=== PATIENT | male | born 1975 | race Caucasian/White ===

== ENCOUNTER 2020-06-22 19:14 | Inpatient (IN) | payer MEDICAID, SELFPAY ==
[2020-06-22] VITALS (12 sets, daily range): BP systolic 126–177; BP diastolic 84–122; PULSE 88–108; RESP 14–26; TEMP 35.9; O2SAT 92–98; BMI 34.0; BMI 31.4; BMI 31.5
--- NOTE | 2020-06-22 19:20 | RAD_ITS ---
STUDY: X-RAY CHEST REASON FOR EXAM: Male, 45 years old. stemi. hx of 5 CO and 22 stents TECHNIQUE: AP portable COMPARISON: None. FINDINGS: The lungs are clear and expanded. There is no demonstrated pleural abnormality. Normal size heart. Normal mediastinum and sarah. Normal visualized pulmonary arteries. Normal visualized aortic arch and descending thoracic aorta. Normal visualized thoracic spine. Normal visualized ribs, clavicles, and shoulders. There is no demonstrated abnormality of the visualized soft tissue structures of the upper abdomen. RAD/Chest 1 View (Portable) IMPRESSION: Normal x-ray examination of the chest. Electronically Signed: Gamal Cao MD at 19:46 EDT , Service support ,
[2020-06-22] MEDS: morphine 8 MG/ML Syringe IV (19:23)
[2020-06-22] MEDS: Ondansetron 4 MG/2 ML Vial IV (19:23)
--- NOTE | 2020-06-22 19:24 | EKG12_ITS ---
Test Reason : STEMI Blood Pressure : / mmHG Vent. Rate : 099 BPM Atrial Rate : 099 BPM P-R Int : 130 ms QRS Dur : 114 ms QT Int : 358 ms P-R-T Axes : 000 250 117 degrees QTc Int : 459 ms Sinus rhythm with occasional Premature ventricular complexes Right superior axis deviation Anteroseptal infarct , possibly acute Lateral injury pattern ACUTE PA / STEMI Abnormal ECG Confirmed by ANAY BOWLES, ROXANA ([id number]), acquisition editor DERREK OWEN ([id number]) on 06/28/2020 9:19:00 AM Referred By: Erlinda Pack Confirmed By:ROXANA CUEVA MD
--- NOTE | 2020-06-22 19:26 | ED.DCSUM_ITS ---
- ER Visit Summary Date of Service: 06/22/20 Chief Complaint: Midsternal chest pain History of Present Illness: The patient is a 45 M stents of past medical history of CAD, MIs x5, cardiac stents x22, hypertension high cholesterol. Patient's last heart cath was September 2019. Most of his cardiac care is been given at [facility] in [facility]. Patient states he had some chest pain last 3 days with more of a dull ache progressively worsening pain in the last 1 to 3 hours. Associated nausea and diaphoresis. Similar to his prior MIs. 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 Physical Examination: Middle-aged male screaming in pain initial blood pressure 177/122. Pulse ox 90% on 2 L. Patient is diaphoretic. H EENT exam unremarkable and dentition. Neck nontender no lymphadenopathy. Lungs clear to auscultation bilaterally. Heart regular rhythm rate of 90 no murmur appreciated. Chest wall nontender. Abdomen soft nontender normal bowel sounds no peritoneal signs. Extremities moves all 4. Equal symmetrical radial pulses. Palpable DP pulses. Calves are nontender without edema or cords. No mottling. Neurologically is awake alert with no focal motor deficits. Test Results: Prehospital EKG shows ST elevation in the anterior lateral leads consistent with anterior lateral MD. ER initial EKG shows sinus rhythm with ST elevation and QRS widening in V1, 2, 3, V4, V5. Artifact in V6. Also ST elevation in aVR and aVL. This is consistent with anterior lateral MD. Portable chest x-ray 1 view read by myself shows no acute process. Chronic changes. Normal aortic knob and mediastinum. Emergency Department Course and Treatment: STEMI protocol initiated prior to the patient even coming the emergency department off of the prehospital history and prehospital EKG. Patient be given baby aspirin here if not already done by squad. Discussed with nurse staff industrial will be given a 5000 bolus of IV heparin. Morphine for pain and Zofran for nausea. After being given morphine. He was also given a half a milligram of Dilaudid his pain is better controlled at this time. They have called the Business Planning Analyst is ready and he is being taken down to the cardiac catheterization lab. Patient was in the emergency department approximately 22 minutes and was taken to the Business Planning Analyst as soon as available. I also spoke with patient's daughter who is in the emergency department and states that she thinks he has been having pain longer than just today. She states is been holding his chest the last several days. But often he does not like to complain or tell her when he is having chest discomfort. Treatment Plan: STEMI has been called. Awaiting Business Planning Analyst to be assembled and patient be sent there. Disposition: Admission to the ICU. Hospitalist is in the emergency department also evaluating the patient. Impression: Acute anterolateral MD History of CAD, 5 MIs, 22 cardiac stents This note was generated with [employer] dictation software. It may contain incorrect words, spelling, and punctuation that were not noted in review of the chart prior to signing ED Disposition - Plan for ED Patient: Referrals: [facility] Doctor,Out of [Primary Care Provider] -
--- NOTE | 2020-06-22 19:26 | ED.RN ---
ASA 324MG PO GIVEN BY EMS. NO BRILLINTA PER DR. MARTINEZ. HEPARIN 5000, PAIN MEDS AND NAUSEA MEDS GIVEN BY ED.
[2020-06-22] MEDS: Heparin 10,000 UNITS/10 ML Vial 5000 UNITS IV (19:30)
[2020-06-22] MEDS: HYDROmorphone 0.5 MG/0.5 ML SYRINGE IV (19:33)
--- NOTE | 2020-06-22 19:40 | CM.ED ---
Social Work Responding to Stemi Alert. Patient daughter, Sofía present. Support provided. Assisted with escorting Sofía to [facility] waiting room. Sofía reports he is not going to make it. Sofía states that this would be patient's 5th heart attach and the doctor said he won't make the next one. Sofía calling patient mother, Shama Smalls and patient brother, Emanuel Mustafa. This socially responsible investment adviser inquiring about patient end of life wishes, Sofía states not sure, he doesn't tell me those things. Emotional support and active listening provided. Will continue to follow as needed. Jaycee MURRY, GILBERT
[2020-06-22 19:50] LABS: Absolute Lymphocyte Count 7.71 X10^3/uL (0.83-4.51); Absolute Neutrophil Count 9.9 X10^3/uL (2.0-7.7); Basophil# 0.12 X10^3/uL; Basophil% 0.6 % (0-1); Eosinophil# 0.35 X10^3/uL; Eosinophils% 1.7 % (0-5); Hematocrit 47.8 % (40-54); Hemoglobin 17.1 g/dL (13.0-16.5); Lymphocyte # 7.71 X10^3/ul (4.0); Lymphocyte % 38.4 % (19-41); Mean Corp Hgb Conc 35.8 g/dL (32-36); Mean Corpuscular Hgb 33.3 pg (27.0-32.0); Mean Platelet Vol. 11.5 fl (6.2-12.0); Monocyte# 1.95 X10^3/uL; Monocyte% 9.7 % (0-10); NRBC Flagged by Analyzer 0 % (0-5); Neutrophil # 9.86 X10^3/uL (2.7-7.7); Neutrophil % 49.1 % (47-70); POSITIVE DIFFERENTIAL YES; POSITIVE MORPHOLOGY YES; Platelet Count 240 K/mm3 (150-450); RBC Distribution Width CV 12.7 % (11.6-14.6); RBC Distribution Width SD 42.6 fl (35.1-43.9); Red Blood Count 5.14 M/mm3 (4.6-6.2); White Blood Count 20.1 K/mm3 (4.4-11.0)
[2020-06-22 19:57] LABS: Differential Indicated SCAN CRITERIA MET
[2020-06-22 20:10] LABS: Anion Gap 12 (5-15); BUN 15 mg/dL (7-18); BUN/Creat Ratio 8.4 RATIO (10-20); Calcium,Total 9.9 mg/dL (8.5-10.1); Chloride 109 mmol/L (98-107); Creatinine, Serum 1.78 mg/dL (0.70-1.30); EST Glomerular Filtration Rate 44 mL/min (>60); Est Glom Filt Rate - Afr Amer 53 mL/min (>60); Estimated Creatinine Clearance 57.52 ml/min; Glucose 153 mg/dL (74-106); Potassium 3.5 mmol/L (3.5-5.1); Sodium Level 142 mmol/L (136-145)
[2020-06-22 20:12] LABS: International Normalized Ratio 0.9; Prothrombin Time (Protime)PT. 12.1 SECONDS (11.7-14.9)
[2020-06-22 20:31] LABS: Partial Thromboplast Time 23.2 Seconds (24.1-36.2)
[2020-06-22 20:40] LABS: Atypical Lymphocyte 1+ %; Platelet Estimate ADEQUATE (ADEQ); Red Cell Morphology NORM C+C NORMAL (NORM C&C)
--- NOTE | 2020-06-22 21:39 | HP.PCM_ITS ---
Problem List (1) STEMI (ST elevation myocardial infarction) Status: Acute (2) Systolic heart failure Status: Acute History of Present Illness Date of Admission: 06/22/20 Chief Complaint: chest pain The patient is a 45 year old M with a significant history of MT x3 status post 21 stents who presents to the emergency department with excruciating left-sided and substernal chest pain that started few hours before presentation. His symptoms started after mowing. His chest pain radiated to his entire body. He denies any aggravating or ameliorating factors. He took 2 tablets of sublingual nitroglycerin that did not help him. He describes his chest pain as someone standing on his chest. Also on the day before presentation he had excruciating chest pain that radiated to his bilateral arms and his bilateral legs. He described numbness of all his extremities. At the emergency department STEMI alert was called. Past Medical History Allergies adhesive tape Adverse Reaction (Verified 06/22/20 19:18) Rash Home Medications: Ambulatory Orders Medication Instructions Recorded Aspirin [Aspirin, Baby] 81 mg PO DAILY@0800 06/22/20 Atorvastatin Calcium [Lipitor] 40 mg PO QHS 06/22/20 Cholecalciferol (Vitamin D3) 2,000 unit PO DAILY 06/22/20 [Vitamin D3] Clopidogrel Bisulfate [Plavix] 75 mg PO DAILY 06/22/20 Metoprolol Tartrate [Lopressor 25 mg PO DAILY 06/22/20 (Beta Nancy)] Surgical History: - - Multiple teeth pulled out. Tubes in his ears. Smoking Status: Current every day smoker Tobacco Use: Cigarettes - *Family History Maternal History Items: Diabetes, Hypertension Paternal History Items: Heart Disease, Pulmonary Disease Review of Systems Constitutional: Denies: Chills, Fever, Weight Change HEENT: Denies: Head Aches, Sinus Congestion, Sinus Drainage Cardiovascular: Reports: Chest Pain. Denies: Palpitations Respiratory: Reports: Shortness of Breath. Denies: Cough, Sputum production Gastrointestinal: Reports: Nausea, Vomiting. Denies: Abdominal Pain Genitourinary: Denies: Dysuria Musculoskeletal: Denies: Joint Pain, Joint Tenderness Skin: Denies: Rash, Wounds Neurological: Reports: Numbness. Denies: Focal weakness, Tingling Psychiatric: Denies: Anxiety, Depression, Homicidal Ideations, Suicidal Ideations Hematologic/ Lymphatic: Denies: Easy Bruising, Easy Bleeding VTE Information - Inpt Only VTE Present on Admission: No VTE Mechan Device Prophylaxis: None VTE Pharm Prophylaxis ordered?: Yes Patient Problems: Active and Suspected Problems STEMI (ST elevation myocardial infarction) (Acute) Systolic heart failure (Acute) - Physical Exam Vitals/I&O's: Vital Signs Temp Pulse Resp BP Pulse Ox 96.7 F L 103 H 24 H 128/84 H 97 06/22/20 19:34 06/22/20 19:34 06/22/20 19:34 06/22/20 19:34 06/22/20 19:34 Oxygen Flow Rate (L/min) 2 Oxygen Delivery Method Nasal Cannula Weight: 113.9 kg Body Mass Index (BMI) 34.0 General: Alert, Oriented x3, Cooperative, - - History was taken after [facility] [employer] [facility]. After [employer] [facility] patient only complains of soreness to his chest. At the initial presentation at the emergency department patient was noted to be screaming secondary to chest pain. HEENT: Atraumatic, PERRLA, EOMI, Normocephalic Neck: Supple, No JVD, Negative Carotid Bruits Lungs: Clear to auscultation, Normal air movement Cardiovascular: Regular rate, Regular Rhythm, Normal S1, Normal S2, No murmurs Abdomen: Bowel Sounds Present, Soft, Non Tender Extremities: No edema, Capillary Refill Less than 3 Seconds Skin: No rashes, No breakdown Musculoskeletal: No Tenderness to Palpation of Joints or Extremities Neurological: Cranial nerves II-XII grossly intact Psych/Mental Status: Normal Affect, Appropriate Laboratory Results 06/22/20 19:28: WBC 20.1 H, RBC 5.14, Hgb 17.1 H, Hct 47.8, MCV 93.0, MCH 33.3 H , MCHC 35.8, RDW Std Deviation 42.6, RDW Coeff of Jenna 12.7, Plt Count 240, MPV 11.5, Immature Gran % (Auto) 0.500, Neut % (Auto) 49.1, Lymph % (Auto) 38.4, Crosby % (Auto) 9.7, Eos % (Auto) 1.7, Baso % (Auto) 0.6, Absolute Neuts (auto) 9.9 H, Absolute Lymphs (auto) 7.71 H, Nucleated RBC % 0, Differential Comment , Diff Path Review May foll, Atypical Lymphocytes 1+, Platelet Estimate ADEQUATE, RBC Morphology NORM C+C 06/22/20 19:28: PT 12.1, INR 0.9, APTT 23.2 L 06/22/20 19:28: Sodium 142, Potassium 3.5, Chloride 109 H, Carbon Dioxide 21.0, Anion Gap 12, BUN 15, Creatinine 1.78 H, Estim Creat Clear Calc 57.52, Est GFR (MDRD) Af Amer 53 L, Est GFR (MDRD) Non-Af 44 L, BUN/Creatinine Ratio 8.4 L, Glucose 153 H, Calcium 9.9, Troponin I < 0.015 Current Medications Aspirin (Aspirin, Baby) 81 mg PO DAILY@0800 EMILY Atorvastatin Calcium (Lipitor) 40 mg PO QHS [facility] Heparin Sodium (Porcine) (Heparin Na) 0 unit IV UD PRN; Protocol PRN Reason: DOSAGE ADJUSTMENT NOMOGRAM Heparin Sodium/Dextrose () 25,000 units in 250 mls @ 16 mls/hr IV .[id number] EMILY; Protocol Last Admin: 06/22/20 19:37 Dose: Not Given Documented by: Non-Formulary Medication (Cholecalciferol (Vitamin D3) [Vitamin D3]) 2,000 unit PO DAILY [facility] Assessment/Plan All Active Problems STEMI (ST elevation myocardial infarction) (Acute) Systolic heart failure (Acute) The patient is a 45 year old M with a significant history of MT x3 status post 21 stents who presents emergency department with excruciating left-sided and substernal chest pain and found to have ST elevation MT. STEMI EKG was independently reviewed: Interpretation is ST elevation from V1 to V5. Status post cardiac catheterization with stents placement and thrombectomy Discussed the case with cardiology who stated that 2 stents was placed in patient's LAD and patient had a thrombectomy. His EF was about 20 to 25%. Cardiology will switch patient from Plavix to Effient. Continue aspirin daily. On Lipitor 40 mg daily. Discussion was made on escalating Lipitor 40 mg daily to 80 mg daily. However patient reports intolerance with 80 mg daily of statin. Reportedly Repatha was considered outpatient but his insurance did not allow. Check fasting lipids in a.m. Cardiology to switch Plavix to Effient. Aspirin daily Systolic heart failure Per conversation with melter helper, left ventriculogram EF was between 20 to 25%. Reportedly patient received about 300MLS of dye at the [facility] [employer] [facility]. Cardiology recommended Lasix 40 mg as needed can be ordered if patient is short of breath. Cardiology to start patient on lisinopril 2.5 mg p.o. daily. Metoprolol tartrate to be changed to metoprolol succinate. ROZ Creatinine was 1.7. Baseline creatinine not on file.. Likely secondary to systolic heart failure. We will hold off IV fluids and Lasix at this time especially as patient received dye at the [employer] [facility] [employer] [facility]. We will trend BMP. DVT prophylaxis Lovenox. Inpatient E&M: 97145 Init Hosp L3
--- NOTE | 2020-06-22 21:44 | CON.PCM_ITS ---
Problem List (1) STEMI (ST elevation myocardial infarction) Status: Acute Reason for Consult Date of Consultation: 06/22/20 Reason for Consultation: STEMI History of Present Illness: The patient is a 45 year old M [with past medical history of coronary artery disease status post UT and multiple stents in the past coming to [facility] because of chest pain. Patient had been having chest pain on and off for 3 days. This evening it became particularly intense and he called the ambulance. Patient was found to have ST elevation UT on the EKG done outside the hospital and it was transmitted to the emergency room. STEMI alert was called and patient was brought emergently to the cardiac Store Administrator. He was having 10 x 10 chest pain upon arrival to the cardiac Store Administrator. He was evaluated prior to coronary angiography. He then underwent coronary angiography which revealed 100% occlusion of the LAD due to in-stent thrombosis. This was treated with thrombectomy and drug-eluting stent placement. Patient is chest pain-free at the end of the procedure. He is being admitted to the ICU for further management of his ST elevation UT. Review of systems: All systems reviewed. All else is negative except that in HPI] Past Medical History Allergies/Adverse Reactions: Allergies adhesive tape Adverse Reaction (Verified 06/22/20 19:18) Rash Home Medications: Ambulatory Orders Medication Instructions Recorded Aspirin [Aspirin, Baby] 81 mg PO DAILY@0800 06/22/20 Atorvastatin Calcium [Lipitor] 40 mg PO QHS 06/22/20 Cholecalciferol (Vitamin D3) 2,000 unit PO DAILY 06/22/20 [Vitamin D3] Clopidogrel Bisulfate [Plavix] 75 mg PO DAILY 06/22/20 Metoprolol Tartrate [Lopressor 25 mg PO DAILY 06/22/20 (Beta Nancy)] Smoking Status: Current every day smoker Objective: Vital Signs Temp Pulse Resp BP Pulse Ox 96.7 F L 103 H 24 H 128/84 H 97 06/22/20 19:34 06/22/20 19:34 06/22/20 19:34 06/22/20 19:34 06/22/20 19:34 Oxygen Flow Rate (L/min) 2 Oxygen Delivery Method Nasal Cannula Weight: 251 lb 1.704 oz Body Mass Index (BMI) 34.0 General: Awake, Alert HEENT: Atraumatic Oral: Moist Mucosa Neck: Supple Cardiovascular: Normal S1, Normal S2 Abdomen: Soft Skin: No Rashes Psych/Mental Status: Appropriate 06/22/20 19:28: WBC 20.1 H, RBC 5.14, Hgb 17.1 H, Hct 47.8, MCV 93.0, MCH 33.3 H , MCHC 35.8, Plt Count 240, MPV 11.5, Immature Gran % (Auto) 0.500, Neut % (A uto) 49.1, Lymph % (Auto) 38.4, [place] % (Auto) 9.7, Eos % (Auto) 1.7, Baso % (Auto) 0.6, Absolute Neuts (auto) 9.9 H, Nucleated RBC % 0 06/22/20 19:28: PT 12.1, INR 0.9, APTT 23.2 L 06/22/20 19:28: Sodium 142, Potassium 3.5, Chloride 109 H, Carbon Dioxide 21.0, Anion Gap 12, BUN 15, Creatinine 1.78 H, Est GFR (MDRD) Af Amer 53 L, Est GFR (MDRD) Non-Af 44 L, BUN/Creatinine Ratio 8.4 L, Glucose 153 H, Calcium 9.9, Troponin I < 0.015 Rhythm: EKG: ECHO: Stress Test: Cardiac Cath: PCI: CT Surgery: Holter monitor: EPS: PPM: CXR: Chest CT Scan: Assessment/Plan 1. ST elevation UT: Patient was treated with thrombectomy and drug-eluting stent placement to the LAD. We will keep the patient on aspirin and statin. We will change his beta-nancy to Toprol-XL and add lisinopril. We will also switch from Plavix to Effient. Patient says he was on Brilinta in the past and had some kind of side effect. He is not sure what he had but thinks it could be fatigue. 2. LV dysfunction: Patient has severe LV dysfunction. We will keep him on Toprol-XL and lisinopril. He may need Lasix if he develops shortness of breath. 3. Tobacco abuse: Smoking cessation strongly emphasized. Patient states that he was on Chantix in the past and it worked as far as smoking cessation was concerned but he started having homicidal ideation and it had to be stopped. He tried Wellbutrin but it was not effective.
--- NOTE | 2020-06-22 21:45 | EKG12_ITS ---
Test Reason : AM EKG Blood Pressure : / mmHG Vent. Rate : 092 BPM Atrial Rate : 092 BPM P-R Int : 140 ms QRS Dur : 114 ms QT Int : 438 ms P-R-T Axes : 059 205 095 degrees QTc Int : 541 ms Sinus rhythm Anteroseptal infarct T wave abnormality, consider lateral ischemia Prolonged QT Confirmed by NEETU BOWLES, THOMAS ([id number]), associate entertainment editor DERREK OWEN ([id number]) on 06/29/2020 10:53:18 AM Referred By: Erlinda Pack Confirmed By:THOMAS DE ANDA MD
[2020-06-22 22:47] LABS: Hematocrit 49.6 % (40-54); Hemoglobin 16.9 g/dL (13.0-16.5); Mean Corp Hgb Conc 34.1 g/dL (32-36); Mean Corpuscular Hgb 32.3 pg (27.0-32.0); Mean Corpuscular Volume 94.7 fL (80-94); Mean Platelet Vol. 11.1 fl (6.2-12.0); Platelet Count 209 K/mm3 (150-450); RBC Distribution Width CV 12.6 % (11.6-14.6); RBC Distribution Width SD 43.6 fl (35.1-43.9); Red Blood Count 5.24 M/mm3 (4.6-6.2); White Blood Count 24.5 K/mm3 (4.4-11.0)
[2020-06-22] MEDS: Atorvastatin Calcium 40 MG Tablet PO (23:04)
[2020-06-23] VITALS (35 sets, daily range): BP systolic 97–145; BP diastolic 63–105; PULSE 80–110; RESP 10–29; TEMP 36.7–37.2; O2SAT 90–97
[2020-06-23] MEDS: Acetaminophen 500 MG Tablet 1000 MG PO (00:37)
[2020-06-23 04:33] LABS: Hemoglobin 15.6 g/dL (13.0-16.5); Mean Corp Hgb Conc 34.7 g/dL (32-36); Mean Corpuscular Hgb 32.4 pg (27.0-32.0); Mean Corpuscular Volume 93.4 fL (80-94); Mean Platelet Vol. 11.1 fl (6.2-12.0); Platelet Count 204 K/mm3 (150-450); RBC Distribution Width CV 12.8 % (11.6-14.6); RBC Distribution Width SD 43.5 fl (35.1-43.9); Red Blood Count 4.82 M/mm3 (4.6-6.2); White Blood Count 22.1 K/mm3 (4.4-11.0)
[2020-06-23] MEDS: Enoxaparin 40 MG/0.4 ML Syringe SC (04:49)
[2020-06-23 04:56] LABS: AST(SGOT) 332 U/L (15-37); Alanine Aminotransfer ALT/SGPT 69 U/L (16-61); Albumin, Serum 3.4 g/dL (3.2-5.0); Alkaline Phosphatase 90 U/L (45-117); Anion Gap 7 (5-15); BUN 12 mg/dL (7-18); BUN/Creat Ratio 9.2 RATIO (10-20); Calcium,Total 8.3 mg/dL (8.5-10.1); Chloride 105 mmol/L (98-107); Cholesterol 234 mg/dL (200); Creatinine, Serum 1.31 mg/dL (0.70-1.30); EST Glomerular Filtration Rate 63 mL/min (>60); Est Glom Filt Rate - Afr Amer 76 mL/min (>60); Estimated Creatinine Clearance 78.16 ml/min; Globulin 3.5 g/dL (2.2-4.2); Glucose 129 mg/dL (74-106); High Density Lipoprotein 27 mg/dL; Potassium 3.9 mmol/L (3.5-5.1); Protein, Total 6.9 g/dL (6.4-8.2); Sodium Level 137 mmol/L (136-145); Triglycerides 252 mg/dL; Very Low Density Lipoprotein 50 mg/dL (5-40)
[2020-06-23] MEDS: oxyCODONE 5 MG Tablet PO ×2 (07:03→15:41)
--- NOTE | 2020-06-23 08:41 | PCM.PROGNOTE ---
Patient Problems: Active and Suspected Problems STEMI (ST elevation myocardial infarction) (Acute) Systolic heart failure (Acute) Subjective: Chief complaint: Follow-up after admission for acute ST elevation MS and mild acute systolic CHF. Patient seen and examined. No acute events overnight. He is still complaining of chest pain, retrosternal chest pain, localized. He denies significant shortness of breath. EKG was done this morning and ST elevation on V2, V3, V4, V5 and V6 resolved, no other acute ischemic changes. He is afebrile, heart rate has been in the 80s, blood pressure stable, pulse ox is 91% on room air, he was on 4 L of oxygen. - Physical Exam Vitals/I&O's: Vital Signs Temp Pulse Resp BP Pulse Ox 98.6 F 96 22 H 126/91 H 91 06/23/20 04:00 06/23/20 06:00 06/23/20 06:00 06/23/20 06:00 06/23/20 07:30 Oxygen Flow Rate (L/min) 4 Oxygen Delivery Method Nasal Cannula Weight: 231 lb 14.821 oz Body Mass Index (BMI) 31.4 Intake and Output for Last 24 Hours 06/21/20 06/22/20 06/23/20 23:59 23:59 23:59 Intake Total 240 / 360 1090.7 / 1090.7 Output Total 925 / 925 Balance 240 / 360 165.7 / 165.7 General: Alert, Oriented x3, Cooperative, - - He is in moderate pain. HEENT: Atraumatic, PERRLA, EOMI, Normocephalic Oral: Moist Mucosa, No Gingival or Mucosal Lesions/ Ulcerations Neck: Supple, No JVD, Negative Carotid Bruits, Trachea Midline, Thyroid Normal Size and Texture Lungs: Clear to auscultation, No rhonchi, No wheeze, No rales, Diminished Cardiovascular: Regular rate, Regular Rhythm, Normal S1, Normal S2, PMI Normal Abdomen: Bowel Sounds Present, Soft, Non Tender, Non-Distended, No Hepato-splenomegaly Extremities: No clubbing, No cyanosis, No edema Skin: No rashes, No breakdown Lymphatic: No Cervical, Supraclavicular, or Inguinal Adenopathy Neurological: Cranial nerves II-XII grossly intact, Neuro grossly intact Psych/Mental Status: Normal Affect, Appropriate, Alert and oriented to time, place, person, mood and affect Laboratory Results 06/22/20 19:28: WBC 20.1 H, RBC 5.14, Hgb 17.1 H, Hct 47.8, MCV 93.0, MCH 33.3 H, MCHC 35.8, RDW Std Deviation 42.6, RDW Coeff of Jenna 12.7, Plt Count 240, MPV 11.5, Immature Gran % (Auto) 0.500, Neut % (Auto) 49.1, Lymph % (Auto) 38.4, [place] % (Auto) 9.7, Eos % (Auto) 1.7, Baso % (Auto) 0.6, Absolute Neuts (auto) 9.9 H, Absolute Lymphs (auto) 7.71 H, Nucleated RBC % 0, Differential Comment , Diff Path Review May foll, Atypical Lymphocytes 1+, Platelet Estimate ADEQUATE, RBC Morphology NORM C+C 06/22/20 19:28: PT 12.1, INR 0.9, APTT 23.2 L 06/22/20 19:28: Sodium 142, Potassium 3.5, Chloride 109 H, Carbon Dioxide 21.0, Anion Gap 12, BUN 15, Creatinine 1.78 H, Estim Creat Clear Calc 57.52, Est GFR (MDRD) Af Amer 53 L, Est GFR (MDRD) Non-Af 44 L, BUN/Creatinine Ratio 8.4 L, Glucose 153 H, Calcium 9.9, Troponin I < 0.015 06/22/20 22:40: WBC 24.5 H, RBC 5.24, Hgb 16.9 H, Hct 49.6, MCV 94.7 H, MCH 32.3 H, MCHC 34.1, RDW Std Deviation 43.6, RDW Coeff of Jenna 12.6, Plt Count 209, MPV 11.1 06/23/20 04:20: WBC 22.1 H, RBC 4.82, Hgb 15.6, Hct 45.0, MCV 93.4, MCH 32.4 H, MCHC 34.7, RDW Std Deviation 43.5, RDW Coeff of Jenna 12.8, Plt Count 204, MPV 11.1 06/23/20 04:20: Sodium 137, Potassium 3.9, Chloride 105, Carbon Dioxide 25.0, Anion Gap 7, BUN 12, Creatinine 1.31 H, Estim Creat Clear Calc 78.16, Est GFR (MDRD) Af Amer 76, Est GFR (MDRD) Non-Af 63, BUN/Creatinine Ratio 9.2 L, Glucose 129 H, Calcium 8.3 L, Total Bilirubin 0.70, AST 332 H, ALT 69 H, Alkaline Phosphatase 90, Total Protein 6.9, Albumin 3.4, Globulin 3.5, Albumin/Globulin Ratio 1.0, Triglycerides 252 H, Cholesterol 234 H, LDL Cholesterol 157 H, VLDL Cholesterol 50 H, HDL Cholesterol 27 L Current Medications Acetaminophen (Tylenol) 1,000 mg PO Q8H PRN PRN PRN Reason: pain 1-10 Last Admin: 06/23/20 00:37 Dose: 1,000 mg Documented by: Aspirin (Aspirin, Baby) 81 mg PO DAILY@0800 [facility] Atorvastatin Calcium (Lipitor) 40 mg PO QHS [facility] Last Admin: 06/22/20 23:04 Dose: 40 mg Documented by: Atropine Sulfate () 0.5 mg IV UD PRN PRN Reason: HR <50 bpm Cholecalciferol (Vitamin D (25mcg)) 2,000 unit PO DAILY [facility] Enoxaparin Sodium (Lovenox) 40 mg SC DAILY@0600 [facility] Last Admin: 06/23/20 04:49 Dose: 40 mg Documented by: Furosemide (Lasix) 40 mg IV X1 ONE Stop: 06/23/20 08:41 Eptifibatide (Integrilin) 75 mg in 100 mls @ 18.224 mls/hr CONT INF .Q5H30M [facility] Stop: 06/23/20 16:00 Last Admin: 06/23/20 05:40 Dose: 2 mcg/kg/min, 18.2 mls/hr Documented by: Labetalol HCl (Trandate) 5 mg IV X1 PRN PRN Reason: SBP > 160 when pulling sheath Stop: 06/24/20 21:36 Lisinopril (Zestril) 2.5 mg PO DAILY [facility] Metoprolol Succinate (Toprol Xl (Beta Nancy)) 25 mg PO DAILY [facility] Morphine Sulfate () 2 mg IV X1 ONE Stop: 06/23/20 08:41 Oxycodone HCl (Oxyir) 5 mg PO Q6H PRN PRN PRN Reason: Pain Score 4-10/10 Last Admin: 06/23/20 07:03 Dose: 5 mg Documented by: Prasugrel (Effient) 10 mg PO DAILY EMILY Sodium Chloride () 500 ml IV BOLUS PRN PRN Reason: VASO-VAGAL PROTOCOL Sodium Chloride () 10 - 40 ml IV UD PRN PRN Reason: SALINE FLUSH Medical Necessity - Tobacco Use Smoking Status: Current every day smoker Tobacco Use: Cigarettes Assessment/Plan All Active Problems STEMI (ST elevation myocardial infarction) (Acute) Systolic heart failure (Acute) This is a 45 years old male patient presented to the emergency room because of chest pain, found to have acute ST elevation MS, underwent emergent cardiac catheterization status post stents to LAD and thrombectomy and he also found to have mild acute systolic CHF. #[address] elevation MS: Status post cardiac catheterization, status post stents x2 to LAD, thrombectomy. He is on aspirin, statins, Effient, lisinopril, metoprolol IV Integrilin drip. He is still symptomatic having chest pain which seemed to be musculoskeletal. Repeat EKG this morning revealed resolution of the ST elevation on leads V2 to V6, no new acute ischemic changes. Vital signs are stable. He does have leukocytosis which is likely reactive. He has been afebrile. Chest x-ray showed no acute infiltrate. Cardiology on the case. Plan: We will give 1 dose of IV morphine x1, continue other treatments. #2 acute mild systolic CHF: Reportedly, ejection fraction was around 20 to 25%. Patient required oxygen of up to 4 L but at this time, is off oxygen and pulse ox is 91%. Chest x-ray reviewed. He is already on aspirin, statins, lisinopril and metoprolol. Plan: We will give 1 dose of IV Lasix. #3 CAD status post stents: Plan as above, continue treatment as above. #4 renal insufficiency: Unknown baseline creatinine. Admission creatinine is 1.78, improved down to 1.31 today. Plan to monitor. #5 hyperlipidemia: Continue statins. #6 DVT prophylaxis: Subcu Lovenox. This note was generated with [employer] software. It may contain incorrect words, spelling, and punctuation that were not noted in checking the note before signing. Inpatient E&M: 76646 Subs Hosp L2
--- NOTE | 2020-06-23 10:00 | EKG12_ITS ---
Test Reason : POST CATH Blood Pressure : / mmHG Vent. Rate : 095 BPM Atrial Rate : 095 BPM P-R Int : 152 ms QRS Dur : 146 ms QT Int : 384 ms P-R-T Axes : 063 263 047 degrees QTc Int : 482 ms Normal sinus rhythm with sinus arrhythmia Right bundle branch block Anteroseptal infarct , age undetermined Abnormal ECG When compared with ECG of 22-JUN-2020 19:28, MANUAL COMPARISON REQUIRED, DATA IS UNCONFIRMED Confirmed by NEETU BOWLES, THOMAS ([id number]), film or videotape editor DERREK OWEN ([id number]) on 06/29/2020 10:54:15 AM Referred By: Erlinda Pack Confirmed By:THOMAS DE ANDA MD
--- NOTE | 2020-06-23 10:23 | CRPHASE1_ITS ---
Patient Communication Former Patient:: Phase I PHII Cardiac Rehab Discussed with Patient:: Yes Guide to Cardiac Rehab Given to Patient:: Yes Cardiac Rehab Facility Choice List Given to Patient:: Yes Choice Program [facility] PHII:: Communication Given to CR Investment Counselor:: Erlinda Pack Phase II Cardiac Rehab:: Yes Sessions:: 36 sessions - 3 days/wk, 12 weeks Risk Factors/Lifestyle Smoking Status: Current every day smoker Second-Hand Smoke:: Yes Hx Hypertension: Yes Hx Diabetes Mellitus Type 1: No Hx Diabetes Mellitus Type 2: No Hx Metabolic Disorders: No Hx Dyslipidemia: Yes Hx Obesity: Yes Post-Menopausal: No Stress: Long-standing Risk Factor for Sedentary Lifestyle: Highest Risk Laboratory Values: Cardiac Rehab Phase I Labs Triglycerides 252 mg/dL (-199) H 06/23/20 04:20 Cholesterol 234 mg/dL (200) H 06/23/20 04:20 LDL Cholesterol 157 mg/dL (0-130) H 06/23/20 04:20 HDL Cholesterol 27 mg/dL (40-) L 06/23/20 04:20 Cardiac Rehabilitation Info Cardiac Rehabilitation Program Information: Cardiac Rehabilitation is important for patients like you who are recovering from a heart problem. Cardiac rehabilitation programs are recognized as integral to the continued care of the patient with coronary heart disease. The cardiac rehabilitation program is designed to optimize a patient's physical, psychological, and social functioning. Health personal care attendant work in cardiac rehabilitation programs and assist you with getting the treatments you need to get stronger and healthier - like exercise, healthy eating habits, and medications. Cardiac rehabilitation has been show to help people with heart problems live longer and have better life enjoyment than people who do not go to cardiac rehabilitation. Please contact the Cardiac Rehabilitation Program at [facility] at in two weeks if you have not heard from them.
[2020-06-23] MEDS: 0.9% Saline Lock 10 ML Syringe IV ×2 (10:24→21:52)
[2020-06-23] MEDS: Morphine 2 MG/ML Syringe IV (10:25)
[2020-06-23] MEDS: Furosemide 40 MG/4 ML Vial IV (10:25)
--- NOTE | 2020-06-23 10:25 | CRPH1.INST_ITS ---
General Education CAD and cardiac anatomy and function:: Patient communicates acknowledgment Explanation of diagnoses and procedures:: Patient communicates acknowledgment Sign/Symptoms of TN:: Patient communicates acknowledgment Antiplatelet therapy: Patient communicates acknowledgment Proper use of NTG-SL: Patient communicates acknowledgment Emergency procedures and activation of EMS: Patient communicates acknowledgment Compliance of all prescribed medications: Patient communicates acknowledgment Smoking Patient Nicotine/Smoking Risk Factors Are:: Cigarettes Recommendations Include:: Smoking cessation strategies/Smoking packet, Second- hand smoke recommendation, Participation in a smoking cessation program, Previous smoker; encourage continued cessation Nicotine/Smoking Response Code:: Patient communicates acknowledgment Dyslipidemia Patient Dyslipidemia Risk Factors Are:: Total Cholesterol, Triglycerides, HDL, LDL Recommendations Include:: Lipid profile provided, Reviewed NCEP/ATP guidelines, Therapeutic Lifestyle Change dietary guidelines Dyslipidemia Response Code:: Patient communicates acknowledgment Overweight/Obesity Patient Overweight/Obesity Risk Factors Are:: BMI Normal [18-25 & < 65 years old] Recommendations Include:: Weight loss of 5-10%, Reduced calorie diet, Exercise 5-7 times/week Overweight/Obesity:: Patient communicates acknowledgment Hypertension Recommendations Include:: BP <130/80 if diabetic, DASH dietary guidelines, Decrease/maintain normal body weight, Moderation of ETOH Hypertension:: Patient communicates acknowledgment Heart Disease Patient Heart Disease Risk Factors Are:: Previous cardiac event Recommendations Include:: Educated family members of their risk, Educated family members of importance of prevention of heart disease Heart Disease Response Code:: Patient communicates acknowledgment Sedentary Patient Sedentary Risk Factors Are:: Lack of regular exercise Recommendations Include:: Aerobic exercise 5-7 times/week for 20-30 minutes continuously, Benefits of regular exercise, Discussed home walking program, Monitored Outpatient Cardiac Rehab Stress Patient Stress Risk Factors Are:: Patient denies stress as a risk factor Recommendations Include:: Identification of stressors, and assessment of coping skills, Stress management techniques Stress Response Code:: Patient communicates acknowledgment
[2020-06-23] MEDS: Aspirin 81 MG TAB.CHEW PO (10:33)
[2020-06-23] MEDS: Lisinopril 2.5 MG Tablet PO (10:34)
[2020-06-23] MEDS: Metoprolol(XL)Succ 25 MG Tablet PO (10:34)
--- NOTE | 2020-06-23 10:55 | CASEMGMT ---
RN CM Face to Face with patient for initial transition planning/care coordination assessment. RN CM introduced self and role at [facility]. Patient lying in bed, alert and oriented. Patient willing to participate in assessment and is able to answer all questions appropriately. Care providers, pharmacy, and demographics verified. Patient wishes to discharge home, denies need for home health at this time. Patient states he has no further needs or concerns at this time. CM to follow for discharge planning needs that may arise. PCP: none, PCP list provided, SW consulted for information regarding [facility] Specialists: Juan Carlos freelance interpreter/translator [facility] [phone] Preferred Pharmacy: [facility] Insurance: self pay, SW to see regarding medicaid katja Prescription Benefit: none Living Will/HPOA: yes, daughter Sofía Mustafa LNOK: daughter Living Arrangements: Patient lives with daughter in single story home with no steps to enter. Patient states he is independent. Patient states he smoke 1 PPD. Transportation: self, daughter DME/HHC: Patient denies previous HHC or DME Disposition Plan: Patient to discharge home with family support and follow-up plans in place. Adriana COWANN, RN, CM
--- NOTE | 2020-06-23 11:27 | CASEMGMT ---
SW attempted to meet with patient regarding his self pay status. However, he was resting and about to fall asleep. SW offered to come back another time and he said that would be great. STEPH let RN know SW will talk with patient another time regarding self pay status. Adenike UHNT GLASSWARE MAKER
--- NOTE | 2020-06-23 17:09 | ECHOD_ITS ---
Version 2 Reason For Study: S/P OR Procedure This was a 2D Doppler, Color Flow transthoracic echocardiogram. Exam performed portable in ICU/CCU. Left Ventricle Mildly dilated left ventricle. The estimated ejection fraction is 30 %. Stage 1 diastolic dysfunction. Hypokinesis of the anterior wall, apex and lateral wall. Right Ventricle Normal RV size. Normal systolic function. Atria Normal left atrium. Normal right atrium. No doppler evidence for ASD. Mitral Valve There is no mitral valve stenosis. Trivial mitral valve insufficiency. Tricuspid Valve There is no tricuspid stenosis. No tricuspid valve insufficiency. Unable to estimate RV systolic pressure due to inadequate jet, pulmonary artery pressure probably normal. Aortic Valve Trisinus/trileaflet aortic valve. Aortic sclerosis, no stenosis. There is no aortic stenosis. No aortic valve insufficiency. Pulmonic Valve There is no pulmonic valvular stenosis. No pulmonic valve insufficiency. Great Vessels Normal aortic root. Pericardium/Pleural No pericardial effusion. MMode/2D Measurements & Calculations LVIDd: 5.7 cm IVSd: 1.4 cm Ao root diam: 2.9 cm LVIDs: 4.7 cm LVPWd: 1.3 cm RVDd: 3.4 cm FS: 18.6 % LAV(MOD-bp): 45.4 ml LA A4 area: 16.0 cm2 LA dimension(2D): 4.7 cm LAV(MOD-bp) Indexed: 20.2 ml/m2 LAV(MOD-sp2): 46.5 ml LAV(MOD-sp4): 43.0 ml RA A4 area: 14.1 cm2 Time Measurements MV dec time: 0.16 sec Doppler Measurements & Calculations MV E max donn: 58.4 cm/sec Lat Peak E' Donn: 5.7 cm/sec Med Peak E' Donn: 4.8 cm/sec MV A max donn: 62.9 cm/sec E/E' lat: 10.3 E/E' med: 12.1 MV E/A: 0.93 Ao V2 max: 113.9 cm/sec LV V1 max: 95.2 cm/sec PA V2 max: 90.7 cm/sec Ao max P.2 mmHg LV V1 max P.6 mmHg Ao V2 mean: 84.8 cm/sec LV V1 mean P.0 mmHg Ao mean P.1 mmHg LV V1 mean: 68.1 cm/sec Ao V2 VTI: 18.7 cm LV V1 VTI: 14.4 cm Interpretation Summary The estimated ejection fraction is 30 %. Stage 1 diastolic dysfunction. Hypokinesis of the anterior wall, apex and lateral wall Trivial mitral valve insufficiency. Aortic sclerosis, no stenosis. Ordering Physician: Erlinda Pack Referring Physician: TRISH PCP Performed By: Yolie Larry, SUNSHINE, RVT
[2020-06-23] MEDS: Atorvastatin Calcium 40 MG Tablet PO (21:51)
[2020-06-24] VITALS (25 sets, daily range): BP systolic 101–136; BP diastolic 47–91; PULSE 81–123; RESP 12–29; TEMP 37–38.3; O2SAT 90–96
[2020-06-24] MEDS: 0.9% Saline Lock 10 ML Syringe IV ×3 (00:28→20:02)
[2020-06-24 04:24] LABS: Hematocrit 47.2 % (40-54); Hemoglobin 16.8 g/dL (13.0-16.5); Mean Corp Hgb Conc 35.6 g/dL (32-36); Mean Corpuscular Volume 92.7 fL (80-94); Mean Platelet Vol. 11.3 fl (6.2-12.0); Platelet Count 191 K/mm3 (150-450); RBC Distribution Width CV 12.6 % (11.6-14.6); RBC Distribution Width SD 42.8 fl (35.1-43.9); Red Blood Count 5.09 M/mm3 (4.6-6.2); White Blood Count 17.5 K/mm3 (4.4-11.0)
[2020-06-24 04:34] LABS: Anion Gap 8 (5-15); BUN 12 mg/dL (7-18); BUN/Creat Ratio 9.6 RATIO (10-20); Calcium,Total 8.6 mg/dL (8.5-10.1); Chloride 101 mmol/L (98-107); Creatinine, Serum 1.25 mg/dL (0.70-1.30); EST Glomerular Filtration Rate 66 mL/min (>60); Est Glom Filt Rate - Afr Amer 80 mL/min (>60); Estimated Creatinine Clearance 81.91 ml/min; Glucose 106 mg/dL (74-106); Potassium 3.6 mmol/L (3.5-5.1); Sodium Level 135 mmol/L (136-145)
[2020-06-24] MEDS: Enoxaparin 40 MG/0.4 ML Syringe SC (05:52)
--- NOTE | 2020-06-24 09:38 | PN_ITS ---
Patient Problems: Active and Suspected Problems STEMI (ST elevation myocardial infarction) (Acute) Systolic heart failure (Acute) Subjective: Chief complaint: Follow-up after admission for acute ST elevation OH and mild acute systolic CHF. Patient seen and examined. No acute events overnight. Chest pain significantly improved, still having mild pain intermittently. No significant shortness of breath. Denied fever or chills. His vital signs are stable. - Physical Exam Vitals/I&O's: Vital Signs Temp Pulse Resp BP Pulse Ox 99.2 F H 111 H 21 H 114/84 H 93 06/24/20 00:00 06/24/20 09:00 06/24/20 09:00 06/24/20 09:00 06/24/20 09:00 Oxygen Flow Rate (L/min) 4 Oxygen Delivery Method Room Air Weight: 227 lb 11.8 oz Body Mass Index (BMI) 31.4 Intake and Output for Last 24 Hours 06/22/20 06/23/20 06/24/20 23:59 23:59 23:59 Intake Total 240 / 360 2438.06 / 2438.06 600 / 600 Output Total 3750 / 3750 1500 / 1500 Balance 240 / 360 -1311.94 / -1311.94 -900 / -900 General: Alert, Oriented x3, Cooperative, No apparent distress HEENT: Atraumatic, PERRLA, EOMI, Normocephalic Oral: Moist Mucosa, No Gingival or Mucosal Lesions/ Ulcerations Neck: Supple, No JVD, Negative Carotid Bruits, Trachea Midline, Thyroid Normal Size and Texture Lungs: Clear to auscultation, Normal air movement, No rhonchi, No wheeze, No rales, Diminished Cardiovascular: Regular rate, Regular Rhythm, Normal S1, Normal S2, PMI Normal Abdomen: Bowel Sounds Present, Soft, Non Tender, Non-Distended, No Hepato- splenomegaly Extremities: No clubbing, No cyanosis, No edema Skin: No rashes, No breakdown Lymphatic: No Cervical, Supraclavicular, or Inguinal Adenopathy Neurological: Cranial nerves II-XII grossly intact, Neuro grossly intact Psych/Mental Status: Normal Affect, Appropriate Laboratory Results 06/24/20 04:15: WBC 17.5 H, RBC 5.09, Hgb 16.8 H, Hct 47.2, MCV 92.7, MCH 33.0 H , MCHC 35.6, RDW Std Deviation 42.8, RDW Coeff of Jenna 12.6, Plt Count 191, MPV 11.3 06/24/20 04:15: Sodium 135 L, Potassium 3.6, Chloride 101, Carbon Dioxide 26.0, Anion Gap 8, BUN 12, Creatinine 1.25, Estim Creat Clear Calc 81.91, Est GFR (MDRD) Af Amer 80, Est GFR (MDRD) Non-Af 66, BUN/Creatinine Ratio 9.6 L, Glucose 106, Calcium 8.6 Current Medications Acetaminophen (Tylenol) 1,000 mg PO Q8H PRN PRN PRN Reason: pain 1-10 Last Admin: 06/23/20 00:37 Dose: 1,000 mg Documented by: Aspirin (Aspirin, Baby) 81 mg PO DAILY@0800 [facility] Last Admin: 06/23/20 10:33 Dose: 81 mg Documented by: Atorvastatin Calcium (Lipitor) 40 mg PO QHS [facility] Last Admin: 06/23/20 21:51 Dose: 40 mg Documented by: Atropine Sulfate () 0.5 mg IV UD PRN PRN Reason: HR <50 bpm Cholecalciferol (Vitamin D (25mcg)) 2,000 unit PO DAILY [facility] Last Admin: 06/23/20 10:34 Dose: 2,000 unit Documented by: Enoxaparin Sodium (Lovenox) 40 mg SC DAILY@0600 [facility] Last Admin: 06/24/20 05:52 Dose: 40 mg Documented by: Labetalol HCl (Trandate) 5 mg IV X1 PRN PRN Reason: SBP > 160 when pulling sheath Stop: 06/24/20 21:36 Lisinopril (Zestril) 2.5 mg PO DAILY [facility] Last Admin: 06/23/20 10:34 Dose: 2.5 mg Documented by: Metoprolol Succinate (Toprol Xl (Beta Nancy)) 25 mg PO DAILY [facility] Last Admin: 06/23/20 10:34 Dose: 25 mg Documented by: Oxycodone HCl (Oxyir) 5 mg PO Q6H PRN PRN PRN Reason: Pain Score 4-10/10 Last Admin: 06/23/20 15:41 Dose: 5 mg Documented by: Prasugrel (Effient) 10 mg PO DAILY [facility] Last Admin: 06/23/20 10:34 Dose: 10 mg Documented by: Sodium Chloride () 500 ml IV BOLUS PRN PRN Reason: VASO-VAGAL PROTOCOL Sodium Chloride () 10 - 40 ml IV UD PRN PRN Reason: SALINE FLUSH Last Admin: 06/24/20 00:28 Dose: 10 ml Documented by: Medical Necessity - Tobacco Use Smoking Status: Current every day smoker Tobacco Use: Cigarettes Assessment/Plan All Active Problems STEMI (ST elevation myocardial infarction) (Acute) Systolic heart failure (Acute) This is a 45 years old male patient presented to the emergency room because of chest pain, found to have acute ST elevation OH, underwent emergent cardiac catheterization status post stents to LAD and thrombectomy and he also found to have mild acute systolic CHF. #[address] elevation [place]: Status post cardiac catheterization, status post stents x2 to LAD, thrombectomy. Remained on aspirin, statins, Effient, lisinopril, metoprolol IV Integrilin drip. Chest pain has been improving. Vital signs are stable, afebrile, on room air. Chest x-ray showed no acute infiltrate. Cardiology on the case. Plan: Transfer to PCU. #2 acute mild systolic CHF: Reportedly, ejection fraction was around 20 to 25%. He received IV Lasix intermittently. He has been on room air. He is on aspirin, statins, lisinopril and metoprolol. Plan for 2D echocardiogram today. #3 CAD status post stents: Plan as above, continue treatment as above. #4 renal insufficiency: Unknown baseline creatinine. Admission creatinine is 1.78, improved down to 1.25 today. Plan to monitor. #5 hyperlipidemia: Continue statins. #6 DVT prophylaxis: Subcu Lovenox. This note was generated with vzaar dictation software. It may contain incorrect words, spelling, and punctuation that were not noted in checking the note before signing. Inpatient E&M: 19383 Subs Hosp L2
--- NOTE | 2020-06-24 10:00 | EKG12_ITS ---
Test Reason : CHEST PAIN Blood Pressure : / mmHG Vent. Rate : 094 BPM Atrial Rate : 094 BPM P-R Int : 144 ms QRS Dur : 110 ms QT Int : 340 ms P-R-T Axes : 074 252 084 degrees QTc Int : 425 ms Normal sinus rhythm Septal infarct , age undetermined Abnormal ECG When compared with ECG of 22-JUN-2020 23:16, MANUAL COMPARISON REQUIRED, DATA IS UNCONFIRMED Confirmed by MAY DUNN ([id number]), slot editor KATHY ANDINO ([id number]) on 07/05/2020 2:30:04 PM Referred By: Erlinda Pack Confirmed By:MAY DUNN
[2020-06-24] MEDS: Aspirin 81 MG TAB.CHEW PO (10:22)
[2020-06-24] MEDS: Lisinopril 2.5 MG Tablet PO (10:22)
[2020-06-24] MEDS: Metoprolol(XL)Succ 25 MG Tablet PO ×2 (10:22→15:39)
--- NOTE | 2020-06-24 11:55 | CL.D_ITS ---
Patient Name: SALENA MONTALVO Study Date: 06/22/2020 Performing: Rossy Pack MD Ht: 72 inches 183 cm : 1975 Wt: 251.7 lbs 114 kg Age: 45 Gender: male BSA: 2.35 PROCEDURE(S) PERFORMED HL25-UAH/COR/LV LO84-GEO, BEN AND/OR PTCA, ARTERY OR GRAFT, SINGLE VESSEL [id number], EACH ADD'L CORONARY ART, SAME MAJOR CLINICAL PROFILE AND INDICATIONS Indications: ACS <= 24 hrs Heart Failure: None Stress/Imaging Stress/Image Study Performed: No CAD Presentations: STEMI. Symptom onset Date/Time: 06/22/20 Time Not Available CONCLUSIONS RECOMMENDATIONS DESCRIPTION OF PROCEDURE The patient arrived to the procedure lab. The risks and benefits of the procedure as well as a full d escription of our services here and current unavailability of surgical backup were fully explained to the patient and/or their significant other prior to the catheterization. The Timeout was completed, verifying the correct patient and procedure. The patient's procedural site was prepped and draped in the usual fashion. Local anesthetic was given subcutaneously to right radial region with Lidocaine 2% . Using a modified Seldinger technique, arterial access was obtained via the right radial artery, a 6 Fr sheath was inserted. Left Coronary Artery selective angiography was performed in multiple views u sing a 6 Fr. XB 3.0 guide catheter. Left Ventriculography was performed in SANTOS projection using a 5 F r. JR4. LV to AO pullback pressures were then recorded. Right Coronary Artery selective angiography w as then performed in multiple views using a 5 Fr. JR 4 catheter.The arterial sheath was pulled and a TR Band was applied for hemostasis CORONARY ANGIOGRAPHY DOMINANCE: Right Dominant LEFT HEART ASSESSMENT Left Ventricular Ejection Fraction: by LV Gram 20-25%. Base of the LV is lukasz well. Rest of th e LV is severely hypokinetic. LEFT ANTERIOR DESCENDING ARTERY: PROX LAD: is occluded. Instent thrombosis. 95% stenosis in the D1 which has a proximal stent. The marlene gin of this vessel was distal to the occlusion in the LAD. After thrombectomy to the LAD there was TI IA 3 flow in the D1 and the stent was patent. CIRCUMFLEX ARTERY: PROX CIRC: 30 % Stenosis. Patent OM1 stent RIGHT CORONARY ARTERY: MID RCA: 40 % Stenosis, Previously placed stent is patent VALVE FINDINGS: No Aortic Valve Stenosis No Mitral Insufficency COMPLICATIONS No Complications PROCEDURE MEDICATIONS Fentanyl 50 mcg IV Versed 1 mg IV Oxygen: 2 L/min via nasal cannula Heparin given IA 06/22/2020 19:59:08 Verapamil 2.5mg, Ntg 100mcgs, 3000 units of Heparin given IA 06/22/2020 19:59:08 IV Bolus: .9 NaCl 700 ml total 06/22/2020 21:44:38 SUMMARY OF HEMODYNAMIC DATA Time AIR REST ECG 19:42:38 AO 148/115 (131) SA 19:59:32 LV 138/8, 30 21:15:09 LV 139/8, 33 21:15:15 LV 140/11, 31 21:16:07 LV 134/9, 28 21:16:13 LVp 133/4, 30 21:16:21 AOp 128/87 (105) 21:16:26 Signed By Rossy Pack MD On 06/24/2020 11:54:21 AM Rossy Pack MD
[2020-06-24 12:08] LABS: Pathologist Review Reviewed
[2020-06-24] MEDS: Furosemide 40 MG Tablet PO (13:12)
--- NOTE | 2020-06-24 13:45 | CASEMGMT ---
Addendum entered by Adenike Mercer 06/24/20 15:31: SW was able to give patient the packet on applying for disability and what he will need. Adenike MURRY Original Note: SW met with patient, introduced self and role at [facility]. SW went over resources with patient. He wanted to complete a Medicaid application. SW told him if he completes the application SW can fax it to [employer]. SW told him if he has questions he can ask for SW. SW also asked him about his medications if he is able to afford any amount. He said right now he is not since he is not going to be able to work. SW explained [facility] has a program where we can assist with medications once a year. He was appreciative of this. He also asked about applying for disability. SW told him it would be worth a try. SW will give him a packet to help with how to apply for disability. Patient was going to sleep when SW left the room so SW will give him the packet in a little bit. Adenike MURRY
--- NOTE | 2020-06-24 14:37 | PN.CARD_ITS ---
Subjectve: Patient is doing well today. Objective: Vital Signs Temp Pulse Resp BP Pulse Ox 98.6 F 100 20 H 107/59 L 96 06/24/20 12:45 06/24/20 13:06 06/24/20 12:45 06/24/20 12:45 06/24/20 12:45 Oxygen Flow Rate (L/min) 4 Oxygen Delivery Method Room Air Weight: 227 lb 11.8 oz Body Mass Index (BMI) 31.4 Intake and Output for Last 24 Hours 06/22/20 06/23/20 06/24/20 23:59 23:59 23:59 Intake Total 240 / 360 2438.06 / 2438.06 1200 / 1200 Output Total 3750 / 3750 1500 / 1500 Balance 240 / 360 -1311.94 / -1311.94 -300 / -300 General: Awake, Alert, Oriented x 3 HEENT: Atraumatic Oral: Moist Mucosa Neck: Supple Lungs: Clear to auscultation Cardiovascular: Normal S1, Normal S2 Abdomen: Soft Extremities: No edema Skin: No Rashes Psych/Mental Status: Appropriate 06/24/20 04:15: WBC 17.5 H, RBC 5.09, Hgb 16.8 H, Hct 47.2, MCV 92.7, MCH 33.0 H , MCHC 35.6, Plt Count 191, MPV 11.3 06/24/20 04:15: Sodium 135 L, Potassium 3.6, Chloride 101, Carbon Dioxide 26.0, Anion Gap 8, BUN 12, Creatinine 1.25, Est GFR (MDRD) Af Amer 80, Est GFR (MDRD) Non-Af 66, BUN/Creatinine Ratio 9.6 L, Glucose 106, Calcium 8.6 Rhythm: EKG: ECHO: Stress Test: Cardiac Cath: PCI: CT Surgery: Holter monitor: EPS: PPM: CXR: Chest CT Scan: Medical Necessity - Tobacco Use Smoking Status: Current every day smoker Tobacco Use: Cigarettes Assessment/Plan 1. ST elevation [place]: Patient was treated with thrombectomy and drug-eluting stent placement to the LAD. We will keep the patient on aspirin and statin. We will change his beta-alex to Toprol-XL and add lisinopril. We will also switch from Plavix to Effient. Patient says he was on Brilinta in the past and had some kind of side effect. He is not sure what he had but thinks it could be fatigue. We will increase the Toprol-XL and change the Lasix to as needed. 2. LV dysfunction: Patient has severe LV dysfunction. We will keep him on Toprol-XL and lisinopril. Patient required Lasix. He is now euvolemic. We can switch the Lasix to as needed and increase the Toprol-XL. 3. Tobacco abuse: Smoking cessation strongly emphasized. Patient states that he was on Chantix in the past and it worked as far as smoking cessation was concerned but he started having homicidal ideation and it had to be stopped. He tried Wellbutrin but it was not effective.
--- NOTE | 2020-06-24 17:04 | NURSING ---
This RN taking over care of pt at this time. Report received from DAWN Velásquez.
--- NOTE | 2020-06-24 20:13 | RAD_ITS ---
STUDY: X-RAY CHEST REASON FOR EXAM: Male, 45 years old. Recent fever and shortness of breath. TECHNIQUE: 1 view COMPARISON: Prior chest exam of 06/22/2020 FINDINGS: The lungs are clear and expanded. There is no demonstrated pleural abnormality. Normal size heart. Normal mediastinum and sarah. Normal visualized pulmonary arteries. Normal visualized aortic arch and descending thoracic aorta. Normal visualized thoracic spine. Normal visualized ribs, clavicles, and shoulders. There is no demonstrated abnormality of the visualized soft tissue structures of the upper abdomen. RAD/Chest 1 View (Portable) IMPRESSION: Normal x-ray examination of the chest. Electronically Signed: Laura Montgomery MD at 20:48 EDT , Service support ,
[2020-06-24] MEDS: Acetaminophen 500 MG Tablet 1000 MG PO (20:27)
[2020-06-24] MEDS: Atorvastatin Calcium 40 MG Tablet PO (20:30)
[2020-06-24 21:40] LABS: Absolute Lymphocyte Count 3.17 X10^3/uL (0.83-4.51); Absolute Neutrophil Count 15.4 X10^3/uL (2.0-7.7); Basophil# 0.07 X10^3/uL; Basophil% 0.3 % (0-1); Eosinophil# 0.04 X10^3/uL; Eosinophils% 0.2 % (0-5); Hemoglobin 17.4 g/dL (13.0-16.5); Lymphocyte # 3.17 X10^3/ul (4.0); Lymphocyte % 14.6 % (19-41); Mean Corp Hgb Conc 35.5 g/dL (32-36); Mean Corpuscular Hgb 32.7 pg (27.0-32.0); Mean Corpuscular Volume 92.1 fL (80-94); Monocyte# 2.87 X10^3/uL; Monocyte% 13.2 % (0-10); NRBC Flagged by Analyzer 0 % (0-5); Neutrophil # 15.43 X10^3/uL (2.7-7.7); Neutrophil % 71.1 % (47-70); POSITIVE DIFFERENTIAL YES; Platelet Count 218 K/mm3 (150-450); RBC Distribution Width CV 12.4 % (11.6-14.6); RBC Distribution Width SD 41.3 fl (35.1-43.9); Red Blood Count 5.32 M/mm3 (4.6-6.2); White Blood Count 21.7 K/mm3 (4.4-11.0)
--- NOTE | 2020-06-24 21:48 | PCM.PN.BLA ---
Progress Note Notified of temperature of 100.9. Also heart rate of more than 90. Chest x-ray ordered. Urinalysis and urine culture ordered. Get lactic acid Get CBC Get a COVID TEST put on enhanced droplet precautions Patient was examined at the bedside. Patient reports chills. He denies any other symptoms. Alert and Oriented x3 Chest was clear to auscultate Lungs clear. Extremities without edema; clubbing or cyanosis. SIRS Chest x-ray was unremarkable. No clear source of infection at this time. STROKE Vital Signs/Narrative: Vital Signs Temp Pulse Resp BP Pulse Ox 06/24/20 19:53 100.9 F H 97 16 117/47 L 93 06/24/20 19:04 99
[2020-06-24 22:06] LABS: Mucous, Urine 0 SEEN /hpf (<or=2+); Red Blood Cells-Urine 0 SEEN /hpf (0-5); Squamous Epithelial Cells - UA 0 SEEN /hpf (0-5); White Blood Cells 0 SEEN /hpf (0-5)
[2020-06-24 22:07] LABS: Lactic Acid 0.8 mmol/L (0.4-1.9)
[2020-06-24 22:13] LABS: Color, Urine Yellow (Yellow); Glucose, Dipstick Normal (Normal); Ketone-Dipstick Negative (Negative); Leukocyte Esterase-Dipstick Negative /ul (Negative); Nitrite-Dipstick Negative (Negative); Occult Blood-Urine 10 /ul (Negative); Protein-Dipstick Negative (Negative); Specific Gravity, Urine 1.005 (1.002-1.030); Urine Bilirubin Dipstick Negative (Negative); Urine Clarity Clear (Clear); Urine Urobilinogen Normal (Normal)
[2020-06-24 22:14] LABS: Probe Check PASS; Specimen Processing Control PASS
[2020-06-24 22:37] LABS: Bacteria RARE /hpf (None Seen)
[2020-06-24 22:44] LABS: Differential Indicated SCAN CRITERIA MET
[2020-06-24 22:45] LABS: Anisocytosis RARE; Macrocytosis RARE; Platelet Estimate ADEQUATE (ADEQ); Red Cell Morphology N CHROM NORMAL (NORM C&C)
[2020-06-25] VITALS (13 sets, daily range): BP systolic 104–128; BP diastolic 59–74; PULSE 75–89; RESP 16–18; TEMP 36.9–37.7; O2SAT 92–96
[2020-06-25] MEDS: Enoxaparin 40 MG/0.4 ML Syringe SC (05:41)
[2020-06-25] MEDS: Aspirin 81 MG TAB.CHEW PO (08:03)
[2020-06-25] MEDS: Lisinopril 2.5 MG Tablet PO (08:04)
[2020-06-25] MEDS: Metoprolol(XL)Succ 50 MG Tablet PO (08:05)
[2020-06-25] MEDS: 0.9% Saline Lock 10 ML Syringe IV (08:06)
--- NOTE | 2020-06-25 09:25 | PCM.PROGNOTE ---
Patient Problems: Active and Suspected Problems STEMI (ST elevation myocardial infarction) (Acute) Systolic heart failure (Acute) Subjective: Chief complaint: Follow-up after admission for acute ST elevation [place] and mild acute systolic CHF. Patient seen and examined. No acute events overnight. Last night, the fever of up to 100.9 Fahrenheit and he reports some chills with it. This morning, he mentioned that chest pain is getting better but still there, dull aching pain, mild. Denied shortness of breath, palpitation, dizziness or lightheadedness. He denied cough or sputum production. He denied sore throat, nasal congestion. He denied urinary symptoms. He denied abdominal pain, nausea, vomiting, diarrhea. He denied skin rash, open wounds or drainage. This morning, his temperature was 99.4 Fahrenheit, other vital signs were stable. - Physical Exam Vitals/I&O's: Vital Signs Temp Pulse Resp BP Pulse Ox 99.4 F H 84 18 104/69 92 06/25/20 05:39 06/25/20 08:05 06/25/20 05:39 06/25/20 08:05 06/25/20 07:53 Oxygen Flow Rate (L/min) 4 Oxygen Delivery Method Room Air Weight: 225 lb 2 oz Body Mass Index (BMI) 31.4 Intake and Output for Last 24 Hours 06/23/20 06/24/20 06/25/20 23:59 23:59 23:59 Intake Total 2438.06 / 2438.06 2520 / 2520 640 / 640 Output Total 3750 / 3750 1500 / 1500 600 / 600 Balance -1311.94 / -1311.94 1020 / 1020 40 / 40 General: Alert, Oriented x3, Cooperative, No apparent distress HEENT: Atraumatic, PERRLA, EOMI, Normocephalic Oral: Moist Mucosa, No Gingival or Mucosal Lesions/ Ulcerations Neck: Supple, No JVD, Negative Carotid Bruits, Trachea Midline, Thyroid Normal Size and Texture Lungs: Clear to auscultation, Normal air movement, No rhonchi, No wheeze, No rales, Diminished Cardiovascular: Regular rate, Regular Rhythm, Normal S1, Normal S2, PMI Normal Abdomen: Bowel Sounds Present, Soft, Non Tender, Non-Distended, No Hepato-splenomegaly Extremities: No clubbing, No cyanosis, No edema Skin: No rashes, No breakdown Lymphatic: No Cervical, Supraclavicular, or Inguinal Adenopathy Neurological: Cranial nerves II-XII grossly intact, Neuro grossly intact Psych/Mental Status: Normal Affect, Appropriate, Alert and oriented to time, place, person, mood and affect Laboratory Results 06/22/20 19:28: Diff Path Review Reviewed 06/24/20 20:30: COVID-19 ([facility]) Negative 06/24/20 21:15: WBC 21.7 H, RBC 5.32, Hgb 17.4 H, Hct 49.0, MCV 92.1, MCH 32.7 H, MCHC 35.5, RDW Std Deviation 41.3, RDW Coeff of Jenna 12.4, Plt Count 218, MPV 11.0, Immature Gran % (Auto) 0.600, Neut % (Auto) 71.1 H, Lymph % (Auto) 14.6 L, [place] % (Auto) 13.2 H, Eos % (Auto) 0.2, Baso % (Auto) 0.3, Absolute Neuts (auto) 15.4 H, Absolute Lymphs (auto) 3.17, Nucleated RBC % 0, Differential Comment SEE COMMENT, Diff Path Review May foll, Platelet Estimate ADEQUATE, RBC Morphology N CHROM, Anisocytosis RARE, Macrocytosis RARE 06/24/20 21:20: Lactic Acid 0.8 06/24/20 21:50: Urine Color Yellow, Urine Clarity Clear, Urine pH 7.0, Ur Specific [place] 1.005, Urine Protein Negative, Urine Glucose (UA) Normal, Urine Ketones Negative, Urine Occult Blood 10 H, Urine Nitrite Negative, Urine Bilirubin Negative, Urine Urobilinogen Normal, Ur Leukocyte Esterase Negative, Urine RBC 0 SEEN, Urine WBC 0 SEEN, Ur Squamous Epith Cells 0 SEEN, Urine Bacteria RARE, Urine Mucus 0 SEEN Current Medications Acetaminophen (Tylenol) 1,000 mg PO Q8H PRN PRN PRN Reason: Fever > 100.4F; pain 1-10 Last Admin: 06/24/20 20:27 Dose: 1,000 mg Documented by: Aspirin (Ecotrin) 325 mg PO Q6H EMILY Atorvastatin Calcium (Lipitor) 40 mg PO QHS EMILY Last Admin: 06/24/20 20:30 Dose: 40 mg Documented by: Atropine Sulfate () 0.5 mg IV UD PRN PRN Reason: HR <50 bpm Cholecalciferol (Vitamin D (25mcg)) 2,000 unit PO DAILY [facility] Last Admin: 06/25/20 08:04 Dose: 2,000 unit Documented by: Enoxaparin Sodium (Lovenox) 40 mg SC DAILY@0600 [facility] Last Admin: 06/25/20 05:41 Dose: 40 mg Documented by: Furosemide (Lasix) 40 mg PO DAILY PRN PRN Reason: edema Lisinopril (Zestril) 2.5 mg PO DAILY [facility] Last Admin: 06/25/20 08:04 Dose: 2.5 mg Documented by: Metoprolol Succinate (Toprol Xl (Beta Nancy)) 50 mg PO DAILY [facility] Last Admin: 06/25/20 08:05 Dose: 50 mg Documented by: Oxycodone HCl (Oxyir) 5 mg PO Q6H PRN PRN PRN Reason: Pain Score 4-10/10 Last Admin: 06/23/20 15:41 Dose: 5 mg Documented by: Pantoprazole Sodium (Protonix) 40 mg PO DAILY [facility] Prasugrel (Effient) 10 mg PO DAILY [facility] Last Admin: 06/25/20 08:04 Dose: 10 mg Documented by: Sodium Chloride () 500 ml IV BOLUS PRN PRN Reason: VASO-VAGAL PROTOCOL Sodium Chloride () 10 - 40 ml IV UD PRN PRN Reason: SALINE FLUSH Last Admin: 06/25/20 08:06 Dose: 10 ml Documented by: Medical Necessity - Tobacco Use Smoking Status: Current every day smoker Tobacco Use: Cigarettes Assessment/Plan All Active Problems STEMI (ST elevation myocardial infarction) (Acute) Systolic heart failure (Acute) This is a 45 years old male patient presented to the emergency room because of chest pain, found to have acute ST elevation [place], underwent emergent cardiac catheterization status post stents to LAD and thrombectomy and he also found to have mild acute systolic CHF. #[address] elevation [place]: Status post cardiac catheterization, status post stents x2 to LAD, thrombectomy. Remained on aspirin, statins, Effient, lisinopril, metoprolol IV Integrilin drip. He is still having mild chest pain but it is improving. He had a spike of low-grade fever last night of 100.9 Fahrenheit, WBC is trending up. Repeat chest x-ray showed no acute findings. Pericarditis is a possibility but there is no typical EKG changes for pericarditis and there is no rub on auscultation. Case discussed with cardiology. Plan: Continue same treatment, start high-dose aspirin 325 mg p.o. every 6 hours for 2 days, start Protonix daily, repeat CBC and BMP tomorrow morning.. #2 leukocytosis/low-grade fever: Unclear etiology, no source of infection. Repeat chest x-ray done last night and showed no acute infiltrate or consolidation. Urinalysis showed no evidence of acute cystitis. WBC was elevated upon admission, started to trend down and then again went up this morning. Patient denies any symptoms suggestive of infection. Lactic acid was normal. Blood and urine culture sent. As mentioned above, pericarditis could be the reason for this. Plan to start high-dose aspirin as above, follow blood and urine cultures, repeat CBC and BMP tomorrow morning. At this time, no indication to start IV antibiotics. #3 acute mild systolic CHF: Patient is on p.o. Lasix, aspirin, lisinopril and metoprolol. He has been on room air, symptoms improved. He is on aspirin, statins, lisinopril and metoprolol. 2D echocardiogram revealed ejection fraction of 30%, stage I diastolic dysfunction, hypokinesis of the anterior wall, apex and lateral wall, aortic sclerosis. Plan to continue same treatment. #4 CAD status post stents: Plan as above, continue treatment as above. #5 renal insufficiency: Unknown baseline creatinine. Admission creatinine is 1.78, improved down to 1.25 yesterday. Plan to monitor. #6 hyperlipidemia: Continue statins. #7 DVT prophylaxis: Subcu Lovenox. This note was generated with [employer] software. It may contain incorrect words, spelling, and punctuation that were not noted in checking the note before signing. Inpatient E&M: 08714 Subs Hosp L2
--- NOTE | 2020-06-25 10:00 | EKG12_ITS ---
Test Reason : AM EKG Blood Pressure : / mmHG Vent. Rate : 085 BPM Atrial Rate : 085 BPM P-R Int : 140 ms QRS Dur : 110 ms QT Int : 420 ms P-R-T Axes : 067 -84 110 degrees QTc Int : 499 ms Normal sinus rhythm Left anterior fascicular block Anteroseptal infarct , age undetermined T wave abnormality, consider lateral ischemia Abnormal ECG Confirmed by NEETU BOWLES, THOMAS ([id number]), greeting card editor DERREK OWEN ([id number]) on 06/29/2020 10:50:27 AM Referred By: Erlinda Pack Confirmed By:THOMAS DE ANDA MD
--- NOTE | 2020-06-25 11:06 | PCM.PN.CARD ---
Subjectve: Patient had a fever overnight. COVID test was negative. He was ambulating in the hallways without problems. He does have some dull chest discomfort. White count is also elevated. No other signs of infection noted. Objective: Vital Signs Temp Pulse Resp BP Pulse Ox 99.4 F H 84 18 104/69 92 06/25/20 05:39 06/25/20 08:05 06/25/20 05:39 06/25/20 08:05 06/25/20 07:53 Oxygen Flow Rate (L/min) 4 Oxygen Delivery Method Room Air Weight: 225 lb 2 oz Body Mass Index (BMI) 31.4 Intake and Output for Last 24 Hours 06/23/20 06/24/20 06/25/20 23:59 23:59 23:59 Intake Total 2438.06 / 2438.06 2520 / 2520 640 / 640 Output Total 3750 / 3750 1500 / 1500 600 / 600 Balance -1311.94 / -1311.94 1020 / 1020 40 / 40 General: Awake, Alert, Oriented x 3 HEENT: Atraumatic Oral: Moist Mucosa Neck: Supple Lungs: Clear to auscultation Cardiovascular: Regular Rhythm Abdomen: Soft Extremities: No edema Skin: No Rashes Psych/Mental Status: Appropriate 06/24/20 21:15: WBC 21.7 H, RBC 5.32, Hgb 17.4 H, Hct 49.0, MCV 92.1, MCH 32.7 H, MCHC 35.5, Plt Count 218, MPV 11.0, Immature Gran % (Auto) 0.600, Neut % (Auto) 71.1 H, Lymph % (Auto) 14.6 L, [place] % (Auto) 13.2 H, Eos % (Auto) 0.2, Baso % (Auto) 0.3, Absolute Neuts (auto) 15.4 H, Nucleated RBC % 0 06/24/20 21:20: Lactic Acid 0.8 06/24/20 21:50: Urine Color Yellow, Urine Clarity Clear, Urine pH 7.0, Ur Specific [place] 1.005, Urine Protein Negative, Urine Glucose (UA) Normal, Urine Ketones Negative, Urine Occult Blood 10 H, Urine Nitrite Negative, Urine Bilirubin Negative, Urine Urobilinogen Normal, Ur Leukocyte Esterase Negative, Urine RBC 0 SEEN, Urine WBC 0 SEEN Rhythm: EKG: ECHO: Stress Test: Cardiac Cath: PCI: CT Surgery: Holter monitor: EPS: PPM: CXR: Chest CT Scan: Medical Necessity - Tobacco Use Smoking Status: Current every day smoker Tobacco Use: Cigarettes Assessment/Plan 1. ST elevation DC: Patient was treated with thrombectomy and drug-eluting stent placement to the LAD. We will keep the patient on aspirin and statin. We will change his beta-alex to Toprol-XL and add lisinopril. We will also switch from Plavix to Effient. Patient says he was on Brilinta in the past and had some kind of side effect. He is not sure what he had but thinks it could be fatigue. Continue current medications 2. LV dysfunction: Patient has severe LV dysfunction. We will keep him on Toprol-XL and lisinopril. Patient required Lasix. He is now euvolemic. Continue present management 3. Tobacco abuse: Smoking cessation strongly emphasized. Patient states that he was on Chantix in the past and it worked as far as smoking cessation was concerned but he started having homicidal ideation and it had to be stopped. He tried Wellbutrin but it was not effective. 4. Fever: No clear source of infection identified at this time. There is a question whether he could have post DC pericarditis. Patient does have some chest discomfort that does not appear to be anginal. It would be reasonable to increase the aspirin to 325 mg every 6 hours x2 days and see if this helps.
[2020-06-25] MEDS: Pantoprazole Sodium 40 MG Tablet PO (11:12)
[2020-06-25] MEDS: Aspirin E.C. 325 MG Tablet PO ×3 (11:49→21:38)
--- NOTE | 2020-06-25 12:07 | CASEMGMT ---
Social Work Pt will be using the prescription assistance program. D/C will not be today. If pt discharges over the weekend, discharge med list will need to be to the retail pharmacy on Sunday in time for pharmacy to fill prescriptions before they close and they will bring d/c meds to pt room. Retail pharmacy is open 07-20 and closed on Sunday. DAWN Gannon notified. Prescription Assistance Paperwork sent to retail pharmacy. PADDY Pace
[2020-06-25 12:15] LABS: Pathologist Review Reviewed
[2020-06-25] MEDS: Atorvastatin Calcium 40 MG Tablet PO (21:39)
[2020-06-26 03:03] VITALS: PULSE 67
[2020-06-26 03:27] VITALS: BP 115/71; PULSE 76; RESP 18; TEMP 36.8; O2SAT 93
[2020-06-26] MEDS: Enoxaparin 40 MG/0.4 ML Syringe SC (05:46)
[2020-06-26 07:05] VITALS: PULSE 81
[2020-06-26 07:33] LABS: Absolute Lymphocyte Count 3.28 X10^3/uL (0.83-4.51); Absolute Neutrophil Count 10.6 X10^3/uL (2.0-7.7); Basophil# 0.08 X10^3/uL; Basophil% 0.5 % (0-1); Eosinophils% 1.3 % (0-5); Hematocrit 46.1 % (40-54); Hemoglobin 16.4 g/dL (13.0-16.5); Lymphocyte # 3.28 X10^3/ul (4.0); Lymphocyte % 20.9 % (19-41); Mean Corp Hgb Conc 35.6 g/dL (32-36); Mean Corpuscular Hgb 32.9 pg (27.0-32.0); Mean Corpuscular Volume 92.4 fL (80-94); Mean Platelet Vol. 11.4 fl (6.2-12.0); Monocyte# 1.53 X10^3/uL; Monocyte% 9.7 % (0-10); NRBC Flagged by Analyzer 0 % (0-5); Neutrophil # 10.55 X10^3/uL (2.7-7.7); Neutrophil % 67.2 % (47-70); POSITIVE DIFFERENTIAL YES; Platelet Count 203 K/mm3 (150-450); RBC Distribution Width CV 12.4 % (11.6-14.6); RBC Distribution Width SD 41.5 fl (35.1-43.9); Red Blood Count 4.99 M/mm3 (4.6-6.2); White Blood Count 15.7 K/mm3 (4.4-11.0)
[2020-06-26] MEDS: 0.9% Saline Lock 10 ML Syringe IV (07:34)
[2020-06-26 07:51] LABS: Anion Gap 7 (5-15); BUN 18 mg/dL (7-18); Calcium,Total 8.6 mg/dL (8.5-10.1); Chloride 100 mmol/L (98-107); Creatinine, Serum 1.38 mg/dL (0.70-1.30); EST Glomerular Filtration Rate 59 mL/min (>60); Est Glom Filt Rate - Afr Amer 72 mL/min (>60); Estimated Creatinine Clearance 74.19 ml/min; Glucose 125 mg/dL (74-106); Potassium 3.6 mmol/L (3.5-5.1); Sodium Level 134 mmol/L (136-145)
[2020-06-26 07:56] LABS: Differential Indicated SCAN CRITERIA MET
[2020-06-26 08:09] VITALS: BP 114/76; PULSE 66; RESP 17; TEMP 37; O2SAT 96
[2020-06-26 08:19] VITALS: PULSE 66
[2020-06-26] MEDS: Metoprolol(XL)Succ 50 MG Tablet PO (08:19)
[2020-06-26] MEDS: Aspirin E.C. 325 MG Tablet PO (08:19)
[2020-06-26] MEDS: Pantoprazole Sodium 40 MG Tablet PO (08:19)
[2020-06-26] MEDS: Lisinopril 2.5 MG Tablet PO (08:20)
[2020-06-26 08:40] LABS: Differential Comment SCANNED
--- NOTE | 2020-06-26 08:56 | PCM.DC ---
- Discharge Diagnoses Current Active Problems: Current Active and Chronic Problems STEMI (ST elevation myocardial infarction) (Acute) Systolic heart failure (Acute) You will use the following diet at home:: Cardiac Your food should be the consistency of: Regular Discharge Activity: Return to Normal Activity Weight Bearing Status: Weight bearing as tolerated Call your doctor if you observe: Fever of 101 or Higher, Shortness of breath, Dizziness, Fainting spells, Chest pain, Increased palpitations (irregular heartbeat), Uncontrolled pain Additional Instructions: Take aspirin 325 mg every 6 hours until you finish the 6 tablets and then start taking aspirin 81 mg daily. Allergies/Adverse Reactions: Allergies adhesive tape Adverse Reaction (Verified 06/22/20 19:18) Rash Medications to take at Discharge Aspirin [Aspirin, Baby] 81 mg PO DAILY@0800 06/22/20 Atorvastatin Calcium [Lipitor] 40 mg PO QHS 06/22/20 Cholecalciferol (Vitamin D3) [Vitamin D3] 2,000 unit PO DAILY 06/22/20 Aspirin E.C. [Ecotrin] 325 mg PO 4X/DAYCM #6 tab 06/26/20 Furosemide [Lasix] 40 mg PO DAILY PRN #30 tab 06/26/20 Lisinopril [Zestril] 2.5 mg PO DAILY #30 tab 06/26/20 Metoprolol(XL)Succ [Toprol Xl (Beta Nancy)] 50 mg PO DAILY #30 tab 06/26/20 Prasugrel Hydrochloride [Effient] 10 mg PO DAILY #90 tab 06/26/20 The following prescriptions were given: Aspirin E.C. [Ecotrin] 325 mg PO 4X/DAYCM #6 tab Transmission Status: Pending to [facility] Prasugrel Hydrochloride [Effient] 10 mg PO DAILY #90 tab Transmission Status: Pending to [facility] Furosemide [Lasix] 40 mg PO DAILY PRN #30 tab PRN Reason: edema Transmission Status: Pending to [facility] Metoprolol(XL)Succ [Toprol Xl (Beta Nancy)] 50 mg PO DAILY #30 tab Transmission Status: Pending to [facility] Lisinopril [Zestril] 2.5 mg PO DAILY #30 tab Transmission Status: Pending to [facility] Primary Care Physician: [facility] Doctor,Out of [NON-STAFF] - Please follow up with your Primary Care Physician in: 1 week. Test Results: Test results from this visit will be discussed in further detail at your follow-up appointment, if applicable. Please Follow Up With: Erlinda Pack MD When: 2 weeks.
--- NOTE | 2020-06-26 10:30 | DS.PCM_ITS ---
Discharge Date and Diagnosis - Problem List Patient Problems: Active and Suspected Problems STEMI (ST elevation myocardial infarction) (Acute) Systolic heart failure (Acute) Date of Admission: 06/22/20 Date of Discharge: 06/26/20 - Primary Discharge Diagnosis Acute Problems: Active Problems #[address] elevation [place] status post thrombectomy and stent placement of proximal LAD. #2 mild acute systolic CHF. #3 suspected pericarditis. Hospital Course and Treatment Imaging Results: Clinical Impression(s) from Imaging Studies Chest X-Ray 06/22/20 19:20 IMPRESSION: Normal x-ray examination of the chest. Electronically Signed: Gamal Cao MD at 19:46 EDT , Service support , Chest X-Ray 06/24/20 20:13 IMPRESSION: Normal x-ray examination of the chest. Electronically Signed: Laura Montgomery MD at 20:48 EDT , Service support , Dr. Pack, cardiology. Procedures: 2-D Echocardiogram, Cardiac catheterization, EKG Summary of Care Provided: Patient seen and examined on the day of discharge and appeared to be stable to be discharged home. Chest pain significant improved, has been minimal. Denied fever or chills. Denied shortness of breath, cough or sputum production. He has been afebrile, other vital signs are stable. The patient is a 45 year old M presented to the emergency room because of chest pain and he was found to have acute ST elevation [place] as well as mild acute systolic CHF. Patient underwent emergent cardiac catheterization, found to have occluded proximal LAD with in-stent thrombosis, status post thrombectomy and st ent placement. Patient was treated with aspirin, statins, Effient, lisinopril, metoprolol and IV Integrilin drip. He was found to have mild acute systolic CHF for which he received intermittent IV Lasix and remained on beta-blockers and STAN inhibitor's. 2D echocardiogram revealed ejection fraction of 30%, stage I diastolic dysfunction, hypokinesis of the anterior wall, apex and lateral wall, aortic sclerosis, no stenosis. On admission, patient did have significant leukocytosis which was initially attributed to stress and acute illness. There was no evidence of infection and WBC started to trend down. 1 day before discharge, patient developed low-grade fever and WBC was trending up again. Chest x-ray done and showed no acute infiltrate. Urinalysis showed no evidence of infection. Given the patient persistent chest pain although it is improved after the cardiac catheterization, pericarditis was suspected. After discussion with cardiology, patient was given high-dose aspirin and chest pain improved. But there was no classical EKG findings of pericarditis and there was no rub on physical examination. His WBC started to drop down and patient had no more spikes of fever. Blood and urine cultures done and showed no growth up to the time of his discharge. Patient discharged home in a stable medical condition, discharged on aspirin 325 mg every 6 hours for 2 days and then instructed to take aspirin 81 mg p.o. daily, discharged on Effient, statins, metoprolol and lisinopril, plan to follow-up with cardiology in 2 weeks, recommended follow-up with PCP in 1 week. Patient Problems: Active and Suspected Problems STEMI (ST elevation myocardial infarction) (Acute) Systolic heart failure (Acute) - Physical Exam Vitals/I&O's: Vital Signs Temp Pulse Resp BP Pulse Ox 98.6 F 66 17 114/76 96 06/26/20 08:09 06/26/20 08:19 06/26/20 08:09 06/26/20 08:09 06/26/20 08:09 Oxygen Flow Rate (L/min) 4 Oxygen Delivery Method Room Air Weight: 227 lb 15.327 oz Body Mass Index (BMI) 31.4 Intake and Output for Last 24 Hours 06/24/20 06/25/20 06/26/20 23:59 23:59 23:59 Intake Total 2520 / 2520 1300 / 1300 420 / 420 Output Total 1500 / 1500 600 / 600 475 / 475 Balance 1020 / 1020 700 / 700 -55 / -55 General: Alert, Oriented x3, Cooperative, No apparent distress HEENT: Atraumatic, PERRLA, EOMI, Normocephalic Oral: Moist Mucosa, No Gingival or Mucosal Lesions/ Ulcerations Neck: Supple, No JVD, Negative Carotid Bruits, Trachea Midline, Thyroid Normal Size and Texture Lungs: Clear to auscultation, Normal air movement, No rhonchi, No wheeze, No rales Cardiovascular: Regular rate, Regular Rhythm, Normal S1, Normal S2, PMI Normal Abdomen: Bowel Sounds Present, Soft, Non Tender, Non-Distended, No Hepato- splenomegaly Extremities: No clubbing, No cyanosis, No edema Skin: No rashes, No breakdown Lymphatic: No Cervical, Supraclavicular, or Inguinal Adenopathy Neurological: Cranial nerves II-XII grossly intact, Neuro grossly intact Psych/Mental Status: Normal Affect, Appropriate Laboratory Results 06/24/20 21:15: Diff Path Review Reviewed 06/26/20 07:01: WBC 15.7 H, RBC 4.99, Hgb 16.4, Hct 46.1, MCV 92.4, MCH 32.9 H, MCHC 35.6, RDW Std Deviation 41.5, RDW Coeff of Jenna 12.4, Plt Count 203, MPV 11.4, Immature Gran % (Auto) 0.400, Neut % (Auto) 67.2, Lymph % (Auto) 20.9, [place] o % (Auto) 9.7, Eos % (Auto) 1.3, Baso % (Auto) 0.5, Absolute Neuts (auto) 10.6 H, Absolute Lymphs (auto) 3.28, Nucleated RBC % 0, Differential Comment SCANNED, Diff Path Review March06/26/20 07:01: Sodium 134 L, Potassium 3.6, Chloride 100, Carbon Dioxide 27.0, Anion Gap 7, BUN 18, Creatinine 1.38 H, Estim Creat Clear Calc 74.19, Est GFR (MDRD) Af Amer 72, Est GFR (MDRD) Non-Af 59 L, BUN/Creatinine Ratio 13.0, Glucose 125 H, Calcium 8.6 Current Medications Acetaminophen (Tylenol) 1,000 mg PO Q8H PRN PRN PRN Reason: Fever > 100.4F; pain 1-10 Last Admin: 06/24/20 20:27 Dose: 1,000 mg Documented by: [facility] ([facility]) [facility] Admin: 06/26/20 08:19 Dose: 325 mg Documented by: Atorvastatin Calcium (Lipitor) 40 mg PO QHS [facility] Last Admin: 06/25/20 21:39 Dose: 40 mg Documented by: Atropine Sulfate () 0.5 mg IV UD PRN PRN Reason: HR <50 bpm Cholecalciferol (Vitamin D (25mcg)) 2,000 unit PO DAILY [facility] Last Admin: 06/26/20 08:20 Dose: 2,000 unit Documented by: Enoxaparin Sodium (Lovenox) 40 mg SC DAILY@0600 [facility] Last Admin: 06/26/20 05:46 Dose: 40 mg Documented by: Furosemide (Lasix) 40 mg PO DAILY PRN PRN Reason: edema Lisinopril (Zestril) 2.5 mg PO DAILY [facility] Last Admin: 06/26/20 08:20 Dose: 2.5 mg Documented by: Metoprolol Succinate (Toprol Xl (Beta Nancy)) 50 mg PO DAILY [facility] Last Admin: 06/26/20 08:19 Dose: 50 mg Documented by: Oxycodone HCl (Oxyir) 5 mg PO Q6H PRN PRN PRN Reason: Pain Score 4-10/10 Last Admin: 06/23/20 15:41 Dose: 5 mg Documented by: Pantoprazole Sodium (Protonix) 40 mg PO DAILY [facility] Last Admin: 06/26/20 08:19 Dose: 40 mg Documented by: Prasugrel (Effient) 10 mg PO DAILY [facility] Last Admin: 06/26/20 08:19 Dose: 10 mg Documented by: Sodium Chloride () 500 ml IV BOLUS PRN PRN Reason: VASO-VAGAL PROTOCOL Sodium Chloride () 10 - 40 ml IV UD PRN PRN Reason: SALINE FLUSH Last Admin: 06/26/20 07:34 Dose: 10 ml Documented by: Discharge Activity: Return to Normal Activity Weight Bearing Status: Weight bearing as tolerated Call your doctor if you observe: Fever of 101 or Higher, Shortness of breath, Dizziness, Fainting spells, Chest pain, Increased palpitations (irregular heartbeat), Uncontrolled pain Home Medications: Medications to take at Discharge Aspirin [Aspirin, Baby] 81 mg PO DAILY@0800 06/22/20 Atorvastatin Calcium [Lipitor] 40 mg PO QHS 06/22/20 Cholecalciferol (Vitamin D3) [Vitamin D3] 2,000 unit PO DAILY 06/22/20 Aspirin E.C. [Ecotrin] 325 mg PO 4X/DAYCM #6 tab 06/26/20 Furosemide [Lasix] 40 mg PO DAILY PRN #30 tab 06/26/20 Lisinopril [Zestril] 2.5 mg PO DAILY #30 tab 06/26/20 Metoprolol(XL)Succ [Toprol Xl (Beta Nancy)] 50 mg PO DAILY #30 tab 06/26/20 Prasugrel Hydrochloride [Effient] 10 mg PO DAILY #90 tab 06/26/20 Following Prescriptions Were Given to Patient: Aspirin E.C. [Ecotrin] 325 mg PO 4X/DAYCM #6 tab Transmission Status: Received by [facility] Prasugrel Hydrochloride [Effient] 10 mg PO DAILY #90 tab Transmission Status: Received by [facility] Furosemide [Lasix] 40 mg PO DAILY PRN #30 tab PRN Reason: edema Transmission Status: Received by [facility] Metoprolol(XL)Succ [Toprol Xl (Beta Nancy)] 50 mg PO DAILY #30 tab Transmission Status: Received by [facility] Lisinopril [Zestril] 2.5 mg PO DAILY #30 tab Transmission Status: Received by [facility] Primary Care Physician: [facility] Doctor,Out of [NON-STAFF] - Please follow up with your Primary Care Physician in: 1 week. Please Follow Up With: Erlinda Pack MD When: 2 weeks. Disposition: Home Minutes spent on discharge:: 33 Patient Condition:: Stable Medical Necessity - Tobacco Use Smoking Status: Current every day smoker Tobacco Use: Cigarettes Meaningful Use Info Meaningful Use Diagnoses (Choose all that apply): AMI - AMI/Post PCI/Angioplasty Aspirin given w/in 24hrs of arrival?: Yes ASA at discharge?: Yes Antiplatelet Therapy at Discharge:: Yes Statins at discharge?: Yes Stan/ARB at discharge?: Yes Beta Nancy at discharge?: Yes Done w/ Acute CO measure.: Yes Documented LVEF (%): 30 Inpatient E&M: 38023 Disch Hosp
[2020-06-26 11:26] VITALS: BP 102/73; PULSE 77; RESP 17; TEMP 36.6; O2SAT 97
[2020-06-28 13:10] LABS: Pathologist Review Reviewed
--- NOTE | 2020-06-29 11:23 | CL.I_ITS ---
Patient Name: SALENA MONTALVO Study Date: 06/22/2020 Performing: Rossy Pack MD Ht: 72 inches 183 cm : 1975 Wt: 251.7 lbs 114 kg Age: 45 Gender: male BSA: 2.35 PROCEDURE(S) PERFORMED [id number]/COR/LV [id number], BEN AND/OR PTCA, ARTERY OR GRAFT, SINGLE VESSEL [id number], EACH ADD'L CORONARY ART, SAME MAJOR CLINICAL PROFILE AND CO-MORBIDITIES Indications: ACS <= 24 hrs Heart Failure: None Stress/Imaging Stress/Image Study Performed: No CAD Presentations: STEMI. Symptom onset Date/Time: 06/22/20 Time Not Available CONCLUSIONS CAD as described. Severe LV dysfunction. No significant or MR. Successful thrombectomy and BEN to LAD, PTCA of ostial D1 and BEN to mLAD RECOMMENDATIONS ASA Indefinitely, Effient for atleast 1 yr DESCRIPTION OF PROCEDURE The patient arrived to the procedure lab. The risks and benefits of the procedure as well as a full d escription of our services here and lack of surgical backup were fully explained to the patient and/o r their significant other prior to the catheterization. The Timeout was completed, verifying the sandi ect patient and procedure. The patient's procedural site was prepped and draped in the usual fashion. Local anesthetic was given subcutaneously to right radial region with Lidocaine 2%. Using a modified Seldinger technique, arterial access was obtained via the right radial artery, a 6Fr sheath was inse rted.. Left Coronary Artery selective angiography was performed in multiple views using a 6 Fr. XB 3 .0 guide catheter. Left Ventriculography was performed in SANTOS projection using a 5 Fr. JR4. LV to AO pullback pressures were then recorded. Right Coronary Artery selective angiography was then performed in multiple views using a 5 Fr. JR 4 catheter XB 3.0 Guide catheter was inserted and engaged into the LCA. BMW Bolivar Guide wire was advance d to the LAD. [place] AP inserted Pass # 1 [place] AP Removed Emerge 3.5 x 12 Balloon catheter was inse rted. Balloon catheter was advanced across lesion in the LAD, proximal. PTCA balloon inflated at 12 a tms for 22 secs. PTCA balloon inflated at 14 atms for 12 secs. PTCA balloon inflated at 12 atms for 1 2 secs. Emerge 4.0 x 15 Balloon catheter was inserted. Balloon catheter was advanced across lesion in the LAD, proximal. PTCA balloon inflated at 14 atms for 22 secs. PTCA balloon inflated at 12 atms fo r 14 secs. PTCA balloon inflated at 14 atms for 41 secs. [place] AP inserted Pass # 2 [place] AP Remove d BMW Bolivar (2) Guide wire was inserted as a debby wire NC 4.0 x 15 Balloon catheter was inserted . Balloon catheter was advanced across lesion in the LAD, proximal. Emerge 2.25 x 12 Balloon catheter was inserted. Balloon catheter was advanced across lesion in the first diagonal, ostial. NC Emerge 4.0 x 15 PTCA balloon inflated at 16 atms for 12 secs. NC Emerge 4.0 x 15 PTCA balloon infl ated at 16 atms for 12 secs. Emerge 2.25 x 12 PTCA balloon inflated at 8 atms for 12 secs. NC Emerge 4.0 x 15 PTCA balloon inflated at 8 atms for 10 secs. Emerge 2.25 x12 PTCA balloon inflated at 6 atms for 10 secs. NC Emerge 4.0 x 15 PTCA balloon inflated at 6 atms for 21 secs. Emerge 2.25 x 12 PTCA b alloon inflated at 6 atms for 21 secs. NC Emerge 4.0 x 15 PTCA balloon inflated at 6 atms for 19 secs . Emerge 2.25 x 12 PTCA balloon inflated at 6 atms for 19 secs. Nc Emerge 4.0 x 15 Balloon catheter w as reinserted Balloon catheter was advanced across lesion in the LAD, proximal. PTCA balloon inflated at 6 atms for 13 secs. PTCA balloon inflated at 12 atms for 26 secs. PTCA balloon inflated at 18 pricila s for 28 secs. PTCA balloon inflated at 16 atms for 12 secs. Emerge 2.5 x 12 Balloon catheter was ins erted. Balloon catheter was advanced across lesion in the first diagonal, ostial. Emerge 2.5 x 12 PTCA balloon inflated at 10 atms for 27 secs. Emerge 2.5 x 12 PTCA balloon inflated at 6 pricila s for 21 secs. NC Emerge 4.0 x 15 PTCA balloon inflated at 12 atms for 23 secs. Emerge 2.5 x 12 PTCA balloon inflated at 6 atms for 10 secs. Nc Emerge 4.0 x 15 PTCA balloon inflated at 6 atms for 10 sec s. [place] AP inserted Pass # 3 [place] AP Removed Synergy 3.0 x 8 Drug Eluting stent was inserted. Jesus g Eluting stent was advanced across the lesion in the LAD, mid. NC Emerge 4.0 x 15 Balloon catheter w as inserted. Balloon catheter was advanced across lesion in the LAD, proximal. PTCA balloon inflated at 5 atms for 6 secs. PTCA balloon inflated at 4 atms for 11 secs. PTCA balloon inflated at 6 atms fo r 16 secs. PTCA balloon inflated at 12 atms for 21 secs. Ulysses 3.5 x 10 Cutting balloon catheter was inserted Ulysses 3.5 x 10 Cutting balloon catheter was inserted Synergy 4.0 x [address] was inserted. Drug Eluting stent was advanced across the lesion in the LAD, proximal. The arterial sheath was pulled and a TR Band was applied for hemostasis CORONARY ANGIOGRAPHY DOMINANCE: Right Dominant LEFT HEART ASSESSMENT Left Ventricular Ejection Fraction: by LV Gram 20-25%. Base of the LV is lukasz well. Rest of th e LV is severely hypokinetic. LEFT ANTERIOR DESCENDING ARTERY: PROX LAD: is occluded. Instent thrombosis. 95% stenosis in the D1 which has a proximal stent. The marlene gin of this vessel was distal to the occlusion in the LAD. After thrombectomy to the LAD there was TI RI 3 flow in the D1 and the stent was patent. CIRCUMFLEX ARTERY: PROX CIRC: 30 % Stenosis. Patent OM1 stent RIGHT CORONARY ARTERY: MID RCA: 40 % Stenosis, Previously placed stent is patent VALVE FINDINGS: No Aortic Valve Stenosis No Mitral Insufficency INTERVENTION INFORMATION LESION SITE: LAD (Proximal) Lesion Complexity: High/C, chronic total occlusion: No, lesion at bifurcation: Yes, thrombus present: Yes, lesion length: 20 mm, culprit lesion: Yes, Previously treated lesion: Yes, Timeframe of previou s treatment: Time unknown. Pt. doesn't know if it was a BEN or BMS, In-stent Thrombosis: Yes Pre Stenosis: 100 % Pre intervention ALEXX flow: 0 PROCEDURE: Thrombectomy, Drug Eluting Stent with pre and post dilatation Post Stenosis: 0 % Post intervention ALEXX flow: 3 Lesion Devices: Cardinal 6 Fr XB3.0 100cm Guide Catheter Yeager .014 BMW Bolivar Straight 190cm Farhat Sci EMERGE MR 3.50x12 BALLOON Farhat Sci EMERGE MR 4.00x15 BALLOON Medtronic 6 Fr. [place] AP Aspiration Catheter Farhat Sci NC EMERGE MR 4.00x15 BALLOON Yeager .014 BMW Bolivar Straight 190cm Farhat Sci Ulysses cutting balloon 3.5x10 Farhat Sci Synergy MR BEN 4.00x08 LESION SITE: 1st Diagonal (Ostial) Lesion Complexity: High/C, chronic total occlusion: No, lesion at bifurcation: Yes, thrombus present: No, lesion length: 6 mm, culprit lesion: Yes, Previously treated lesion: Yes Pre Stenosis: 95 % Pre intervention ALEXX flow: 3 PROCEDURE: Balloon Angioplasty PTCA of the ostium of the D1 was done as part of hte LAD/D1 bifurcation lesion that was the culprit f or his RI. Post Stenosis: 80 % Post intervention ALEXX flow: 3 Lesion Devices: Cardinal 6 Fr XB3.0 100cm Guide Catheter Yeager .014 BMW Bolivar Straight 190cm Farhat Sci EMERGE MR 2.25x12 BALLOON Farhat Sci EMERGE MR 2.50x12 BALLOON Yeager .014 BMW Bolivar Straight 190cm LESION SITE: LAD (Mid) Lesion Complexity: High/C, chronic total occlusion: No, lesion at bifurcation: Yes, thrombus present: No, lesion length: 5 mm, culprit lesion: Yes, Previously treated lesion: No, In-stent restenosis: No Pre Stenosis: 80 % Pre intervention ALEXX flow: 3 PROCEDURE: Drug Eluting Stent 0 % Post intervention ALEXX flow: 3 Lesion Devices: Cardinal 6 Fr XB3.0 100cm Guide Catheter Yeager .014 BMW Bolivar Straight 190cm Farhat Sci Synergy MR BEN 3.00x08 COMPLICATIONS No Complications PROCEDURE MEDICATIONS Fentanyl 50 mcg IV Versed 1 mg IV Oxygen: 2 L/min via nasal cannula Heparin given IA 06/22/2020 19:59:08 Verapamil 2.5mg, Ntg 100mcgs, 3000 units of Heparin given IA 06/22/2020 19:59:08 IV Bolus: .9 NaCl 700 ml total 06/22/2020 21:44:38 SUMMARY OF HEMODYNAMIC DATA Time AIR REST ECG 19:42:38 AO 148/115 (131) SA 19:59:32 LV 138/8, 30 21:15:09 LV 139/8, 33 21:15:15 LV 140/11, 31 21:16:07 LV 134/9, 28 21:16:13 LVp 133/4, 30 21:16:21 AOp 128/87 (105) 21:16:26 Signed By Rossy Pack MD On 08/02/2020 17:45:14 Rossy Pack MD
--- NOTE | 2020-06-30 09:31 | CASEMGMT ---
Social Work Discharge follow up Phone call: Discharge Date: 06/26/20 Call Date: 06/30/20 Callt Time: 929 Reason for Follow up: followup regarding self pay, financial resources given Summary of Call: SW spoke with pt on the phone regarding self pay information provided to pt by inpatient SW during hospitalization. Pt states he has spoke with a local staff attorney about disability and also that he has already completed, submitted and spoke with [facility] about medicaid. Per pt, Medicaid has been approved with start date of June 19 and pt states when he receives documents in the mail he will notify [facility]. Interventions: SW instructed pt to call [facility] patient financial services when he receives written information from S confirming Medicaid eligibility. No further needs requested or indicated. PADDY Pace
== END 2020-06-26 11:26 | disposition home or self-care (01) | DRG 174 ==
LOC: ED 19:34 → ICU 21:43 → PCU 06-24 12:38
PROVIDERS: Admitting Provider Hospitalist; Emergency Provider Emergency Medicine; Referring Provider Specialist; Visit Provider Hospitalist
DX: I21.09 ST elevation (STEMI) myocardial infarction involving other coronary artery of anterior wall (principal); N17.9 Acute kidney failure, unspecified; T82.855A Stenosis of coronary artery stent, initial encounter; I31.9 Disease of pericardium, unspecified; I11.0 Hypertensive heart disease with heart failure; I25.10 Atherosclerotic heart disease of native coronary artery without angina pectoris; E78.5 Hyperlipidemia, unspecified; F17.210 Nicotine dependence, cigarettes, uncomplicated; Z79.82 Long term (current) use of aspirin; Z79.899 Other long term (current) drug therapy; Z79.02 Long term (current) use of antithrombotics/antiplatelets; I25.2 Old myocardial infarction; Z95.5 Presence of coronary angioplasty implant and graft
CPT/HCPCS: 36415; 71045; 80048; 80053; 80061; 81001; 83605; 84484; 85025; 85027; 85610; 85730; 87040; 87086; 87635; 92921; 92941; 93005; 93306; 93458; 99152; 99153; 99285; 99406; C1725; J7030; Q9957; Q9967; A4216; C1757; C1769; C1874; C1887; C1894; C9606; J1327; J1940; J2405; U0003

== ENCOUNTER → 2020-08-18 13:00 | Outpatient (CLI) | payer MEDICAID, SELFPAY ==
[2020-08-02 13:24] VITALS: BMI 31.7
--- NOTE | 2020-08-18 13:07 | CR.HP_ITS ---
CR - History & Physical - General Arrival date:: 08/18/20 Arrival time:: 13:08 Date of Referral:: 07/05/20 Date of CR Evaluation:: 08/18/20 Referring Physician: Dr. Erlinda Pack Primary Diagnosis: Z95.5 PCI with stent - History of Present Cardiac Event Onset Date: Enter Onset Date of cardiac illnesses in Comment field below PTCA or coronary stenting:: Yes - 06/22/2020 - Medications Home Medications: Ambulatory Orders Medication Instructions Recorded Aspirin [Aspirin, Baby] 81 mg PO DAILY@0800 06/22/20 Cholecalciferol (Vitamin D3) 2,000 unit PO DAILY 06/22/20 [Vitamin D3] atorvastatin 40 mg tablet 40 mg PO QHS #90 tab 08/02/20 evolocumab 140 mg/mL subcutaneous 140 mg SC Q2W #1 ml 08/02/20 syringe furosemide 40 mg tablet 40 mg PO DAILY PRN #90 tab 08/02/20 lisinopril 5 mg tablet 5 mg PO DAILY #30 tab 08/02/20 metoprolol succinate 50 mg 50 mg PO DAILY #90 tab 08/02/20 tablet,extended release 24 hr prasugrel 10 mg tablet 10 mg PO DAILY #90 tab 08/02/20 - Allergies Allergies/Adverse Reactions: Allergies Jzbklft-Ogn-Snh Reductase Inhibitor Adverse Reaction (Intermediate, Verified 08/03/20 11:16) myalgias adhesive tape Adverse Reaction (Verified 08/02/20 13:28) Rash - Sleep Disorder Evaluation Hx of Sleep Apnea: No Do you snore loudly (louder than talking or can be heard through closed doors)?: No Do you often feel tired/ fatigued/ sleepy during daytime?: No Has anyone observed you stop breathing during sleep?: No History of Hypertension (for STOP score): No STOP Results: Negative Advanced Directives - Advanced Directives 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 Living Will: Yes Advance Directives Information Provided: Yes Advance Directives on File: No DNR Order?:: No Past Medical History - Covid-19 Screening Fever: No Unexplained muscle aches: No Current respiratory symptoms: No Upper respiratory infections symptoms: No Gastro-intestinal symptoms: No Nnn-Oojb-Rmajui symptoms: No Has tested positive for COVID-19 in last 30 days: No Had contact w/person w/symptoms or Covid-19 (+) last 14 days: No Has High Risk Exposures ID'd by Health dept/Inf Control team: No 65 years or older:: No Lives in Assisted Living facility:: No Has a chronic lung disease or moderate to severe asthma:: No Has a serious heart condition:: Yes Immunocompromised:: No Severely obese (Body Mass Index of 40 or higher):: No Diabetic:: No Has chronic kidney disease undergoing dialysis:: No Has liver disease:: No - Past Medical Illness Medical History: Past Medical History (Last Updated 08/11/20 @ 10:13 by Tamie Boyd) Hyperlipidemia (Acute) E78.5 Atherosclerosis of coronary artery of [place] heart without angina pectoris (Chronic) I25.10 STEMI (ST elevation myocardial infarction) (Resolved) I21.3 Systolic heart failure (Chronic) I50.20 - Past Surgical History Surgical History: Past Surgical History (Last Updated 08/04/20 @ 10:09 by Tamie Boyd) History of coronary artery stent placement (Chronic) Onset Date: 06/22/20 Z95.5 Successful thrombectomy and 4.00 x 08 Synergy MR BEN to pLAD, PTCA of ostial D1 and 3.00 x 08 Synergy MR BEN to mLAD 06/22/20; 4 x 12 Resolute Maben BEN to m RCA, 3 x 12 Resolute Maben BEN to mCx, 2.5 x 12 Resolute Maben BEN to mOM1 09/22/19; 3 x 12 Resolute Pankaj BEN and 2.25 x 15 Xience Alpine BEN to Ramus Cx, PTCA to OM1 Cx 12/11/18; 3.0 x 20 Synergy(MR) Everolimus-eluting stent to Ostial 1st Diagonal 12/03/18; 4 x 15 Resolute Maben BEN to pLAD 10/03/17; 2.5 x 22 Resolute Integrity BEN to OM1 Cx 12/27/15; Xience Xpedition BEN to OM1 Cx, Xience Xpedition BEN to pRCA 06/07/14 History of myringotomy Z98.890 Surgical History: - - Multiple teeth pulled out. Tubes in his ears. - Family History Summary Family History: Family History (Last Reviewed 08/02/20 @ 17:[address] Erlinda Pack MD) Father Myocardial infarction, Onset Age: 39 Mother Myocardial infarction, Onset Age: 40 Brother Myocardial infarction, Onset Age: 39 Brother Myocardial infarction, Onset Age: 36 Social History - Smoking History Smoking Status: Light Smoker (<10/day) Years Smokin Packs Smoked per Day: 0.5 Hx Tobacco Use: Yes Hx Smoking Exposure: Yes - Alcohol Use Alcohol Usage: No - Occupation Occupation (List type of work in comments):: Unemployed - Hobbies, Recreation, Social Activities Hobbies: None Social Environment - Status Marital Status: Single - Current Living Arrangements Living Environment:: Family - Children How many children do you have?: 3 Do any of your children live nearby?: Yes - Safety Do you feel safe in your surroundings?: Yes - Assistance Do you need any assistance at home?: no Review of Systems - Review of Systems Hints: Right click = Denies (Slash). Left click = Reports ([place]) Review of Present Symptoms: Reports: Shortness of Breath with Exertion, Angina, Dizziness/Lightheadedness, Fatigue, Appetite - Normal, Appetite - Special Diet, Sleep - Normal. Denies: Shortness of Breath at Rest, PVD, Operative Discomfort, Wound Healing, Heart Arrhythmia/Irregularities, Sexual Changes - Pain Is Patient Pain Free?: No Pain Location: chest Pain Level: 12/29 Risk Factor Assessment - Vital Signs Pulse Ox: 97 Blood Pressure: 120/80 - Pulse Pulse Rate: 76 Pulse Rhythm: Regular - Stress Stress: Long-standing - health and financial - Diabetes Nutrition Referral for Diabetes: No - Obesity Height: 6 ft Weight:: 106.141 kg Weight in Pounds: 234.0 lbs Body Mass Index (BMI): 31.7 Nutritional Referral for Obesity: No - Physical Inactivity Physical Inactivity: None - Risk Stratification Risk Guidelines: Moderate Risk: Risk Factor for Diabetes, Risk Factor for Obesity, Risk Factor for Hypertension, Risk Factor for Sedentary Lifestyle, Risk Factor for Depression, Highest Risk: Risk Factor for Smoking, Risk Factor for Dyslipidemia - For Smoking Smoking Risk Guidelines: Smoking Low Risk: None or quit greater than 6 months ago. Smoking Moderate Risk: Smoker or quit 6 months or less ago. Smoking High Risk: Smoker - For Dyslipidemia Dyslipidemia Risk Guidelines: Low Risk: Moderate Risk: High Risk: 15-25% fat 25.1-29% fat >/= 30% fat. <7% sat fat 7-9% sat fat >9% sat fat. <150 mg chol 150-299 mg chol >/= 300 mg chol. LDL <100 LDL 100-129 LDL >/= 130. Chol/HDL ratio <5.0 Chol/HDL ratio 5.0-6.0 Chol/HDL ratio >6.0. Triglycerides <100 Triglycerides 100-149 Triglycerides >/= 150 - For Diabetes Mellitus Diabetes Risk Guidelines: Diabetes Low Risk: HgA1c <6.5% and/or FBG <120. Diabetes Moderate Risk: HgA1c 6.6-7.9% and/or FBG 120-180. Diabetes High Risk: HgA1c >/= 8% and/or FBG >180 - For Obesity/Overweight Obesity/Overweight Risk Guidelines: Obesity Low Risk: BMI <25.0. Obesity Moderate Risk: BMI 25-29.9. Obesity High Risk: BMI >/= 30.0 - For Hypertension Hypertension Risk Guidelines: Hypertension Low Risk: Systolic <120 and Diastolic <80. Hypertension Moderate Risk: Systolic 120-139 and Diastolic 80-89. Hypertension High Risk: Systolic >/= 140 and Diastolic >/= 90 - For Sedentary Lifestyle Sedentary Lifestyle Risk Guidelines: Sedentary Lifestyle Low Risk: >/= 1,500 kcal/week. Sedentary Lifestyle Moderate Risk: 700-1,499 kcal/week. Sedentary Lifestyle High Risk: < 700 kcal/week - For Depression Depression Risk Guidelines: Depression Low Risk: Not clinically depressed. Depression Moderate Risk: Mildly depressed. Depression High Risk: Clinically depressed - Family History Family History: Family History (Last Reviewed 08/02/20 @ 17:[address] Erlinda Pack MD) Father Myocardial infarction, Onset Age: 39 Mother Myocardial infarction, Onset Age: 40 Brother Myocardial infarction, Onset Age: 39 Brother Myocardial infarction, Onset Age: 36 Motivation - Motivation to Participate On a scale of 1 to 10, how prepared are you to commit to attending program?: 10 What do you see as barriers to successfully being able to complete the program?: physical issues What do you see as the benefits of succesfully completing the program? In other words, what do you hope to get out of participating in the program?: improved health Are there issues you are dealing with that will interfere with completing the program?: no Do you have a spouse or signficant other, family or friends who will help support you to complete the program?: family
--- NOTE | 2020-08-18 13:08 | PCM.CR.ITP ---
Diagnosis - General Information Admitting Diagnosis: Z95.5 PCI with stent Personal Learning Style:: Audio/Visual Barriers to Learning: No Barriers Stage of change r/t lifestyle modifications:: Contemplation Gave educational material for:: Treating Heart Disease, Emotions & Heart Disease, Stress Management & Relaxation, Sleep Disorders & Heart Disease, How The Heart Works, What it means to have Heart Disease, How Coronary Artery Disease is Diagnosed, Heart Procedures, What Heart Medications Do, Risk Factors & Modifications, Living an Active Life, Nutrition - Education/Goals Cardiac Rehabilitation Goals: 1. Maintain the individual as the primary focus of care. 2. To improve the patient's quality of life. 3. Identification of cardiac risk factors and provide cardiac risk factor management. 4. Enhance the psychosocial status of the patient. 5. Reconditioning enough to allow the patient to resume customary activities. 6. Control symptoms of cardiac disease Personal Goals: Initial Assessment: Quit smoking (participate in smoking cessation, Improve management of stress and emotions, Improve energy level, Participate in home exercise program, Improve diet and eating habits (eat healthier), Control risk factors (learn risk factor modification) Scale for measuring improvement of personal goals: Enter appropriate number in Comments. 2 = Unchanged. 3 = Slightly Better. 4 = Moderate Improvement. 5 = Met my Goal - Diagnosis & Disease Process Outcomes/Goals: Pt IDs own risk factors & lifestyle modifications by Session 10, Verbalizes symptoms of angina & response by session 3., Pt independently manages, Other Additional Outcomes/Goals: Plan/Interventions: Assist Pt to ID & engage in lifestyle modification to reduce CVD risk, Instruct on individual risk factors, Review symptoms of angina & emergency actions, Review secondary diagnosis & identify educational needs., Other see comment 30 day Reassessments:: Not Met 30 day Reassessments:: Not Met 30 day Reassessments:: Not Met 30 day Reassessments:: Not Met Final Reassessments:: Not Met - Safety Referral to Physical Therapy: No Referral to [facility] Case Management: No Fall Risk Assessed:: Yes Assistive Devices:: None Exercise - Initial Assessment - Visit Date of Eval: 08/18/20 - initial eval Mets: Pre-: >7 METS for 30 minutes by discharge - Physician Prescribed Exercise Modalities: Treadmill, Biodyne, Rower, Airdyne, NuStep, SciFit Frequency: 3x/week for 12 weeks [36 sessions] Intensity: 60-80% of age predicted maximum heart rate reserve Current METSs:: 3.0 Target Heart Rate:: 113-148 - Outcomes & Goals Goals:: Verbalizes understanding of THR, RPE & goal METS by session 6, Documents in home exercise log/reports 30 min aerobic 5 day/wk by DC, Demonstrates accurate pulse taking by DC, Other additional outcome/goals: see below - Intervention & Plan Exercise Program Goals: Instruct on personal THR & RPE, Instruct on MET level & personal MET goal, Show patient to take own pulse /validate performance until accurate, Instruct on home exercise, Other additional plan/int - Physical Activity Home Exercise Physical Activity - Home Exercise: Safe Exercise, Warm-up, Self-monitoring, Cool-Down, Home Exercise > 30 min Daily, Sitting Time <3 hours/daily - Outcomes & Goals Outcomes/Goals: Demonstrates correct Warm-up/exercise Cool-Down (S3) if = 2.5 METs, Verbalizes symptoms of exercise intolerance by Session 3 (S3), Demonstrate safe equipment use (S3) & follows exercise prescrition (6), Other: See below - Intervention & Plan Plan/Intervention: Instruct warm-up & cool-down if exercising at > 2 METs, Instruct on symptoms of exercise intolerance & actions to take, Instruct & monitor on saf, Assess intial functional capacity & safety risk, Other See below Nutrition - Initial Assessment - Program Goals Nutrition Program Goals: LDL <100 optimal. 100 - 129 Near optimal. 130 - 159 Borderline High. 160 - 189 High. Total Cholesterol <200 desirable. 200 - 239 Borderline High. >/= 240 High. HDL < 40 Low >/=60 High. Triglycerides <150 desirable. <199 optimal. VlDL 5 - 40. HgbA1C <7%. BMI <25 Patient has diagnosis of Hyperlipidemia (ICD E78)?: Yes - Visit Date of Assessment:: 08/18/20 - initial eval - Cholesterol/Lipids Determine presence & major risk factors that modify LDL goal: Cigarette smoking, Low HDL cholesterol <40 mg/dL*, Family history of premature CHD in Male < 55 years: female <65 yearsFa, Age men > 45 years; women >/= 55 years Outcomes/Goals: Pt IDs own risk factors & lifestyle modifications by Session 10, Verbalizes symptoms of angina & response by session 3., Pt independently manages, Other Additional Outcomes/Goals: Intervention/Plan: Advocate for lipid panel cholesterol medication if applicable, Instruct on personal lipid levels & lipid goals/NCEP guidelines, Instruct on cholesterol, Other additional plan/int Referral to dietitian:: No - Diabetes (Other Core Measures) Diabetes Type: Not Applicable - Weight Mgt (Other Care) Height: 6 ft Weight:: 106.141 kg BMI: 31.7 Outcomes/Goals: Pt sets, maintains & shows weight loss goal & trend during rehab, Other additional outcomes/goals Intervention/Plan: Instruct on ideal BMI & set weight loss goal w/patient, Assist pt to ID & incorporate diet changes for weight loss by S9, Refer to Structured Weight Loss program as appropriate, Encourage goal of using 250-300dcal per session for weight loss, Other additional plan/interventions - Healthy Eating Habits Will attend diet classes:: Yes Outcomes/Goals:: Consume diet rich in vegs,fruits,whole grain/high fiber,fish,lean meat, Limit sat/trans fats,cholesterol & added salts & sugars, Other additional outcome/goals: Intervention/Plan:: Assess current eating habits, Other Additional plan/interventions - Education Gave educational materials for:: Signs & symptoms of hypoglycemia, Signs & symptoms of hyperglycemia, Relate diabetes to coronary artery disease, Healthy eating Medical - Initial Assessment - Visit Date of Eval: 08/18/20 - initial eval - Medication Compliance Preventative Medication(s):: Aspirin, Statin/lipid, Beta alex H/O mental health issues: depression, anxiety, or addiction?: Yes Doesn?t believe in the benefits of treatment?: No Believes medications are unnecessary or harmful?: No Has a concern about medication side effects?: No Expresses concern over the cost of medications?: No Outcomes/Goals: Verbalizes medications,desired effect & common side effects @ DC, Pt self-reports following medication regimen, Keeps card in wallet w/medications listed by DC, Other additional outcome/goals: Interventions/plans: Instruct on medication effects & side effects, Review medication list w/patient every two weeks, Instruct importance of taking meds as ordered & assist problem solving, Other additional - Tobacco Use Tobacco Use: Cigarettes How many cigarettes do you smoke per day?: 10 Years Smokin Do you use smokeless tobacco?: No Outcomes/Goals: Smoking cessation achieved or maintained by discharge, Identify aids/strategies for achieving smoking cessation by session 6, Other additional outcome/goals Interventions/plan: Instruct on effects of smoking & provide smoking cessation resource, Assist pt to set quit date & provide encouragement, Assist pt to develop strategies to achieve/maintain quit date, Assist pt w/nicotine replacement & medication for cessation success, Other additional plan/interventions - Hypertension Hypertension Diagnosis:: Not Applicable Resting Blood Pressure:: 120/80 [place] [employer] Hypertension Guidelines: [place] [employer] Hypertension Guidelines. Normal BP Less than 120/80. Elevated BP 120/80. Hypertension Stage 1: BP 130-139/80-89. Hypertesnion Stage 2: BP 140 or higher/90 or higher. Hypertension Crisis: BP higher than 180/120 Outcomes/Goals: Able to verbalize/achieve optimal blood pressure <130/80, Incorporates diet changes & exercise for blood pressure control by DC, Other additional outcomes/goals Interventions/plan: Instruct on optimal blood pressure, hypertension & medications, Instruct on effects of sodium, alcohol, stress, exercise &hypertension, Other additional plan/interventions - Tobacco Cessation Referral Smoking Cessation Referral:: No Individual Education/Counseling:: No Education Schedule Given:: Yes Psychosocial - Initial Assess - VIsit Date of Eval: 08/18/20 History of previous Mental disease:: No - pt does admit to some anxiety/depression due to health and bills Self-reported stressors: Financial, Medical/Health - Target Goals Target Goals: Assess presence or absence of depression. Using a valid screening tool, maximizes coping skills. Positive support system - Psychosocial Test Tool Used:: Abdi Sanchez QOL Cardiac, PHQ-9 Questionnaire phq-9 Severity: Severity. 1-4 Minimal Depression. 5-9 Mild Depression. 10-14 Moderate Depression. 15-19 Moderately Sever Depression. 20-27 Severe Depression. Rule: - Referral to Behavioral Health PS - Interventions: Yes Attend Stress Management Classes, No Referral to Behavioral Health if PHQ-9 score >9:, No Referral to [facility], No Referral to Physician if PHQ-9 if score is 5-9: - pt is considering counseling at this point. offered help if he desires - Outcomes/Goals: See list Psychosocial Outcomes/Goals:: ID's personal stressors & 2 strategies to manage stress by discharge, Other Additional outcome/goals: - Intervention/Plan: See List Interventions/Plan:: Assess stressors,coping strategies & signs of derpression on admission, Instruct/assist pt to develop coping & personal stress Mgt strategies, Refer to Behavioral Health if appropriate, Refer to Physician if appropriate, Instruct patient to recognize signs & symptoms of depression, Instruct patient to recog, Other additional plan/intervention Patient Health Questionnaire Initial Assessment 1. Little interest or pleasure in doing things: Nearly every day 2. Feeling down, depressed, or hopeless: Nearly every day 3. Trouble falling or staying asleep, or sleeping too much: More than half the days 4. Feeling tired or having little energy: Nearly every day 5. Poor appetite or overeating: Not at all 6. Feeling bad about yourself -- or that you are a failure or have let yourself or your family down: Not at all 7. Trouble concentrating on things, such as reading the newspaper or watching television: Not at all 8. Moving or speaking so slowly that other people could have noticed. Or the opposite - being so fidgety or restless that you have been moving around a lot more than usual: Not at all 9. Thoughts that you would be better off , or of hurting yourself in some way: Not at all How difficult have these problems made it for you to do your work, take care of things at home, or get along with other people?: Somewhat difficult Total Score: 11 DREA-Q SV Test - Statements CAD is a disease of the arteries in the heart: False Examples of risk factors for heart disease: True Angina is chest pain or discomfort: True The benefits of resistance training include: True Eating more meat and dairy products: False Anti-platelet medications such as aspirin are important: True The only effective way to manage stress: False An exercise warm-up slowly increases heart rate: I Don't Know Prepared, processed foods usually have high sodium: True Depression is common after a heart attack: True The statin medications lower cholesterol: True To control blood pressure, lower the amount of sodium: True If someone gets chest discomfort during walking: False Transfats are partially hydrogenated vegetable oils: I Don't Know Sleep apnea that is not treated increases the risk: I Don't Know To control cholesterol, one should become a vegetarian: I Don't Know Someone knows if he/she is exercising at the right level: I Don't Know Diabetes cannot be prevented with exercise & health eating: False Stress is a large risk for heart attack: True A diet that can help lower blood pressure is rich in: True - Total Score Total Correct Responses: 15 Self-Efficacy Initial Assessment We would like to know how confident you are in doing certain activities. Please select your confidence level for:: Select your confidence level for the following using the scale 1-10 where 1 is not at all confident and 10 is totally confident. Your score is the average of all 6 responses. Fatigue: How confident are you that you can keep the fatigue caused by your disease from interfering with the things you want to do? Select Number: 3 Physical Discomfort or Pain: How confident are you that you can keep the physical discomfort or pain of your disease from interfering with the things you want to do? Select Number: 1 Emotional Distress: How confident are you that you can keep the emotional distress caused by your disease from interfering with the things you want to do? Select Number: 8 Other Symptoms or Health Problems: How confident are you that you can keep other symptoms or health problems from interfering with the things you want to do? Select Number: 8 Different Tasks and Activities: How confident are you that you can do the different tasks and activities needed to manage your health condition so as to reduce your need to see a doctor? Select Number: 8 Medication: How confident are you that you can do things other than just taking medication to reduce how much your illness affects your everyday life? Select Number: 10 Total Score:: 6 Nutrition Survey - Nutrition Survey Instructions Scoring Instructions: Scoring is as follows: Yes = 1 points. No = 0 point. Patient score that is >/=12 is considered to be at potential nutritional risk and could benefit from a referral to a registered dietitian. - Nutrition Survey Initial Have you lost >10 lbs over the past 2 months without trying?: No Are you following a special diet at home for diabetes, low fat, or low salt?: Yes Are you interested in meeting with a dietitian for help understanding your diet?: Yes Do you eat less than 3 meals a day?: Yes Do you eat fatty meats (rodas, sausage, ribs, etc), fried foods, desserts, large amounts of salad dressings, margarine, butter, or cheese most days?: No Do you have food allergies? [Enter types in comment field]: No Do you eat in restaurants more than 3 times a week?: No Do you season food with salt, seasoning salt, or garlic salt?: Yes Do you used canned, boxed, frozen meals, or soups, seasoning packets?: No Total Score:: 4
[2020-08-18 14:11] VITALS: BP 120/80; PULSE 76; O2SAT 97; BMI 31.7
== END ==
PROVIDERS: Referring Provider Specialist; Visit Provider Specialist
DX: Z95.5 Presence of coronary angioplasty implant and graft (principal)

== ENCOUNTER 2020-09-15 08:00 | Outpatient (RCR) | payer MEDICAID, SELFPAY ==
[2020-08-18 13:54] VITALS: BMI 31.7
--- NOTE | 2020-09-15 10:18 | PCM.CR.ITP ---
Exercise - 30-day Assessment - Visit Date of Eval: 09/15/20 Session #:: 11 - Physician Prescribed Exercise Modalities: Treadmill, Rower, Airdyne Frequency: 3x/week for 12 weeks [36 sessions] Intensity: 60-80% of age predicted maximum heart rate reserve Current METSs:: 5.0 increase from 3.0 Target Heart Rate:: 113-148 Current RPE:: 11-13 Maximum Excercise HR:: 131 Resting Blood Pressure: 132/68 Maximum Exercise Blood Pressure: 144/82 EKG Type: sinus rhythm to sinus tachycardia with isolated PVCs - Outcomes & Goals Goals:: Verbalizes understanding of THR, RPE & goal METS by session 6, Documents in home exercise log/reports 30 min aerobic 5 day/wk by DC, Demonstrates accurate pulse taking by DC - Intervention & Plan Exercise Program Goals: Instruct on personal THR & RPE, Instruct on MET level & personal MET goal, Show patient to take own pulse /validate performance until accurate, Instruct on home exercise - 30-day Reassessments 30 day Reassessments:: Progressing - Physical Activity Home Exercise Physical Activity - Home Exercise: Safe Exercise, Warm-up, Self-monitoring, Cool-Down, Home Exercise > 30 min Daily, Sitting Time <3 hours/daily - Outcomes & Goals Outcomes/Goals: Demonstrates correct Warm-up/exercise Cool-Down (S3) if = 2.5 METs, Verbalizes symptoms of exercise intolerance by Session 3 (S3), Demonstrate safe equipment use (S3) & follows exercise prescrition (6) - Intervention & Plan Plan/Intervention: Instruct warm-up & cool-down if exercising at > 2 METs, Instruct on symptoms of exercise intolerance & actions to take, Instruct & monitor on saf, Assess intial functional capacity & safety risk - 30-day Reassessments 30 day Reassessments:: Progressing Nutrition - 30-Day Assessment - Program Goals Nutrition Program Goals: LDL <100 optimal. 100 - 129 Near optimal. 130 - 159 Borderline High. 160 - 189 High. Total Cholesterol <200 desirable. 200 - 239 Borderline High. >/= 240 High. HDL < 40 Low >/=60 High. Triglycerides <150 desirable. <199 optimal. VlDL 5 - 40. HgbA1C <7%. BMI <25 Patient has diagnosis of Hyperlipidemia (ICD E78)?: Yes - Visit Date of Assessment:: 09/15/20 Session #:: 11 - no recent updated labs - Cholesterol/Lipids Determine presence & major risk factors that modify LDL goal: Hypertension or hypertensive medication, Family history of premature CHD in Male < 55 years: female <65 yearsFa, Age men > 45 years; women >/= 55 years Outcomes/Goals: Pt IDs own risk factors & lifestyle modifications by Session 10, Verbalizes symptoms of angina & response by session 3., Pt independently manages Intervention/Plan: Instruct on personal lipid levels & lipid goals/NCEP guidelines, Instruct on cholesterol Referral to dietitian:: Yes 30-day Reassessments:: Progressing - Diabetes (Other Core Measures) Diabetes Type: Not Applicable - Weight Mgt (Other Care) Not Applicable: No Height: 6 ft Weight:: 237 lb 8 oz BMI: 32.2 Diagnosis Overweight/Obesity BMI> 30% ICD-10 E66: Yes Diagnosis High BMI/Morbid Obesity BMI> 35% ICD-10 Z68: No Outcomes/Goals: Pt sets, maintains & shows weight loss goal & trend during rehab Intervention/Plan: Instruct on ideal BMI & set weight loss goal w/patient, Assist pt to ID & incorporate diet changes for weight loss by S9, Refer to Structured Weight Loss program as appropriate, Encourage goal of using 250-300dcal per session for weight loss 30 day Reassessments:: Progressing - Healthy Eating Habits Will attend diet classes:: Yes Outcomes/Goals:: Consume diet rich in vegs,fruits,whole grain/high fiber,fish,lean meat, Limit sat/trans fats,cholesterol & added salts & sugars Intervention/Plan:: Assess current eating habits 30-day Reassessments:: Progressing - Education Gave educational materials for:: Healthy eating Medical- 30-Day Assessment - Visit Date of Eval: 09/15/20 Session #:: 11 - Medication Compliance Preventative Medication(s):: Aspirin - Patient not on Brilinta or Plavix per discharge summary, ROBERT inhibitor, Statin/lipid, Beta alex, ARB (Angiotensi Rcap) H/O mental health issues: depression, anxiety, or addiction?: No Doesn?t believe in the benefits of treatment?: No Believes medications are unnecessary or harmful?: No Has a concern about medication side effects?: No Expresses concern over the cost of medications?: No Outcomes/Goals: Verbalizes medications,desired effect & common side effects @ DC, Pt self-reports following medication regimen, Keeps card in wallet w/medications listed by DC Interventions/plans: Instruct on medication effects & side effects, Review medication list w/patient every two weeks, Instruct importance of taking meds as ordered & assist problem solving 30-day Reassessments:: Progressing - Tobacco Use Tobacco Use: Cigarettes How many cigarettes do you smoke per day?: 10 Years Smokin Do you use smokeless tobacco?: No Outcomes/Goals: Smoking cessation achieved or maintained by discharge, Identify aids/strategies for achieving smoking cessation by session 6 Interventions/plan: Instruct on effects of smoking & provide smoking cessation resource, Assist pt to set quit date & provide encouragement, Assist pt to develop strategies to achieve/maintain quit date, Assist pt w/nicotine replacement & medication for cessation success 30-day Reassessments:: Progressing - Hypertension Hypertension Diagnosis:: Hypertension ICD-10 I10 Resting Blood Pressure:: 132/68 [place] [employer] Hypertension Guidelines: [place] [employer] Hypertension Guidelines. Normal BP Less than 120/80. Elevated BP 120/80. Hypertension Stage 1: BP 130-139/80-89. Hypertesnion Stage 2: BP 140 or higher/90 or higher. Hypertension Crisis: BP higher than 180/120 Peak Exercise Blood Pressure:: 132/68 Outcomes/Goals: Able to verbalize/achieve optimal blood pressure <130/80, Incorporates diet changes & exercise for blood pressure control by DC Interventions/plan: Instruct on optimal blood pressure, hypertension & medications, Instruct on effects of sodium, alcohol, stress, exercise &hypertension 30 day Reassessments:: Progressing - Tobacco Cessation Referral Smoking Cessation Referral:: Yes Individual Education/Counseling:: No Education Schedule Given:: Yes Psychosocial - 30-Day Assess - VIsit Date of Eval: 09/15/20 Session #:: 11 Not Applicable: Yes History of previous Mental disease:: No - Target Goals Target Goals: Assess presence or absence of depression. Using a valid screening tool, maximizes coping skills. Positive support system - Psychosocial Test Tool Used:: Abdi Sanchez QOL Cardiac, PHQ-9 Questionnaire phq-9 Severity: Severity. 1-4 Minimal Depression. 5-9 Mild Depression. 10-14 Moderate Depression. 15-19 Moderately Sever Depression. 20-27 Severe Depression. Rule: - Referral to Behavioral Health PS - Interventions: Yes Attend Stress Management Classes, No Referral to Behavioral Health if PHQ-9 score >9:, No Referral to [facility], No Referral to Physician if PHQ-9 if score is 5-9: - Outcomes/Goals: See list Psychosocial Outcomes/Goals:: ID's personal stressors & 2 strategies to manage stress by discharge - Intervention/Plan: See List Interventions/Plan:: Assess stressors,coping strategies & signs of derpression on admission, Instruct/assist pt to develop coping & personal stress Mgt strategies, Instruct patient to recognize signs & symptoms of depression, Instruct patient to recog - 30-day Reassessments: 30 day Reassessments:: Progressing Patient Health Questionnaire 30-Day Re-eval Assessment 1. Little interest or pleasure in doing things: Nearly every day 2. Feeling down, depressed, or hopeless: Nearly every day 3. Trouble falling or staying asleep, or sleeping too much: More than half the days 4. Feeling tired or having little energy: Nearly every day 5. Poor appetite or overeating: Not at all 6. Feeling bad about yourself -- or that you are a failure or have let yourself or your family down: Not at all 7. Trouble concentrating on things, such as reading the newspaper or watching television: Not at all 8. Moving or speaking so slowly that other people could have noticed. Or the opposite - being so fidgety or restless that you have been moving around a lot more than usual: Not at all 9. Thoughts that you would be better off , or of hurting yourself in some way: Not at all Total Score: 11 Self-Efficacy 30-Day Re-eval Assessment We would like to know how confident you are in doing certain activities. Please select your confidence level for:: Select your confidence level for the following using the scale 1-10 where 1 is not at all confident and 10 is totally confident. Your score is the average of all 6 responses. Fatigue: How confident are you that you can keep the fatigue caused by your disease from interfering with the things you want to do? Select Number: 3 Physical Discomfort or Pain: How confident are you that you can keep the physical discomfort or pain of your disease from interfering with the things you want to do? Select Number: 1 Emotional Distress: How confident are you that you can keep the emotional distress caused by your disease from interfering with the things you want to do? Select Number: 8 Other Symptoms or Health Problems: How confident are you that you can keep other symptoms or health problems from interfering with the things you want to do? Select Number: 8 Different Tasks and Activities: How confident are you that you can do the different tasks and activities needed to manage your health condition so as to reduce your need to see a doctor? Select Number: 8 Medication: How confident are you that you can do things other than just taking medication to reduce how much your illness affects your everyday life? Select Number: 10 Total Score:: 6
[2020-09-15 10:38] VITALS: BP 132/68; BMI 32.2
== END 2020-09-18 23:59 ==
LOC: CR 08:00
PROVIDERS: Referring Provider Specialist; Visit Provider Specialist
DX: I25.2 Old myocardial infarction (principal); I25.10 Atherosclerotic heart disease of native coronary artery without angina pectoris; Z95.5 Presence of coronary angioplasty implant and graft
CPT/HCPCS: 93798

== ENCOUNTER 2020-10-06 08:37 | Outpatient (RCR) | payer MEDICAID, SELFPAY ==
[2020-08-18 14:11] VITALS: BMI 31.7
== END 2020-10-18 23:59 ==
LOC: NS 08:37
PROVIDERS: Visit Provider Specialist
DX: Z71.3 Dietary counseling and surveillance (principal); E66.9 Obesity, unspecified; Z68.31 Body mass index [BMI] 31.0-31.9, adult; I25.10 Atherosclerotic heart disease of native coronary artery without angina pectoris; E78.5 Hyperlipidemia, unspecified
CPT/HCPCS: 97802

== ENCOUNTER → 2020-10-08 07:41 | Outpatient (CLI) | payer MEDICAID, SELFPAY ==
[2020-08-18 14:11] VITALS: BMI 31.7
[2020-09-15 10:38] VITALS: BMI 32.2
--- NOTE | 2020-10-08 08:35 | ECHOL_ITS ---
Reason For Study: CHF Procedure This was a limited 2D transthoracic echocardiogram. Exam performed in department. Left Ventricle Normal LV size. The estimated ejection fraction is 45 %. Anterior hypokinesis. Right Ventricle Normal RV size. Normal systolic function. Aortic Valve Aortic sclerosis, no stenosis. MMode/2D Measurements & Calculations LVIDd: 5.5 cm IVSd: 0.88 cm LAV(MOD-bp): 31.1 ml LVIDs: 4.3 cm LVPWd: 0.77 cm LAV(MOD-bp) Indexed: 13.7 ml/m2 FS: 21.3 % LAV(MOD-sp2): 42.9 ml LAV(MOD-sp4): 20.7 ml LA A4 area: 11.0 cm2 RA A4 area: 9.3 cm2 Interpretation Summary The estimated ejection fraction is 45 %. Anterior hypokinesis Limited echo done to evaluate LVEF Ordering Physician: Erlinda Pack Referring Physician: Erlinda Pack Performed By: Nisha Black, RDCS, RVT
== END ==
PROVIDERS: Referring Provider Specialist; Visit Provider Specialist
DX: I21.3 ST elevation (STEMI) myocardial infarction of unspecified site (principal); I25.10 Atherosclerotic heart disease of native coronary artery without angina pectoris; I50.20 Unspecified systolic (congestive) heart failure; Z95.5 Presence of coronary angioplasty implant and graft
CPT/HCPCS: 93308

== ENCOUNTER 2020-10-18 08:00 | Outpatient (RCR) | payer MEDICAID, SELFPAY ==
[2020-08-18 14:11] VITALS: BMI 31.7
[2020-09-19 00:08] VITALS: BP 132/68
== END 2020-10-18 23:59 ==
LOC: CR 08:00
PROVIDERS: Referring Provider Specialist; Visit Provider Specialist
DX: I25.2 Old myocardial infarction (principal); I25.10 Atherosclerotic heart disease of native coronary artery without angina pectoris; Z95.5 Presence of coronary angioplasty implant and graft
CPT/HCPCS: 93798

== ENCOUNTER 2020-10-20 06:01 | Outpatient (RCR) | payer MEDICAID, SELFPAY ==
[2020-08-18 14:11] VITALS: BMI 31.7
[2020-10-19 00:12] VITALS: BP 132/68
--- NOTE | 2020-10-20 09:36 | PCM.CR.ITP ---
Diagnosis - General Information Admitting Diagnosis: PCI with coronary stenting Personal Learning Style:: Audio/Visual - Education/Goals Cardiac Rehabilitation Goals: 1. Maintain the individual as the primary focus of care. 2. To improve the patient's quality of life. 3. Identification of cardiac risk factors and provide cardiac risk factor management. 4. Enhance the psychosocial status of the patient. 5. Reconditioning enough to allow the patient to resume customary activities. 6. Control symptoms of cardiac disease Scale for measuring improvement of personal goals: Enter appropriate number in Comments. 2 = Unchanged. 3 = Slightly Better. 4 = Moderate Improvement. 5 = Met my Goal Exercise - 60-day Assessment - Visit Date of Eval: 10/20/20 Session #:: 19 - Physician Prescribed Exercise Modalities: Treadmill, Rower, Airdyne Frequency: 3x/week for 12 weeks [36 sessions] Intensity: 60-80% of age predicted maximum heart rate reserve Current METSs:: 6 Target Heart Rate:: 113-148 Current RPE:: 12 Maximum Excercise HR:: 134 Resting Blood Pressure: 112/62 Maximum Exercise Blood Pressure: 120/68 EKG Type: NSR - Outcomes & Goals Goals:: Verbalizes understanding of THR, RPE & goal METS by session 6, Documents in home exercise log/reports 30 min aerobic 5 day/wk by DC, Demonstrates accurate pulse taking by DC, Other additional outcome/goals: see below - Intervention & Plan Exercise Program Goals: Instruct on personal THR & RPE, Instruct on MET level & personal MET goal, Show patient to take own pulse /validate performance until accurate, Instruct on home exercise, Other additional plan/int - 30-day Reassessments 30 day Reassessments:: Progressing - Physical Activity Home Exercise Physical Activity - Home Exercise: Safe Exercise, Warm-up, Self-monitoring, Cool-Down, Home Exercise > 30 min Daily, Sitting Time <3 hours/daily - Outcomes & Goals Outcomes/Goals: Demonstrates correct Warm-up/exercise Cool-Down (S3) if = 2.5 METs, Verbalizes symptoms of exercise intolerance by Session 3 (S3), Demonstrate safe equipment use (S3) & follows exercise prescrition (6), Other: See below - Intervention & Plan Plan/Intervention: Instruct warm-up & cool-down if exercising at > 2 METs, Instruct on symptoms of exercise intolerance & actions to take, Instruct & monitor on saf, Assess intial functional capacity & safety risk, Other See below - 30-day Reassessments 30 day Reassessments:: Progressing Nutrition - 60-Day Assessment - Program Goals Nutrition Program Goals: LDL <100 optimal. 100 - 129 Near optimal. 130 - 159 Borderline High. 160 - 189 High. Total Cholesterol <200 desirable. 200 - 239 Borderline High. >/= 240 High. HDL < 40 Low >/=60 High. Triglycerides <150 desirable. <199 optimal. VlDL 5 - 40. HgbA1C <7%. BMI <25 Patient has diagnosis of Hyperlipidemia (ICD E78)?: Yes - Visit Date of Assessment:: 10/20/20 Session #:: 19 - Cholesterol/Lipids Determine presence & major risk factors that modify LDL goal: Hypertension or hypertensive medication, Low HDL cholesterol <40 mg/dL*, Family history of premature CHD in Male < 55 years: female <65 yearsFa, Age men > 45 years; women >/= 55 years Outcomes/Goals: Pt IDs own risk factors & lifestyle modifications by Session 10, Verbalizes symptoms of angina & response by session 3., Pt independently manages, Other Additional Outcomes/Goals: Intervention/Plan: Advocate for lipid panel cholesterol medication if applicable, Instruct on personal lipid levels & lipid goals/NCEP guidelines, Instruct on cholesterol, Other additional plan/int Referral to dietitian:: Yes 30-day Reassessments:: Progressing - Diabetes (Other Core Measures) Diabetes Type: Not Applicable - Weight Mgt (Other Care) Height: 6 ft Weight:: 106.821 kg BMI: 31.9 Diagnosis Overweight/Obesity BMI> 30% ICD-10 E66: Yes Outcomes/Goals: Pt sets, maintains & shows weight loss goal & trend during rehab, Other additional outcomes/goals Intervention/Plan: Instruct on ideal BMI & set weight loss goal w/patient, Assist pt to ID & incorporate diet changes for weight loss by S9, Refer to Structured Weight Loss program as appropriate, Encourage goal of using 250-300dcal per session for weight loss, Other additional plan/interventions 30 day Reassessments:: Progressing - Healthy Eating Habits Will attend diet classes:: Yes Outcomes/Goals:: Consume diet rich in vegs,fruits,whole grain/high fiber,fish,lean meat, Limit sat/trans fats,cholesterol & added salts & sugars, Other additional outcome/goals: Intervention/Plan:: Assess current eating habits, Other Additional plan/interventions 30-day Reassessments:: Progressing - Education Gave educational materials for:: Signs & symptoms of hypoglycemia, Signs & symptoms of hyperglycemia, Relate diabetes to coronary artery disease Medical- 60-Day Assessment - Visit Date of Eval: 10/20/20 Session #:: 19 - Medication Compliance Preventative Medication(s):: Aspirin, ROBERT inhibitor, Statin/lipid, Beta alex, ARB (Angiotensi Rcap) H/O mental health issues: depression, anxiety, or addiction?: No Doesn?t believe in the benefits of treatment?: No Believes medications are unnecessary or harmful?: No Has a concern about medication side effects?: No Expresses concern over the cost of medications?: No Outcomes/Goals: Verbalizes medications,desired effect & common side effects @ DC, Pt self-reports following medication regimen, Keeps card in wallet w/medications listed by DC, Other additional outcome/goals: Interventions/plans: Instruct on medication effects & side effects, Review medication list w/patient every two weeks, Instruct importance of taking meds as ordered & assist problem solving, Other additional 30-day Reassessments:: Progressing - Tobacco Use Tobacco Use: Cigarettes - 10 per day Do you use smokeless tobacco?: No Outcomes/Goals: Smoking cessation achieved or maintained by discharge, Identify aids/strategies for achieving smoking cessation by session 6, Other additional outcome/goals Interventions/plan: Instruct on effects of smoking & provide smoking cessation resource, Assist pt to set quit date & provide encouragement, Assist pt to develop strategies to achieve/maintain quit date, Assist pt w/nicotine replacement & medication for cessation success, Other additional plan/interventions 30-day Reassessments:: Progressing - Hypertension Hypertension Diagnosis:: Hypertension ICD-10 I10 Resting Blood Pressure:: 112/62 [place] [employer] Hypertension Guidelines: [place] [employer] Hypertension Guidelines. Normal BP Less than 120/80. Elevated BP 120/80. Hypertension Stage 1: BP 130-139/80-89. Hypertesnion Stage 2: BP 140 or higher/90 or higher. Hypertension Crisis: BP higher than 180/120 Peak Exercise Blood Pressure:: 120/68 Outcomes/Goals: Able to verbalize/achieve optimal blood pressure <130/80, Incorporates diet changes & exercise for blood pressure control by DC, Other additional outcomes/goals Interventions/plan: Instruct on optimal blood pressure, hypertension & medications, Instruct on effects of sodium, alcohol, stress, exercise &hypertension, Other additional plan/interventions 30 day Reassessments:: Progressing - Tobacco Cessation Referral Smoking Cessation Referral:: Yes Individual Education/Counseling:: No Education Schedule Given:: Yes Psychosocial - 60-Day Assess - VIsit Date of Eval: 10/20/20 Session #:: 19 Not Applicable: Yes History of previous Mental disease:: No - Target Goals Target Goals: Assess presence or absence of depression. Using a valid screening tool, maximizes coping skills. Positive support system - Psychosocial Test Tool Used:: Abdi Sanchez QOL Cardiac, PHQ-9 Questionnaire phq-9 Severity: Severity. 1-4 Minimal Depression. 5-9 Mild Depression. 10-14 Moderate Depression. 15-19 Moderately Sever Depression. 20-27 Severe Depression. Rule: - Outcomes/Goals: See list Psychosocial Outcomes/Goals:: ID's personal stressors & 2 strategies to manage stress by discharge, Other Additional outcome/goals: - Intervention/Plan: See List Interventions/Plan:: Assess stressors,coping strategies & signs of derpression on admission, Instruct/assist pt to develop coping & personal stress Mgt strategies, Refer to Behavioral Health if appropriate, Refer to Physician if appropriate, Instruct patient to recognize signs & symptoms of depression, Instruct patient to recog, Other additional plan/intervention - 30-day Reassessments: 30 day Reassessments:: Progressing Patient Health Questionnaire 60-Day Re-eval Assessment 1. Little interest or pleasure in doing things: Nearly every day 2. Feeling down, depressed, or hopeless: Nearly every day 3. Trouble falling or staying asleep, or sleeping too much: More than half the days 4. Feeling tired or having little energy: Nearly every day 5. Poor appetite or overeating: Not at all 6. Feeling bad about yourself -- or that you are a failure or have let yourself or your family down: Not at all 7. Trouble concentrating on things, such as reading the newspaper or watching television: Not at all 8. Moving or speaking so slowly that other people could have noticed. Or the opposite - being so fidgety or restless that you have been moving around a lot more than usual: Not at all 9. Thoughts that you would be better off , or of hurting yourself in some way: Not at all How difficult have these problems made it for you to do your work, take care of things at home, or get along with other people?: Not difficult at all Total Score: 11 Self-Efficacy 60-Day Re-eval Assessment We would like to know how confident you are in doing certain activities. Please select your confidence level for:: Select your confidence level for the following using the scale 1-10 where 1 is not at all confident and 10 is totally confident. Your score is the average of all 6 responses. Fatigue: How confident are you that you can keep the fatigue caused by your disease from interfering with the things you want to do? Select Number: 3 Physical Discomfort or Pain: How confident are you that you can keep the physical discomfort or pain of your disease from interfering with the things you want to do? Select Number: 1 Emotional Distress: How confident are you that you can keep the emotional distress caused by your disease from interfering with the things you want to do? Select Number: 8 Other Symptoms or Health Problems: How confident are you that you can keep other symptoms or health problems from interfering with the things you want to do? Select Number: 8 Different Tasks and Activities: How confident are you that you can do the different tasks and activities needed to manage your health condition so as to reduce your need to see a doctor? Select Number: 8 Medication: How confident are you that you can do things other than just taking medication to reduce how much your illness affects your everyday life? Select Number: 10 Total Score:: 6
[2020-10-20 09:47] VITALS: BP 112/62; BP 120/68; BMI 31.9
== END 2020-11-18 23:59 ==
LOC: CR 06:01
PROVIDERS: Referring Provider Specialist; Visit Provider Specialist
DX: I25.2 Old myocardial infarction (principal); I25.10 Atherosclerotic heart disease of native coronary artery without angina pectoris; Z95.5 Presence of coronary angioplasty implant and graft
CPT/HCPCS: 93798

== ENCOUNTER 2020-11-03 08:57 | Outpatient (RCR) | payer MEDICAID, SELFPAY ==
[2020-08-18 14:11] VITALS: BMI 31.7
[2020-10-25 11:32] VITALS: BMI 31.6
== END 2020-11-03 23:59 | disposition home or self-care (01) ==
LOC: NS 08:57
PROVIDERS: Visit Provider Specialist
DX: Z71.3 Dietary counseling and surveillance (principal); E66.9 Obesity, unspecified; Z68.31 Body mass index [BMI] 31.0-31.9, adult; I25.10 Atherosclerotic heart disease of native coronary artery without angina pectoris; E78.5 Hyperlipidemia, unspecified
CPT/HCPCS: 97803

== ENCOUNTER 2020-12-02 19:35 | Emergency (ER) | payer MEDICAID, SELFPAY ==
[2020-10-25 11:32] VITALS: BMI 31.6
[2020-12-02 19:36] VITALS: BP 131/95; PULSE 89; RESP 18; TEMP 35.8; O2SAT 96; BMI 32.3
--- NOTE | 2020-12-02 20:14 | RAD_ITS ---
STUDY: X-RAY CHEST REASON FOR EXAM: Male, 45 years old. last 5 days have been having sob,fatigue,chills,been around covid positive family members TECHNIQUE: 1 view COMPARISON: Prior chest exam of 06/24/2020 FINDINGS: The lungs are clear and expanded. There is no demonstrated pleural abnormality. Normal size heart. Normal mediastinum and sarah. Normal visualized pulmonary arteries. Normal visualized aortic arch and descending thoracic aorta. Normal visualized thoracic spine. Normal visualized ribs, clavicles, and shoulders. There is no demonstrated abnormality of the visualized soft tissue structures of the upper abdomen. RAD/Chest 1 View (Portable) IMPRESSION: Normal x-ray examination of the chest. Electronically Signed: Laura Montgomery MD at 20:23 EST , Service support ,
--- NOTE | 2020-12-02 20:15 | EKG12_ITS ---
Test Reason : SOB Blood Pressure : / mmHG Vent. Rate : 075 BPM Atrial Rate : 075 BPM P-R Int : 154 ms QRS Dur : 108 ms QT Int : 370 ms P-R-T Axes : 050 -44 063 degrees QTc Int : 413 ms Normal sinus rhythm Left axis deviation Cannot rule out Anteroseptal infarct , age undetermined Abnormal ECG Confirmed by NEETU BOWLES, THOMAS ([id number]), map editor RONALD SILVERIO ([id number]) on 12/08/2020 6:21:31 AM Referred By: BB Confirmed By:THOMAS DE ANDA MD
--- NOTE | 2020-12-02 20:16 | ED.VIS.GEN ---
History of Present Illness Chief Complaint: Shortness of Breath Informant: Patient Onset: 05-28 Context: Gradual Onset Timing: Continuous Quality: fatigue Location: generalized Current Severity: Severe Maximum Severity: Severe Worsened by: nothing Relieved by: nothing Associated Symptoms: ARIAS, chills without fever, mild [employer] cough Narrative: Patient has a significant history of coronary artery disease and congestive heart failure, she states she has felt very fatigued for the last week or week and a half, he has started feeling a little short of breath for the last few days. No orthopnea or PND. No edema in his legs. He is on a diuretic, and always urinates a lot, but he has been a lot more thirsty than usual lately. Not a known diabetic. Having cold chills but then he takes his temperature and he is afebrile, this is happened several times. His main complaint is that he is extremely fatigued and that it does not seem to be getting better. He has not had COVID-19, but he had coffee with someone 2 days before they tested positive for COVID-19 and that was before he started feeling poorly. Patient states he has chest pain, however he has constant chest pain 11/06 all the time that occasionally gets worse, states that when he gets angina it feels a lot worse and different and he is not having angina anytime recently. His last stent was placed last summer and he states he just finished cardiac rehab from that. His stents number in the double digits. - Past Medical History (1) Atherosclerosis of coronary artery of [place] heart without angina pectoris Status: Chronic (2) History of coronary artery stent placement Status: Chronic Comment: Successful thrombectomy and 4.00 x 08 Synergy MR BEN to pLAD, PTCA of ostial D1 and 3.00 x 08 Synergy MR BEN to mLAD 06/22/20; 4 x 12 Resolute [place] BEN to mRCA, 3 x 12 Resolute [place] BEN to mCx, 2.5 x 12 Resolute [place] BEN to mOM1 09/22/19; 3 x 12 Resolute Pankaj BEN and 2.25 x 15 Xience Alpine BEN to Ramus Cx, PTCA to OM1 Cx 12/11/18; 3.0 x 20 Synergy(MR) Everolimus-eluting stent to Ostial 1st Diagonal 12/03/18; 4 x 15 Resolute [place] BEN to pLAD 10/03/17; 2.5 x 22 Resolute Integrity BEN to OM1 Cx 12/27/15; Xience Xpedition BEN to OM1 Cx, Xience Xpedition BEN to pRCA 06/07/14 (3) Hyperlipidemia Status: Chronic (4) Systolic heart failure Status: Chronic Past Medical History - Allergies and Home Meds Allergies/Adverse Reactions: Allergies varenicline [From Chantix] Allergy (Intermediate, Verified 12/02/20 19:39) change in mental status Yqaezig-Dqf-Ghs Reductase Inhibitor Adverse Reaction (Intermediate, Verified 12/02/20 19:39) myalgias adhesive tape Adverse Reaction (Verified 12/02/20 19:39) Rash Primary Care Physician: Care Physician,No Primary [Primary Care Provider] - Surgical History: - - Multiple teeth pulled out. Tubes in his ears. Lives: With Family Smoking Status: Current every day smoker Drugs: None - Family History Maternal Family History: Family History (Last Reviewed 10/25/20 @ 16:[address] Erlinda Pack MD) Father Myocardial infarction, Onset Age: 39 Mother Myocardial infarction, Onset Age: 40 Brother Myocardial infarction, Onset Age: 39 Brother Myocardial infarction, Onset Age: 36 Family History: Reports: Diabetes, Hypertension Paternal Family History: Family History (Last Reviewed 10/25/20 @ 16:[address] Erlinda Pack MD) Father Myocardial infarction, Onset Age: 39 Mother Myocardial infarction, Onset Age: 40 Brother Myocardial infarction, Onset Age: 39 Brother Myocardial infarction, Onset Age: 36 Family History: Reports: Heart Disease, Pulmonary Disease Review of Systems General: Reports: Chills, Malaise. Denies: Fever, Sweats Eyes: Denies: Visual changes - bilaterally, Diplopia ENT: Denies: Bilateral ear pain, Rhinorrhea, Sore throat Cardiovascular: Reports: Chest pain. Denies: Palpitations Respiratory: Reports: Dyspnea, Cough, Dyspnea on exertion. Denies: Sputum, Orthopnea Gastrointestinal: Denies: Abdominal pain, Nausea, Vomiting, Diarrhea, Melena, Hematochezia Genitourinary: Reports: Frequency. Denies: Dysuria, Hematuria Musculoskeletal: Denies: Myalgias, Neck pain, Back pain, Swelling, Extremity Pain Skin: Denies: Rash, Wounds Neurological: Denies: Headache, Weakness, Numbness Endocrine: Reports: Polyuria, Polydipsia. Denies: Heat intolerance, Cold intolerance Physical Exam Vital Signs/Narrative: Vital Signs Temp Pulse Resp BP Pulse Ox 12/02/20 19:36 96.5 F L 89 18 131/95 H 96 Inital Vital Signs reviewed: Yes General: Well nourished, Well developed, No Acute Distress Head: Normocephalic, Atraumatic Eyes: Perrl, EOMI ENT: Moist mucous membranes, No rhinorrhea Neck: Supple, Nontender, No lymphadenopathy, No JVD Cardiovascular: Regular rate, Regular rhythm, No murmurs Respiratory: No distress, CTA bilaterally, Chest nontender Abdomen: Soft, Nontender, Nondistended, Normal bowel sounds Back: Nontender, Normal Inspection. Negative for: CVA tenderness Extremities: Nontender, No edema. Negative for: Calf Tenderness Skin: Normal color, No rash, No Trauma Neurological: Alert, Oriented x3, Cranial nerves II-XII grossly intact, Normal Strength, Normal Sensation, Normal Gait Psychological: Normal affect, Normal Mood Diagnostic/Tx/Re-eval Impressions Chest X-Ray 12/02/20 20:14 IMPRESSION: Normal x-ray examination of the chest. Electronically Signed: Laura Montgomery MD at 20:23 EST , Service support , 12/02/20 20:14 Chest 1 View (Portable) [RAD] Stat 12/02/20 20:25 Mucosa - Nasopharyngeal SARS-CoV-2 Antigen (Rapid) - Final 12/02/20 20:00 Mucosa - Nasopharyngeal Influenza Types A,B Direct FA (ALEJANDRO) - Final Laboratory Results 12/02/20 12/02/20 12/02/20 20:23 20:23 20:23 WBC 14.3 H RBC 5.50 Hgb 18.1 H* Hct 51.2 MCV 93.1 MCH 32.9 H MCHC 35.4 RDW Std Deviation 41.7 RDW Coeff of Jenna 12.0 Plt Count 248 MPV 11.0 Immature Gran % (Auto) 0.300 Neut % (Auto) 56.9 Lymph % (Auto) 28.5 [place] % (Auto) 10.6 H Eos % (Auto) 2.9 Baso % (Auto) 0.8 Absolute Neuts (auto) 8.1 H Absolute Lymphs (auto) 4.08 Nucleated RBC % 0 Differential Comment SCANNED Diff Path Review May foll Sodium 139 Potassium 4.0 Chloride 109 H Carbon Dioxide 29.0 Anion Gap 1 L BUN 9 Creatinine 1.25 Estim Creat Clear Calc 81.91 Est GFR (MDRD) Af Amer 80 Est GFR (MDRD) Non-Af 66 BUN/Creatinine Ratio 7.2 L Glucose 104 Calcium 8.8 Troponin I < 0.015 B-Natriuretic Peptide 19.3 Urine Color Urine Clarity Urine pH Ur Specific [place] Urine Protein Urine Glucose (UA) Urine Ketones Urine Occult Blood Urine Nitrite Urine Bilirubin Urine Urobilinogen Ur Leukocyte Esterase Urine RBC Urine WBC Ur Squamous Epith Cells Urine Bacteria Urine Mucus 12/02/20 20:23 WBC RBC Hgb Hct MCV MCH MCHC RDW Std Deviation RDW Coeff of Jenna Plt Count MPV Immature Gran % (Auto) Neut % (Auto) Lymph % (Auto) [place] % (Auto) Eos % (Auto) Baso % (Auto) Absolute Neuts (auto) Absolute Lymphs (auto) Nucleated RBC % Differential Comment Diff Path Review Sodium Potassium Chloride Carbon Dioxide Anion Gap BUN Creatinine Estim Creat Clear Calc Est GFR (MDRD) Af Amer Est GFR (MDRD) Non-Af BUN/Creatinine Ratio Glucose Calcium Troponin I B-Natriuretic Peptide Urine Color Yellow Urine Clarity Sl. Cloudy Urine pH 6.5 Ur Specific [place] 1.015 Urine Protein Negative Urine Glucose (UA) Normal Urine Ketones Negative Urine Occult Blood Negative Urine Nitrite Negative Urine Bilirubin Negative Urine Urobilinogen Normal Ur Leukocyte Esterase 25 H Urine RBC 0 SEEN Urine WBC 0-5 SEEN Ur Squamous Epith Cells 0-5 SEEN Urine Bacteria 0 SEEN Urine Mucus 0 SEEN - Rhythm Strip Rhythm Strip: Sinus Rhythm Rate: 75 Ectopy: None - EKG Initial EKG Interpretation: Sinus Rhythm, No Acute Injury Pattern, - - Anteroseptal Q waves without acute ST segment deviation Prior: Unchanged - Medical Decision Making Although the patient's vital signs are stable and unremarkable and he is well-appearing, he does not feel well. Certainly understand that, he understands that I am not able to provide him with answers definitively tonight in the emergency department. Being that he is 7-10 days out from symptoms, he does not know exactly how many and he may be 10 today, and his rapid Covid is negative, I did send an outpatient PCR since he will not be able to undergo monoclonal antibody infusion because of the timing that is unknown. He would otherwise be a candidate however due to his severe coronary artery disease. Regardless, he does have a leukocytosis which argues against Covid. I still recommend that he take precautions for now, assuming that he could have it. His urine shows no infection, he does not have hyperglycemia, and his cardiac testing is all unremarkable for anything acute. His x-ray shows no pneumonia or CHF and his BNP is low ruling out acute decompensated heart failure issues. He is stable for discharge home and I advised outpatient follow-up, return to the hospital if he has worsening life-threatening symptoms. ED Disposition - Plan for ED Patient: Disposition: Home or Assisted Living Diagnosis: Viral URI with cough Instructions: Preventing the Spread of Infection Understanding Isolation Procedures, ED URI, Viral, No Abx (Adult) Referrals: Doctor,Your [STAFF PHYSICIAN] - 1 Week if not improving
[2020-12-02 20:41] LABS: Bacteria 0 SEEN /hpf (None Seen); Mucous, Urine 0 SEEN /hpf (<or=2+); Red Blood Cells-Urine 0 SEEN /hpf (0-5)
[2020-12-02 20:44] LABS: Color, Urine Yellow (Yellow); Glucose, Dipstick Normal (Normal); Ketone-Dipstick Negative (Negative); Leukocyte Esterase-Dipstick 25 /ul (Negative); Nitrite-Dipstick Negative (Negative); Occult Blood-Urine Negative /ul (Negative); Protein-Dipstick Negative (Negative); Specific Gravity, Urine 1.015 (1.002-1.030); Urine Bilirubin Dipstick Negative (Negative); Urine Clarity Sl. Cloudy (Clear); Urine Urobilinogen Normal (Normal); Urine pH 6.5 (5.0 - 8.0)
[2020-12-02 20:50] LABS: Squamous Epithelial Cells - UA 0-5 SEEN /hpf (0-5); White Blood Cells 0-5 SEEN /hpf (0-5)
[2020-12-02 20:56] LABS: Absolute Lymphocyte Count 4.08 X10^3/uL (0.83-4.51); Absolute Neutrophil Count 8.1 X10^3/uL (2.0-7.7); Basophil# 0.11 X10^3/uL; Basophil% 0.8 % (0-1); Eosinophil# 0.42 X10^3/uL; Eosinophils% 2.9 % (0-5); Hematocrit 51.2 % (40-54); Hemoglobin 18.1 g/dL (13.0-16.5); Lymphocyte # 4.08 X10^3/ul (4.0); Lymphocyte % 28.5 % (19-41); Mean Corp Hgb Conc 35.4 g/dL (32-36); Mean Corpuscular Hgb 32.9 pg (27.0-32.0); Mean Corpuscular Volume 93.1 fL (80-94); Monocyte# 1.51 X10^3/uL; Monocyte% 10.6 % (0-10); NRBC Flagged by Analyzer 0 % (0-5); Neutrophil # 8.13 X10^3/uL (2.7-7.7); Neutrophil % 56.9 % (47-70); POSITIVE DIFFERENTIAL YES; Platelet Count 248 K/mm3 (150-450); RBC Distribution Width SD 41.7 fl (35.1-43.9); White Blood Count 14.3 K/mm3 (4.4-11.0)
[2020-12-02 21:00] LABS: Differential Indicated SCAN CRITERIA MET
[2020-12-02 21:02] LABS: Anion Gap 1 (5-15); BUN 9 mg/dL (7-18); BUN/Creat Ratio 7.2 RATIO (10-20); Calcium,Total 8.8 mg/dL (8.5-10.1); Chloride 109 mmol/L (98-107); Creatinine, Serum 1.25 mg/dL (0.70-1.30); EST Glomerular Filtration Rate 66 mL/min (>60); Est Glom Filt Rate - Afr Amer 80 mL/min (>60); Estimated Creatinine Clearance 81.91 ml/min; Glucose 104 mg/dL (74-106); Sodium Level 139 mmol/L (136-145)
[2020-12-02 21:24] LABS: Differential Comment SCANNED
[2020-12-02 21:36] LABS: BNP,B-Type NATRIURETIC PEPTIDE 19.3 pg/mL (0-100)
[2020-12-02 22:11] VITALS: PULSE 80; RESP 16; O2SAT 96
[2020-12-03 12:45] LABS: Pathologist Review Reviewed
== END 2020-12-02 22:14 | disposition home or self-care (01) ==
PROVIDERS: Emergency Provider Emergency Medicine
DX: J06.9 Acute upper respiratory infection, unspecified (principal); R05 Cough; I25.110 Atherosclerotic heart disease of native coronary artery with unstable angina pectoris; F17.200 Nicotine dependence, unspecified, uncomplicated; Z95.5 Presence of coronary angioplasty implant and graft
CPT/HCPCS: 71045; 80048; 81001; 83880; 84484; 85025; 87426; 87635; 87804; 93005; 99284; A4216; U0003

== ENCOUNTER 2021-01-14 18:22 | Observation (INO) | payer MEDICAID, SELFPAY ==
[2021-01-14] VITALS (13 sets, daily range): BP systolic 100–140; BP diastolic 60–96; PULSE 56–80; RESP 11–18; TEMP 35.6–36.6; O2SAT 93–99; BMI 31.7; BMI 30.9; BMI 31.0
--- NOTE | 2021-01-14 18:31 | ED.RN ---
RN CALLED FOR EKG, PULLED OLD EKGS FOR
--- NOTE | 2021-01-14 18:46 | EKG12_ITS ---
Test Reason : CP Blood Pressure : / mmHG Vent. Rate : 061 BPM Atrial Rate : 061 BPM P-R Int : 128 ms QRS Dur : 106 ms QT Int : 408 ms P-R-T Axes : 042 -34 055 degrees QTc Int : 410 ms Normal sinus rhythm with sinus arrhythmia Left axis deviation Anterior VT, age undetermined, cannot be excluded Abnormal ECG Confirmed by ANAY BOWLES, ROXANA ([id number]), society editor DERREK OWEN ([id number]) on 01/17/2021 12:15:14 PM Referred By: BRADLEY BURNETT Confirmed By:ROXANA CUEVA MD
--- NOTE | 2021-01-14 18:46 | RAD_ITS ---
STUDY: X-RAY CHEST REASON FOR EXAM: Male, 46 years old. chest pain TECHNIQUE: AP portable COMPARISON: 12/02/2020 FINDINGS: Less than optimal inspiratory effort is seen however the lungs are clear. There is no demonstrated pleural abnormality. Normal size heart. Normal mediastinum and sarah. Normal visualized pulmonary arteries. Normal visualized aortic arch and descending thoracic aorta. Normal visualized thoracic spine. Normal visualized ribs, clavicles, and shoulders. There is no demonstrated abnormality of the visualized soft tissue structures of the upper abdomen. No significant change since prior study RAD/Chest 1 View (Portable) IMPRESSION: No acute cardiopulmonary pathology. Electronically Signed: Gamal Cao MD at 19:27 EST , Service support ,
[2021-01-14 19:02] LABS: Absolute Lymphocyte Count 3.39 X10^3/uL (0.83-4.51); Absolute Neutrophil Count 4.8 X10^3/uL (2.0-7.7); Basophil# 0.09 X10^3/uL; Eosinophil# 0.23 X10^3/uL; Eosinophils% 2.4 % (0-5); Hematocrit 49.9 % (40-54); Hemoglobin 17.2 g/dL (13.0-16.5); Lymphocyte # 3.39 X10^3/ul (4.0); Mean Corp Hgb Conc 34.5 g/dL (32-36); Mean Corpuscular Hgb 32.3 pg (27.0-32.0); Mean Corpuscular Volume 93.6 fL (80-94); Mean Platelet Vol. 11.4 fl (6.2-12.0); Monocyte# 0.92 X10^3/uL; Monocyte% 9.8 % (0-10); NRBC Flagged by Analyzer 0 % (0-5); Neutrophil # 4.76 X10^3/uL (2.7-7.7); Neutrophil % 50.6 % (47-70); Platelet Count 224 K/mm3 (150-450); RBC Distribution Width CV 12.3 % (11.6-14.6); RBC Distribution Width SD 42.4 fl (35.1-43.9); Red Blood Count 5.33 M/mm3 (4.6-6.2); White Blood Count 9.4 K/mm3 (4.4-11.0)
[2021-01-14] MEDS: Aspirin 81 MG TAB.CHEW 324 MG PO (19:06)
[2021-01-14 19:11] LABS: Anion Gap 6 (5-15); BUN 11 mg/dL (7-18); BUN/Creat Ratio 7.7 RATIO (10-20); Calcium,Total 9.3 mg/dL (8.5-10.1); Chloride 104 mmol/L (98-107); Creatinine, Serum 1.42 mg/dL (0.70-1.30); EST Glomerular Filtration Rate 57 mL/min (>60); Est Glom Filt Rate - Afr Amer 69 mL/min (>60); Estimated Creatinine Clearance 71.35 ml/min; Glucose 132 mg/dL (74-106); Potassium 3.8 mmol/L (3.5-5.1); Sodium Level 139 mmol/L (136-145)
[2021-01-14] MEDS: Nitroglycerin SL (ED/IMG/CATH) 0.4 MG TABLET SUBLINGUAL ×2 (19:17→19:25)
--- NOTE | 2021-01-14 19:39 | ED.RN ---
PT REFUSING 3RD NITRO S/L
--- NOTE | 2021-01-14 20:01 | ED.DCSUM_ITS ---
- ER Visit Summary Date of Service: 01/14/21 Chief Complaint: Chest pain History of Present Illness: The patient is a 46 M who presents with chest pain that began today. Patient states it is gradually gotten worse. Patient states the pain is over the left side of his chest. Patient states he always has some pain in the left side of his chest near his sternum that feels like someone has 2 fingers pushing on his chest. Patient states that today he had sharp pain on the lateral aspect of his chest that radiated towards his sternum. Patient states this is new. Patient states the last time he had this pain he had an LA and had stents placed at that time. Patient admits to some lightheadedness and dizziness. Patient admits to some shortness of breath and cough. Patient denies any fevers. Patient denies any nausea or vomiting. Patient denies any diaphoresis. Cardiac risk factors include hypertension, hypercholesterolemia, family history of coronary artery disease at a young age and smoking. Patient denies any PE risk factors. Physical Examination: Vital signs are stable. Patient is afebrile. Patient is in no acute distress. Oral mucosa is pink and moist. Neck is supple. Trachea is midline. There is no JVD noted. Heart was regular rate and rhythm. Lungs are clear and equal bilaterally. Abdomen is soft. Bowel sounds are normal. There is no tenderness. There is no rebound or guarding noted. Skin is warm dry. Cranial nerves II through XII are intact. There are no focal motor or sensory deficits noted. Extremities are intact. There is no calf tenderness or edema. Test Results: EKG was obtained. On my interpretation, there is normal sinus rhythm with a rate of 61. There are no acute ST or T wave changes. This was unchanged compared to previous EKG dated 12/02/2020. Portable 1 view chest x-ray was obtained. On my interpretation, lung lopez are clear. There is normal cardiac silhouette. Bony thorax is normal. There is no acute process noted. Radiologist also interpreted the x-ray and agrees. CBC was within normal limits. Creatinine was slightly elevated at 1.42. This is consistent with prior results. Troponin was normal. Emergency Department Course and Treatment: Patient was given aspirin and sublingual nitroglycerin here. Patient states that he had no relief with the sublingual nitroglycerin. Patient was advised of his findings. I recommended admission to the hospital for further evaluation of his chest pain. Case was discussed with the hospitalist. She will admit the patient to her service. Patient understood and was agreeable with the plan. All questions were answered. Disposition: Admit to hospital Impression: 1. Chest pain This note was generated with [employer] dictation software. It may contain incorrect words, spelling, and punctuation that were not noted in review of the chart prior to signing ED Disposition - Plan for ED Patient: Disposition: Acute Care Hospital [facility] Diagnosis: Chest pain
--- NOTE | 2021-01-14 20:50 | HP.PCM_ITS ---
Problem List (1) Chest pain Status: Acute Qualifiers: Chest pain type: unspecified Qualified Code(s): R07.9 - Chest pain, unspecified (2) Tobacco use Status: Chronic (3) Hypertension Status: Chronic Qualifiers: Hypertension type: essential hypertension Qualified Code(s): I10 - Essential (primary) hypertension (4) Hyperlipidemia Status: Chronic Qualifiers: Hyperlipidemia type: unspecified Qualified Code(s): E78.5 - Hyperlipidemia, unspecified (5) Atherosclerosis of coronary artery of [place] heart without angina pectoris Status: Chronic Qualifiers: Coronary Disease-Associated Artery/Lesion type: [place] artery Qualified Code(s): I25.10 - Atherosclerotic heart disease of [place] coronary artery without angina pectoris (6) History of coronary artery stent placement Status: Chronic Comment: Successful thrombectomy and 4.00 x 08 Synergy MR BEN to pLAD, PTCA of ostial D1 and 3.00 x 08 Synergy MR BEN to mLAD 06/22/20; 4 x 12 Resolute [place] BEN to mRCA, 3 x 12 Resolute [place] BEN to mCx, 2.5 x 12 Resolute [place] BEN to mOM1 09/22/19; 3 x 12 Resolute [place] BEN and 2.25 x 15 Xience [place] BEN to Ramus Cx, PTCA to OM1 Cx 12/11/18; 3.0 x 20 Synergy(MR) Everolimus-eluting stent to Ostial 1st Diagonal 12/03/18; 4 x 15 Resolute [place] BEN to pLAD 10/03/17; 2.5 x 22 Resolute [place] BEN to OM1 Cx 12/27/15; Xience Xpedition BEN to OM1 Cx, Xience Xpedition BEN to pRCA 06/07/14 (7) STEMI (ST elevation myocardial infarction) Status: Resolved Qualifiers: Involved coronary artery: LAD coronary artery Qualified Code(s): I21.02 - ST elevation (STEMI) myocardial infarction involving left anterior descending coronary artery (8) Systolic heart failure Status: Chronic Qualifiers: Heart failure chronicity: unspecified Qualified Code(s): I50.20 - Unspecified systolic (congestive) heart failure History of Present Illness Date of Admission: 01/14/21 Chief Complaint: Chest pain The patient is a 46 y/o M w/ PMHx: Obesity, HTN, HLD, Obesity, CAD s/p thrombectomy and multiple PCI since 2013, most recent 06/2020, Chronic Systolic CHF, Tobacco use, Chronic Left of Midsternal Dull Aching chest pain who presents to the [facility] ED on 01/14/21 with history of worsening of his dull chronic chest discomfort ache left of the midsternal region over the last 2 weeks which has been constant rating his discomfort at its worse at 6 out of 10 in severity, currently 4 out of 10 noting its worse with activity and in the emergency room upon evaluation it is specifically reproducible however he also notes onset starting this morning left lower lateral lower rib shooting pain which shoots across to his midsternal/substernal region noted to be intermittent, more severe with activity rated 8 out of 10 in pain at its worse currently 0 with associated lightheadedness, dizziness and shortness of breath but no nausea or diaphoresis prompting initial ED presentation. Work-up in the ED included T 96.1, heart rate 56, BP 130/83, respiratory rate 16, 90% room air, CBC unremarkable, BMP with BUN/creatinine 11/1.42, glucose 132, troponin less than 0.015, EKG w/ SR without acute evidence of ischemia, chest x-ray with no acute cardiopulmonary findings. The ED patient ministered aspirin 324 mg p.o. x1 as well as nitroglycerin. Past Medical History Past Medical History (Chronic Problems): Chronic Problems (Last Reviewed 10/25/20 @ 16:[address] Erlinda Pack MD) Tobacco use (Chronic) Hypertension (Chronic) Hyperlipidemia (Chronic) Atherosclerosis of coronary artery of [place] heart without angina pectoris (Chronic) History of coronary artery stent placement (Chronic 06/22/20) Successful thrombectomy and 4.00 x 08 Synergy MR BEN to pLAD, PTCA of ostial D1 and 3.00 x 08 Synergy MR BEN to mLAD 06/22/20; 4 x 12 Resolute [place] BEN to mRCA, 3 x 12 Resolute [place] BEN to mCx, 2.5 x 12 Resolute [place] BEN to mOM1 09/22/19; 3 x 12 Resolute Pankaj BEN and 2.25 x 15 Xience [place] BEN to Ramus Cx, PTCA to OM1 Cx 12/11/18; 3.0 x 20 Synergy(MR) Everolimus-eluting stent to Ostial 1st Diagonal 12/03/18; 4 x 15 Resolute [place] BEN to pLAD 10/03/17; 2.5 x 22 Resolute Integrity BEN to OM1 Cx 12/27/15; Xience Xpedition BEN to OM1 Cx, Xience Xpedition BEN to pRCA 06/07/14 Systolic heart failure (Chronic) Medical History: Medical History (Last Reviewed 10/25/20 @ 16:[address] Erlinda Pack MD) Hyperlipidemia (Chronic) E78.5 Atherosclerosis of coronary artery of [place] heart without angina pectoris (Chronic) I25.10 STEMI (ST elevation myocardial infarction) (Resolved) I21.3 Systolic heart failure (Chronic) I50.20 Allergies varenicline [From Chantix] Allergy (Intermediate, Verified 12/02/20 19:39) change in mental status Ezzojon-Bzj-Vxb Reductase Inhibitor Adverse Reaction (Intermediate, Verified 12/02/20 19:39) myalgias adhesive tape Adverse Reaction (Verified 12/02/20 19:39) Rash Home Medications: Ambulatory Orders Medication Instructions Recorded Aspirin [Aspirin, Baby] 81 mg PO DAILY@0800 06/22/20 Cholecalciferol (Vitamin D3) 2,000 unit PO DAILY 06/22/20 [Vitamin D3] atorvastatin 40 mg tablet 40 mg PO QHS #90 tab 08/02/20 lisinopril 5 mg tablet 5 mg PO DAILY #30 tab 08/02/20 metoprolol succinate 50 mg 50 mg PO DAILY #90 tab 08/02/20 tablet,extended release 24 hr prasugrel 10 mg tablet 10 mg PO DAILY #90 tab 08/02/20 evolocumab 140 mg/mL subcutaneous 140 mg SC Q2W #2 ml 08/31/20 pen injector furosemide 40 mg tablet 40 mg PO DAILY tab 10/25/20 Surgical History: Surgical History (Last Reviewed 10/25/20 @ 16:[address] Erlinda Pack MD) History of coronary artery stent placement (Chronic) Onset Date: 06/22/20 Z95.5 Successful thrombectomy and 4.00 x 08 Synergy MR BEN to pLAD, PTCA of ostial D1 and 3.00 x 08 Synergy MR BEN to mLAD 06/22/20; 4 x 12 Resolute [place] BEN to mRCA, 3 x 12 Resolute [place] BEN to mCx, 2.5 x 12 Resolute Pankaj BEN to mOM1 09/22/19; 3 x 12 Resolute Pankaj BEN and 2.25 x 15 Xience [place] BEN to Ramus Cx, PTCA to OM1 Cx 12/11/18; 3.0 x 20 Synergy(MR) Everolimus-eluting stent to Ostial 1st Diagonal 12/03/18; 4 x 15 Resolute [place] BEN to pLAD 10/03/17; 2.5 x 22 Resolute Integrity BEN to OM1 Cx 12/27/15; Xience Xpedition BEN to OM1 Cx, Xience Xpedition BEN to pRCA 06/07/14 History of myringotomy Z98.890 Surgical History: - - Several teeth resected, bilateral ear tube and scar tissue surgeries, significant PCI history. Psychiatric History: No pertinent psych hx Lives: Alone Smoking Status: Current every day smoker - Patient with ongoing cigarette tobacco usage since he was 13 to 14 years old, currently 10 to 12 cigarettes daily and was very specifically strong refusing any information on cessation. Tobacco Use: Cigarettes Alcohol: None Drugs: None - *Family History Maternal Family History: Family History (Last Reviewed 10/25/20 @ 16:[address] Erlinda Pack MD) Father Myocardial infarction, Onset Age: 39 Mother Myocardial infarction, Onset Age: 40 Brother Myocardial infarction, Onset Age: 39 Brother Myocardial infarction, Onset Age: 36 History Items: Diabetes, High Cholesterol, Heart Disease, Hypertension, - - Mother specifically with her first heart attack at age 40. Paternal Family History: Family History (Last Reviewed 10/25/20 @ 16:[address] Erlinda Pack MD) Father Myocardial infarction, Onset Age: 39 Mother Myocardial infarction, Onset Age: 40 Brother Myocardial infarction, Onset Age: 39 Brother Myocardial infarction, Onset Age: 36 History Items: Cancer - Father with history of prostate cancer., Heart Disease, Pulmonary Disease, - - Father specifically with his first heart attack in his 40s. Review of Systems Constitutional: Reports: Weakness, Fatigue. Denies: Anorexia, Chills, Fever, Malaise, Weight Change HEENT: Denies: Head Aches, Sinus Congestion, Sinus Drainage Cardiovascular: Reports: Chest Pain, Light Headedness. Denies: Chest Pressure, Chest Tightness, Orthopnea, Palpitations, Syncope Respiratory: Reports: Shortness of Breath, Shortness of breath upon exertion. Denies: Cough, Shortness of breath at rest, Sputum production Gastrointestinal: Denies: Abdominal Pain, Nausea, Vomiting Genitourinary: Denies: Dysuria Musculoskeletal: Denies: Joint Pain, Joint Tenderness Skin: Denies: Rash, Wounds Neurological: Denies: Numbness, Tingling, Focal weakness Psychiatric: Denies: Anxiety, Depression, Homicidal Ideations, Suicidal Ideations Hematologic/ Lymphatic: Reports: Easy Bruising, Easy Bleeding VTE Information - Inpt Only VTE Present on Admission: No VTE Mechan Device Prophylaxis: SCD's VTE Pharm Prophylaxis ordered?: Yes Subjective: Patient seated upright in the ED bed, no acute distress, denies any current sharp shooting chest pain, dull aching chest pain reproduced on physical exam, notes he is hungry. Objective: Physical Examination: General: awake, alert, oriented x 3 and cooperative, seated upright in the ED bed, no acute distress, denies any current chest discomfort. Skin: normal color, turgor, no icterus, cyanosis. HEENT: AT/NC, EOMI, PERRLA, MMM, no carotid bruits or JVD noted. Lungs: CTA bilaterally, moderate effort, mild decrease BL bases, no rales, ronchi or wheezing. Heart: Currently regular rate and rhythm; no gallop, rub audible, notable reproducible chest pain at his dull chronic spot left of the upper midsternal region with grimacing upon palpation. Abdomen: soft, obese, NTTP, ND, normal BS, no HSM. Extremities: no cyanosis, clubbing, or edema. Neurological: patient awake, alert, oriented as noted; cognitive function intact; pupils equally reactive to light and accomodation; cranial nerves II-XII grossly normal, moving all 4 extremities, no focal deficits, strength mildly global decrease secondary to acute presentation and complaints. Psychiatric: affect appears normal, no acute evidence of depressive or anxiety feelings. - Physical Exam Vitals/I&O's: Vital Signs Temp Pulse Resp BP Pulse Ox 96.1 F L 63 11 L 105/76 94 01/14/21 18:24 01/14/21 20:00 01/14/21 20:00 01/14/21 20:00 01/14/21 20:00 Oxygen Delivery Method Room Air Weight: 233 lb 14.567 oz Body Mass Index (BMI) 31.7 Laboratory Results 01/14/21 18:39: WBC 9.4, RBC 5.33, Hgb 17.2 H, Hct 49.9, MCV 93.6, MCH 32.3 H, MCHC 34.5, RDW Std Deviation 42.4, RDW Coeff of Jenna 12.3, Plt Count 224, MPV 11.4, Immature Gran % (Auto) 0.200, Neut % (Auto) 50.6, Lymph % (Auto) 36.0, Coffee % (Auto) 9.8, Eos % (Auto) 2.4, Baso % (Auto) 1.0, Absolute Neuts (auto) 4.8, Absolute Lymphs (auto) 3.39, Nucleated RBC % 0 01/14/21 18:39: Sodium 139, Potassium 3.8, Chloride 104, Carbon Dioxide 29.0, Anion Gap 6, BUN 11, Creatinine 1.42 H, Estim Creat Clear Calc 71.35, Est GFR (MDRD) Af Amer 69, Est GFR (MDRD) Non-Af 57 L, BUN/Creatinine Ratio 7.7 L, Glucose 132 H, Calcium 9.3, Troponin I < 0.015 Current Medications Nitroglycerin (Nitroglycerin Sl (Ed/Img/Cath) 0.4 Mg Tablet) 0.4 mg SUBLINGUAL Q5M PRN PRN Reason: Chest pain Last Admin: 01/14/21 19:25 Dose: 0.4 mg Documented by: Assessment/Plan All Active Problems (Last Reviewed 10/25/20 @ 16:[address] Erlinda Pack MD) Chest pain (Acute) STEMI (ST elevation myocardial infarction) (Resolved) The patient is a 46 y/o M w/ PMHx: Obesity, HTN, HLD, Obesity, CAD s/p thrombectomy and multiple PCI since 2013, most recent 06/2020, Chronic Systolic CHF, Tobacco use, Chronic Left of Midsternal Dull Aching chest pain who presents to the [facility] ED on 01/14/21 with history of worsening of his dull chronic chest discomfort ache left of the midsternal region for the last 2 weeks and sudden onset left-sided sharp severe chest pain rating toward his mid and lower sternal region starting a.m. of day of ED presentation. 1. Chest Pain: EKG in ED sinus rhythm with no acute evidence of ischemia, CXR w/ no acute cardiopulmonary findings, initial trop normal x1. Will admit to PCU, place on a monitored bed to assure no acute myocardial infarction with serial cardiac enzymes and EKGs. Repeat cardiac enzymes and EKGs remain unremarkable will pursue a.m. cardiac stress testing however if any EKG changes or elevation of enzymes especially given history will pursue cardiac consultation. FLP in AM. Mag pending. ASA, NG, morphine. 2. Hyperglycemia: Admission glucose 132, given history comorbidities will obtain hemoglobin A1c to be cautious. 3. CAD: Patient status post thrombectomy, BEN P LAD, PTCA ostial D1, BEN mid LAD, BEN to mid RCA, BEN to mid CX, BEN to M OM1, BEN to ramus CX, PTCA to OM1 CX, everolimus eluding stent to ostial first diagonal, BEN to P LAD, BEN OM1 CX, BEN OM1 CX, BEN to proximal RCA. We will continue patient aspirin, prasugrel, metoprolol, lisinopril, statin therapy. 4. Chronic systolic CHF: Appears compensated, chest x-ray with no overt failure, will continue patient aspirin, prasugrel, metoprolol, lisinopril, lasix, statin therapy. 06/07/2020 echo with EF 45%, anterior hypokinesis over this was a limited echo primarily to evaluate LVEF. 5. Hypertension: Continue home regimen including Lasix, lisinopril, metoprolol with hold parameters, PRN hydralazine. 6. Hyperlipidemia: We will continue patient statin therapy and also note that he is on evolocumab q2week regimen. 7. Chronic Kidney Disease Stage III: Admission BUN/Cr 11/1.42, baseline renal function 1.2-1.3 primarily, repeat BMP in AM. 8. Obesity: Weight loss and lifestyle changes encouraged. 9. DVT prophylaxis: SCDs, Lovenox. OBSV E&M: 76118 Initial observation care L3
--- NOTE | 2021-01-14 21:42 | EKG12_ITS ---
Test Reason : CP ADMIN Blood Pressure : / mmHG Vent. Rate : 056 BPM Atrial Rate : 056 BPM P-R Int : 162 ms QRS Dur : 114 ms QT Int : 432 ms P-R-T Axes : 046 -32 057 degrees QTc Int : 416 ms Sinus bradycardia Left axis deviation Abnormal ECG When compared with ECG of 14-JAN-2021 18:36, MANUAL COMPARISON REQUIRED, DATA IS UNCONFIRMED Confirmed by NEETU BOWLES, THOMAS ([id number]), department editor DERREK OWEN ([id number]) on 01/18/2021 1:10:43 PM Referred By: BENY Confirmed By:THOMAS DE ANDA MD
[2021-01-14 21:55] LABS: Magnesium 2.3 mg/dL (1.6-2.6)
[2021-01-14] MEDS: Atorvastatin Calcium 40 MG Tablet PO (22:36)
[2021-01-15] VITALS (11 sets, daily range): BP systolic 102–133; BP diastolic 62–79; PULSE 56–68; RESP 16–18; TEMP 36.4–36.6; O2SAT 94–95
[2021-01-15] MEDS: Aspirin 81 MG TAB.CHEW PO (06:31)
[2021-01-15 06:58] LABS: Absolute Lymphocyte Count 3.46 X10^3/uL (0.83-4.51); Absolute Neutrophil Count 6.4 X10^3/uL (2.0-7.7); Basophil# 0.08 X10^3/uL; Basophil% 0.7 % (0-1); Eosinophil# 0.29 X10^3/uL; Eosinophils% 2.5 % (0-5); Hematocrit 47.6 % (40-54); Hemoglobin 16.3 g/dL (13.0-16.5); Lymphocyte # 3.46 X10^3/ul (4.0); Lymphocyte % 30.4 % (19-41); Mean Corp Hgb Conc 34.2 g/dL (32-36); Mean Corpuscular Volume 93.5 fL (80-94); Mean Platelet Vol. 11.5 fl (6.2-12.0); Monocyte# 1.12 X10^3/uL; Monocyte% 9.8 % (0-10); NRBC Flagged by Analyzer 0 % (0-5); Neutrophil # 6.41 X10^3/uL (2.7-7.7); Neutrophil % 56.4 % (47-70); Platelet Count 206 K/mm3 (150-450); RBC Distribution Width CV 12.1 % (11.6-14.6); Red Blood Count 5.09 M/mm3 (4.6-6.2); White Blood Count 11.4 K/mm3 (4.4-11.0)
[2021-01-15 07:52] LABS: ALB/GLOB Ratio 1.1 RATIO (0.9-2.4); AST(SGOT) 25 U/L (15-37); Alanine Aminotransfer ALT/SGPT 43 U/L (16-61); Albumin, Serum 3.4 g/dL (3.2-5.0); Alkaline Phosphatase 99 U/L (45-117); Anion Gap 6 (5-15); BUN 11 mg/dL (7-18); BUN/Creat Ratio 8.7 RATIO (10-20); Calcium,Total 8.8 mg/dL (8.5-10.1); Chloride 106 mmol/L (98-107); Cholesterol 71 mg/dL (200); Creatinine, Serum 1.26 mg/dL (0.70-1.30); EST Glomerular Filtration Rate 66 mL/min (>60); Est Glom Filt Rate - Afr Amer 79 mL/min (>60); Estimated Creatinine Clearance 80.41 ml/min; Globulin 3.2 g/dL (2.2-4.2); Glucose 94 mg/dL (74-106); High Density Lipoprotein 33 mg/dL; Potassium 3.7 mmol/L (3.5-5.1); Protein, Total 6.6 g/dL (6.4-8.2); Sodium Level 139 mmol/L (136-145); Triglycerides 148 mg/dL; Very Low Density Lipoprotein 30 mg/dL (5-40)
[2021-01-15] MEDS: 0.9% Saline Lock 10 ML Syringe IV (08:28)
--- NOTE | 2021-01-15 08:34 | NURSING ---
Patient transported off unit by DETASSELING CREW SUPERVISOR to Stress Test. Alert and oriented x3. Good spirits. Vital signs stable.
[2021-01-15 09:12] LABS: Hemoglobin A1c 5.6 % (3.8-5.6)
--- NOTE | 2021-01-15 10:23 | STRESSREP_ITS ---
Stress Test Report Date: 01-15-2021 Procedure: Pharmacologic stress nuclear imaging study Indications: Chest pain; CAD; multivessel PCI; ischemic mediated cardiomyopathy Consent: Per the patient Procedure: The patient underwent pharmacologic (Regadenoson 0.4mg ) evaluation with a peak heart rate of 99 beats per minute (56%predicted maximal heart rate) and a peak blood pressure of 110/60 mmHg. The baseline ECG demonstrated sinus bradycardia; incomplete left bundle branch block pattern. The peak pharmacologic ECG demonstrated no obvious ECG changes. There were no cardiac dysrhythmias pretest, during pharmacologic infusion, or recovery. Patient was noted to have chest discomfort preevaluation, during evaluation, and post evaluation. The examination was discontinued secondary to completion of protocol. Impression: 1. Pharmacologic (Regadenoson) evaluation 2. Peak pharmacologic ECG with no obvious ECG changes. 3. There were no cardiac dysrhythmias pretest, during pharmacologic infusion, or recovery. 4. Nuclear images pending Myocardial perfusion imaging study: Technique: The patient was injected with 15.0 millicuries of technetium 99m Cardiolite and subsequently rest SPECT Cardiolite nuclear imaging was obtained in the horizontal long, vertical long, and short axis views. The patient underwent pharmacologic (Regadenoson) evaluation with a peak heart rate of 99 beats per minute (56% percent predicted maximal heart rate) and a peak blood pressure of 110/60 mmHg. The patient was injected with 44.1 millicuries of technetium 99m Cardiolite and subsequently stress SPECT Cardiolite nuclear imaging was obtained in the horizontal long, vertical long, and short axis views. A gated Cardiolite study at peak stress was obtained. Interpretation: Rest and stress SPECT Cardiolite nuclear imaging status post realignment, normalization, and attenuation correction demonstrate areas of diminished absence of myocardial perfusion/tracer uptake in portions of the basal to mid lateral segments as well as the inferoapical and lateral apical segments without significant change between rest and stress. There is end systolic thickening and brightening. The gated Cardiolite study demonstrates myocardial thickening and inward wall motion. The reported LVEF is 34%. Impression: 1. Rest and stress SPECT current nuclear imaging status post realignment, normalization, and attenuation correction, demonstrate myocardial perfusion changes appearing compatible with areas of previous myocardial injury/infarction with no myocardial perfusion is considered diagnostic for associated stress- induced myocardial ischemia. 2. The gated Cardiolite study reports an LVEF of 34%. This note was generated with [employer] software. It may contain incorrect words, spelling, and punctuation that were not noted in checking the note before signing.
[2021-01-15] MEDS: Lisinopril 5 MG Tablet PO (10:50)
[2021-01-15] MEDS: Metoprolol(XL)Succ 50 MG Tablet PO (10:50)
[2021-01-15] MEDS: Furosemide 40 MG Tablet PO (10:50)
--- NOTE | 2021-01-15 11:40 | PCM.DC ---
- Discharge Diagnoses Current Active Problems: Current Active and Chronic Problems (Last Reviewed 10/25/20 @ 16:[address] Erlinda Pack MD) Chest pain (Acute) Tobacco use (Chronic) Hypertension (Chronic) Chest pain (Acute) Hyperlipidemia (Chronic) Atherosclerosis of coronary artery of [place] heart without angina pectoris (Chronic) History of coronary artery stent placement (Chronic 06/22/20) Successful thrombectomy and 4.00 x 08 Synergy MR BEN to pLAD, PTCA of ostial D1 and 3.00 x 08 Synergy MR BEN to mLAD 06/22/20; 4 x 12 Resolute [place] BEN to mRCA, 3 x 12 Resolute Pankaj BEN to mCx, 2.5 x 12 Resolute [place] BEN to mOM1 09/22/19; 3 x 12 Resolute Pankaj BEN and 2.25 x 15 Xience [place] BEN to Ramus Cx, PTCA to OM1 Cx 12/11/18; 3.0 x 20 Synergy(MR) Everolimus-eluting stent to Ostial 1st Diagonal 12/03/18; 4 x 15 Resolute [place] BEN to pLAD 10/03/17; 2.5 x 22 Resolute Integrity BEN to OM1 Cx 12/27/15; Xience Xpedition BEN to OM1 Cx, Xience Xpedition BEN to pRCA 06/07/14 Systolic heart failure (Chronic) You will use the following diet at home:: Cardiac Discharge Activity: Return to Normal Activity Call your doctor if you observe: Shortness of breath, Dizziness, Fainting spells, Chest pain Allergies/Adverse Reactions: Allergies varenicline [From Chantix] Allergy (Intermediate, Verified 12/02/20 19:39) change in mental status adhesive tape Adverse Reaction (Verified 12/02/20 19:39) Rash Medications to take at Discharge Aspirin [Aspirin, Baby] 81 mg PO DAILY@0800 06/22/20 Cholecalciferol (Vitamin D3) [Vitamin D3] 2,000 unit PO DAILY 06/22/20 atorvastatin 40 mg tablet 40 mg PO QHS #90 tab 08/02/20 lisinopril 5 mg tablet 5 mg PO DAILY #30 tab 08/02/20 metoprolol succinate 50 mg tablet,extended release 24 hr 50 mg PO DAILY #90 tab 08/02/20 prasugrel 10 mg tablet 10 mg PO DAILY #90 tab 08/02/20 evolocumab 140 mg/mL subcutaneous pen injector 140 mg SC Q2W #2 ml 08/31/20 furosemide 40 mg tablet 40 mg PO DAILY tab 10/25/20 Nitroglycerin (INPATIENT USE) [Nitrostat] 0.4 mg SUBLINGUAL Q5M PRN #10 tab.subl 01/15/21 The following prescriptions were given: Nitroglycerin (INPATIENT USE) [Nitrostat] 0.4 mg SUBLINGUAL Q5M PRN #10 tab.subl PRN Reason: Cardiac/Chest Pain Transmission Status: Pending to [id number] Primary Care Physician: Care Physician,No Primary [Primary Care Provider] - Please follow up with your Primary Care Physician in: 1 Week Test Results: Test results from this visit will be discussed in further detail at your follow-up appointment, if applicable. Please Follow Up With: Erlinda Pack MD When: 1 Week, may see CLINICAL APPLICATIONS SPECIALIST/PA. Call sunday for appointment Proposed Discharge Date: 01/15/21
--- NOTE | 2021-01-15 11:42 | PCM.DC.SUM ---
<Caitlin Galeas PHOTOGRAPHIC ARTIST - Last Filed: 01/15/21 11:55> Discharge Date and Diagnosis - Problem List Patient Problems: Active and Suspected Problems (Last Reviewed 10/25/20 @ 16:[address] Erlinda Pack MD) Chest pain (Acute) Chest pain (Acute) Date of Admission: 01/14/21 Date of Discharge: 01/15/21 - Primary Discharge Diagnosis Acute Problems: Active Problems (Last Reviewed 10/25/20 @ 16:[address] Erlinda Pack MD) 1. Chest pain-ACS ruled out 2. CAD with history of stents 3. Chronic systolic CHF 4. Hypertension 5. Hyperlipidemia 6. Chronic kidney disease stage III 7. Obesity - Secondary Discharge Diagnosis Chronic Problems: Chronic Problems (Last Reviewed 10/25/20 @ 16:[address] Erlinda Pack MD) Tobacco use (Chronic) Hypertension (Chronic) Hyperlipidemia (Chronic) Atherosclerosis of coronary artery of [place] heart without angina pectoris (Chronic) History of coronary artery stent placement (Chronic 06/22/20) Successful thrombectomy and 4.00 x 08 Synergy MR BEN to pLAD, PTCA of ostial D1 and 3.00 x 08 Synergy MR BEN to mLAD 06/22/20; 4 x 12 Resolute Pankaj BEN to mRCA, 3 x 12 Resolute [place] BEN to mCx, 2.5 x 12 Resolute Pankaj BEN to mOM1 09/22/19; 3 x 12 Resolute Fargo BEN and 2.25 x 15 Xience Alpine BEN to Ramus Cx, PTCA to OM1 Cx 12/11/18; 3.0 x 20 Synergy(MR) Everolimus-eluting stent to Ostial 1st Diagonal 12/03/18; 4 x 15 Resolute [place] BEN to pLAD 10/03/17; 2.5 x 22 Resolute Integrity BEN to OM1 Cx 12/27/15; Xience Xpedition BEN to OM1 Cx, Xience Xpedition BEN to pRCA 06/07/14 Systolic heart failure (Chronic) Hospital Course and Treatment Imaging Results: Diagnostic Data Chest X-Ray 01/14/21 18:46 IMPRESSION: No acute cardiopulmonary pathology. Electronically Signed: Gamal Cao MD at 19:27 EST , Service support , Operations: None Procedures: Stress test Summary of Care Provided: The patient is a 46 year old M admitted 01/14/2021 due to chest pain. 1. Chest pain-ACS ruled out. EKG without ST-T changes. Troponin negative. Patient underwent nuclear stress test which demonstrated areas of previous myocardial injury, no evidence for stress-induced ischemia. Follow-up with cardiology in 1 week. As needed nitro Rx given. 2. CAD with history of stents-continue aspirin, prasugrel, metoprolol, lisinopril, statin, Lasix. Follow-up with cardiology in 1 week. 3. Chronic systolic CHF-echocardiogram September 2020 demonstrated an EF of 45%. 4. Hypertension-stable, continue current medication regimen. 5. Hyperlipidemia-continue statin. 6. Chronic kidney disease stage III-at baseline. 7. Obesity-encouraged diet and lifestyle modifications. Patient seen and examined prior to discharge. Physical assessment as noted below. Patient is stable for discharge with follow up recommendations as noted above. This patient was seen by MIGEL Bangura under the supervision of Dr. Carmona. Patient Problems: Active and Suspected Problems (Last Reviewed 10/25/20 @ 16:[address] Erlinda Pack MD) Chest pain (Acute) Chest pain (Acute) - Physical Exam Vitals/I&O's: Vital Signs Temp Pulse Resp BP Pulse Ox 97.6 F L 56 L 16 133/79 H 95 01/15/21 10:42 01/15/21 10:50 01/15/21 10:42 01/15/21 10:50 01/15/21 10:42 Oxygen Delivery Method Room Air Weight: 227 lb 15.327 oz Body Mass Index (BMI) 30.9 Intake and Output for Last 24 Hours 01/13/21 01/14/21 01/15/21 23:59 23:59 23:59 Intake Total 250 / 250 0 / 0 Balance 250 / 250 0 / 0 General: Alert, Oriented x3, Cooperative HEENT: Atraumatic, PERRLA, EOMI, Normocephalic Neck: Supple, No JVD, Negative Carotid Bruits Lungs: Clear to auscultation, Normal air movement Cardiovascular: Regular rate, No murmurs Abdomen: Bowel Sounds Present, Soft, Non Tender, Non-Distended Extremities: No clubbing, No cyanosis, No edema, Capillary Refill Less than 3 Seconds Skin: No rashes, No breakdown Musculoskeletal: No Tenderness to Palpation of Joints or Extremities Neurological: Cranial nerves II-XII grossly intact, Neuro grossly intact Psych/Mental Status: Normal Affect, Appropriate Laboratory Results 01/14/21 18:39: WBC 9.4, RBC 5.33, Hgb 17.2 H, Hct 49.9, MCV 93.6, MCH 32.3 H, MCHC 34.5, RDW Std Deviation 42.4, RDW Coeff of Jenna 12.3, Plt Count 224, MPV 11.4, Immature Gran % (Auto) 0.200, Neut % (Auto) 50.6, Lymph % (Auto) 36.0, Bay % (Auto) 9.8, Eos % (Auto) 2.4, Baso % (Auto) 1.0, Absolute Neuts (auto) 4.8, Absolute Lymphs (auto) 3.39, Nucleated RBC % 0 01/14/21 18:39: Sodium 139, Potassium 3.8, Chloride 104, Carbon Dioxide 29.0, Anion Gap 6, BUN 11, Creatinine 1.42 H, Estim Creat Clear Calc 71.35, Est GFR (MDRD) Af Amer 69, Est GFR (MDRD) Non-Af 57 L, BUN/Creatinine Ratio 7.7 L, Glucose 132 H, Calcium 9.3, Troponin I < 0.015 01/14/21 18:39: Magnesium 2.3 01/14/21 21:54: Troponin I < 0.015 01/15/21 00:30: Troponin I < 0.015 01/15/21 06:36: WBC 11.4 H, RBC 5.09, Hgb 16.3, Hct 47.6, MCV 93.5, MCH 32.0, MCHC 34.2, RDW Std Deviation 42.0, RDW Coeff of Jenna 12.1, Plt Count 206, MPV 11.5, Immature Gran % (Auto) 0.200, Neut % (Auto) 56.4, Lymph % (Auto) 30.4, Bay % (Auto) 9.8, Eos % (Auto) 2.5, Baso % (Auto) 0.7, Absolute Neuts (auto) 6.4, Absolute Lymphs (auto) 3.46, Nucleated RBC % 0 01/15/21 06:36: Sodium 139, Potassium 3.7, Chloride 106, Carbon Dioxide 27.0, Anion Gap 6, BUN 11, Creatinine 1.26, Estim Creat Clear Calc 80.41, Est GFR (MDRD) Af Amer 79, Est GFR (MDRD) Non-Af 66, BUN/Creatinine Ratio 8.7 L, Glucose 94, Calcium 8.8, Total Bilirubin 0.40, AST 25, ALT 43, Alkaline Phosphatase 99, Total Protein 6.6, Albumin 3.4, Globulin 3.2, Albumin/Globulin Ratio 1.1, Triglycerides 148, Cholesterol 71, LDL Cholesterol 8, VLDL Cholesterol 30, HDL Cholesterol 33 L 01/15/21 06:36: Hemoglobin A1c 5.6 Current Medications Acetaminophen (Acetaminophen 325 Mg Tablet) 650 mg PO Q6H PRN PRN PRN Reason: Pain Score 1-10/Temp > 100.7 F Al Hydroxide/Mg Hydroxide (Mag Hydrox/Al Hydrox/Simeth 30 Ml Udc) 30 ml PO Q6H PRN PRN PRN Reason: Gastric Burning Albuterol Sulfate (Albuterol 2.5 Mg/3 Ml Vial.Neb.) 2.5 mg INHALATION Q2H PRN PRN PRN Reason: Dyspnea, wheezing Aspirin (Aspirin 81 Mg Tab.Chew) 81 mg PO DAILY@0800 [facility] Last Admin: 01/15/21 06:31 Dose: 81 mg Documented by: Atorvastatin Calcium (Atorvastatin Calcium 40 Mg Tablet) 40 mg PO QHS [facility] Last Admin: 01/14/21 22:36 Dose: 40 mg Documented by: Enoxaparin Sodium (Enoxaparin 40 Mg/0.4 Ml Syringe) 40 mg SC DAILY [facility] Last Admin: 01/15/21 10:48 Dose: Not Given Documented by: Furosemide (Furosemide 40 Mg Tablet) 40 mg PO DAILY [facility] Last Admin: 01/15/21 10:50 Dose: 40 mg Documented by: Guaifenesin (Guaifenesin 10 Ml Udc (200mg/10ml)) 20 ml PO Q4H PRN PRN PRN Reason: COUGH Hydralazine HCl (Hydralazine 20 Mg/Ml Vial) 10 mg IV Q4H PRN PRN PRN Reason: SBP > 160 Sodium Chloride () 250 mls @ 15 mls/hr IV .[id number] PRN PRN Reason: Saline Flush Sodium Chloride () 250 mls @ 15 mls/hr IV .[id number] PRN PRN Reason: Additional IVPB Infusion Lisinopril (Lisinopril 5 Mg Tablet) 5 mg PO DAILY [facility] Last Admin: 01/15/21 10:50 Dose: 5 mg Documented by: Magnesium Hydroxide (Magnesium Hydroxide 30 Ml Udc) 30 ml PO DAILY PRN PRN PRN Reason: Constipation Melatonin (Melatonin 3 Mg Tablet) 3 mg PO QHS PRN PRN PRN Reason: INSOMNIA Metoprolol Succinate (Metoprolol(Xl)Succ 50 Mg Tablet) 50 mg PO DAILY [facility] Last Admin: 01/15/21 10:50 Dose: 50 mg Documented by: Morphine Sulfate (Morphine 2 Mg/Ml Syringe) 2 mg IV Q3H PRN PRN PRN Reason: Pain Score 6-10 Nitroglycerin (Nitroglycerin Sl (Ed/Img/Cath) 0.4 Mg Tablet) 0.4 mg SUBLINGUAL Q5M PRN PRN Reason: Chest pain Last Admin: 01/14/21 19:25 Dose: 0.4 mg Documented by: Nitroglycerin (Nitroglycerin (Inpatient Use) 0.4 Mg Tab.Subl) 0.4 mg SUBLINGUAL Q5M PRN PRN Reason: CARDIAC/CHEST PAIN Ondansetron HCl (Ondansetron 4 Mg/2 Ml Vial) 4 mg IV Q8H PRN PRN PRN Reason: NAUSEA/VOMITING Oxycodone HCl (Oxycodone 5 Mg Tablet) 5 mg PO Q4H PRN PRN PRN Reason: Pain Score 4-5 Prasugrel (Prasugrel Hydrochloride 10 Mg Tablet) 10 mg PO DAILY [facility] Last Admin: 01/15/21 06:30 Dose: 10 mg Documented by: Prochlorperazine Edisylate (Prochlorperazine 10 Mg/2 Ml Vial) 5 mg IV Q4H PRN PRN PRN Reason: Breakthrough Nausea/Vomiting Psyllium Hydrophilic Mucilloid (Psyllium 1 Packet) 1 packet PO DAILY PRN PRN PRN Reason: Constipation Senna/Docusate Sodium (Senna/Docusate Sodium 1 Tablet) 2 tablet PO BID PRN PRN PRN Reason: Constipation Sodium Chloride (0.9% Saline Lock 10 Ml Syringe) 10 - 40 ml IV UD PRN PRN Reason: SALINE FLUSH Last Admin: 01/15/21 08:28 Dose: 10 ml Documented by: Throat Lozenges (Benzocaine/Menthol 1 Lozenge) 1 lozenge MUCOUS MEM Q2H PRN PRN PRN Reason: SORE THROAT Discharge Diet: Low fat/ Low Cholesterol Discharge Activity: Return to Normal Activity Call your doctor if you observe: Shortness of breath, Dizziness, Fainting spells, Chest pain Home Medications: Medications to take at Discharge Aspirin [Aspirin, Baby] 81 mg PO DAILY@0800 06/22/20 Cholecalciferol (Vitamin D3) [Vitamin D3] 2,000 unit PO DAILY 06/22/20 atorvastatin 40 mg tablet 40 mg PO QHS #90 tab 08/02/20 lisinopril 5 mg tablet 5 mg PO DAILY #30 tab 08/02/20 metoprolol succinate 50 mg tablet,extended release 24 hr 50 mg PO DAILY #90 tab 08/02/20 prasugrel 10 mg tablet 10 mg PO DAILY #90 tab 08/02/20 evolocumab 140 mg/mL subcutaneous pen injector 140 mg SC Q2W #2 ml 08/31/20 furosemide 40 mg tablet 40 mg PO DAILY tab 10/25/20 Nitroglycerin (INPATIENT USE) [Nitrostat] 0.4 mg SUBLINGUAL Q5M PRN #10 tab.subl 01/15/21 Following Prescriptions Were Given to Patient: Nitroglycerin (INPATIENT USE) [Nitrostat] 0.4 mg SUBLINGUAL Q5M PRN #10 tab.subl PRN Reason: Cardiac/Chest Pain Transmission [id number] Primary Care Physician: Care Physician,No Primary [Primary Care Provider] - Please follow up with your Primary Care Physician in: 1 Week Please Follow Up With: Erlinda Pack MD When: 1 Week, may see PHOTOGRAPHIC ARTIST/PA. Call sunday for appointment Disposition: Home Minutes spent on discharge:: 35 Patient Condition:: Stable Medical Necessity - Tobacco Use Smoking Status: Current every day smoker Tobacco Use: Cigarettes Meaningful Use Info Meaningful Use Diagnoses (Choose all that apply): None applicable <Carlito Carmona - Last Filed: 02/27/21 12:51> Discharge Date and Diagnosis - Primary Discharge Diagnosis Acute Problems: Active Problems (Last Reviewed 10/25/20 @ 16:[address] Erlinda Pack MD) Chest pain (Acute) Chest pain (Acute) - Secondary Discharge Diagnosis Chronic Problems: Chronic Problems (Last Reviewed 10/25/20 @ 16:[address] Erlinda Pack MD) Tobacco use (Chronic) Hypertension (Chronic) Hyperlipidemia (Chronic) Atherosclerosis of coronary artery of [place] heart without angina pectoris (Chronic) History of coronary artery stent placement (Chronic 06/22/20) Successful thrombectomy and 4.00 x 08 Synergy MR BEN to pLAD, PTCA of ostial D1 and 3.00 x 08 Synergy MR BEN to mLAD 06/22/20; 4 x 12 Resolute [place] BEN to mRCA, 3 x 12 Resolute Pankaj BEN to mCx, 2.5 x 12 Resolute [place] BEN to mOM1 09/22/19; 3 x 12 Resolute [place] BEN and 2.25 x 15 Xience Alpine BEN to Ramus Cx, PTCA to OM1 Cx 12/11/18; 3.0 x 20 Synergy(MR) Everolimus-eluting stent to Ostial 1st Diagonal 12/03/18; 4 x 15 Resolute [place] BEN to pLAD 10/03/17; 2.5 x 22 Resolute Integrity BEN to OM1 Cx 12/27/15; Xience Xpedition BEN to OM1 Cx, Xience Xpedition BEN to pRCA 06/07/14 Systolic heart failure (Chronic) Hospital Course and Treatment Imaging Results: 01/15/21 05:55 Nuclear Stress Test - Chemical [NM] AM (NON MEDS) Summary of Care Provided: This patient was seen in conjunction with PHOTOGRAPHIC ARTISTCaitlin. I have independently interviewed and examined the patient and reviewed pertinent history, examination findings, laboratory and plan of management. I have reviewed the note and agree with the documented findings with the few additional points. In brief, patient is a 46-year-old, gentleman is admitted with chest pain. Patient has history of coronary artery disease status post stents in the past, follows Dr. Pack. Patient had anterior STEMI in 2019. EF at that time was 30%, subsequently improved to 45% on repeat echo in September 2020. Serial troponin enzymes negative. Patient had nuclear stress test which was negative for acute ischemia. Patient discharged home with follow-up with cardiology. Lipid profile LDL 8, HDL 33, total cholesterol 71. His LDL was 157 in June 2020. Patient on aspirin, furosemide, atorvastatin, metoprolol succinate, prasugrel and evolocumab; PCSK9 inhibitor. Other comorbidities as mentioned above include chronic systolic heart failure, coronary artery status post stents, hypertension, dyslipidemia CKD stage III Discharge medication reconciliation done. Discharge follow-up instructions completed. Discharge process discussed with the patient and all questions were answered to patient's satisfaction. Total time spent, exact 35 minutes on discharge meds reconciliation, examination, coordination of care with nurses and ancillary staff, review of imaging and blood test and discussion with the patient on follow-up instructions I have discussed my assessment with PHOTOGRAPHIC ARTISTCaitlin and orders have been reviewed. [] Objective: Seen and examined. Heart rate and blood pressure in normal range. Heart rate about 56/min. Sinus rhythm. Patient complain of left midsternal chest pain/pressure, localized. No shortness of breath. Physical exam General: Alert, Oriented x3, Cooperative HEENT: Atraumatic, PERRLA, EOMI, Normocephalic Oral: No Gingival or Mucosal Lesions/ Ulcerations Neck: Supple, No JVD, Negative Carotid Bruits Lungs: Air entry equal in bilateral lung bases. No crepitation/rhonchi Cardiovascular: Regular rate, Regular Rhythm, Normal S1, Normal S2, No murmurs Abdomen: Bowel Sounds Present, Soft, Non Tender, Non-Distended : No renal angle tenderness. No suprapubic tenderness. Extremities: No edema, Capillary Refill Less than 3 Seconds Skin: No rashes, No breakdown Musculoskeletal: No Tenderness to Palpation of Joints or Extremities Neurological: Cranial nerves II-XII grossly intact, Deep Tendon Reflexes 2+/4 and Symmetrical, Neuro grossly intact Psych/Mental Status: Normal Affect, Appropriate. - Physical Exam Vitals/I&O's: Vital Signs Temp Pulse Resp BP Pulse Ox 97.6 F L 56 L 16 133/79 H 95 01/15/21 10:42 01/15/21 10:50 01/15/21 10:42 01/15/21 10:50 01/15/21 10:42 Oxygen Delivery Method Room Air Weight: 227 lb 15.327 oz Body Mass Index (BMI) 30.9 Intake and Output for Last 24 Hours 01/13/21 01/14/21 01/15/21 23:59 23:59 23:59 Intake Total 250 / 250 0 / 0 Balance 250 / 250 0 / 0 Laboratory Results 01/14/21 18:39: WBC 9.4, RBC 5.33, Hgb 17.2 H, Hct 49.9, MCV 93.6, MCH 32.3 H, MCHC 34.5, RDW Std Deviation 42.4, RDW Coeff of Jenna 12.3, Plt Count 224, MPV 11.4, Immature Gran % (Auto) 0.200, Neut % (Auto) 50.6, Lymph % (Auto) 36.0, Bay % (Auto) 9.8, Eos % (Auto) 2.4, Baso % (Auto) 1.0, Absolute Neuts (auto) 4.8, Absolute Lymphs (auto) 3.39, Nucleated RBC % 0 01/14/21 18:39: Sodium 139, Potassium 3.8, Chloride 104, Carbon Dioxide 29.0, Anion Gap 6, BUN 11, Creatinine 1.42 H, Estim Creat Clear Calc 71.35, Est GFR (MDRD) Af Amer 69, Est GFR (MDRD) Non-Af 57 L, BUN/Creatinine Ratio 7.7 L, Glucose 132 H, Calcium 9.3, Troponin I < 0.015 01/14/21 18:39: Magnesium 2.3 01/14/21 21:54: Troponin I < 0.015 01/15/21 00:30: Troponin I < 0.015 01/15/21 06:36: WBC 11.4 H, RBC 5.09, Hgb 16.3, Hct 47.6, MCV 93.5, MCH 32.0, MCHC 34.2, RDW Std Deviation 42.0, RDW Coeff of Jenna 12.1, Plt Count 206, MPV 11.5, Immature Gran % (Auto) 0.200, Neut % (Auto) 56.4, Lymph % (Auto) 30.4, Bay % (Auto) 9.8, Eos % (Auto) 2.5, Baso % (Auto) 0.7, Absolute Neuts (auto) 6.4, Absolute Lymphs (auto) 3.46, Nucleated RBC % 0 01/15/21 06:36: Sodium 139, Potassium 3.7, Chloride 106, Carbon Dioxide 27.0, Anion Gap 6, BUN 11, Creatinine 1.26, Estim Creat Clear Calc 80.41, Est GFR (MDRD) Af Amer 79, Est GFR (MDRD) Non-Af 66, BUN/Creatinine Ratio 8.7 L, Glucose 94, Calcium 8.8, Total Bilirubin 0.40, AST 25, ALT 43, Alkaline Phosphatase 99, Total Protein 6.6, Albumin 3.4, Globulin 3.2, Albumin/Globulin Ratio 1.1, Triglycerides 148, Cholesterol 71, LDL Cholesterol 8, VLDL Cholesterol 30, HDL Cholesterol 33 L 01/15/21 06:36: Hemoglobin A1c 5.6 Current Medications Acetaminophen (Acetaminophen 325 Mg Tablet) 650 mg PO Q6H PRN PRN PRN Reason: Pain Score 1-10/Temp > 100.7 F Al Hydroxide/Mg Hydroxide (Mag Hydrox/Al Hydrox/Simeth 30 Ml Udc) 30 ml PO Q6H PRN PRN PRN Reason: Gastric Burning Albuterol Sulfate (Albuterol 2.5 Mg/3 Ml Vial.Neb.) 2.5 mg INHALATION Q2H PRN PRN PRN Reason: Dyspnea, wheezing Aspirin (Aspirin 81 Mg Tab.Chew) 81 mg PO DAILY@0800 [facility] Last Admin: 01/15/21 06:31 Dose: 81 mg Documented by: Atorvastatin Calcium (Atorvastatin Calcium 40 Mg Tablet) 40 mg PO QHS [facility] Last Admin: 01/14/21 22:36 Dose: 40 mg Documented by: Enoxaparin Sodium (Enoxaparin 40 Mg/0.4 Ml Syringe) 40 mg SC DAILY [facility] Last Admin: 01/15/21 10:48 Dose: Not Given Documented by: Furosemide (Furosemide 40 Mg Tablet) 40 mg PO DAILY [facility] Last Admin: 01/15/21 10:50 Dose: 40 mg Documented by: Guaifenesin (Guaifenesin 10 Ml Udc (200mg/10ml)) 20 ml PO Q4H PRN PRN PRN Reason: COUGH Hydralazine HCl (Hydralazine 20 Mg/Ml Vial) 10 mg IV Q4H PRN PRN PRN Reason: SBP > 160 Sodium Chloride () 250 mls @ 15 mls/hr IV .[id number] PRN PRN Reason: Saline Flush Sodium Chloride () 250 mls @ 15 mls/hr IV .[id number] PRN PRN Reason: Additional IVPB Infusion Lisinopril (Lisinopril 5 Mg Tablet) 5 mg PO DAILY [facility] Last Admin: 01/15/21 10:50 Dose: 5 mg Documented by: Magnesium Hydroxide (Magnesium Hydroxide 30 Ml Udc) 30 ml PO DAILY PRN PRN PRN Reason: Constipation Melatonin (Melatonin 3 Mg Tablet) 3 mg PO QHS PRN PRN PRN Reason: INSOMNIA Metoprolol Succinate (Metoprolol(Xl)Succ 50 Mg Tablet) 50 mg PO DAILY [facility] Last Admin: 01/15/21 10:50 Dose: 50 mg Documented by: Morphine Sulfate (Morphine 2 Mg/Ml Syringe) 2 mg IV Q3H PRN PRN PRN Reason: Pain Score 6-10 Nitroglycerin (Nitroglycerin Sl (Ed/Img/Cath) 0.4 Mg Tablet) 0.4 mg SUBLINGUAL Q5M PRN PRN Reason: Chest pain Last Admin: 01/14/21 19:25 Dose: 0.4 mg Documented by: Nitroglycerin (Nitroglycerin (Inpatient Use) 0.4 Mg Tab.Subl) 0.4 mg SUBLINGUAL Q5M PRN PRN Reason: CARDIAC/CHEST PAIN Ondansetron HCl (Ondansetron 4 Mg/2 Ml Vial) 4 mg IV Q8H PRN PRN PRN Reason: NAUSEA/VOMITING Oxycodone HCl (Oxycodone 5 Mg Tablet) 5 mg PO Q4H PRN PRN PRN Reason: Pain Score 4-5 Prasugrel (Prasugrel Hydrochloride 10 Mg Tablet) 10 mg PO DAILY [facility] Last Admin: 01/15/21 06:30 Dose: 10 mg Documented by: Prochlorperazine Edisylate (Prochlorperazine 10 Mg/2 Ml Vial) 5 mg IV Q4H PRN PRN PRN Reason: Breakthrough Nausea/Vomiting Psyllium Hydrophilic Mucilloid (Psyllium 1 Packet) 1 packet PO DAILY PRN PRN PRN Reason: Constipation Senna/Docusate Sodium (Senna/Docusate Sodium 1 Tablet) 2 tablet PO BID PRN PRN PRN Reason: Constipation Sodium Chloride (0.9% Saline Lock 10 Ml Syringe) 10 - 40 ml IV UD PRN PRN Reason: SALINE FLUSH Last Admin: 01/15/21 08:28 Dose: 10 ml Documented by: Throat Lozenges (Benzocaine/Menthol 1 Lozenge) 1 lozenge MUCOUS MEM Q2H PRN PRN PRN Reason: SORE THROAT OBSV E&M: 50011 Observation care discharge
--- NOTE | 2021-01-15 13:26 | NURSING ---
Discharged home with instruction and script. Verbalized understanding of teaching. IV removed tip intact. Patient ambulated off of unit.
== END 2021-01-15 11:40 | disposition home or self-care (01) ==
LOC: ED 20:57 → PCU 21:33
PROVIDERS: Admitting Provider Family Medicine; Emergency Provider Emergency Medicine; Visit Provider Internal Medicine
DX: R07.89 Other chest pain (principal); R06.02 Shortness of breath; E78.5 Hyperlipidemia, unspecified; I25.10 Atherosclerotic heart disease of native coronary artery without angina pectoris; I25.2 Old myocardial infarction; I50.22 Chronic systolic (congestive) heart failure; E66.9 Obesity, unspecified; R42 Dizziness and giddiness; F17.210 Nicotine dependence, cigarettes, uncomplicated; N18.30 Chronic kidney disease, stage 3 unspecified; I13.0 Hypertensive heart and chronic kidney disease with heart failure and stage 1 through stage 4 chronic kidney disease, or unspecified chronic kidney disease; Z82.49 Family history of ischemic heart disease and other diseases of the circulatory system; Z79.899 Other long term (current) drug therapy; Z79.82 Long term (current) use of aspirin; R73.9 Hyperglycemia, unspecified
CPT/HCPCS: 36415; 71045; 78452; 80048; 80053; 80061; 83036; 83735; 84484; 85025; 93005; 93017; 99218; 99251; 99285; 99406; A9500; A4216; G0378; G0463; J2785

== ENCOUNTER 2021-02-07 07:14 | Day surgery (SDC) | payer MEDICAID, SELFPAY ==
[2021-01-18 15:11] VITALS: BMI 31.6
[2021-02-04 07:58] VITALS: BMI 31.6
--- NOTE | 2021-02-07 09:02 | CL.D_ITS ---
Patient Name: SALENA MONTALVO Study Date: 02/07/2021 Performing: Caio Hay MD Ht: 72.04 inches 183 cm : 1975 Wt: 233.69 lbs 106 kg Age: 46 Gender: male BSA: 2.28 PROCEDURE(S) PERFORMED [id number]/[id number]/LV CLINICAL PROFILE AND INDICATIONS Indications: Worsening Angina Heart Failure: NYHA Class: 2, Newly Diagnosed: No, Heart Failure Type: Systolic Stress/Imaging Date: 01/15/21ress Test with SPECT MPI: Negative CAD Presentations: Stable angina. CONCLUSIONS Previously placed stents in the left anterior descending artery, diagonal vessel, ramus intermedius, circumflex artery, proximal and mid right coronary artery are all noted to be patent. There is a sma ll vessel which is the AV groove branch of the circumflex artery with a 70% stenosis. RECOMMENDATIONS We will maximize medical therapy by adding isosorbide, add Ranexa, continue beta-alex and ROBERT inhi bitor. DESCRIPTION OF PROCEDURE The patient arrived to the procedure lab. The risks and benefits of the procedure as well as a full d escription of our services here and current unavailability of surgical backup were fully explained to the patient and/or their significant other prior to the catheterization. The Timeout was completed, verifying the correct patient and procedure. The patient's procedural site was prepped and draped in the usual fashion. Local anesthetic was given subcutaneously to right radial region with Lidocaine 2% . Using a modified Seldinger technique, arterial access was obtained via the right radial artery, a 6 Fr sheath was inserted. Left Coronary Artery selective angiography was performed in multiple views u sing a 5 Fr. 4.0 Erie catheter. Right Coronary Artery selective angiography was then performed in mu ltiple views using a 5 Fr. 4.0 Erie catheter. Left Ventriculography was performed in SANTOS projection using a 5 Fr. Pigtail catheter. LV to AO pullback pressures were then recorded.The arterial sheath was pulled and a TR Band was applied for hemostasis w/ 12ml air CORONARY ANGIOGRAPHY DOMINANCE: Right Dominant LEFT HEART ASSESSMENT Left Ventricular Ejection Fraction: by LV Gram 30 % Anterior Hypokinesis - Severe. Apical Hypokinesis - Severe. Inferior Mid Hypokinesis - Moderate Depressed Left Ventricular systolic function LEFT MAIN: Angiographically normal LEFT ANTERIOR DESCENDING ARTERY: MID LAD: Previously placed stent is patent DIAGONAL 1: Ostial - Instent restenosis 40 % CIRCUMFLEX ARTERY: MID CIRC: Previously placed stent is patent, 70 small AV branch % Stenosis RAMUS: Previously placed stent is patent RIGHT CORONARY ARTERY: PROX RCA: Previously placed stent is patent MID RCA: Previously placed stent is patent COMPLICATIONS No Complications PROCEDURE MEDICATIONS Versed 1 mg IV Fentanyl 50 mcg IV Versed 1 mg IV Oxygen: 2 L/min via nasal cannula Heparin diluted in 23cc Heparinized saline. Patient given 10cc IA of this solution. 02/07/2021 08:16: 31 Verapamil 2.5mg, Ntg 100mcgs, 2000 units of Heparin diluted in 23cc Heparinized saline. Patient give n 10cc IA of this solution. 02/07/2021 08:16:31 IV Bolus: .9 NaCl ml total 02/07/2021 08:30:53 SUMMARY OF HEMODYNAMIC DATA Time AIR REST ECG 07:37:10 AO 122/81 (97) SA 08:29:01 LV 89/14, 23 08:41:28 LV 110/14, 21 08:41:34 LV 98/17, 22 08:42:46 LVp 97/16, 17 08:42:49 AOp 112/77 (93) 08:42:54 Signed By Caio Hay MD On 02/07/2021 9:00:57 AM Caio Hay MD
== END 2021-02-07 10:45 | disposition home or self-care (01) ==
LOC: CLSP 07:17
PROVIDERS: Referring Provider Internal Medicine Cardiovascular Disease; Visit Provider Internal Medicine Cardiovascular Disease
DX: I25.118 Atherosclerotic heart disease of native coronary artery with other forms of angina pectoris (principal); I25.2 Old myocardial infarction; E78.5 Hyperlipidemia, unspecified; I50.22 Chronic systolic (congestive) heart failure; Z95.5 Presence of coronary angioplasty implant and graft; F17.200 Nicotine dependence, unspecified, uncomplicated; I11.0 Hypertensive heart disease with heart failure; Z82.49 Family history of ischemic heart disease and other diseases of the circulatory system; Z79.899 Other long term (current) drug therapy
CPT/HCPCS: 93458; 99152; 99153; J7040; Q9967; C1769; C1894

== ENCOUNTER → 2021-07-04 12:51 | Outpatient (CLI) | payer MEDICAID, SELFPAY ==
[2021-04-08 11:19] VITALS: BMI 31.6
--- NOTE | 2021-07-04 12:52 | ECHOD_ITS ---
Version 2 Reason For Study: Chest Pain Procedure This was a 2D Doppler, Color Flow transthoracic echocardiogram. The study was technically difficult. Contrast injection was performed. Exam performed in department. Left Ventricle Normal LV size. The estimated ejection fraction is 35 %. Moderately severe segmental systolic dysfunction (see wall motion). Stage 1 diastolic dysfunction. Mid-Posterior: Akinetic. Mid-Inferior: Akinetic. Anterio-Basal: Normal. Mid-Lateral : Akinetic. There is mild to moderate global hypokinesis of the left ventricle. Right Ventricle Normal RV size. Normal systolic function. Atria Normal left atrium. Normal right atrium. Mitral Valve Normal mitral valve. Tricuspid Valve Normal tricuspid valve. Aortic Valve Trisinus/trileaflet aortic valve. Mild focal aortic valve calcification. Pulmonic Valve Normal pulmonic valve. Great Vessels Normal aortic root. The pulmonary artery is normal size. Normal inferior vena cava. Pericardium/Pleural No pericardial effusion. Medication 22 gauge I.V. with prn adaptor inserted into left arm. Diluted definity 3ml given slow IV push to enhance endocardial definition. MMode/2D Measurements & Calculations LVIDd: 6.3 cm IVSd: 0.99 cm LA dimension: 4.2 cm LVIDs: 5.3 cm LVPWd: 0.84 cm FS: 15.2 % LAV(MOD-bp): 60.7 ml LVAd ap4: 42.9 cm2 SV(MOD-sp4): 46.7 ml LAV(MOD-bp) Indexed: 25.4 ml/m2 LVLd ap4: 9.3 cm LAV(MOD-sp2): 62.9 ml EDV(MOD-sp4): 165.3 ml LAV(MOD-sp4): 52.2 ml EDV(sp4-el): 168.4 ml LVAs ap4: 35.6 cm2 LVLs ap4: 8.6 cm ESV(MOD-sp4): 118.6 ml ESV(sp4-el): 124.8 ml EF(MOD-sp4): 28.2 % EF(sp4-el): 25.9 % SV(sp4-el): 43.6 ml LA A4 area: 19.0 cm2 RA A4 area: 13.2 cm2 Time Measurements MV dec time: 0.19 sec Doppler Measurements & Calculations MV E max donn: 71.7 cm/sec Lat Peak E' Donn: 7.3 cm/sec Med Peak E' Donn: 7.0 cm/sec MV A max donn: 80.8 cm/sec E/E' lat: 9.8 E/E' med: 10.3 MV E/A: 0.89 MV V2 max: 88.0 cm/sec MV P1/2t max donn: 72.9 cm/sec Ao V2 max: 112.6 cm/sec MV max P.1 mmHg MV P1/2t: 99.2 msec Ao max P.1 mmHg MV V2 mean: 52.0 cm/sec MV mean P.2 mmHg MV dec slope: 215.2 cm/sec2 MV V2 VTI: 24.7 cm MVA(P1/2t): 2.2 cm2 LV V1 max: 106.4 cm/sec PA V2 max: 95.3 cm/sec LV V1 max P.5 mmHg ECHO/Echo Complete W/ Contrast Interpretation Summary Normal LV size. The estimated ejection fraction is 35 %. Moderately severe segmental systolic dysfunction (see wall motion). Stage 1 diastolic dysfunction. Compared to previous study, the left ventricular systolic function has worsened .. Ordering Physician: Caio Hay Referring Physician: No PCP Noted Performed By: Raul Sawyer RCS
== END ==
PROVIDERS: Referring Provider Internal Medicine Cardiovascular Disease; Visit Provider Internal Medicine Cardiovascular Disease
DX: I25.5 Ischemic cardiomyopathy (principal); Z95.5 Presence of coronary angioplasty implant and graft
CPT/HCPCS: 93306; Q9957; A4216; C8929; J3490

== ENCOUNTER 2021-07-19 17:37 | Inpatient (IN) | payer MEDICAID, SELFPAY ==
[2021-07-19] VITALS (12 sets, daily range): BP systolic 114–155; BP diastolic 82–102; PULSE 55–76; RESP 14–20; TEMP 36.2–36.7; O2SAT 93–97; BMI 32.5; BMI 31.4
--- NOTE | 2021-07-19 18:07 | EKG12_ITS ---
Test Reason : CP Blood Pressure : / mmHG Vent. Rate : 058 BPM Atrial Rate : 058 BPM P-R Int : 142 ms QRS Dur : 106 ms QT Int : 380 ms P-R-T Axes : 046 -53 077 degrees QTc Int : 373 ms Sinus bradycardia with Premature atrial complexes Left anterior fascicular block Septal infarct , age undetermined Abnormal ECG Confirmed by ANAY BOWLES, ROXANA ([id number]), editor trade journal DERREK OWEN ([id number]) on 07/21/2021 9:07:50 AM Referred By: Confirmed By:ROXANA CUEVA MD
--- NOTE | 2021-07-19 18:12 | ED.VIS.CHEST ---
HPI History of Present Illness Chief Complaint: Chest Pain Informant: patient Onset/Context/Timing Onset: Today Activity at onset: gradual Timing: Continuous Quality: Positive for Pressure and - (Squeezing) Location: Substernal Worsened By: Nothing Relieved By: Nothing Associated Symptoms: Positive for Dyspnea, Lightheadedness and Palpitations; Negative for Nausea, Vomiting, Diaphoresis, Cough, Fever and Acid Reflux Narrative Narrative: Patient presents with chest pain that began today. Patient states he has a history of coronary artery disease. Patient states he had stents placed last September. Patient states he has had multiple stents placed on different occasions. Patient states his pain radiates into both arms. Patient states he took his blood pressure at home and it was 184/81. Patient states he took 3 baby aspirin at home. Patient states he took 3 sublingual nitroglycerin tablets at home with no improvement. Patient admits to some shortness of breath and lightheadedness. Patient also admits to some palpitations. 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) Home Medications aspirin 81 mg PO DAILY@0800 06/22/20 [History Last Taken 02/06/21] cholecalciferol (vitamin D3) 2,000 unit PO DAILY 06/22/20 [History Last Taken 02/06/21] atorvastatin 40 mg tablet 40 mg PO QHS #90 tab 08/02/20 [Rx Last Taken 02/06/21] lisinopril 5 mg tablet 5 mg PO DAILY #30 tab 08/02/20 [Rx Last Taken 02/06/21] prasugrel 10 mg tablet 10 mg PO DAILY #90 tab 08/02/20 [Rx Last Taken 02/06/21] evolocumab 140 mg/mL subcutaneous pen injector 140 mg SC Q2W #2 ml 08/31/20 [Rx Last Taken Unknown] furosemide 40 mg tablet 40 mg PO DAILY tab 10/25/20 [History Last Taken Unknown] nitroglycerin 0.4 mg SUBLINGUAL Q5M PRN #10 tab.subl 01/15/21 [Rx Last Taken Unknown] amlodipine 2.5 mg tablet 2.5 mg PO DAILY #90 tab 04/08/21 [Rx Last Taken Unknown] isosorbide mononitrate 30 mg tablet,extended release 24 hr 30 mg PO BID #60 tab 04/08/21 [Rx Last Taken Unknown] carvedilol 6.25 mg tablet 12.5 mg PO BID #60 tab 07/14/21 [Rx Last Taken Unknown] Allergy/AdvReac Type Severity Reaction Status Date / Time varenicline [From Chantix] Allergy Intermediate change in Verified 07/19/21 17:37 mental status adhesive tape AdvReac Rash Verified 07/19/21 17:37 Family History Father Myocardial infarction, Onset Age: 39 Mother Myocardial infarction, Onset Age: 40 Brother Myocardial infarction, Onset Age: 39 Brother Myocardial infarction, Onset Age: 36 Surgical History History of coronary artery stent placement (06/22/20) History of left heart catheterization (02/07/21) History of myringotomy Social History Smoking Status: Current every day smoker tobacco type: cigarettes quit status: considering quitting alcohol intake: never substance use type: does not use caffeine: Yes Type: coffee Number of servings: 1 ROS ROS ED Constitutional Constitutional ED: Denies chills or fever(s) Eyes Eyes: Denies blurry vision or change in vision ENT ENT ED: Denies rhinorrhea or sore throat Cardiovascular Cardiovascular: Reports chest pain and palpitations Respiratory/Chest Respiratory/Chest: Reports dyspnea; Denies cough Gastrointestinal Gastrointestinal: Reports nausea; Denies abdominal pain or vomiting Genitourinary Genitourinary ED: Denies dysuria or hematuria Musculoskeletal Musculoskeletal: Denies back pain or neck pain Integumentary Denies abscess or rash Neurologic Neurologic: Denies headache(s) or weakness Allergic/Immunologic Allergic/Immunologic ED: Denies mouth swelling or urticaria EXAM Physical Exam Const Vital Signs: 07/19/21 17:38 07/19/21 17:44 07/19/21 18:18 Temperature 97.7 F L Temperature Source Oral Pulse Rate 76 Respiratory Rate 18 Respiratory Effort Normal Non-Labored Blood Pressure 155/102 H Blood Pressure Mean 119 Pulse Ox 97 Oxygen Delivery Method Room Air Room Air 07/19/21 18:22 07/19/21 18:26 07/19/21 18:33 Temperature Temperature Source Pulse Rate 66 71 65 Respiratory Rate 15 Respiratory Effort Blood Pressure 138/88 H 138/88 H 114/86 H Blood Pressure Mean 104 Pulse Ox 95 Oxygen Delivery Method Room Air 07/19/21 18:40 07/19/21 20:42 07/19/21 21:43 Temperature Temperature Source Pulse Rate 64 76 Respiratory Rate 18 19 H Respiratory Effort Blood Pressure 120/82 H 128/83 H 134/97 H Blood Pressure Mean 98 109 Pulse Ox 94 Oxygen Delivery Method Room Air 07/19/21 22:16 Temperature Temperature Source Pulse Rate 58 L Respiratory Rate 17 Respiratory Effort Blood Pressure 152/97 H Blood Pressure Mean 115 Pulse Ox 93 Oxygen Delivery Method Room Air Positive well nourished, well developed and obese General Appearance ED: well developed Nutritional Appearance: obese HEENT normocephalic and atraumatic Eyes PERRL and EOMs intact bilaterally Neck supple and no JVD Chest Wall palpation of chest normal Resp normal respiratory effort and clear to auscultation bilaterally Effort and Inspection: Negative for respiratory distress Cardio regular rate, regular rhythm and no murmurs GI normal to inspection, nondistended, normoactive bowel sounds, soft to palpation, non-tender and non-distended Extremity normal to inspection General Extremety ED: Negative for edema or tenderness General Extremity: Negative for edema Neuro oriented x3, CN's II-XII intact bilaterally and no sensory deficits noted Sensorium / Orientation: awake and alert Motor Exam: strength 5/5 throughout Psych mental status grossly normal Heart Score History: Moderately Suspicious ECG: Normal Age: >45 - <65 years Risk Factors: >/= 3 Risk Factors or History of CAD Troponin: >1 - <3 Normal Limit Score: 5 MDM MDM MDM Narrative Medical decision making narrative: Patient was given 1 baby aspirin since he took 3 prior to arrival. Patient was given sublingual nitroglycerin. Patient's chest pain improved to a 1 on a scale 0-10. EKG was obtained. On my interpretation, it showed a sinus bradycardia with a rate of 58. There is a left anterior fascicular block. There are no acute ST or T wave changes. This change compared to previous EKG dated 07/14/2021. Portable 1 view chest x-ray was obtained. On my interpretation, lung lopez are clear. There is normal cardiac silhouette. Bony thorax is normal. There is no acute process noted. Radiologist also interpreted the x-ray and agrees. CBC and basic metabolic profile were obtained and were within normal limits with exception of a slightly elevated creatinine of 1.35. High-sensitivity troponin was normal at 35. 2-hour repeat high-sensitivity troponin was elevated at 134 however. Case was discussed with Dr. Riley from cardiology. He recommended IV heparin and admit to the hospitalist. He also recommended keeping the patient n.p.o. except medications after midnight and repeating troponins and EKG in the morning. Case was discussed with the hospitalist. He will admit the patient to his service. Patient understood and was agreeable with the plan. All questions were answered. Lab Data Attestation: I reviewed the patient's lab results. Labs: Laboratory Results - last 24 hr 07/19/21 07/19/21 07/19/21 17:55 17:55 19:55 WBC 11.4 H RBC 5.16 Hgb 16.8 H Hct 47.8 MCV 92.6 MCH 32.6 H MCHC 35.1 RDW Std Deviation 43.4 RDW Coeff of Jenna 12.8 Plt Count 220 MPV 11.3 Immature Gran % (Auto) 0.400 Neut % (Auto) 52.6 Lymph % (Auto) 35.0 [place] % (Auto) 8.6 Eos % (Auto) 2.5 Baso % (Auto) 0.9 Absolute Neuts (auto) 6.0 Absolute Lymphs (auto) 3.99 Nucleated RBC % 0 Sodium 139 Potassium 4.0 Chloride 110 H Carbon Dioxide 23.0 Anion Gap 6 BUN 13 Creatinine 1.35 H Estim Creat Clear Calc 75.05 Est GFR (MDRD) Af Amer 73 Est GFR (MDRD) Non-Af 60 BUN/Creatinine Ratio 9.6 L Glucose 110 H Calcium 9.3 Troponin I High Sens 35 134 H* Radiography Chest X-Ray - ED: 1 View, Read by ED Physician, Read by Radiologist and Normal Diagnostic Testing: Radiology Impression Chest X-Ray 07/19/21 18:17 IMPRESSION: No radiographic evidence of acute cardiopulmonary disease. at 1838 Reported and signed by: Bienvenido Copeland MD Electronically Signed: Bienvenido Copeland MD at 18:37 EDT Tel , Service support , EKG Initial EKG: Attestation: I personally reviewed and interpreted this EKG as follows: Interpretation: Sinus Bradycardia (58) and LAFB Prior EKG tracings: available for review Prior: Unchanged (07/14/2021) Treatment and Re-Evaluation Vital Sign Attestation:: Vital signs were reviewed prior to admission. They are stable. Discharge Plan Triage Chief Complaint: Chest Pain ED Provider: Gregory Arriola Dx/Rx/DC Orders Clinical Impression: Chest pain, Elevated troponin level Prescriptions: No Action lisinopril 5 mg tablet 5 mg PO DAILY Qty: 30 RF: 11 furosemide 40 mg tablet 40 mg PO DAILY RF: 0 amlodipine 2.5 mg tablet 2.5 mg PO DAILY Qty: 90 RF: 3 isosorbide mononitrate 30 mg tablet extended release 24 hr 30 mg PO BID Qty: 60 RF: 11 carvedilol [Coreg] 6.25 mg tablet 12.5 mg PO BID Qty: 60 RF: 6 aspirin 81 MG tablet,chewable 81 mg PO DAILY@0800 RF: 0 cholecalciferol (vitamin D3) 2,000 UNIT capsule 2,000 unit PO DAILY RF: 0 nitroglycerin 0.4 MG tablet, sublingual 0.4 mg sublingual Q5M PRN (Reason: Cardiac/Chest Pain) Qty: 10 RF: 0 atorvastatin 40 mg tablet 40 mg PO QHS Qty: 90 RF: 3 prasugrel 10 mg tablet 10 mg PO DAILY Qty: 90 RF: 3 Repatha SureClick 140 mg/mL pen injector 140 mg SC Q2W Qty: 2 RF: 11 Primary Care Provider: Care Physician,No Primary Referrals: Care Physician,No Primary [Primary Care Provider] - Disposition Disposition: Acute Care Hospital [facility]
--- NOTE | 2021-07-19 18:17 | RAD_ITS ---
EXAM: XR CHEST, 1 VIEW : 1975 CLINICAL INDICATION: chest pain TECHNIQUE: Frontal view of the chest. This report was created using [employer] report generation technology. COMPARISON: None. FINDINGS: LUNGS AND PLEURAL SPACES: Unremarkable. No consolidation or edema. No pneumothorax. No effusion. HEART: Unremarkable. Cardiac silhouette not enlarged. MEDIASTINUM: Central airways and mediastinal contour are unremarkable. BONES/JOINTS: Unremarkable. SOFT TISSUES: Unremarkable. RAD/Chest 1 View (Portable) IMPRESSION: No radiographic evidence of acute cardiopulmonary disease. at 1838 Reported and signed by: Bienvenido Copeland MD Electronically Signed: Bienvenido Copeland MD at 18:37 EDT Tel , Service support ,
[2021-07-19 18:19] LABS: Absolute Lymphocyte Count 3.99 X10^3/uL (0.83-4.51); Basophil% 0.9 % (0-1); Eosinophil# 0.28 X10^3/uL; Eosinophils% 2.5 % (0-5); Hematocrit 47.8 % (40-54); Hemoglobin 16.8 g/dL (13.0-16.5); Lymphocyte # 3.99 X10^3/ul (0.83-4.51); Mean Corp Hgb Conc 35.1 g/dL (32-36); Mean Corpuscular Hgb 32.6 pg (27.0-32.0); Mean Corpuscular Volume 92.6 fL (80-94); Mean Platelet Vol. 11.3 fl (6.2-12.0); Monocyte# 0.98 X10^3/uL; Monocyte% 8.6 % (0-10); NRBC Flagged by Analyzer 0 % (0-5); Neutrophil # 6.02 X10^3/uL (2.7-7.7); Neutrophil % 52.6 % (47-70); Platelet Count 220 K/mm3 (150-450); RBC Distribution Width CV 12.8 % (11.6-14.6); RBC Distribution Width SD 43.4 fl (35.1-43.9); Red Blood Count 5.16 M/mm3 (4.6-6.2); White Blood Count 11.4 K/mm3 (4.4-11.0)
[2021-07-19] MEDS: Nitroglycerin SL (ED/IMG/CATH) 0.4 MG TABLET SL ×3 (18:22→18:40)
--- NOTE | 2021-07-19 18:23 | CM.ED ---
SW Note Referral Source: Case Find Referral Reason: No Primary Care Physician (PCP) SW reviewed chart and noted that patient has no PCP. Patient said that he tried to get a PCP in the past but due to COVID they were not taking patients. SW provided patient with list of [facility] and [facility] Physician List for reference. SW also provided patient with handout ?Where to go When?. No other issues or concerns voiced at this time. SW remains available for any additional needs. Plan: Provided patient with PCP information Cheyenne CARTER
[2021-07-19] MEDS: Aspirin 81 MG TAB.CHEW PO (18:25)
[2021-07-19 18:32] LABS: Anion Gap 6 (5-15); BUN 13 mg/dL (7-18); BUN/Creat Ratio 9.6 RATIO (10-20); Calcium,Total 9.3 mg/dL (8.5-10.1); Chloride 110 mmol/L (98-107); Creatinine, Serum 1.35 mg/dL (0.70-1.30); EST Glomerular Filtration Rate 60 mL/min (>60); Est Glom Filt Rate - Afr Amer 73 mL/min (>60); Estimated Creatinine Clearance 75.05 ml/min; Glucose 110 mg/dL (74-106); Sodium Level 139 mmol/L (136-145); Troponin-I HS 35 pg/mL (3.0-78.0)
[2021-07-19 20:40] LABS: Troponin-I HS 134 pg/mL (3.0-78.0)
--- NOTE | 2021-07-19 22:37 | EKG12_ITS ---
Test Reason : AM EKG Blood Pressure : / mmHG Vent. Rate : 063 BPM Atrial Rate : 063 BPM P-R Int : 158 ms QRS Dur : 124 ms QT Int : 414 ms P-R-T Axes : 046 -42 075 degrees QTc Int : 423 ms Normal sinus rhythm with sinus arrhythmia Left axis deviation Septal infarct , age undetermined Abnormal ECG Confirmed by ANAY BOWLES, ROXANA ([id number]), website/blog editor DERREK OWEN ([id number]) on 07/21/2021 9:14:30 AM Referred By: JESSIE Confirmed By:ROXANA CUEVA MD
--- NOTE | 2021-07-19 22:59 | HP.PCM_ITS ---
Documented by User: MIGEL Cartwright 07/19/21 23:07 HPI - General General Date of Admission: 07/19/21 Date of Service: 07/19/21 Chief Complaint: Chest pain HPI Narrative SALENA MONTALVO, is a 46 M who presents with chest pain. Patient states he took 3 baby aspirin along with 3 nitroglycerin at home which did not improve symptoms. Patient states that he had a tenuous chest pressure with 10 out of 10 sharp shooting pains intermittently. Patient reports extensive cardiac history including CAD, hypertension, multiple MIs and CHF. Patient reports strong family history of heart disease. Patient denies fever, chills, cough, nausea, vomiting. Patient states that he also had shortness of breath consistent with the chest pain. [facility] Medical History Atherosclerosis of coronary artery of [place] heart without angina pectoris Chronic systolic (congestive) heart failure Essential (primary) hypertension History of ST elevation myocardial infarction (STEMI) (06/22/20) Hyperlipidemia Ischemic cardiomyopathy 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) Home Medications aspirin 81 mg PO DAILY@0800 06/22/20 [History Last Taken 02/06/21] cholecalciferol (vitamin D3) 2,000 unit PO DAILY 06/22/20 [History Last Taken 02/06/21] atorvastatin 40 mg tablet 40 mg PO QHS #90 tab 08/02/20 [Rx Last Taken 02/06/21] lisinopril 5 mg tablet 5 mg PO DAILY #30 tab 08/02/20 [Rx Last Taken 02/06/21] prasugrel 10 mg tablet 10 mg PO DAILY #90 tab 08/02/20 [Rx Last Taken 02/06/21] evolocumab 140 mg/mL subcutaneous pen injector 140 mg SC Q2W #2 ml 08/31/20 [Rx Last Taken Unknown] furosemide 40 mg tablet 40 mg PO DAILY tab 10/25/20 [History Last Taken Un known] nitroglycerin 0.4 mg SUBLINGUAL Q5M PRN #10 tab.subl 01/15/21 [Rx Last Taken Unknown] amlodipine 2.5 mg tablet 2.5 mg PO DAILY #90 tab 04/08/21 [Rx Last Taken Unknown] isosorbide mononitrate 30 mg tablet,extended release 24 hr 30 mg PO BID #60 tab 04/08/21 [Rx Last Taken Unknown] carvedilol 6.25 mg tablet 12.5 mg PO BID #60 tab 07/14/21 [Rx Last Taken Unknown] Allergy/AdvReac Type Severity Reaction Status Date / Time varenicline [From Chantix] Allergy Intermediate change in Verified 07/19/21 17:37 mental status adhesive tape AdvReac Rash Verified 07/19/21 17:37 Family History Father Myocardial infarction, Onset Age: 39 Mother Myocardial infarction, Onset Age: 40 Brother Myocardial infarction, Onset Age: 39 Brother Myocardial infarction, Onset Age: 36 Surgical History History of coronary artery stent placement (06/22/20) History of left heart catheterization (02/07/21) History of myringotomy Social History Smoking Status: Current every day smoker tobacco type: cigarettes quit status: considering quitting alcohol intake: never substance use type: does not use caffeine: Yes Type: coffee Number of servings: 1 ROS Constitutional Constitutional: Denies anorexia, chills, fatigue, fever(s) or weakness Cardiovascular Cardiovascular: Reports chest pain, dyspnea and palpitations; Denies edema or syncope Respiratory/Chest Respiratory/Chest: Reports wheezing; Denies cough, shortness of breath at rest or shortness of breath with exertion Gastrointestinal Gastrointestinal: Denies abdominal pain, constipation, diarrhea, nausea or vomiting Genitourinary Genitourinary: Denies dysuria Musculoskeletal Musculoskeletal: Denies back pain, extremity pain, joint pain or joint stiffness Integumentary Integumentary: Denies dry skin Neurologic Neurologic: Denies abnormal gait, abnormal speech, confusion, dizziness or focal weakness Psychiatric Psychiatric: Denies anxiety or depression Endocrine Endocrinology: Denies change in body appearance Hematologic/Lymphatic Hematologic/Lymphatic: Denies easy bleeding or easy bruising Vital Signs Vital Signs Vital Signs: 07/19/21 17:38 07/19/21 17:44 07/19/21 18:18 Temperature 97.7 F L Temperature Source Oral Pulse Rate 76 Respiratory Rate 18 Respiratory Effort Normal Non-Labored Blood Pressure 155/102 H Blood Pressure Mean 119 Pulse Ox 97 Oxygen Delivery Method Room Air Room Air 07/19/21 18:22 07/19/21 18:26 07/19/21 18:33 Temperature Temperature Source Pulse Rate 66 71 65 Respiratory Rate 15 Respiratory Effort Blood Pressure 138/88 H 138/88 H 114/86 H Blood Pressure Mean 104 Pulse Ox 95 Oxygen Delivery Method Room Air 07/19/21 18:40 07/19/21 20:42 07/19/21 21:43 Temperature Temperature Source Pulse Rate 64 76 Respiratory Rate 18 19 H Respiratory Effort Blood Pressure 120/82 H 128/83 H 134/97 H Blood Pressure Mean 98 109 Pulse Ox 94 Oxygen Delivery Method Room Air 07/19/21 22:16 Temperature Temperature Source Pulse Rate 58 L Respiratory Rate 17 Respiratory Effort Blood Pressure 152/97 H Blood Pressure Mean 115 Pulse Ox 93 Oxygen Delivery Method Room Air Weight Weight: 240 lb 1.75 oz Body Mass Index (BMI) 32.5 Physical Exam Const alert, oriented x3 and no apparent distress General Appearance: cooperative HEENT normocephalic and head/scalp atraumatic Eyes conjunctivae normal and no scleral icterus Neck supple and no JVD General: trachea midline Resp normal respiratory effort and normal air movement Auscultation: wheezes lower bilaterally Cardio regular rate, regular rhythm, S1 normal heart sound, S2 normal heart sound and peripheral pulses 2+ throughout Rate: bradycardia GI normal to inspection, nondistended, normoactive bowel sounds, soft to palpation and non-tender Extremity normal capillary refill and no clubbing, cyanosis or edema General Extremity: no tenderness to palpation of joints or extremities Skin General Skin Exam: no breakdown and turgor normal Lesions: no lesions Rashes: no rashes Neuro no focal motor deficits and no sensory deficits noted Speech: speech normal Motor Exam: Negative for general weakness Psych thought process normal, cooperative and affect normal Appearance: appropriate Results Lab / Micro Data Result Diagrams: 07/19/21 17:55 07/19/21 17:55 Labs: Laboratory Results - last 24 hr 07/19/21 17:55: WBC 11.4 H, RBC 5.16, Hgb 16.8 H, Hct 47.8, MCV 92.6, MCH 32.6 H , MCHC 35.1, RDW Std Deviation 43.4, RDW Coeff of Jenna 12.8, Plt Count 220, MPV 11.3, Immature Gran % (Auto) 0.400, Neut % (Auto) 52.6, Lymph % (Auto) 35.0, [place] % (Auto) 8.6, Eos % (Auto) 2.5, Baso % (Auto) 0.9, Absolute Neuts (auto) 6.0, Absolute Lymphs (auto) 3.99, Nucleated RBC % 0 07/19/21 17:55: Sodium 139, Potassium 4.0, Chloride 110 H, Carbon Dioxide 23.0, Anion Gap 6, BUN 13, Creatinine 1.35 H, Estim Creat Clear Calc 75.05, Est GFR (MDRD) Af Amer 73, Est GFR (MDRD) Non-Af 60, BUN/Creatinine Ratio 9.6 L, Glucose 110 H, Calcium 9.3, Troponin I High Sens 35 07/19/21 19:55: Troponin I High Sens 134 H* Radiology Impression Chest X-Ray 07/19/21 18:17 IMPRESSION: No radiographic evidence of acute cardiopulmonary disease. at 1838 Reported and signed by: Bienvenido Copeland MD Electronically Signed: Bienvenido Copeland MD at 18:37 EDT Tel , Service support , Assessment & Plan Assessment/Plan (1) NSTEMI (non-ST elevated myocardial infarction): PLAN: 1. NSTEMI -Admit to PCU for cardiac monitoring -Per cardiology recommendations patient will be was initiated on a heparin drip and made n.p.o. at midnight pending possible stress test/heart cath. -Trend cardiac enzymes -Daily weights -Cardiac diet ordered, n.p.o. at midnight -Intake and output -PT and OT to eval and treat -Vital signs per protocol -CBC, BMP, lipid profile, mag, Phos, TSH ordered due to patient's report of palpitations -EKG ordered for a.m. 2. Hypertension -Continue home medication regimen -Vital signs per protocol, currently stable 3. Hyperlipidemia -Continue atorvastatin -We will obtain lipid panel in a.m. 4. Tobacco abuse -Inpatient smoking cessation ordered -Patient currently smokes 2 packs/day stating he has tried multiple cessation methods without success -Nicotine patch ordered DVT prophylaxis-SCDs This patient was seen by MIGEL Cartwright under the supervision of Dr. Avalos. Documented by User: Dr. Roby Avalos MD 07/19/21 23:23 [facility] Medical History Atherosclerosis of coronary artery of [place] heart without angina pectoris Chronic systolic (congestive) heart failure Essential (primary) hypertension History of ST elevation myocardial infarction (STEMI) (06/22/20) Hyperlipidemia Ischemic cardiomyopathy 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) Home Medications aspirin 81 mg PO DAILY@0800 06/22/20 [History Last Taken 02/06/21] cholecalciferol (vitamin D3) 2,000 unit PO DAILY 06/22/20 [History Last Taken 02/06/21] atorvastatin 40 mg tablet 40 mg PO QHS #90 tab 08/02/20 [Rx Last Taken 02/06/21] lisinopril 5 mg tablet 5 mg PO DAILY #30 tab 08/02/20 [Rx Last Taken 02/06/21] prasugrel 10 mg tablet 10 mg PO DAILY #90 tab 08/02/20 [Rx Last Taken 02/06/21] evolocumab 140 mg/mL subcutaneous pen injector 140 mg SC Q2W #2 ml 08/31/20 [Rx Last Taken Unknown] furosemide 40 mg tablet 40 mg PO DAILY tab 10/25/20 [History Last Taken Unknown] nitroglycerin 0.4 mg SUBLINGUAL Q5M PRN #10 tab.subl 01/15/21 [Rx Last Taken Unknown] amlodipine 2.5 mg tablet 2.5 mg PO DAILY #90 tab 04/08/21 [Rx Last Taken Unknown] isosorbide mononitrate 30 mg tablet,extended release 24 hr 30 mg PO BID #60 tab 04/08/21 [Rx Last Taken Unknown] carvedilol 6.25 mg tablet 12.5 mg PO BID #60 tab 07/14/21 [Rx Last Taken Unknown] Allergy/AdvReac Type Severity Reaction Status Date / Time varenicline [From Chantix] Allergy Intermediate change in Verified 07/19/21 17:37 mental status adhesive tape AdvReac Rash Verified 07/19/21 17:37 Family History Father Myocardial infarction, Onset Age: 39 Mother Myocardial infarction, Onset Age: 40 Brother Myocardial infarction, Onset Age: 39 Brother Myocardial infarction, Onset Age: 36 Surgical History History of coronary artery stent placement (06/22/20) History of left heart catheterization (02/07/21) History of myringotomy Social History Smoking Status: Current every day smoker tobacco type: cigarettes quit status: considering quitting alcohol intake: never substance use type: does not use caffeine: Yes Type: coffee Number of servings: 1 Results Lab / Micro Data Result Diagrams: 07/19/21 17:55 07/19/21 17:55 Charges/Coding Addendum Addendum: Patient was seen and examined independently. I agree with assessment and plan by MIGEL Cartwright In summary patient is a 46-year-old male with a significant history of CAD status post multiple stents; hypertension and tobacco abuse who presents with 1 day history of progressively worsening substernal chest pain that radiated to his both arms. He described the chest pain as a pressure and squeezing. His chest pain started after some physical activities. There after he denies any aggravating factors. He denies any ameliorating factors. He he took 3 baby aspirin and 3 nitroglycerin at home with minimal relief but had headache from the nitro. Associated with symptom is lightheadedness and shortness of breath. Physical exam: General: Well-nourished, well-developed. Head: Normocephalic, atraumatic, no tenderness Eyes: PERRLA, EOMI ENT, no trauma, moist mucous membranes, no rhinorrhea Neck: Nontender, full range of motion, no spinal tenderness, deformities, step- off CVS: Regular rate and rhythm Respiratory no acute distress, clear to auscultation bilaterally, chest wall nontender, no wheezing Abdomen: Soft, nontender, nondistended, normal bowel sounds, no masses : Deferred Back: Nontender, no CVA tenderness, no midline spinal tenderness, deformities, step-offs Extremities: Nontender full range of motion, no trauma Skin: Normal color, no trauma, abrasions Neuro: Alert, oriented, cranial nerves II through XII grossly intact. Psychiatry: Normal mood. Normal affect. Not depressed. Not anxious. Non-STEMI Place on a monitored bed at PCU Radiologist impression of chest xray. No radiographic evidence of acute cardiopulmonary disease. Actual CXR image was independently visualized. No acute cardiopulmonary process was noted. Actual EKG tracing was independently visualized. EKG tracing showed qwaves in v1-v3 which is unchanged from previous; bradycardia; and sinus arrhythmia Old records reviewed showed bradycardia on EKG ASA 81 mg p.o. daily and prasugrel continued. Imdur; lisinopril and carvedilol continued. Morphine as needed for pain ordered We will check lipid panel. Stat EKG as needed for chest pain EKG in a.m. per cardiology request. Also intravenous heparin was started at the emergency department per cardiology request; We will keep n.p.o. after midnight per cardiology request. Cardiology consult. Hypertension Blood pressure is not within goal Imdur; lisinopril and carvedilol continued. As needed hydralazine ordered. Trend blood pressure and adjust blood pressure medications. Hyperlipidemia Lipitor continued. Of note patient is on home Repatha. DVT prophylaxis: Heparin as above Visit Charges Inpatient E&M: 61764 Init Hosp L3
[2021-07-19 23:00] LABS: Partial Thromboplast Time 26.1 Seconds (24.1-36.2); Prothrombin Time (Protime)PT. 12.7 SECONDS (11.7-14.9)
[2021-07-19] MEDS: HEPARIN/D5w 25,000 UNITS 25,000 UNITS/250 ML IV.SOLN. 15 UNITS IV (23:01)
[2021-07-19] MEDS: Heparin Injection (Vial) 5,000 UNIT/ML VIAL 8000 UNIT IV (23:01)
--- NOTE | 2021-07-19 23:43 | EKG12_ITS ---
Test Reason : DYSRHYTHMIA Blood Pressure : / mmHG Vent. Rate : 053 BPM Atrial Rate : 053 BPM P-R Int : 142 ms QRS Dur : 098 ms QT Int : 412 ms P-R-T Axes : 032 -28 052 degrees QTc Int : 386 ms Sinus bradycardia with sinus arrhythmia Septal infarct , age undetermined Abnormal ECG When compared with ECG of 19-JUL-2021 17:40, MANUAL COMPARISON REQUIRED, DATA IS UNCONFIRMED Confirmed by LANE BOWLES, MIREYA ([id number]), editor book DERREK OWEN ([id number]) on 07/26/2021 8:41:51 AM Referred By: LAURE Confirmed By:JUAN SHERMAN MD
[2021-07-20] VITALS (19 sets, daily range): BP systolic 103–133; BP diastolic 63–87; PULSE 53–66; RESP 14–20; TEMP 36.3–37.1; O2SAT 90–98
[2021-07-20 01:18] LABS: Troponin-I HS 697 pg/mL (3.0-78.0)
[2021-07-20 04:46] LABS: Absolute Lymphocyte Count 4.34 X10^3/uL (0.83-4.51); Absolute Neutrophil Count 4.7 X10^3/uL (2.0-7.7); Basophil# 0.07 X10^3/uL; Basophil% 0.7 % (0-1); Eosinophil# 0.34 X10^3/uL; Eosinophils% 3.3 % (0-5); Hematocrit 44.2 % (40-54); Hemoglobin 15.4 g/dL (13.0-16.5); Lymphocyte # 4.34 X10^3/ul (0.83-4.51); Lymphocyte % 41.9 % (19-41); Mean Corp Hgb Conc 34.8 g/dL (32-36); Mean Corpuscular Hgb 32.8 pg (27.0-32.0); Mean Corpuscular Volume 94.2 fL (80-94); Mean Platelet Vol. 10.6 fl (6.2-12.0); Monocyte# 0.91 X10^3/uL; Monocyte% 8.8 % (0-10); NRBC Flagged by Analyzer 0 % (0-5); Neutrophil # 4.67 X10^3/uL (2.7-7.7); Platelet Count 180 K/mm3 (150-450); RBC Distribution Width CV 12.8 % (11.6-14.6); RBC Distribution Width SD 43.7 fl (35.1-43.9); Red Blood Count 4.69 M/mm3 (4.6-6.2); White Blood Count 10.4 K/mm3 (4.4-11.0)
[2021-07-20 05:08] LABS: Troponin-I HS 1197 pg/mL (3.0-78.0)
[2021-07-20 05:15] LABS: Partial Thromboplast Time 117.9 Seconds (24.1-36.2)
[2021-07-20 05:22] LABS: Anion Gap 4 (5-15); BUN 13 mg/dL (7-18); BUN/Creat Ratio 11.5 RATIO (10-20); Calcium,Total 8.2 mg/dL (8.5-10.1); Chloride 113 mmol/L (98-107); Cholesterol 112 mg/dL (200); Creatinine, Serum 1.13 mg/dL (0.70-1.30); EST Glomerular Filtration Rate 74 mL/min (>60); Est Glom Filt Rate - Afr Amer 90 mL/min (>60); Estimated Creatinine Clearance 89.66 ml/min; Glucose 94 mg/dL (74-106); High Density Lipoprotein 33 mg/dL; Magnesium 2.3 mg/dL (1.6-2.6); Potassium 3.7 mmol/L (3.5-5.1); Sodium Level 143 mmol/L (136-145); Thyroid Stim Hormone (TSH) 2.86 uIU/mL (0.358-3.74); Triglycerides 248 mg/dL; Very Low Density Lipoprotein 50 mg/dL (5-40)
--- NOTE | 2021-07-20 05:55 | EKG12_ITS ---
Test Reason : ADMISSION CP Blood Pressure : / mmHG Vent. Rate : 057 BPM Atrial Rate : 057 BPM P-R Int : 144 ms QRS Dur : 104 ms QT Int : 408 ms P-R-T Axes : 077 -32 038 degrees QTc Int : 397 ms Sinus bradycardia Left axis deviation Septal infarct , age undetermined Abnormal ECG Confirmed by ANAY BOWLES, ROXANA ([id number]), development editor DERREK OWEN ([id number]) on 07/21/2021 9:15:02 AM Referred By: JESSIE Confirmed By:ROXANA CUEVA MD
[2021-07-20] MEDS: Aspirin 81 MG TAB.CHEW PO (08:25)
[2021-07-20] MEDS: Isosorbide Mononitrate 30 MG Tablet PO (08:26)
[2021-07-20] MEDS: Cholecalciferol (VIT D3) 25 MCG TABLET (1,000 UNITS) 50 MCG PO (08:26)
[2021-07-20] MEDS: Carvedilol 12.5 MG Tablet PO ×2 (08:26→20:47)
[2021-07-20] MEDS: amLODIPine 2.5 MG Tablet PO (08:26)
[2021-07-20] MEDS: Lisinopril 5 MG Tablet PO (08:26)
[2021-07-20] MEDS: 0.9% Saline Lock 10 ML Syringe IV ×2 (08:26→17:58)
--- NOTE | 2021-07-20 08:38 | NURSING ---
Report called to DAWN Cruz in cardiac cath lab technologist. Patient ready to go down at this time.
--- NOTE | 2021-07-20 08:45 | PCM.CONS.C ---
Assessment & Plan Assessment/Plan (1) NSTEMI (non-ST elevated myocardial infarction): PLAN: The patient appears to have findings compatible with an acute non-ST segment elevation FL. He appears to be symptomatically improved at the moment. He will continue medical management as deemed appropriate. He is being referred for reevaluation with diagnostic cardiac catheterization. The procedure and risk were discussed with him. He is agreeable to this approach. (2) Atherosclerosis of coronary artery of rosebud heart without angina pectoris: QUALIFIERS: Coronary Disease-Associated Artery/Lesion type: rosebud artery Qualified Code(s): I25.10 - Atherosclerotic heart disease of rosebud coronary artery without angina pectoris PLAN: The patient has a history of underlying CAD. He has undergone previous noninvasive and invasive studies and PCI as noted. He will continue medical management. He is being referred for reevaluation with diagnostic cardiac catheterization. (3) History of coronary artery stent placement: PLAN: The patient's previous PCI report was reviewed. It appears he had thrombectomy and PTCA/BEN to the LAD and PTCA to the diagonal branch 1. Based upon his symptoms and objective findings he will be referred for repeat evaluation in the cardiac catheterization laboratory. (4) Ischemic cardiomyopathy: PLAN: The patient has had diminished LV wall motion/systolic function/LVEF. His medications were adjusted as an outpatient. He was to have a future noninvasive study to help determine whether or not he would need a primary prevention ICD placed. (5) Chronic systolic (congestive) heart failure: PLAN: He does not appear to have any ongoing acute CHF type symptoms at this time. He will continue medical therapy as deemed appropriate. (6) Hyperlipidemia: QUALIFIERS: Hyperlipidemia type: unspecified Qualified Code(s): E78.5 - Hyperlipidemia, unspecified PLAN: He will continue risk factor modification and medical management. (7) Essential (primary) hypertension: PLAN: His blood pressure will be monitored with his medicines adjusted accordingly. Addt'l Comments The patient's case was discussed reviewed with the patient and previously with the [facility] emergency department staff. This note was generated using a voice recognition system and there may be incorrect words, spelling or punctuation that were not noted when reviewing the office note prior to saving. HPI Consult Data Date of Consult: 07/20/21 HPI Narrative HPI Narrative: SALENA MONTALVO, is a 46-year-old white male who presents for cardiovascular consultation based upon concerns of unstable angina pectoris, findings compatible with an acute non-ST segment elevation FL, superimposed upon a history of CAD/PCI, ischemic mediated cardiomyopathy, chronic systolic CHF, hyperlipidemia, and hypertension. He states that yesterday, at home, he began to note chest discomfort/pressure with radiation to both upper extremities as well as paresthesias in both upper extremities and feeling somewhat short of breath/dyspneic. He denied any obvious nausea, emesis, or diaphoresis. He stated the symptoms were similar to but not as dramatic as previous symptoms related to his CAD process. He initiated medical therapy at home with nitroglycerin sublingual. He states it may have helped somewhat. He noted his blood pressure was elevated at home. He elected to present to the emergency department for further evaluation. He states in the emergency department he was treated with additional medication with aspirin therapy and nitroglycerin sublingual therapy. He states his symptoms gradually improved to the point he feels as if he has a sore chest . He had cardiac enzymes performed which initially were negative at 35 and subsequently have trended upward into the positive range with the latest value being 1197. His ECG demonstrated sinus rhythm with left axis deviation with a septal FL pattern of indeterminate age. He was placed in the PCU for further evaluation and care. He was placed on IV heparin. He has denied any acute orthopnea or PND or peripheral pitting edema. He has had no near syncope or syncope. He has undergone noninvasive and invasive evaluation. His medications have been adjusted. He is pending future reevaluation of his LV wall motion systolic function and LVEF to help determine whether or not he is a candidate for ICD therapy. [facility] Medical History Atherosclerosis of coronary artery of rosebud heart without angina pectoris Chronic systolic (congestive) heart failure Essential (primary) hypertension History of ST elevation myocardial infarction (STEMI) (06/22/20) Hyperlipidemia Ischemic cardiomyopathy 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) Home Medications aspirin 81 mg PO DAILY@0800 06/22/20 [History Last Taken 02/06/21] cholecalciferol (vitamin D3) 2,000 unit PO DAILY 06/22/20 [History Last Taken 02/06/21] atorvastatin 40 mg tablet 40 mg PO QHS #90 tab 08/02/20 [Rx Last Taken 02/06/21] lisinopril 5 mg tablet 5 mg PO DAILY #30 tab 08/02/20 [Rx Last Taken 02/06/21] prasugrel 10 mg tablet 10 mg PO DAILY #90 tab 08/02/20 [Rx Last Taken 02/06/21] evolocumab 140 mg/mL subcutaneous pen injector 140 mg SC Q2W #2 ml 08/31/20 [Rx Last Taken Unknown] furosemide 40 mg tablet 40 mg PO DAILY tab 10/25/20 [History Last Taken Unknown] nitroglycerin 0.4 mg SUBLINGUAL Q5M PRN #10 tab.subl 01/15/21 [Rx Last Taken Unknown] amlodipine 2.5 mg tablet 2.5 mg PO DAILY #90 tab 04/08/21 [Rx Last Taken Unknown] isosorbide mononitrate 30 mg tablet,extended release 24 hr 30 mg PO BID #60 tab 04/08/21 [Rx Last Taken Unknown] carvedilol 6.25 mg tablet 12.5 mg PO BID #60 tab 07/14/21 [Rx Last Taken Unknown] Allergy/AdvReac Type Severity Reaction Status Date / Time varenicline [From Chantix] Allergy Intermediate change in Verified 07/19/21 17:37 mental status adhesive tape AdvReac Rash Verified 07/19/21 17:37 Family History Father Myocardial infarction, Onset Age: 39 Mother Myocardial infarction, Onset Age: 40 Brother Myocardial infarction, Onset Age: 39 Brother Myocardial infarction, Onset Age: 36 Surgical History History of coronary artery stent placement (06/22/20) History of left heart catheterization (02/07/21) History of myringotomy Social History Smoking Status: Current every day smoker tobacco type: cigarettes quit status: considering quitting alcohol intake: never substance use type: does not use caffeine: Yes Type: coffee Number of servings: 1 ROS Constitutional Constitutional: Reports as per HPI Eyes Eyes: Reports as per HPI ENT HEENT: Reports as per HPI Cardiovascular Cardiovascular: Reports chest pain at rest, dyspnea at rest and radiating jaw, neck or arm pain Respiratory/Chest Respiratory/Chest: Reports dyspnea Gastrointestinal Gastrointestinal: Reports as per HPI Genitourinary Genitourinary: Reports as per HPI Musculoskeletal Musculoskeletal: Reports as per HPI Integumentary Integumentary: Reports as per HPI Neurologic Neurologic: Reports as per HPI Physical Exam Const alert, oriented x3, no apparent distress and healthy appearing Orientation / Consciousness: awake HEENT normocephalic, head/scalp atraumatic and hearing grossly normal bilaterally Eyes PERRL, EOMs intact bilaterally and conjunctivae normal Neck full ROM, supple and no JVD Resp Auscultation: wheezes expiratory wheezes Cardio regular rate, regular rhythm and S1 normal heart sound Heart Sounds: normal, physiologic split S2 GI normal to inspection, nondistended, normoactive bowel sounds Extremity no pedal edema Skin no rashes or lesions noted Neuro oriented x3, moves all extremities, no focal motor deficits and no sensory deficits noted Psych mental status grossly normal Procedure Criteria Type of Procedure Procedure Type: Elective Elective Risks - COVID COVID Risk Discussion: The surgeon/proceduralist and patient have discussed in detail the risk of exposure to and/or potential harm posed by the COVID-19 virus with having a surgery/procedure at this time versus the risk of delaying the surgery/procedure. It is not possible to know either the risk of delaying the surgery or procedure or chance of getting an infection with perfect accuracy, but a joint decision was made between the patient and the surgeon/proceduralist to proceed at this time with the scheduled surgery/procedure as indicated on the consent form. Objective Data Vital Signs: Vital Signs Temp Pulse Resp BP Pulse Ox 97.8 F 60 14 133/87 H 95 07/20/21 08:02 07/20/21 08:02 07/20/21 08:02 07/20/21 08:02 07/20/21 08:02 Oxygen Delivery Method Room Air Weight: 231 lb 7.766 oz Body Mass Index (BMI) 31.4 Intake & Output: Intake and Output for Last 24 Hours 07/18/21 07/19/21 07/20/21 23:59 23:59 23:59 Intake Total 102.95 / 102.95 Balance 102.95 / 102.95 Lab / Micro Data Result Diagrams: 07/20/21 04:36 07/20/21 04:36 Labs: Laboratory Results - last 24 hr 07/19/21 17:55: WBC 11.4 H, RBC 5.16, Hgb 16.8 H, Hct 47.8, MCV 92.6, MCH 32.6 H, MCHC 35.1, RDW Std Deviation 43.4, RDW Coeff of Jenna 12.8, Plt Count 220, MPV 11.3, Immature Gran % (Auto) 0.400, Neut % (Auto) 52.6, Lymph % (Auto) 35.0, Owen % (Auto) 8.6, Eos % (Auto) 2.5, Baso % (Auto) 0.9, Absolute Neuts (auto) 6.0, Absolute Lymphs (auto) 3.99, Nucleated RBC % 0 07/19/21 17:55: Sodium 139, Potassium 4.0, Chloride 110 H, Carbon Dioxide 23.0, Anion Gap 6, BUN 13, Creatinine 1.35 H, Estim Creat Clear Calc 75.05, Est GFR (MDRD) Af Amer 73, Est GFR (MDRD) Non-Af 60, BUN/Creatinine Ratio 9.6 L, Glucose 110 H, Calcium 9.3, Troponin I High Sens 35 07/19/21 19:55: Troponin I High Sens 134 H* 07/19/21 22:41: PT 12.7, INR 1.0, APTT 26.1 07/20/21 00:15: Troponin I High Sens 697 H* 07/20/21 04:36: WBC 10.4, RBC 4.69, Hgb 15.4, Hct 44.2, MCV 94.2 H, MCH 32.8 H, MCHC 34.8, RDW Std Deviation 43.7, RDW Coeff of Jenna 12.8, Plt Count 180, MPV 10.6, Immature Gran % (Auto) 0.300, Neut % (Auto) 45.0 L, Lymph % (Auto) 41.9 H, Owen % (Auto) 8.8, Eos % (Auto) 3.3, Baso % (Auto) 0.7, Absolute Neuts (auto) 4.7, Absolute Lymphs (auto) 4.34, Nucleated RBC % 0 07/20/21 04:36: Sodium 143, Potassium 3.7, Chloride 113 H, Carbon Dioxide 26.0, Anion Gap 4 L, BUN 13, Creatinine 1.13, Estim Creat Clear Calc 89.66, Est GFR (MDRD) Af Amer 90, Est GFR (MDRD) Non-Af 74, BUN/Creatinine Ratio 11.5, Glucose 94, Calcium 8.2 L, Phosphorus 3.0, Magnesium 2.3, Triglycerides 248 H, Cholesterol 112, LDL Cholesterol 29, VLDL Cholesterol 50 H, HDL Cholesterol 33 L, TSH 2.86 07/20/21 04:36: Troponin I High Sens 1197 H* 07/20/21 04:36: APTT 117.9 H* Micro: Microbiology 07/19/21 23:07 Nasal Secretion SARS-CoV-2 Antigen (Rapid) - Final Cardiology Labs/Tests 07/19/21 17:55: WBC 11.4 H, RBC 5.16, Hgb 16.8 H, Hct 47.8, MCV 92.6, MCH 32.6 H, MCHC 35.1, Plt Count 220, MPV 11.3, Immature Gran % (Auto) 0.400, Neut % (Auto) 52.6, Lymph % (Auto) 35.0, Owen % (Auto) 8.6, Eos % (Auto) 2.5, Baso % (Auto) 0.9, Absolute Neuts (auto) 6.0, Nucleated RBC % 0 07/19/21 17:55: Sodium 139, Potassium 4.0, Chloride 110 H, Carbon Dioxide 23.0, Anion Gap 6, BUN 13, Creatinine 1.35 H, Est GFR (MDRD) Af Amer 73, Est GFR (MDRD) Non-Af 60, BUN/Creatinine Ratio 9.6 L, Glucose 110 H, Calcium 9.3 07/19/21 22:41: PT 12.7, INR 1.0, APTT 26.1 07/20/21 04:36: WBC 10.4, RBC 4.69, Hgb 15.4, Hct 44.2, MCV 94.2 H, MCH 32.8 H, MCHC 34.8, Plt Count 180, MPV 10.6, Immature Gran % (Auto) 0.300, Neut % (Auto) 45.0 L, Lymph % (Auto) 41.9 H, Owen % (Auto) 8.8, Eos % (Auto) 3.3, Baso % (Auto) 0.7, Absolute Neuts (auto) 4.7, Nucleated RBC % 0 07/20/21 04:36: Sodium 143, Potassium 3.7, Chloride 113 H, Carbon Dioxide 26.0, Anion Gap 4 L, BUN 13, Creatinine 1.13, Est GFR (MDRD) Af Amer 90, Est GFR (MDRD) Non-Af 74, BUN/Creatinine Ratio 11.5, Glucose 94, Calcium 8.2 L, Phosphorus 3.0, Magnesium 2.3, Triglycerides 248 H, Cholesterol 112, LDL Cholesterol 29, VLDL Cholesterol 50 H, HDL Cholesterol 33 L 07/20/21 04:36: APTT 117.9 H* Rhythm: Sinus rhythm EKG: As noted above ECHO: Interpretation Summary Normal LV size. The estimated ejection fraction is 35 %. Moderately severe segmental systolic dysfunction (see wall motion). Stage 1 diastolic dysfunction. Compared to previous study, the left ventricular systolic function has worsened. Stress Test: Stress Test Report Date: 01-15-2021 Procedure: Pharmacologic stress nuclear imaging study Indications: Chest pain; CAD; multivessel PCI; ischemic mediated cardiomyopathy Consent: Per the patient Procedure: The patient underwent pharmacologic (Regadenoson 0.4mg ) evaluation with a peak heart rate of 99 beats per minute (56%predicted maximal heart rate) and a peak blood pressure of 110/60 mmHg. The baseline ECG demonstrated sinus bradycardia; incomplete left bundle branch block pattern. The peak pharmacologic ECG demonstrated no obvious ECG changes. There were no cardiac dysrhythmias pretest, during pharmacologic infusion, or recovery. Patient was noted to have chest discomfort preevaluation, during evaluation, and post evaluation. The examination was discontinued secondary to completion of protocol. Impression: 1. Pharmacologic (Regadenoson) evaluation 2. Peak pharmacologic ECG with no obvious ECG changes. 3. There were no cardiac dysrhythmias pretest, during pharmacologic infusion, or recovery. 4. Nuclear images pending Myocardial perfusion imaging study: Technique: The patient was injected with 15.0 millicuries of technetium 99m Cardiolite and subsequently rest SPECT Cardiolite nuclear imaging was obtained in the horizontal long, vertical long, and short axis views. The patient underwent pharmacologic (Regadenoson) evaluation with a peak heart rate of 99 beats per minute (56% percent predicted maximal heart rate) and a peak blood pressure of 110/60 mmHg. The patient was injected with 44.1 millicuries of technetium 99m Cardiolite and subsequently stress SPECT Cardiolite nuclear imaging was obtained in the horizontal long, vertical long, and short axis views. A gated Cardiolite study at peak stress was obtained. Interpretation: Rest and stress SPECT Cardiolite nuclear imaging status post realignment, normalization, and attenuation correction demonstrate areas of diminished absence of myocardial perfusion/tracer uptake in portions of the basal to mid lateral segments as well as the inferoapical and lateral apical segments without significant change between rest and stress. There is end systolic thickening and brightening. The gated Cardiolite study demonstrates myocardial thickening and inward wall motion. The reported LVEF is 34%. Impression: 1. Rest and stress SPECT current nuclear imaging status post realignment, normalization, and attenuation correction, demonstrate myocardial perfusion changes appearing compatible with areas of previous myocardial injury/infarction with no myocardial perfusion is considered diagnostic for associated stress-induced myocardial ischemia. 2. The gated Cardiolite study reports an LVEF of 34%. Cardiac Cath: CONCLUSIONS Previously placed stents in the left anterior descending artery, diagonal vessel, ramus intermedius, circumflex artery, proximal and mid right coronary artery are all noted to be patent. There is a small vessel which is the AV groove branch of the circumflex artery with a 70% stenosis. RECOMMENDATIONS We will maximize medical therapy by adding isosorbide, add Ranexa, continue beta-alex and ROBERT inhibitor. DESCRIPTION OF PROCEDURE The patient arrived to the procedure lab. The risks and benefits of the procedure as well as a full description of our services here and current unavailability of surgical backup were fully explained to the patient and/or their significant other prior to the catheterization. The Timeout was completed, verifying the correct patient and procedure. The patient's procedural site was prepped and draped in the usual fashion. Local anesthetic was given subcutaneously to right radial region with Lidocaine 2%. Using a modified Seldinger technique, arterial access was obtained via the right radial artery, a 6Fr sheath was inserted. Left Coronary Artery selective angiography was performed in multiple views using a 5 Fr. 4.0 [place] catheter. Right Coronary Artery selective angiography was then performed in multiple views using a 5 Fr. 4.0 [place] catheter. Left Ventriculography was performed in SANTOS projection using a 5 Fr. Pigtail catheter. LV to AO pullback pressures were then recorded.The arterial sheath was pulled and a TR Band was applied for hemostasis w/ 12ml air CORONARY ANGIOGRAPHY DOMINANCE: Right Dominant LEFT HEART ASSESSMENT Left Ventricular Ejection Fraction: by LV Gram 30 % Anterior Hypokinesis - Severe. Apical Hypokinesis - Severe. Inferior Mid Hypokinesis - Moderate Depressed Left Ventricular systolic function LEFT MAIN: Angiographically normal LEFT ANTERIOR DESCENDING ARTERY: MID LAD: Previously placed stent is patent DIAGONAL 1: Ostial - Instent restenosis 40 % CIRCUMFLEX ARTERY: MID CIRC: Previously placed stent is patent, 70 small AV branch % Stenosis RAMUS: Previously placed stent is patent RIGHT CORONARY ARTERY: PROX RCA: Previously placed stent is patent MID RCA: Previously placed stent is patent PCI: 08/02/2020 LAD: Thrombectomy/BEN DX 1: PTCA Radiography Diagnostic Testing: Radiology Impression Chest X-Ray 07/19/21 18:17 IMPRESSION: No radiographic evidence of acute cardiopulmonary disease. at 1838 Reported and signed by: Bienvenido Copeland MD Electronically Signed: Bienvenido Copeland MD at 18:37 EDT Tel , Service support ,
--- NOTE | 2021-07-20 08:52 | CASEMGMT ---
According to the [facility] website, the following are in-network tertiary facilities: [facility], [facility], [facility], [facility], [facility], [facility], [facility], [facility], and . Anastasia SEYMOUR CM
--- NOTE | 2021-07-20 10:33 | PCS.PANDOC ---
PANDEMIC DOCUMENTATION INITIATED: Date: 07/19/2021 Time: 6239
--- NOTE | 2021-07-20 10:54 | CL.D_ITS ---
Patient Name: SALENA MONTALVO Study Date: 07/20/2021 Performing: Fernando Riley MD Ht: 72 inches 183 cm : 1975 Wt: 231.8 lbs 105 kg Age: 46 Gender: male BSA: 2.27 PROCEDURE(S) PERFORMED [id number]-TSA/COR/LV CLINICAL PROFILE AND INDICATIONS Indications: Worsening Angina, ACS <= 24 hrs, Cardiomyopathy Heart Failure: NYHA Class: 3, Newly Diagnosed: No, Heart Failure Type: Systolic Stress/Imaging Stress/Image Study Performed: No Angina Classification Anginal Classification w/in 2 Weeks: CCS IV CAD Presentations: Non-STEMI. CONCLUSIONS Elevated Left Ventricular End Diastolic Pressure Segmented LV systolic dysfunction- Moderate LVEF: by LV gram 35 % [place] Multivessel CAD Right to Left collateral flow RECOMMENDATIONS Risk factor modification Medical therapy Surgery consult for coronary revascularization Case discussed / reviewed with Kameron Pack MD of Interventional Cardiology DESCRIPTION OF PROCEDURE The patient arrived to the procedure lab. The risks and benefits of the procedure as well as a full d escription of our services here and current unavailability of surgical backup were fully explained to the patient and/or their significant other prior to the catheterization. The Timeout was completed, verifying the correct patient and procedure. The patient's procedural site was prepped and draped in the usual fashion. Local anesthetic was given subcutaneously to right radial region with Lidocaine 2% . Local anesthetic was given subcutaneously to right groin region with Lidocaine 2%. Using a modified Seldinger technique, arterial access was obtained via the right femoral artery, a 4Fr sheath was ins erted Left Coronary Artery selective angiography was performed in multiple views using a 4 Fr. JL5 c atheter. Right Coronary Artery selective angiography was then performed in multiple views using a 4 F r. 3DRC catheter. Left Ventriculography was performed in SANTOS projection using a 4 Fr. Pigtail catheter. LV to AO pullback pressures were then recorded.The arterial sheath was pulled and m anual compression applied until hemostasis is achieved. CORONARY ANGIOGRAPHY DOMINANCE: Right Dominant LEFT HEART ASSESSMENT Left Ventricular Ejection Fraction: by LV Gram 35 % Anterior Hypokinesis. Inferior Basal Hypokinesis. Apical Akinesis Elevated Left Ventricular End Diastolic Pressure LVEDP: 25 mmHg LEFT MAIN: Angiographically normal LEFT ANTERIOR DESCENDING ARTERY: PROX LAD: Previously placed stent has an instent 50 - 75 % restenosis MID LAD: Previously placed stent is patent DIAGONAL 1: Ostial - Previously placed stent has an instent 75 % restenosis CIRCUMFLEX ARTERY: PROX CIRC: eccentric: 25 % Stenosis MID CIRC: s/p OM1: 90 % Stenosis OM 1: Proximal - Previously placed stent is patent, Mid - Previously placed stent bifurcating stent b ranch is occluded RAMUS: ostial: mild calcification: 25 % Stenosis RIGHT CORONARY ARTERY: Mild luminal irregularities PROX RCA: 25 % Stenosis MID RCA: Previously placed stent is patent, Previously placed stent is patent COLLATERAL FLOW: Collateral flow from Right to Left (to the LCX /OM system) AORTIC ROOT: Angiographically normal COMPLICATIONS No Complications PROCEDURE MEDICATIONS Fentanyl 50 mcg IV Versed 1 mg IV Versed 1 mg IV Fentanyl 50 mcg IV Oxygen: 2 L/min via nasal cannula SUMMARY OF HEMODYNAMIC DATA Time AIR REST ECG 08:51:52 AO 92/68 (79) SA 09:51:10 LV 112/3, 27 10:03:31 LV 113/2, 25 10:03:38 LV 105/13, 26 10:04:31 LVp 106/9, 25 10:04:37 AOp 108/70 (86) 10:04:42 Signed By Fernando Riley MD On 07/20/2021 10:53:01 Fernando Riley MD
[2021-07-20] MEDS: 0.9% Normal Saline 1,000 ML 50 ML IV (12:43)
--- NOTE | 2021-07-20 13:37 | DS.PCM_ITS ---
Providers Date of Admission: 07/19/21 Date of Discharge: 07/20/21 Primary Care Physician: Ling Primary [facility] Phys Consultations 07/19/21 23:27 Consult: Cardiology Routine Consulting Provider: Fernando Riley Reason for Consult: chest pain EMERGENT Consult: No MD Notified: Yes Date Notified: 07/19/21 Time Notified: 22:57 Method of Notification: Provider Initiated Comments:: Initiated by ER physician Reason For Visit: CHEST PAIN Diagnosis Discharge Diagnosis (1) NSTEMI (non-ST elevated myocardial infarction): Status: Acute Code(s): I21.4 - Non-ST elevation (NSTEMI) myocardial infarction (2) Atherosclerosis of coronary artery of [place] heart without angina pectoris: Status: Chronic Code(s): I25.10 - Atherosclerotic heart disease of [place] coronary artery without angina pectoris Qualifiers: Coronary Disease-Associated Artery/Lesion type: [place] artery Qualified Code(s): I25.10 - Atherosclerotic heart disease of [place] coronary artery without angina pectoris (3) History of coronary artery stent placement: Status: Chronic Code(s): Z95.5 - Presence of coronary angioplasty implant and graft (4) Ischemic cardiomyopathy: Status: Chronic Code(s): I25.5 - Ischemic cardiomyopathy (5) Chronic systolic (congestive) heart failure: Status: Chronic Code(s): I50.22 - Chronic systolic (congestive) heart failure (6) Hyperlipidemia: Status: Chronic Code(s): E78.5 - Hyperlipidemia, unspecified Qualifiers: Hyperlipidemia type: unspecified Qualified Code(s): E78.5 - Hyperlipidemia, unspecified (7) Essential (primary) hypertension: Status: Chronic Code(s): I10 - Essential (primary) hypertension Medications at Discharge Home Medications aspirin 81 mg PO DAILY@0800 06/22/20 cholecalciferol (vitamin D3) 2,000 unit PO DAILY 06/22/20 atorvastatin 40 mg tablet 40 mg PO QHS #90 tab 08/02/20 lisinopril 5 mg tablet 5 mg PO DAILY #30 tab 08/02/20 prasugrel 10 mg tablet 10 mg PO DAILY #90 tab 08/02/20 evolocumab 140 mg/mL subcutaneous pen injector 140 mg SC Q2W #2 ml 08/31/20 furosemide 40 mg tablet 40 mg PO DAILY tab 10/25/20 nitroglycerin 0.4 mg SUBLINGUAL Q5M PRN #10 tab.subl 01/15/21 amlodipine 2.5 mg tablet 2.5 mg PO DAILY #90 tab 04/08/21 isosorbide mononitrate 30 mg tablet,extended release 24 hr 30 mg PO BID #60 tab 04/08/21 carvedilol 6.25 mg tablet 12.5 mg PO BID #60 tab 07/14/21 Hospital Course Operations None Procedures Cardiac catheterization Summary of Care Provided Minutes Spent on Discharge: 45 Hospital Course: 46-year-old male with past medical history of CAD, history of multiple MIs status post stents, ischemic cardiomyopathy, hypertension who comes in with complaints of chest pain. Patient took 3 baby aspirin as well as 3 tablets of nitroglycerin with no improvement in his symptoms. Patient's admitting EKG was negative for acute ST changes. Troponins were elevated at 134. He was started on a heparin drip. Cardiology consulted. He underwent cardiac catheterization on 07/20/21 which showed CVA negative multivessel CAD with [id number] collateral flow, EF of 35%. Patient was recommended to get a cardiothoracic surgery consult for coronary revascularization. Patient has had his previous care with the system. He was accepted but did not leave on for 07/21/21 AM because of low bed status and then . There were no acute events prior to his discharge. He denied any specific chest pain. He described it as soreness in his chest. His vitals were stable. Physical Exam Narrative Physical exam: General: Alert, Oriented x3, Cooperative, No apparent distress, Well developed HEENT: Atraumatic Oral: Moist Mucosa Neck: Supple Lungs: Clear to auscultation Cardiovascular: HS I+II, regular, no murmurs Abdomen: Bowel Sounds Present, Soft, Non Tender Extremities: No edema Weight / BMI Weight Weight: 105 kg Body Mass Index (BMI) 31.4 ABG / Lab / Microbiology Data Result Diagrams: 07/20/21 04:36 07/20/21 04:36 Laboratory: Laboratory Results - last 24 hr 07/19/21 17:55: WBC 11.4 H, RBC 5.16, Hgb 16.8 H, Hct 47.8, MCV 92.6, MCH 32.6 H , MCHC 35.1, RDW Std Deviation 43.4, RDW Coeff of Jenna 12.8, Plt Count 220, MPV 11.3, Immature Gran % (Auto) 0.400, Neut % (Auto) 52.6, Lymph % (Auto) 35.0, [place] % (Auto) 8.6, Eos % (Auto) 2.5, Baso % (Auto) 0.9, Absolute Neuts (auto) 6.0, Absolute Lymphs (auto) 3.99, Nucleated RBC % 0 07/19/21 17:55: Sodium 139, Potassium 4.0, Chloride 110 H, Carbon Dioxide 23.0, Anion Gap 6, BUN 13, Creatinine 1.35 H, Estim Creat Clear Calc 75.05, Est GFR ( MDRD) Af Amer 73, Est GFR (MDRD) Non-Af 60, BUN/Creatinine Ratio 9.6 L, Glucose 110 H, Calcium 9.3, Troponin I High Sens 35 07/19/21 19:55: Troponin I High Sens 134 H* 07/19/21 22:41: PT 12.7, INR 1.0, APTT 26.1 07/20/21 00:15: Troponin I High Sens 697 H* 07/20/21 04:36: WBC 10.4, RBC 4.69, Hgb 15.4, Hct 44.2, MCV 94.2 H, MCH 32.8 H, MCHC 34.8, RDW Std Deviation 43.7, RDW Coeff of Jenna 12.8, Plt Count 180, MPV 10.6, Immature Gran % (Auto) 0.300, Neut % (Auto) 45.0 L, Lymph % (Auto) 41.9 H, [place] % (Auto) 8.8, Eos % (Auto) 3.3, Baso % (Auto) 0.7, Absolute Neuts (auto) 4.7, Absolute Lymphs (auto) 4.34, Nucleated RBC % 0 07/20/21 04:36: Sodium 143, Potassium 3.7, Chloride 113 H, Carbon Dioxide 26.0, Anion Gap 4 L, BUN 13, Creatinine 1.13, Estim Creat Clear Calc 89.66, Est GFR (MDRD) Af Amer 90, Est GFR (MDRD) Non-Af 74, BUN/Creatinine Ratio 11.5, Glucose 94, Calcium 8.2 L, Phosphorus 3.0, Magnesium 2.3, Triglycerides 248 H, Cholesterol 112, LDL Cholesterol 29, VLDL Cholesterol 50 H, HDL Cholesterol 33 L , TSH 2.86 07/20/21 04:36: Troponin I High Sens 1197 H* 07/20/21 04:36: APTT 117.9 H* Microbiology: Microbiology 07/19/21 23:07 Nasal Secretion SARS-CoV-2 Antigen (Rapid) - Final Radiography Diagnostic Testing: Radiology Impression Chest X-Ray 07/19/21 18:17 IMPRESSION: No radiographic evidence of acute cardiopulmonary disease. at 1838 Reported and signed by: Bienvenido Copeland MD Electronically Signed: Bienvenido Copeland MD at 18:37 EDT Tel , Service support , D/C Instructions Discharge Diet: Low fat / Low cholesterol and 2000 mg Sodium Diet Meaningful Use Info Meaningful Use Diagnoses (Choose all that apply): None applicable Discharge Plan Admission Admit Date/Time: 07/19/21 22:59 Primary Reason for Your Visit: Acute NSTEMI Attending Provider: Elizabeth Wolf Primary Care Provider: Care Physician,No Primary Consulting Providers: Fernando Riley Instructions Patient Instructions: ED Chest Pain, Noncardiac Additional Instructions / Restrictions: Patient Problems: Altered Health Status related to Hospitalization Patient Goals: *Optimal Level of Health *Keep Appointments *Medication Compliance *Remain SafePatient Problems: Altered Health Status related to Hospitalization Patient Goals: *Optimal Level of Health *Keep Appointments *Medication Compliance *Remain Safe Discharge Orders/Prescriptions Prescriptions: No Action lisinopril 5 mg tablet 5 mg PO DAILY Qty: 30 RF: 11 furosemide 40 mg tablet 40 mg PO DAILY RF: 0 amlodipine 2.5 mg tablet 2.5 mg PO DAILY Qty: 90 RF: 3 isosorbide mononitrate 30 mg tablet extended release 24 hr 30 mg PO BID Qty: 60 RF: 11 carvedilol [Coreg] 6.25 mg tablet 12.5 mg PO BID Qty: 60 RF: 6 aspirin 81 MG tablet,chewable 81 mg PO DAILY@0800 RF: 0 cholecalciferol (vitamin D3) 2,000 UNIT capsule 2,000 unit PO DAILY RF: 0 nitroglycerin 0.4 MG tablet, sublingual 0.4 mg sublingual Q5M PRN (Reason: Cardiac/Chest Pain) Qty: 10 RF: 0 atorvastatin 40 mg tablet 40 mg PO QHS Qty: 90 RF: 3 prasugrel 10 mg tablet 10 mg PO DAILY Qty: 90 RF: 3 Repatha SureClick 140 mg/mL pen injector 140 mg SC Q2W Qty: 2 RF: 11 Referrals / Follow Up: Care Physician,No Primary [Primary Care Provider] - Disposition Disposition (needs filled in before D/C Order can be placed): Acute Care Hospital Charges/Coding Visit Charges Inpatient E&M: 02670 Disch Hosp
[2021-07-20 13:40] LABS: Partial Thromboplast Time 25.6 Seconds (24.1-36.2)
--- NOTE | 2021-07-20 14:40 | NURSING ---
Ambulated pt in hallway and back to bed. Right groin site, soft with no bruising/hematoma noted. Pt denies any pain in groin and denies chest pain or SOB. Will continue to monitor.
--- NOTE | 2021-07-20 16:29 | PCM.PN.HOSP ---
Subjective Subjective Patient was seen and examined. He has had dull substernal chest pain. Denied any dizziness or palpitation. Objective Data Objective Data Vital Signs: Vital Signs Temp Pulse Resp BP Pulse Ox 98.1 F 59 L 14 107/74 93 07/20/21 14:30 07/20/21 15:00 07/20/21 14:30 07/20/21 14:30 07/20/21 14:40 Oxygen Delivery Method Room Air Weight: 105 kg Body Mass Index (BMI) 31.4 Intake & Output: Intake and Output for Last 24 Hours 07/18/21 07/19/21 07/20/21 23:59 23:59 23:59 Intake Total 342.95 / 342.95 Output Total 675 / 675 Balance -332.05 / -332.05 Lab / Micro Data Result Diagrams: 07/20/21 04:36 07/20/21 04:36 Labs: Laboratory Results - last 24 hr 07/19/21 17:55: WBC 11.4 H, RBC 5.16, Hgb 16.8 H, Hct 47.8, MCV 92.6, MCH 32.6 H, MCHC 35.1, RDW Std Deviation 43.4, RDW Coeff of Jenna 12.8, Plt Count 220, MPV 11.3, Immature Gran % (Auto) 0.400, Neut % (Auto) 52.6, Lymph % (Auto) 35.0, [place] % (Auto) 8.6, Eos % (Auto) 2.5, Baso % (Auto) 0.9, Absolute Neuts (auto) 6.0, Absolute Lymphs (auto) 3.99, Nucleated RBC % 0 07/19/21 17:55: Sodium 139, Potassium 4.0, Chloride 110 H, Carbon Dioxide 23.0, Anion Gap 6, BUN 13, Creatinine 1.35 H, Estim Creat Clear Calc 75.05, Est GFR (MDRD) Af Amer 73, Est GFR (MDRD) Non-Af 60, BUN/Creatinine Ratio 9.6 L, Glucose 110 H, Calcium 9.3, Troponin I High Sens 35 07/19/21 19:55: Troponin I High Sens 134 H* 07/19/21 22:41: PT 12.7, INR 1.0, APTT 26.1 07/20/21 00:15: Troponin I High Sens 697 H* 07/20/21 04:36: WBC 10.4, RBC 4.69, Hgb 15.4, Hct 44.2, MCV 94.2 H, MCH 32.8 H, MCHC 34.8, RDW Std Deviation 43.7, RDW Coeff of Jenna 12.8, Plt Count 180, MPV 10.6, Immature Gran % (Auto) 0.300, Neut % (Auto) 45.0 L, Lymph % (Auto) 41.9 H, [place] % (Auto) 8.8, Eos % (Auto) 3.3, Baso % (Auto) 0.7, Absolute Neuts (auto) 4.7, Absolute Lymphs (auto) 4.34, Nucleated RBC % 0 07/20/21 04:36: Sodium 143, Potassium 3.7, Chloride 113 H, Carbon Dioxide 26.0, Anion Gap 4 L, BUN 13, Creatinine 1.13, Estim Creat Clear Calc 89.66, Est GFR (MDRD) Af Amer 90, Est GFR (MDRD) Non-Af 74, BUN/Creatinine Ratio 11.5, Glucose 94, Calcium 8.2 L, Phosphorus 3.0, Magnesium 2.3, Triglycerides 248 H, Cholesterol 112, LDL Cholesterol 29, VLDL Cholesterol 50 H, HDL Cholesterol 33 L, TSH 2.86 07/20/21 04:36: Troponin I High Sens 1197 H* 07/20/21 04:36: APTT 117.9 H* 07/20/21 13:18: APTT 25.6 Micro: Microbiology 07/19/21 23:07 Nasal Secretion SARS-CoV-2 Antigen (Rapid) - Final Radiography Diagnostic Testing: Radiology Impression Chest X-Ray 07/19/21 18:17 IMPRESSION: No radiographic evidence of acute cardiopulmonary disease. at 1838 Reported and signed by: Bienvenido Copeland MD Electronically Signed: Bienvenido Copeland MD at 18:37 EDT Tel , Service support , Physical Exam Narrative Physical exam: General: Alert, Oriented x3, Cooperative, No apparent distress, Well developed HEENT: Atraumatic Oral: Moist Mucosa Neck: Supple Lungs: Clear to auscultation Cardiovascular: HS I+II, regular, no murmurs Abdomen: Bowel Sounds Present, Soft, Non Tender Extremities: No edema Assessment & Plan Assessment/Plan (1) NSTEMI (non-ST elevated myocardial infarction): (2) Atherosclerosis of coronary artery of [place] heart without angina pectoris: QUALIFIERS: Coronary Disease-Associated Artery/Lesion type: [place] artery Qualified Code(s): I25.10 - Atherosclerotic heart disease of [place] coronary artery without angina pectoris (3) History of coronary artery stent placement: (4) Ischemic cardiomyopathy: (5) Chronic systolic (congestive) heart failure: (6) Hyperlipidemia: QUALIFIERS: Hyperlipidemia type: unspecified Qualified Code(s): E78.5 - Hyperlipidemia, unspecified (7) Essential (primary) hypertension: PLAN: 1.Acute NSTEMI, in a patient with known history of CAD status post stents, status post cardiac cath -fluid multivessel CAD, EF of 35% Transferred to tertiary center for surgical consult for coronary revascularization -patient accepted to ; waiting on bed. Continue aspirin, carvedilol, statin, lisinopril, isosorbide 2. Hypertension, controlled, continue amlodipine, carvedilol 3. Hyperlipidemia, continue statin 4. Tobacco abuse, on replacement Charges/Coding Visit Charges Inpatient E&M: 66076 Subs Hosp L2
[2021-07-20] MEDS: Furosemide 40 MG Tablet PO (17:58)
[2021-07-20] MEDS: Isosorbide Mononitrate 60 MG Tablet PO (20:47)
[2021-07-20] MEDS: Atorvastatin Calcium 40 MG Tablet PO (20:47)
[2021-07-21 02:50] VITALS: BP 102/74; PULSE 58; RESP 16; TEMP 36.7; O2SAT 98
[2021-07-21 03:24] VITALS: PULSE 59
[2021-07-21 07:03] VITALS: PULSE 78
[2021-07-21 07:08] VITALS: O2SAT 91
[2021-07-21 08:30] VITALS: BP 98/58; PULSE 78; RESP 14; TEMP 36.7; O2SAT 97
[2021-07-21] MEDS: Isosorbide Mononitrate 60 MG Tablet PO (08:37)
[2021-07-21] MEDS: Aspirin 81 MG TAB.CHEW PO (08:37)
[2021-07-21] MEDS: Carvedilol 12.5 MG Tablet PO (08:37)
[2021-07-21] MEDS: Lisinopril 5 MG Tablet PO (08:38)
[2021-07-21] MEDS: Furosemide 40 MG Tablet PO (08:38)
[2021-07-21] MEDS: amLODIPine 2.5 MG Tablet PO (08:38)
[2021-07-21] MEDS: Cholecalciferol (VIT D3) 25 MCG TABLET (1,000 UNITS) 50 MCG PO (08:38)
--- NOTE | 2021-07-21 09:56 | NURSING ---
Report called to Zoila at
--- NOTE | 2021-07-21 10:01 | PN.CARD_ITS ---
Subjective Subjective The patient is awake and alert. He denies any new acute cardiovascular symptoms at this time. Objective Data Vital Signs: Vital Signs Temp Pulse Resp BP Pulse Ox 98.1 F 78 14 98/58 L 97 07/21/21 08:30 07/21/21 08:30 07/21/21 08:30 07/21/21 08:30 07/21/21 08:30 Oxygen Delivery Method Room Air Weight: 231 lb 7.766 oz Body Mass Index (BMI) 31.4 Intake & Output: Intake and Output for Last 24 Hours 07/19/21 07/20/21 07/21/21 23:59 23:59 23:59 Intake Total 762.95 / 762.95 Output Total 675 / 675 Balance 87.95 / 87.95 Lab / Micro Data Result Diagrams: 07/20/21 04:36 07/20/21 04:36 Labs: Laboratory Results - last 24 hr 07/20/21 13:18: APTT 25.6 Cardiology Labs/Tests 07/20/21 13:18: APTT 25.6 Rhythm: Sinus rhythm Physical Exam Const alert, oriented x3, no apparent distress and healthy appearing Orientation / Consciousness: awake HEENT normocephalic, head/scalp atraumatic and hearing grossly normal bilaterally Eyes PERRL, EOMs intact bilaterally and conjunctivae normal Neck full ROM, supple and no JVD Resp Auscultation: wheezes expiratory wheezes Cardio regular rate, regular rhythm and S1 normal heart sound Heart Sounds: normal, physiologic split S2 Peripheral Pulses: femoral pulses present right (No bruits: No hematoma) 2+ GI normal to inspection, nondistended, normoactive bowel sounds Extremity no pedal edema Skin no rashes or lesions noted Neuro oriented x3, moves all extremities, no focal motor deficits and no sensory deficits noted Psych mental status grossly normal Assessment & Plan Assessment/Plan (1) NSTEMI (non-ST elevated myocardial infarction): PLAN: The patient appears to have findings compatible with an acute non-ST segment elevation SD. He appears to be symptomatically improved at the moment. He will continue medical management as deemed appropriate. He has undergone cardiac catheterization as previously noted. He was found to have progression of his [place] vessel CAD especially LAD disease/in-stent disease. [facility] for possible CT surgery CABG-if not-then potentially a high risk PCI procedure. (2) Atherosclerosis of coronary artery of [place] heart without angina pectoris: QUALIFIERS: Coronary Disease-Associated Artery/Lesion type: [place] artery Qualified Code(s): I25.10 - Atherosclerotic heart disease of [place] coronary artery without angina pectoris PLAN: The patient has a history of underlying CAD. He has undergone previous noninvasive and invasive studies and PCI as noted. He will continue medical management. [facility] is [facility] care as noted above. (3) History of coronary artery stent placement: PLAN: The patient's previous PCI report was reviewed. It appears he had thrombectomy and PTCA/BEN to the LAD and PTCA to the diagonal branch 1. (4) Ischemic cardiomyopathy: PLAN: The patient has had diminished LV wall motion/systolic function/LVEF. His medications were adjusted as an outpatient. He was to have a future noninvasive study to help determine whether or not he would need a primary prevention ICD placed. Based upon his cardiac catheterization procedure his LV systolic function/LVEF remains diminished at approximately 35%. He may need to be considered, as his course progresses, for a future ICD. (5) Chronic systolic (congestive) heart failure: PLAN: He does not appear to have any ongoing acute CHF type symptoms at this time. He will continue medical therapy as deemed appropriate. (6) Hyperlipidemia: QUALIFIERS: Hyperlipidemia type: unspecified Qualified Code(s): E78.5 - Hyperlipidemia, unspecified PLAN: He will continue risk factor modification and medical management. (7) Essential (primary) hypertension: PLAN: His blood pressure will be monitored with his medicines adjusted accordingly. Addt'l Comments The patient's case was discussed yesterday via [facility] They agreed to accept him in transfer for further cardiovascular evaluation and care. He is pending transfer to their facilities at this time. This note was generated using a voice recognition system and there may be incorrect words, spelling or punctuation that were not noted when reviewing the office note prior to saving.
== END 2021-07-21 11:22 | disposition short-term general hospital (02) | DRG 190 ==
LOC: ED 22:46 → PCU 07-20 03:15
PROVIDERS: Nurse Practitioner Family; Admitting Provider Hospitalist; Emergency Provider Emergency Medicine; Visit Provider Internal Medicine
DX: I21.4 Non-ST elevation (NSTEMI) myocardial infarction (principal); I25.10 Atherosclerotic heart disease of native coronary artery without angina pectoris; I25.5 Ischemic cardiomyopathy; I11.0 Hypertensive heart disease with heart failure; I50.22 Chronic systolic (congestive) heart failure; E78.5 Hyperlipidemia, unspecified; F17.210 Nicotine dependence, cigarettes, uncomplicated; I44.4 Left anterior fascicular block; I25.2 Old myocardial infarction; Z95.5 Presence of coronary angioplasty implant and graft; Z79.899 Other long term (current) drug therapy; Z79.82 Long term (current) use of aspirin; Z82.49 Family history of ischemic heart disease and other diseases of the circulatory system
CPT/HCPCS: 36415; 71045; 80048; 80061; 83735; 84100; 84443; 84484; 85025; 85610; 85730; 87426; 93005; 93458; 99152; 99153; 99251; 99285; 99406; J7030; A4216; C1769; C1894; G0463

== ENCOUNTER → 2021-10-17 07:57 | Outpatient (CLI) | payer MEDICAID, SELFPAY | PROVIDERS: PCP Internal Medicine; Referring Provider Nurse Practitioner Family; Visit Provider Nurse Practitioner Family | DX: R07.9 Chest pain, unspecified (principal); I25.10 Atherosclerotic heart disease of native coronary artery without angina pectoris; I25.5 Ischemic cardiomyopathy; I10 Essential (primary) hypertension; E78.5 Hyperlipidemia, unspecified; Z95.5 Presence of coronary angioplasty implant and graft ==

== ENCOUNTER → 2021-11-01 06:55 | Outpatient (CLI) | payer MEDICAID, SELFPAY ==
--- NOTE | 2021-11-01 07:11 | PCM.CR.ITP ---
Diagnosis - General Information Admitting Diagnosis: S/P CABG Personal Learning Style:: Audio/Visual, Written Barriers to Learning: Vision Impairment Stage of change r/t lifestyle modifications:: Action Gave educational material for:: Treating Heart Disease, Emotions & Heart Disease, Stress Management & Relaxation, Sleep Disorders & Heart Disease, How The Heart Works, What it means to have Heart Disease, How Coronary Artery Disease is Diagnosed, Heart Procedures, What Heart Medications Do, Risk Factors & Modifications, Living an Active Life, Nutrition - Education/Goals Individual Counseling: Initial Assessment: Abnormal Cholesterol Levels, High Blood Pressure, Overweight/Obesity Cardiac Rehabilitation Goals: 1. Maintain the individual as the primary focus of care. 2. To improve the patient's quality of life. 3. Identification of cardiac risk factors and provide cardiac risk factor management. 4. Enhance the psychosocial status of the patient. 5. Reconditioning enough to allow the patient to resume customary activities. 6. Control symptoms of cardiac disease Personal Goals: Initial Assessment: Improve energy level, Participate in home exercise program, Get back to work, or to resume activities faster, Improve muscle strength and endurance, Control risk factors (learn risk factor modification) Scale for measuring improvement of personal goals: Enter appropriate number in Comments. 2 = Unchanged. 3 = Slightly Better. 4 = Moderate Improvement. 5 = Met my Goal - Diagnosis & Disease Process Outcomes/Goals: Pt IDs own risk factors & lifestyle modifications by Session 10, Verbalizes symptoms of angina & response by session 3., Pt independently manages Plan/Interventions: Assist Pt to ID & engage in lifestyle modification to reduce CVD risk, Instruct on individual risk factors, Review symptoms of angina & emergency actions, Review secondary diagnosis & identify educational needs. - Safety Referral to Physical Therapy: No Referral to [facility] Case Management: No Fall Risk Assessed:: Yes Assistive Devices:: None Exercise - Initial Assessment - Visit Date of Eval: 11/01/21 Session #:: 0 - Pre-cardiac Rehab evaluation Mets: Pre-: >7 METS for 30 minutes by discharge - Physician Prescribed Exercise Modalities: Treadmill, Rower, NuStep Frequency: 3x/week for 12 weeks [36 sessions] Intensity: 60-80% of age predicted maximum heart rate reserve Current METSs:: 5.0 Target Heart Rate:: 101-136 Resting Blood Pressure: 166/98 EKG Type: Sinus Bradycardia - Outcomes & Goals Goals:: Verbalizes understanding of THR, RPE & goal METS by session 6, Documents in home exercise log/reports 30 min aerobic 5 day/wk by DC, Demonstrates accurate pulse taking by DC - Intervention & Plan Exercise Program Goals: Instruct on personal THR & RPE, Instruct on MET level & personal MET goal, Show patient to take own pulse /validate performance until accurate, Instruct on home exercise - Physical Activity Home Exercise Physical Activity - Home Exercise: Safe Exercise, Warm-up, Self-monitoring, Cool-Down, Home Exercise > 30 min Daily, Sitting Time <3 hours/daily - Outcomes & Goals Outcomes/Goals: Demonstrates correct Warm-up/exercise Cool-Down (S3) if = 2.5 METs, Verbalizes symptoms of exercise intolerance by Session 3 (S3), Demonstrate safe equipment use (S3) & follows exercise prescrition (6) - Intervention & Plan Plan/Intervention: Instruct warm-up & cool-down if exercising at > 2 METs, Instruct on symptoms of exercise intolerance & actions to take, Instruct & monitor on saf, Assess intial functional capacity & safety risk Nutrition - Initial Assessment - Program Goals Nutrition Program Goals: LDL <100 optimal. 100 - 129 Near optimal. 130 - 159 Borderline High. 160 - 189 High. Total Cholesterol <200 desirable. 200 - 239 Borderline High. >/= 240 High. HDL < 40 Low >/=60 High. Triglycerides <150 desirable. <199 optimal. VlDL 5 - 40. HgbA1C <7%. BMI <25 Patient has diagnosis of Hyperlipidemia (ICD E78)?: Yes - Visit Date of Assessment:: 11/01/21 Session #:: 0 - Pre-cardiac rehab evaluation - Cholesterol/Lipids Triglycerides (mg/dL): 248 - 07/20/2021 Total Cholesterol (mg/dL): 112 LDL Cholesterol (mg/dL): 29 HDL Cholesterol (mg/dL): 33 Determine presence & major risk factors that modify LDL goal: Hypertension or hypertensive medication, Low HDL cholesterol <40 mg/dL*, Age men > 45 years; women >/= 55 years Outcomes/Goals: Pt IDs own risk factors & lifestyle modifications by Session 10, Verbalizes symptoms of angina & response by session 3., Pt independently manages Intervention/Plan: Instruct on personal lipid levels & lipid goals/NCEP guidelines, Instruct on cholesterol - Diabetes (Other Core Measures) Diabetes Type: Not Applicable - Weight Mgt (Other Care) Not Applicable: Yes Height: 6 ft Weight:: 250 lb BMI: 33.9 Diagnosis Overweight/Obesity BMI> 30% ICD-10 E66: Yes Diagnosis High BMI/Morbid Obesity BMI> 35% ICD-10 Z68: No Outcomes/Goals: Pt sets, maintains & shows weight loss goal & trend during rehab Intervention/Plan: Instruct on ideal BMI & set weight loss goal w/patient, Assist pt to ID & incorporate diet changes for weight loss by S9, Encourage goal of using 250-300dcal per session for weight loss - Healthy Eating Habits Will attend diet classes:: Yes Outcomes/Goals:: Consume diet rich in vegs,fruits,whole grain/high fiber,fish,lean meat, Limit sat/trans fats,cholesterol & added salts & sugars Intervention/Plan:: Assess current eating habits - Education Gave educational materials for:: Healthy eating Nutrition - 30-Day Assessment Nutrition - 60-Day Assessment Nutrition - 90-Day Assessment Nutrition - Final Assessment Medical - Initial Assessment - Visit Date of Eval: 11/01/21 Session #:: 0 - Pre-cardiac rehab evaluation - Medication Compliance Preventative Medication(s):: Aspirin, Statin/lipid, Beta alex H/O mental health issues: depression, anxiety, or addiction?: No Doesn?t believe in the benefits of treatment?: No Believes medications are unnecessary or harmful?: No Has a concern about medication side effects?: No Expresses concern over the cost of medications?: No Outcomes/Goals: Verbalizes medications,desired effect & common side effects @ DC, Pt self-reports following medication regimen, Keeps card in wallet w/medications listed by DC Interventions/plans: Instruct on medication effects & side effects, Review medication list w/patient every two weeks, Instruct importance of taking meds as ordered & assist problem solving - Tobacco Use Tobacco Use: Non-smoker How long ago did you quit using tobacco products?: Less than 6 months ago - Jun 19, 2021 still struggling at times. Hs replaced cigarettes with hard candy Do you use smokeless tobacco?: No Outcomes/Goals: Smoking cessation achieved or maintained by discharge, Identify aids/strategies for achieving smoking cessation by session 6 Interventions/plan: Instruct on effects of smoking & provide smoking cessation resource, Assist pt to set quit date & provide encouragement, Assist pt to develop strategies to achieve/maintain quit date, Assist pt w/nicotine replacement & medication for cessation success - Hypertension Hypertension Diagnosis:: Hypertension ICD-10 I10 Resting Blood Pressure:: 166/98 [place] [employer] Hypertension Guidelines: [place] [employer] Hypertension Guidelines. Normal BP Less than 120/80. Elevated BP 120/80. Hypertension Stage 1: BP 130-139/80-89. Hypertesnion Stage 2: BP 140 or higher/90 or higher. Hypertension Crisis: BP higher than 180/120 Outcomes/Goals: Able to verbalize/achieve optimal blood pressure <130/80, Incorporates diet changes & exercise for blood pressure control by DC Interventions/plan: Instruct on optimal blood pressure, hypertension & medications, Instruct on effects of sodium, alcohol, stress, exercise &hypertension - Tobacco Cessation Referral Smoking Cessation Referral:: Yes - assist patient with maintaining complete smoking cessation techniques. Individual Education/Counseling:: No Education Schedule Given:: Yes - Online education resources and printed work book provided to patient. Medical- 30-Day Assessment Medical- 60-Day Assessment Medical- 90-Day Assessment Medical - Final Assessment Psychosocial - Initial Assess - VIsit Date of Eval: 11/01/21 Session #:: 0 - Pre-cardiac rehab evaluation Not Applicable: Yes History of previous Mental disease:: No - Psychosocial Test Tool Used:: THEVA QOL Cardiac, PHQ-9 Questionnaire phq-9 Severity: Severity. 1-4 Minimal Depression. 5-9 Mild Depression. 10-14 Moderate Depression. 15-19 Moderately Sever Depression. 20-27 Severe Depression. Rule: See PHQ-9 Score: 14 - Referral to Behavioral Health PS - Interventions: Yes Referral to Behavioral Health if PHQ-9 score >9: - Moderate to Moderate-Severe Depression, Yes Referral to Physician if PHQ-9 if score is 5-9: - Moderate to Moderate-Severe Depression should be evaluated by physician., Yes Attend Stress Management Classes, No Referral to [facility] - Outcomes/Goals: See list Psychosocial Outcomes/Goals:: ID's personal stressors & 2 strategies to manage stress by discharge - Intervention/Plan: See List Interventions/Plan:: Assess stressors,coping strategies & signs of derpression on admission, Instruct/assist pt to develop coping & personal stress Mgt strategies, Refer to Behavioral Health if appropriate, Refer to Physician if appropriate, Instruct patient to recognize signs & symptoms of depression, Instruct patient to recog Psychosocial - 30-Day Assess Psychosocial - 60-Day Assess Psychosocial - 90-Day Assess Psychosocial - Final Assessmen Patient Health Questionnaire Initial Assessment 1. Little interest or pleasure in doing things: Nearly every day 2. Feeling down, depressed, or hopeless: More than half the days 3. Trouble falling or staying asleep, or sleeping too much: Nearly every day 4. Feeling tired or having little energy: Nearly every day 5. Poor appetite or overeating: Several days 6. Feeling bad about yourself -- or that you are a failure or have let yourself or your family down: Not at all 7. Trouble concentrating on things, such as reading the newspaper or watching television: Several days 8. Moving or speaking so slowly that other people could have noticed. Or the opposite - being so fidgety or restless that you have been moving around a lot more than usual: Not at all 9. Thoughts that you would be better off , or of hurting yourself in some way: Several days How difficult have these problems made it for you to do your work, take care of things at home, or get along with other people?: Very difficult Total Score: 14 DERA-Q SV Test - Statements CAD is a disease of the arteries in the heart: False Examples of risk factors for heart disease: True Angina is chest pain or discomfort: True The benefits of resistance training include: True Eating more meat and dairy products: False Anti-platelet medications such as aspirin are important: True The only effective way to manage stress: False An exercise warm-up slowly increases heart rate: I Don't Know Prepared, processed foods usually have high sodium: True Depression is common after a heart attack: I Don't Know The statin medications lower cholesterol: True To control blood pressure, lower the amount of sodium: True If someone gets chest discomfort during walking: False Transfats are partially hydrogenated vegetable oils: True Sleep apnea that is not treated increases the risk: I Don't Know To control cholesterol, one should become a vegetarian: I Don't Know Someone knows if he/she is exercising at the right level: I Don't Know Diabetes cannot be prevented with exercise & health eating: I Don't Know Stress is a large risk for heart attack: True A diet that can help lower blood pressure is rich in: True - Total Score Total Correct Responses: 14 Self-Efficacy Initial Assessment We would like to know how confident you are in doing certain activities. Please select your confidence level for:: Select your confidence level for the following using the scale 1-10 where 1 is not at all confident and 10 is totally confident. Your score is the average of all 6 responses. Fatigue: How confident are you that you can keep the fatigue caused by your disease from interfering with the things you want to do? Select Number: 3 Physical Discomfort or Pain: How confident are you that you can keep the physical discomfort or pain of your disease from interfering with the things you want to do? Select Number: 3 Emotional Distress: How confident are you that you can keep the emotional distress caused by your disease from interfering with the things you want to do? Select Number: 5 Other Symptoms or Health Problems: How confident are you that you can keep other symptoms or health problems from interfering with the things you want to do? Select Number: 1 Different Tasks and Activities: How confident are you that you can do the different tasks and activities needed to manage your health condition so as to reduce your need to see a doctor? Select Number: 10 Medication: How confident are you that you can do things other than just taking medication to reduce how much your illness affects your everyday life? Select Number: 10 Total Score:: 5 Nutrition Survey - Nutrition Survey Initial Have you lost >10 lbs over the past 2 months without trying?: No Are you following a special diet at home for diabetes, low fat, or low salt?: Yes Are you interested in meeting with a dietitian for help understanding your diet?: No Do you eat less than 3 meals a day?: Yes Do you eat fatty meats (rodas, sausage, ribs, etc), fried foods, desserts, large amounts of salad dressings, margarine, butter, or cheese most days?: No Do you have food allergies? [Enter types in comment field]: Yes Do you eat in restaurants more than 3 times a week?: No Do you season food with salt, seasoning salt, or garlic salt?: Yes Do you used canned, boxed, frozen meals, or soups, seasoning packets?: No Total Score:: 4
--- NOTE | 2021-11-01 07:12 | CR.HP_ITS ---
CR - History & Physical - General Arrival date:: 11/01/21 Arrival time:: 07:00 Date of Referral:: 09/16/21 Date of CR Evaluation:: 11/01/21 Referring Physician: Dr. Caio Hay Primary Diagnosis: S/P CABG - History of Present Cardiac Event Onset Date: Enter Onset Date of cardiac illnesses in Comment field below Acute Myocardial Infarction within 12 months:: Yes - NSTEMI 06/22/2020 Coronary Artery Bypass Graft:: Yes - 07/26/2021 PTCA or coronary stenting:: Yes - 06/22/2020 Heart Failure EF <35%:: Yes - Chronic Sytolic Heart Failure EF 35-39% Type of Symptoms:: Chest pain Interventions with present event:: Seen in ER @ [facility] taken to heart central lab technician and tehn transfer to for Bypass - Sleep Disorder Evaluation Hx of Sleep Apnea: No Do you snore loudly (louder than talking or can be heard through closed doors)?: Yes Do you often feel tired/ fatigued/ sleepy during daytime?: No Has anyone observed you stop breathing during sleep?: Yes History of Hypertension (for STOP score): Yes - Dr. Avery has mentioned doing a sleep apnea test to the patient. STOP Results: Positive - Medications Home Medications: Ambulatory Orders Medication Instructions Recorded aspirin 81 mg PO DAILY@0800 06/22/20 cholecalciferol (vitamin D3) 2,000 unit PO DAILY 06/22/20 prasugrel 10 mg tablet 10 mg PO DAILY #90 tab 08/02/20 furosemide 40 mg tablet 40 mg PO DAILY tab 10/25/20 nitroglycerin 0.4 mg SUBLINGUAL Q5M PRN #10 01/15/21 tab.subl evolocumab 140 mg/mL subcutaneous 140 mg SC Q2W #2 ml 08/01/21 pen injector atorvastatin 40 mg tablet 40 mg PO QHS tab 10/17/21 carvedilol 12.5 mg tablet 12.5 mg PO .COMPLEX #60 tab 10/17/21 - Allergies Allergies/Adverse Reactions: Allergies varenicline [From Chantix] Allergy (Intermediate, Verified 10/17/21 14:58) change in mental status adhesive tape Adverse Reaction (Verified 10/17/21 14:58) Rash atorvastatin [From Lipitor] Adverse Reaction (Verified 10/28/21 14:02) Myalgias and LDL remained high on max dose Advanced Directives - Advanced Directives Power of Firebrick Layer Helper: No Living Will: No Advance Directives Information Provided: Yes Advance Directives on File: No DNR Order?:: No - MOLST See MOLST form: No Past Medical History - Covid-19 Screening Fever: No Unexplained muscle aches: No Current respiratory symptoms: No Upper respiratory infections symptoms: No Gastro-intestinal symptoms: No Bkx-Uyms-Vvnwny symptoms: No Has tested positive for COVID-19 in last 30 days: No Date of testin11/01/21 - Patient is against COVID vaccination Had contact w/person w/symptoms or Covid-19 (+) last 14 days: No Has High Risk Exposures ID'd by Health dept/Inf Control team: No 65 years or older:: No Lives in Assisted Living facility:: No Has a chronic lung disease or moderate to severe asthma:: No Has a serious heart condition:: No Immunocompromised:: No Severely obese (Body Mass Index of 40 or higher):: No Diabetic:: No Has chronic kidney disease undergoing dialysis:: No Has liver disease:: No - Past Medical Illness Medical History: Past Medical History (Last Reviewed 10/17/21 @ 15:14 by Tamie Boyd) Atherosclerosis of coronary artery of [place] heart without angina pectoris I25.10 Chronic systolic (congestive) heart failure I50.22 Essential (primary) hypertension I10 History of ST elevation myocardial infarction (STEMI) Onset Date: 06/22/20 I25.2 Hyperlipidemia E78.5 Ischemic cardiomyopathy I25.5 Old anterior wall myocardial infarction Onset Date: 06/2020 I25.2 - Past Surgical History Surgical History: Past Surgical History (Last Reviewed 10/17/21 @ 15:14 by Tamie Boyd) H/O coronary artery bypass surgery Onset Date: 07/26/21 Z95.1 CABG x 3 JERED-LAD, RIVERA-O1, SVG-PLCx History of coronary artery stent placement Onset Date: 06/22/20 Z95.5 YFE-MFM-xFLV and OM1 w/ Xience Xpedition Stent 06/07/14; PCI-BEN-OM1 w/ 2.5 x 22 mm Resolute Integrity Stent 12/27/15; OCL-IOF-gKLR w/ 4 x 15 mm Resolute 10/03/17; PCI-BEN-D1 w/ 3.0 x 20 Synergy Stent 12/03/18; LXI-GVZ-oCTA w/ 4 x 12 Resolute Pankaj and BEN-mLCx w/ 3 x 12 Resolute [place], BEN-mOM1 w/ 2.5 x 12 Resolute Pankaj 09/22/19; SNT-FKX-Fumzh w/ 3 x 12 Resolute [place] Stent and 2.25 x 15 Xience [place] Stent, POBA-OM1 10/11/19; TFU-YZA-aJZH w/ 4.00 x 08 mm Synergy Stent and mLAD w/ 3.00 x 8 mm Synergy MR Stent and POBA-D1 06/22/20; History of left heart catheterization Onset Date: 02/07/21 Z98.890 History of myringotomy Z98.890 Surgical History: - - Several teeth resected, bilateral ear tube and scar tissue surgeries, significant PCI history. - Family History Summary Family History: Family History (Last Reviewed 10/17/21 @ 15:14 by Tamie Boyd) Father Myocardial infarction, Onset Age: 39 Mother Myocardial infarction, Onset Age: 40 Brother Myocardial infarction, Onset Age: 39 Brother Myocardial infarction, Onset Age: 36 Social History - Smoking History Smoking Status: Former smoker Years Smokin Packs Smoked per Day: 2 - when quit was down to 1 pack/day Hx Smoking Cessation Date: 06/19/21 Hx Tobacco Use: Yes Hx Smoking Exposure: No - Alcohol Use Alcohol Usage: No - Substance Abuse Hx Substance Use: No - Occupation Occupation (List type of work in comments):: Unemployed - Hobbies, Recreation, Social Activities Hobbies: None - due to finances and COVID pretty much home bound., Other Recreational Activities: I am able to engage in most, but not all activities Social Environment - Status Marital Status: Single - Current Living Arrangements Living Environment:: Spouse - significant other - Children How many children do you have?: 3 - grown Do any of your children live nearby?: Yes - daughter - Safety Do you feel safe in your surroundings?: Yes - Assistance Do you need any assistance at home?: yes Review of Systems - Review of Systems Hints: Right click = Denies (Slash). Left click = Reports ([place]) Review of Present Symptoms: Reports: Shortness of Breath with Exertion, Operative Discomfort - Some left chest muscular pain radiates to the lateral left. Liek an electrical ting occasioanlly but has lessened as more outside of surgery., Wound Healing, Fatigue, Appetite - Normal, Sexual Changes. Denies: Shortness of Breath at Rest, Angina, Dizziness/Lightheadedness - rare, Heart Arrhythmia/Irregularities, Appetite - Special Diet, Sleep - Normal - Diet intake sucks, has lessened meat intake but feels more hungry. Graves grilled chicken. - Pain Is Patient Pain Free?: Yes Pain Location: none Pain Level: 0/10 Risk Factor Assessment - Chief Complaint Chief Complaint: S/P CABG - Vital Signs Temperature: 97.6 F Respiratory Rate: 16 Pulse Ox: 97 Blood Pressure: 166/98 - Pulse Pulse Rate: 80 Pulse Rhythm: Regular - Hypertension Blood Pressure Sitting - Left Arm: 166/98 - Stress Stress: Recent - Blood Cholesterol/Lipids Total Cholesterol (mg/dL) Goal = less than 200 mg/dL: 112 HDL Cholesterol (mg/dL) Goal = less than 40 mg/dL: 33 LDL Cholesterol (mg/dL) Goal = less than 70 mg/dL: 29 Triglycerides (mg/dL) Goal = less than 150 mg/dL: 248 - Obesity Height: 6 ft Weight:: 250 lb Weight in Pounds: 250.0 lbs Weight Source: Standing Scale Body Mass Index (BMI): 33.9 Nutritional Referral for Obesity: Yes - Physical Inactivity Physical Inactivity: Reg Exercise 30 min/day - Risk Stratification Risk Guidelines: Lowest Risk: Risk Factor for Diabetes, Moderate Risk: Risk Factor for Smoking, Risk Factor for Dyslipidemia, Highest Risk: Risk Factor for Obesity, Risk Factor for Hypertension, Risk Factor for Sedentary Lifestyle, Risk Factor for Depression - 14 on the PHQ-9 score - Family History Family History: Family History (Last Reviewed 10/17/21 @ 15:14 by Tamie Boyd) Father Myocardial infarction, Onset Age: 39 Mother Myocardial infarction, Onset Age: 40 Brother Myocardial infarction, Onset Age: 39 Brother Myocardial infarction, Onset Age: 36 Motivation - Motivation to Participate On a scale of 1 to 10, how prepared are you to commit to attending program?: 10 What do you see as barriers to successfully being able to complete the program?: none What do you see as the benefits of succesfully completing the program? In other words, what do you hope to get out of participating in the program?: healthy, more active, gain strength Are there issues you are dealing with that will interfere with completing the program?: none Do you have a spouse or signficant other, family or friends who will help support you to complete the program?: yes
[2021-11-01 07:34] VITALS: BP 166/98; BMI 33.9
[2021-11-01 07:48] VITALS: BP 166/98; PULSE 80; RESP 16; TEMP 36.4; O2SAT 97; BMI 33.9
== END ==
PROVIDERS: PCP Internal Medicine; Referring Provider Internal Medicine Cardiovascular Disease; Visit Provider Internal Medicine Cardiovascular Disease
DX: E78.5 Hyperlipidemia, unspecified (principal); I11.0 Hypertensive heart disease with heart failure; I50.22 Chronic systolic (congestive) heart failure; Z68.33 Body mass index [BMI] 33.0-33.9, adult

== ENCOUNTER 2021-11-02 13:20 | Outpatient (RCR) | payer MEDICAID, SELFPAY ==
[2021-11-01 07:34] VITALS: BMI 33.9
== END 2021-11-18 23:59 ==
LOC: CR 13:20
PROVIDERS: PCP Internal Medicine; Referring Provider Internal Medicine Cardiovascular Disease; Visit Provider Internal Medicine Cardiovascular Disease
DX: Z95.1 Presence of aortocoronary bypass graft (principal); I25.10 Atherosclerotic heart disease of native coronary artery without angina pectoris; I25.2 Old myocardial infarction; Z95.5 Presence of coronary angioplasty implant and graft; I25.5 Ischemic cardiomyopathy; I50.22 Chronic systolic (congestive) heart failure; E78.5 Hyperlipidemia, unspecified; I11.0 Hypertensive heart disease with heart failure
CPT/HCPCS: 93798

== ENCOUNTER → 2021-11-03 09:12 | Outpatient (CLI) | payer MEDICAID, SELFPAY ==
[2021-11-01 07:34] VITALS: BMI 33.9
--- NOTE | 2021-11-03 09:14 | RAD_ITS ---
STUDY: X-RAY STERNUM REASON FOR EXAM: Male, 46 years old. Chest wall pain, s/p cabg Aug 09 TECHNIQUE: 3 view(s) of the sternum were obtained. COMPARISON: None. FINDINGS: Normal bilateral sternoclavicular articulations. Normal manubrium. Normal sternomanubrial joint. The patient is status post midline sternotomy and the metallic suturing. The top metallic suture is fractured. There is no demonstrated fracture of the sternum. Normal visualized anterior ribs. Normal visualized lungs. The soft tissue structures are unremarkable. RAD/Sternum min 2 Views IMPRESSION: Status post midline sternotomy. There is a fracture of the top suture. Electronically Signed: Dann Hill MD at 9:50 EST , Service support ,
== END ==
PROVIDERS: PCP Internal Medicine; Referring Provider Internal Medicine; Visit Provider Internal Medicine
DX: R07.89 Other chest pain (principal); G89.18 Other acute postprocedural pain
CPT/HCPCS: 71120

== ENCOUNTER 2021-11-29 14:02 | Outpatient (CLI) | payer MEDICAID, SELFPAY ==
[2021-11-01 07:34] VITALS: BMI 33.9
[2021-11-29 15:10] LABS: Absolute Lymphocyte Count 2.81 X10^3/uL (0.83-4.51); Absolute Neutrophil Count 7.5 X10^3/uL (2.0-7.7); Basophil# 0.08 X10^3/uL; Basophil% 0.7 % (0-1); Eosinophil# 0.14 X10^3/uL; Eosinophils% 1.2 % (0-5); Hemoglobin 17.5 g/dL (13.0-16.5); Lymphocyte # 2.81 X10^3/ul (0.83-4.51); Lymphocyte % 24.4 % (19-41); Mean Corp Hgb Conc 37.2 g/dL (32-36); Mean Corpuscular Hgb 32.2 pg (27.0-32.0); Mean Corpuscular Volume 86.6 fL (80-94); Mean Platelet Vol. 12.9 fl (6.2-12.0); Monocyte# 0.97 X10^3/uL; Monocyte% 8.4 % (0-10); NRBC Flagged by Analyzer 0 % (0-5); Neutrophil # 7.49 X10^3/uL (2.7-7.7); Platelet Count 258 K/mm3 (150-450); RBC Distribution Width CV 12.7 % (11.6-14.6); RBC Distribution Width SD 39.4 fl (35.1-43.9); Red Blood Count 5.43 M/mm3 (4.6-6.2); White Blood Count 11.5 K/mm3 (4.4-11.0)
[2021-11-29 15:26] LABS: Vitamin D,25 Hydroxy 35.5 ng/mL
[2021-11-29 15:50] LABS: Hemoglobin A1c 11.1 % (3.8-5.6)
[2021-11-29 15:54] LABS: AST(SGOT) 20 U/L (15-37); Alanine Aminotransfer ALT/SGPT 47 U/L (16-61); Alkaline Phosphatase 183 U/L (45-117); Anion Gap 11 (5-15); BUN 19 mg/dL (7-18); BUN/Creat Ratio 10.3 RATIO (10-20); CPK Total, Creatine Kinase 61 U/L (39-308); Chloride 87 mmol/L (98-107); Creatinine, Serum 1.84 mg/dL (0.70-1.30); EST Glomerular Filtration Rate 42 mL/min (>60); Est Glom Filt Rate - Afr Amer 51 mL/min (>60); Glucose 921 mg/dL (74-106); Magnesium 2.3 mg/dL (1.6-2.6); Potassium 4.3 mmol/L (3.5-5.1); Sodium Level 125 mmol/L (136-145); Thyroid Stim Hormone (TSH) 2.21 uIU/mL (0.358-3.74)
[2021-11-29 16:51] LABS: Erythrocyte Sedimentation Rate 18 mm/hr (0-20)
== END 2021-11-29 23:59 | disposition short-term general hospital (02) ==
LOC: BIMLAB 14:02
PROVIDERS: PCP Internal Medicine; Visit Provider Internal Medicine
DX: I11.0 Hypertensive heart disease with heart failure (principal); I50.22 Chronic systolic (congestive) heart failure; I25.2 Old myocardial infarction; I25.10 Atherosclerotic heart disease of native coronary artery without angina pectoris; E78.5 Hyperlipidemia, unspecified; R25.2 Cramp and spasm; R29.898 Other symptoms and signs involving the musculoskeletal system
CPT/HCPCS: 36415; 80053; 82306; 82550; 83036; 83735; 84443; 85025; 85652

== ENCOUNTER 2021-11-29 18:27 | Inpatient (IN) | payer MEDICAID, SELFPAY ==
[2021-11-01 07:34] VITALS: BMI 33.9
[2021-11-29 18:28] VITALS: BP 126/88; PULSE 88; RESP 16; TEMP 36; O2SAT 98; BMI 30.9
--- NOTE | 2021-11-29 18:45 | EKG12_ITS ---
Test Reason : DYSRHYTHMIA Blood Pressure : / mmHG Vent. Rate : 085 BPM Atrial Rate : 085 BPM P-R Int : 158 ms QRS Dur : 102 ms QT Int : 362 ms P-R-T Axes : 063 -52 050 degrees QTc Int : 430 ms Normal sinus rhythm Left axis deviation Septal infarct , age undetermined Abnormal ECG Confirmed by ANAY BOWLES, ROXANA ([id number]), assistant editor DERREK OWEN ([id number]) on 11/30/2021 1:42:00 PM Referred By: TOY Confirmed By:ROXANA CUEVA MD
[2021-11-29 18:50] LABS: Bedside Glucose > 500 mg/dL (70-110)
[2021-11-29 19:09] LABS: Bacteria 0 SEEN /hpf (None Seen); Mucous, Urine 0 SEEN /hpf (<or=2+); Red Blood Cells-Urine 0 SEEN /hpf (0-5); Squamous Epithelial Cells - UA 0 SEEN /hpf (0-5); White Blood Cells 0 SEEN /hpf (0-5)
--- NOTE | 2021-11-29 19:12 | EX.ED.DYSGE1 ---
HPI History of Present Illness Chief Complaint: Abn Labs Informant: patient Narrative Narrative: Patient sent in from PCP for evaluation of new onset diabetes concerns. Outpatient labs today glucose greater than 900. Patient reports polyuria and polydipsia for the last week. Denies fevers. No chest or abdominal pain. Status post three-vessel CABG in July of this year. Initially seen here with NSTEMI cath unamenable to stenting transferred to [facility] with bypass performed there. He states prior to that has had 7 heart attacks with stenting in the past. He states his A1c at that time was 5.3. Family history of diabetes in the mother. Remote tobacco, second family history of MIs. Denies any dyspnea or fevers. Patient does report history of cardiomyopathy EF of 20%. records from lab today 2 PM noted glucose 921, anion gap was 11. Creatinine 1.8 up from 1.1. [facility] Medical History Atherosclerosis of coronary artery of [place] heart without angina pectoris Chronic systolic (congestive) heart failure Essential (primary) hypertension History of ST elevation myocardial infarction (STEMI) (06/22/20) Hyperlipidemia Ischemic cardiomyopathy 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) Home Medications aspirin 81 mg PO DAILY@0800 06/22/20 [History Last Taken 02/06/21] cholecalciferol (vitamin D3) 2,000 unit PO DAILY 06/22/20 [History Last Taken 02/06/21] prasugrel 10 mg tablet 10 mg PO DAILY #90 tab 08/02/20 [Rx Last Taken 02/06/21] furosemide 40 mg tablet 40 mg PO DAILY tab 10/25/20 [History Last Taken Unknown] nitroglycerin 0.4 mg SUBLINGUAL Q5M PRN #10 tab.subl 01/15/21 [Rx Last Taken Unknown] atorvastatin 40 mg tablet 40 mg PO QHS tab 10/17/21 [History Last Taken Unknown] evolocumab 140 mg/mL subcutaneous pen injector 140 mg SC Q2W #2 ml 11/03/21 [Rx Last Taken Unknown] carvedilol 12.5 mg PO BID 11/29/21 [History Last Taken Unknown] Allergy/AdvReac Type Severity Reaction Status Date / Time varenicline [From Chantix] Allergy Intermediate change in Verified 11/29/21 18:33 mental status adhesive tape AdvReac Rash Verified 11/29/21 18:33 Family History Father Myocardial infarction, Onset Age: 39 Mother Myocardial infarction, Onset Age: 40 Brother Myocardial infarction, Onset Age: 39 Brother Myocardial infarction, Onset Age: 36 Surgical History H/O coronary artery bypass surgery (07/26/21) History of coronary artery stent placement (06/22/20) History of left heart catheterization (02/07/21) History of myringotomy Social History Smoking Status: Former smoker how long ago did patient quit smoking: July 16 quit status: considering quitting alcohol intake: never substance use type: does not use caffeine: Yes Type: coffee Number of servings: 3 ROS ROS ED Constitutional Constitutional ED: Denies chills, fever(s) or sweats Eyes Eyes: Denies change in vision ENT ENT ED: Denies dysphagia or sore throat Cardiovascular Cardiovascular: Denies chest pain, leg edema, palpitations or racing heartbeat Respiratory/Chest Respiratory/Chest: Denies cough, dyspnea or dyspnea on exertion Gastrointestinal Gastrointestinal: Denies abdominal pain, diarrhea, nausea or vomiting Genitourinary Genitourinary ED: Denies dysuria, hematuria or urinary frequency Musculoskeletal Musculoskeletal: Denies back pain, extremity pain or neck pain Integumentary Denies rash or wounds Neurologic Neurologic: Denies headache(s), paresthesias or weakness Endocrine Endocrinology: Reports polydipsia and polyuria EXAM Physical Exam Const Vital Signs: 11/29/21 18:28 11/29/21 18:56 Temperature 96.8 F L Temperature Source Temporal Pulse Rate 88 Respiratory Rate 16 Respiratory Effort Normal Non-Labored Blood Pressure 126/88 H Blood Pressure Mean 100 Pulse Ox 98 Oxygen Delivery Method Room Air Positive well nourished and well developed General Appearance ED: well developed and NAD HEENT Reports dry mucous membranes normocephalic and atraumatic Mouth ED: Yes dry mucous membranes Mouth: dry mucous membranes Eyes PERRL, EOMs intact bilaterally and conjunctivae normal General Eye ED: Yes normal appearance of both eyes Neck no lymphadenopathy and supple General: Negative for tenderness Chest Wall Chest: Negative for tenderness Resp normal respiratory effort and normal air movement Effort and Inspection: symmetric chest movement; Negative for respiratory distress Cardio regular rate, regular rhythm and no murmurs Peripheral Pulses: pulses 2+ throughout GI normal to inspection, nondistended, normoactive bowel sounds and non-tender Palpation: Negative for guarding or rebound tenderness present Back/Spine no CVA tenderness and no thoracic nor lumbar tenderness Extremity normal to inspection General Extremety ED: Negative for edema or tenderness General Extremity: Negative for edema Neuro oriented x3 and no sensory deficits noted Sensorium / Orientation: awake and alert Skin no rashes or lesions noted and no wounds MDM MDM MDM Narrative Medical decision making narrative: Labs were sent off, with his cardiomyopathy started with 500 cc of normal saline. Glucose greater than 500. He had normal anion gap. He is a new onset diabetic. Patient nontoxic at this time. We will plan to admit. Glucose returned at 882 anion gap is 9. Sodium 124 primarily due to his hyperglycemia. With him being insulin na?ve I did start with 10 units of subcu NovoLog. Creatinine 1.69 slightly elevated from his baseline 1.4. I did speak with hospitalist Dr. Funez for admission to PCU. Lab Data Attestation: I reviewed the patient's lab results. Labs: Laboratory Results - last 24 hr 11/29/21 11/29/21 11/29/21 18:44 18:55 19:15 WBC 10.5 RBC 5.31 Hgb 16.9 H Hct 45.9 MCV 86.4 MCH 31.8 MCHC 36.8 H RDW Std Deviation 39.1 RDW Coeff of Jenna 12.5 Plt Count 237 MPV 12.4 H Immature Gran % (Auto) 0.300 Neut % (Auto) 53.4 Lymph % (Auto) 34.7 [place] % (Auto) 9.2 Eos % (Auto) 1.6 Baso % (Auto) 0.8 Absolute Neuts (auto) 5.6 Absolute Lymphs (auto) 3.63 Nucleated RBC % 0 Sodium Potassium Chloride Carbon Dioxide Anion Gap BUN Creatinine Estim Creat Clear Calc Est GFR (MDRD) Af Amer Est GFR (MDRD) Non-Af BUN/Creatinine Ratio Glucose Hemoglobin A1c Serum Osmolality Calcium Phosphorus Magnesium Total Bilirubin AST ALT Alkaline Phosphatase Total Protein Albumin Globulin Albumin/Globulin Ratio Urine Color Yellow Urine Clarity Clear Urine pH 6.0 Ur Specific [place] 1.010 Urine Protein Negative Urine Glucose (UA) 1000 H Urine Ketones Negative Urine Occult Blood Negative Urine Nitrite Negative Urine Bilirubin Negative Urine Urobilinogen Normal Ur Leukocyte Esterase Negative Urine RBC 0 SEEN Urine WBC 0 SEEN Ur Squamous Epith Cells 0 SEEN Urine Bacteria 0 SEEN Urine Mucus 0 SEEN Acetone Level POC Glucose > 500 H* 11/29/21 11/29/21 11/29/21 19:15 19:15 19:15 WBC RBC Hgb Hct MCV MCH MCHC RDW Std Deviation RDW Coeff of Jenna Plt Count MPV Immature Gran % (Auto) Neut % (Auto) Lymph % (Auto) [place] % (Auto) Eos % (Auto) Baso % (Auto) Absolute Neuts (auto) Absolute Lymphs (auto) Nucleated RBC % Sodium 124 L Potassium 4.3 Chloride 87 L Carbon Dioxide 28.0 Anion Gap 9 BUN 21 H Creatinine 1.69 H Estim Creat Clear Calc 59.95 Est GFR (MDRD) Af Amer 56 L Est GFR (MDRD) Non-Af 47 L BUN/Creatinine Ratio 12.4 Glucose 882 H* Hemoglobin A1c Serum Osmolality Calcium 9.4 Phosphorus 4.0 Magnesium 2.5 Total Bilirubin 0.80 AST 18 ALT 42 Alkaline Phosphatase 198 H Total Protein 7.8 Albumin 4.0 Globulin 3.8 Albumin/Globulin Ratio 1.1 Urine Color Urine Clarity Urine pH Ur Specific [place] Urine Protein Urine Glucose (UA) Urine Ketones Urine Occult Blood Urine Nitrite Urine Bilirubin Urine Urobilinogen Ur Leukocyte Esterase Urine RBC Urine WBC Ur Squamous Epith Cells Urine Bacteria Urine Mucus Acetone Level NEGATIVE POC Glucose 11/29/21 11/29/21 19:15 19:15 WBC RBC Hgb Hct MCV MCH MCHC RDW Std Deviation RDW Coeff of Jenna Plt Count MPV Immature Gran % (Auto) Neut % (Auto) Lymph % (Auto) [place] % (Auto) Eos % (Auto) Baso % (Auto) Absolute Neuts (auto) Absolute Lymphs (auto) Nucleated RBC % Sodium Potassium Chloride Carbon Dioxide Anion Gap BUN Creatinine Estim Creat Clear Calc Est GFR (MDRD) Af Amer Est GFR (MDRD) Non-Af BUN/Creatinine Ratio Glucose Hemoglobin A1c 11.4 H Serum Osmolality 322 H Calcium Phosphorus Magnesium Total Bilirubin AST ALT Alkaline Phosphatase Total Protein Albumin Globulin Albumin/Globulin Ratio Urine Color Urine Clarity Urine pH Ur Specific [place] Urine Protein Urine Glucose (UA) Urine Ketones Urine Occult Blood Urine Nitrite Urine Bilirubin Urine Urobilinogen Ur Leukocyte Esterase Urine RBC Urine WBC Ur Squamous Epith Cells Urine Bacteria Urine Mucus Acetone Level POC Glucose EKG Initial EKG: Attestation: I personally reviewed and interpreted this EKG as follows: Comments: Sinus rate of 85, no ST changes. Q waves noted in anterior leads. Discharge Plan Dx/Rx/DC Orders Clinical Impression: Acute hyperglycemia, Diabetes mellitus, new onset, ROZ (acute kidney injury), Acute hyponatremia Disposition Disposition: Acute Care [facility] Discharge Date/Time: 11/29/21 22:00
[2021-11-29 19:22] LABS: Absolute Lymphocyte Count 3.63 X10^3/uL (0.83-4.51); Absolute Neutrophil Count 5.6 X10^3/uL (2.0-7.7); Basophil# 0.08 X10^3/uL; Basophil% 0.8 % (0-1); Eosinophil# 0.17 X10^3/uL; Eosinophils% 1.6 % (0-5); Hematocrit 45.9 % (40-54); Hemoglobin 16.9 g/dL (13.0-16.5); Lymphocyte # 3.63 X10^3/ul (0.83-4.51); Lymphocyte % 34.7 % (19-41); Mean Corp Hgb Conc 36.8 g/dL (32-36); Mean Corpuscular Hgb 31.8 pg (27.0-32.0); Mean Corpuscular Volume 86.4 fL (80-94); Mean Platelet Vol. 12.4 fl (6.2-12.0); Monocyte# 0.96 X10^3/uL; Monocyte% 9.2 % (0-10); NRBC Flagged by Analyzer 0 % (0-5); Neutrophil % 53.4 % (47-70); Platelet Count 237 K/mm3 (150-450); RBC Distribution Width CV 12.5 % (11.6-14.6); RBC Distribution Width SD 39.1 fl (35.1-43.9); Red Blood Count 5.31 M/mm3 (4.6-6.2); White Blood Count 10.5 K/mm3 (4.4-11.0)
[2021-11-29 19:24] LABS: Color, Urine Yellow (Yellow); Glucose, Dipstick 1000 mg/dl (Normal); Ketone-Dipstick Negative (Negative); Leukocyte Esterase-Dipstick Negative /ul (Negative); Nitrite-Dipstick Negative (Negative); Occult Blood-Urine Negative /ul (Negative); Protein-Dipstick Negative (Negative); Urine Bilirubin Dipstick Negative (Negative); Urine Clarity Clear (Clear); Urine Urobilinogen Normal (Normal)
[2021-11-29 19:42] LABS: ALB/GLOB Ratio 1.1 RATIO (0.9-2.4); AST(SGOT) 18 U/L (15-37); Alanine Aminotransfer ALT/SGPT 42 U/L (16-61); Alkaline Phosphatase 198 U/L (45-117); Anion Gap 9 (5-15); BUN 21 mg/dL (7-18); BUN/Creat Ratio 12.4 RATIO (10-20); Calcium,Total 9.4 mg/dL (8.5-10.1); Chloride 87 mmol/L (98-107); Creatinine, Serum 1.69 mg/dL (0.70-1.30); EST Glomerular Filtration Rate 47 mL/min (>60); Est Glom Filt Rate - Afr Amer 56 mL/min (>60); Estimated Creatinine Clearance 59.95 ml/min; Globulin 3.8 g/dL (2.2-4.2); Glucose 882 mg/dL (74-106); Potassium 4.3 mmol/L (3.5-5.1); Protein, Total 7.8 g/dL (6.4-8.2); Sodium Level 124 mmol/L (136-145)
--- NOTE | 2021-11-29 20:04 | HP.PCM.HOS_ITS ---
HPI - General General Date of Admission: 11/29/21 Date of Service: 11/29/21 Chief Complaint: Hyperglycemia, polyuria, polydipsia. HPI Narrative The patient is a 46 y/o M w/ PMHx: Obesity, HTN, HLD, Chronic systolic CHF, Ischemic cardiomyopathy w/ Hx STEMI, CAD s/p CABG and PCI, Former Tobacco use who presents to the [facility] ED on 11/29/21 with history of polyuria, polydipsia ongoing x 1 week with PCP evaluation on day of presentation with normal AG gap but BS in the 900s prompting ED referral to the ED for evaluation. Work-up in the ED included T96.2 Temporally, heart rate 98, BP 124/80, respiratory rate 16, 99% on room air, CBC with WC 10.5, hemoglobin 16.9, platelet 237 without marked shift, CMP with sodium 124, chloride 87, BUN/creatinine 21/1.69, anion gap 9, glucose 882, unremarkable hepatic profile aside alk phos 198, urinalysis with specific gravity 1.010, glucose 1000 and otherwise unremarkable with no ketones nor evidence of UTI, acetone level negative. In the ED patient administered 500 cc IV fluid and insulin 10 units subcu x1. [facility] Medical History (Updated 11/30/21 @ 01:[address] Morena Funez MD) Atherosclerosis of coronary artery of [place] heart without angina pectoris Chronic systolic (congestive) heart failure Essential (primary) hypertension History of ST elevation myocardial infarction (STEMI) (06/22/20) Hyperlipidemia Ischemic cardiomyopathy 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) Home Medications aspirin 81 mg PO DAILY@0800 06/22/20 [History Last Taken 02/06/21] cholecalciferol (vitamin D3) 2,000 unit PO DAILY 06/22/20 [History Last Taken 02/06/21] prasugrel 10 mg tablet 10 mg PO DAILY #90 tab 08/02/20 [Rx Last Taken 02/06/21] furosemide 40 mg tablet 40 mg PO DAILY tab 10/25/20 [History Last Taken Unknown] nitroglycerin 0.4 mg SUBLINGUAL Q5M PRN #10 tab.subl 01/15/21 [Rx Last Taken Unknown] atorvastatin 40 mg tablet 40 mg PO QHS tab 10/17/21 [History Last Taken Unknown] evolocumab 140 mg/mL subcutaneous pen injector 140 mg SC Q2W #2 ml 11/03/21 [Rx Last Taken Unknown] carvedilol 12.5 mg PO BID 11/29/21 [History Last Taken Unknown] Allergy/AdvReac Type Severity Reaction Status Date / Time varenicline [From Chantix] Allergy Intermediate change in Verified 11/29/21 18:33 mental status adhesive tape AdvReac Rash Verified 11/29/21 18:33 Family History Father Myocardial infarction, Onset Age: 39 Mother Myocardial infarction, Onset Age: 40 Brother Myocardial infarction, Onset Age: 39 Brother Myocardial infarction, Onset Age: 36 Surgical History H/O coronary artery bypass surgery (07/26/21) History of coronary artery stent placement (06/22/20) History of left heart catheterization (02/07/21) History of myringotomy Social History (Updated 11/30/21 @ 01:[address] Morena Funez MD) household members: significant other Smoking Status: Former smoker how long ago did patient quit smoking: Quit 07/17/21, smoked 1.5-2 ppd since teen until quit. alcohol intake: never substance use type: does not use caffeine: Yes Type: coffee Number of servings: 3 ROS ROS Narrative Admission Review of Systems: CONSTITUTIONAL: No weight loss, fever, chills, + weakness or fatigue. HEENT: Eyes: No visual loss, blurred vision, double vision or yellow sclerae. Ears, Nose, Throat: No hearing loss, sneezing, congestion, runny nose or sore throat. SKIN: No rash or itching, lesions, wounds. CARDIOVASCULAR: + Reproducible CP w/ palpation s/p CABG, No palpitations, edema, orthopnea, syncopal events. RESPIRATORY: No shortness of breath, cough or sputum, wheezing, hemoptysis. GASTROINTESTINAL: + anorexia, nausea without vomiting, No diarrhea, abdominal pain, melena, BRBPR. GENITOURINARY: No dysuria, frequency, urgency or retention. NEUROLOGICAL: No headache, dizziness, syncope, paralysis, ataxia, numbness or tingling in the extremities, focal weakness, change in bowel or bladder control, seizure. MUSCULOSKELETAL: No muscle, back pain, joint pain or stiffness. HEMATOLOGIC: No anemia, bleeding or bruising. LYMPHATICS: No enlarged nodes. No history of splenectomy. PSYCHIATRIC: No history of depression or anxiety. ENDOCRINOLOGIC: + reports of sweating, cold or heat intolerance, polyuria or polydipsia. ALLERGIES: No history of asthma, hives, eczema or rhinitis. Vital Signs Vital Signs Vital Signs: 11/29/21 18:28 11/29/21 18:56 Temperature 96.8 F L Temperature Source Temporal Pulse Rate 88 Respiratory Rate 16 Respiratory Effort Normal Non-Labored Blood Pressure 126/88 H Blood Pressure Mean 100 Pulse Ox 98 Oxygen Delivery Method Room Air Weight Weight: 228 lb Body Mass Index (BMI) 30.9 Physical Exam Narrative Physical Examination: General: Awake, alert, oriented x 3 and cooperative, seated upright in the ED bed in no apparent distress, mildly fatigued appearing. Skin: Normal color, normal turgor, no icterus, no cyanosis. HEENT: AT/NC, EOMI, PERRLA, moderately dry MM, no carotid bruits or JVD noted. Lungs: CTA bilaterally, moderate effort, mild decrease BL bases, no rales, ronchi or wheezing. Heart: Regular rate and rhythm; no gallop, rub audible, reproducible chest discomfort with palpation of the midsternal region. Abdomen: Soft, obese, NTTP, ND, normal BS, no obvious evidence of HSM. Extremities: No cyanosis, clubbing, or edema. Neurological: Patient awake, alert, oriented as noted, cognitive function intact; pupils equally reactive to light and accommodation, cranial nerves II- XII grossly normal, moving all 4 extremities, no focal deficits, strength mildly global decreased. Psychiatric: Affect appears fatigued otherwise normal, no acute evidence of depressive or anxiety feelings. Results Lab / Micro Data Result Diagrams: 11/29/21 19:15 11/29/21 23:15 Labs: Laboratory Results - last 24 hr 11/29/21 18:44: POC Glucose > 500 H* 11/29/21 18:55: Urine Color Yellow, Urine Clarity Clear, Urine pH 6.0, Ur Specific [place] 1.010, Urine Protein Negative, Urine Glucose (UA) 1000 H, Urine Ketones Negative, Urine Occult Blood Negative, Urine Nitrite Negative, Urine Bilirubin Negative, Urine Urobilinogen Normal, Ur Leukocyte Esterase Negative, Urine RBC 0 SEEN, Urine WBC 0 SEEN, Ur Squamous Epith Cells 0 SEEN, Urine Bacteria 0 SEEN, Urine Mucus 0 SEEN 11/29/21 19:15: WBC 10.5, RBC 5.31, Hgb 16.9 H, Hct 45.9, MCV 86.4, MCH 31.8, MCHC 36.8 H, RDW Std Deviation 39.1, RDW Coeff of Jenna 12.5, Plt Count 237, MPV 12.4 H, Immature Gran % (Auto) 0.300, Neut % (Auto) 53.4, Lymph % (Auto) 34.7, [place] % (Auto) 9.2, Eos % (Auto) 1.6, Baso % (Auto) 0.8, Absolute Neuts (auto) 5.6, Absolute Lymphs (auto) 3.63, Nucleated RBC % 0 11/29/21 19:15: Sodium 124 L, Potassium 4.3, Chloride 87 L, Carbon Dioxide 28.0, Anion Gap 9, BUN 21 H, Creatinine 1.69 H, Estim Creat Clear Calc 59.95, Est GFR (MDRD) Af Amer 56 L, Est GFR (MDRD) Non-Af 47 L, BUN/Creatinine Ratio 12.4, Glucose 882 H*, Calcium 9.4, Total Bilirubin 0.80, AST 18, ALT 42, Alkaline Phosphatase 198 H, Total Protein 7.8, Albumin 4.0, Globulin 3.8, Albumin/Globulin Ratio 1.1 11/29/21 19:15: Acetone Level NEGATIVE Assessment & Plan Assessment/Plan (1) Hyperosmolar hyperglycemic state (HHS): (2) Diabetes mellitus, new onset: (3) Acute renal insufficiency: PLAN: The patient is a 46 y/o M w/ PMHx: Obesity, HTN, HLD, Chronic systolic CHF, Ischemic cardiomyopathy w/ Hx STEMI, CAD s/p CABG and PCI, Former Tobacco use who presents to the [facility] ED on 11/29/21 with history of polyuria, polydipsia ongoing x 1 week with PCP evaluation on day of presentation with normal AG gap but BS in the 900s prompting ED referral to the ED for evaluation. #1. New Onset Diabetes mellitus type II with Hyperglycemia with potential hyperosmolar hyperglycemic state: Will admit to ICU given plan for insulin usage given notable hyperglycemia, initiate insulin drip, aggressively hydrate however will closely monitor given underlying systolic CHF history, obtain serum osmolality, check serial K+, glucose w/ IVF changes pending these levels, serial chemistry, obtain mag, phos daily w/ repletion as needed, obtain hemoglobin A1c, transition to SC regimen when gap closed w/ overlap on drip, nutrition consultation. #2. Hyponatremia: Secondary to acute presentation #1 as noted, continue hydration with close monitoring given CHF underlying history, trend serial BMP. #3. Acute renal insufficiency secondary to acute presentation #1: Admission BUN/creatinine 21/1.69, baseline 1.1-1.3, continue treatment as noted above, hold any nephrotoxic regimen, repeat serial BMP as noted. #4. CAD: Hx anterior STEMI 06/22/2020, status post PCI and CABG x 3 JERED-LAD, RIVERA-O1, SVG-PLCx, continue prasugrel, aspirin, statin, Coreg, temporarily holding Lasix as noted. #5. Chronic systolic CHF: We will continue aspirin, placed to grill, statin, Coreg, holding Lasix temporarily. Hydrating as noted above, closely monitor for overload. 07/22/2021 echocardiogram with LV systolic function moderately decreased, EF 40%, AV sclerosis, global hypokinesis LV with minor regional variations. #6. Hypertension: Continue home regimen including Coreg, PRN hydralazine. #7. Hyperlipidemia: Continue home statin therapy. Patient is also on every 2 week injections of evolocomab for significant hyperlipidemia which she has been on for 1 year and from review this medication can be associated with onset diabetes. We will need to review potential options as this is significantly helped patient who has significant hyperlipidemia and is unable to take higher statin therapy as well as significant family hyperlipidemia. #8. Former tobacco use: Encourage continued tobacco cessation. #9. DVT prophylaxis: SCDs, Lovenox. Charges/Coding Visit Charges Inpatient E&M: 15569 Init Hosp L3
[2021-11-29] MEDS: Insulin Lispro 100 UNIT/ML INSULN.PEN 10 UNIT SC (20:25)
--- NOTE | 2021-11-29 20:50 | CASEMGMT ---
RN CM to room to meet with patient for initial transition planning/care coordination assessment. RN KYM introduced self and role at [facility]. Patient voices understanding and consents to assessment at this time. Patient is alert and oriented, sitting up on ER cart, in no apparent distress and answers all questions appropriately. Care providers, pharmacy, and demographics verified/updated at this time. PCP: Lisset Avery Specialists: [facility]- cardiology Preferred Pharmacy: [facility] Insurance: [employer] Prescription Benefit: yes Living Will/HPOA: Patient denies having a LW or HPOA. LNOK: Mark Mustafa Living Arrangements: Patient lives with significant other and her son in three story apartment with no steps to enter the home. Patient denies difficulty navigating stairs. Patient states independent with ADLs prior to hospitalization. Smoking/ETOH: Former smoker (quit August 2021), denies ETOH or drug use Transportation: Patient drives self and denies transportation concerns. DME/HHC/SNF: Patient denies having any DME in the home. Patient does not have a glucometer and would benefit from diabetic teaching. Previous HHC through post cardiac surgery August 2021. Denies previous SNF stays. Patient has no concerns with going home at time of discharge. CM to follow for any discharge planning/needs. Patient voices no concerns/needs at this time. Advised patient to ask for CM if any questions/concerns/needs arise. Voices understanding. Plan: home
[2021-11-29 21:34] VITALS: BP 124/112; PULSE 85; RESP 16; TEMP 36; O2SAT 98
[2021-11-29 21:45] LABS: Bedside Glucose > 500 mg/dL (70-110)
[2021-11-29 21:55] LABS: Magnesium 2.5 mg/dL (1.6-2.6)
[2021-11-29 22:00] VITALS: BP 116/97; PULSE 70; PULSE 74; PULSE 75; RESP 16; TEMP 36.7; O2SAT 97; BMI 30.4
[2021-11-29 22:03] LABS: Osmolality, Serum 322 mOsm/KG (275-295)
[2021-11-29 22:09] LABS: Hemoglobin A1c 11.4 % (3.8-5.6)
[2021-11-29 22:15] VITALS: BP 113/83; PULSE 70; RESP 16; O2SAT 96
[2021-11-29] MEDS: 0.9% Normal Saline 1,000 ML 125 ML IV (22:15)
[2021-11-29] MEDS: Carvedilol 12.5 MG Tablet PO (22:38)
[2021-11-29] MEDS: Atorvastatin Calcium 40 MG Tablet PO (22:38)
[2021-11-29 22:45] VITALS: BP 103/78; PULSE 61; RESP 19; O2SAT 94
[2021-11-29 22:51] LABS: Bedside Glucose > 500 mg/dL (70-110)
[2021-11-29 23:00] VITALS: BP 98/73; PULSE 70; RESP 11; O2SAT 91
[2021-11-29 23:25] LABS: Bedside Glucose 457 mg/dL (70-110)
[2021-11-30] VITALS (18 sets, daily range): BP systolic 82–119; BP diastolic 51–108; PULSE 52–73; RESP 14–21; TEMP 36.3–36.9; O2SAT 92–100
[2021-11-30 00:05] LABS: Anion Gap 9 (5-15); BUN 18 mg/dL (7-18); BUN/Creat Ratio 12.9 RATIO (10-20); Calcium,Total 8.6 mg/dL (8.5-10.1); Chloride 97 mmol/L (98-107); Creatinine, Serum 1.39 mg/dL (0.70-1.30); EST Glomerular Filtration Rate 58 mL/min (>60); Est Glom Filt Rate - Afr Amer 71 mL/min (>60); Estimated Creatinine Clearance 75.05 ml/min; Glucose 481 mg/dL (74-106); Potassium 3.5 mmol/L (3.5-5.1); Sodium Level 134 mmol/L (136-145)
[2021-11-30 00:15] LABS: Bedside Glucose 353 mg/dL (70-110)
[2021-11-30 01:41] LABS: Bedside Glucose 322 mg/dL (70-110)
[2021-11-30 02:35] LABS: Bedside Glucose 284 mg/dL (70-110)
[2021-11-30] MEDS: Dext 5%-0.45% NS 1,000 ML 150 ML IV (04:45)
[2021-11-30 04:46] LABS: Bedside Glucose 173 mg/dL (70-110)
[2021-11-30 04:48] LABS: Absolute Lymphocyte Count 3.53 X10^3/uL (0.83-4.51); Absolute Neutrophil Count 4.1 X10^3/uL (2.0-7.7); Basophil# 0.06 X10^3/uL; Basophil% 0.7 % (0-1); Eosinophil# 0.24 X10^3/uL; Eosinophils% 2.7 % (0-5); Hematocrit 39.9 % (40-54); Hemoglobin 14.6 g/dL (13.0-16.5); Lymphocyte # 3.53 X10^3/ul (0.83-4.51); Lymphocyte % 39.9 % (19-41); Mean Corp Hgb Conc 36.6 g/dL (32-36); Mean Corpuscular Hgb 31.7 pg (27.0-32.0); Mean Corpuscular Volume 86.6 fL (80-94); Mean Platelet Vol. 12.1 fl (6.2-12.0); Monocyte# 0.93 X10^3/uL; Monocyte% 10.5 % (0-10); NRBC Flagged by Analyzer 0 % (0-5); Neutrophil # 4.06 X10^3/uL (2.7-7.7); Neutrophil % 45.9 % (47-70); Platelet Count 211 K/mm3 (150-450); RBC Distribution Width CV 12.6 % (11.6-14.6); RBC Distribution Width SD 39.2 fl (35.1-43.9); Red Blood Count 4.61 M/mm3 (4.6-6.2); White Blood Count 8.9 K/mm3 (4.4-11.0)
[2021-11-30 05:09] LABS: AST(SGOT) 14 U/L (15-37); Alanine Aminotransfer ALT/SGPT 35 U/L (16-61); Albumin, Serum 3.2 g/dL (3.2-5.0); Alkaline Phosphatase 144 U/L (45-117); Anion Gap 9 (5-15); BUN 14 mg/dL (7-18); BUN/Creat Ratio 11.9 RATIO (10-20); Calcium,Total 8.4 mg/dL (8.5-10.1); Chloride 104 mmol/L (98-107); Creatinine, Serum 1.18 mg/dL (0.70-1.30); EST Glomerular Filtration Rate 70 mL/min (>60); Est Glom Filt Rate - Afr Amer 85 mL/min (>60); Globulin 3.2 g/dL (2.2-4.2); Glucose 164 mg/dL (74-106); Potassium 3.1 mmol/L (3.5-5.1); Protein, Total 6.4 g/dL (6.4-8.2); Sodium Level 141 mmol/L (136-145)
[2021-11-30] MEDS: Potassium Chloride 10mEq/100mL 10 MEQ/100 ML IV.SOLN. 100 MEQ IV BOLUS ×4 (05:21→09:10)
[2021-11-30 05:41] LABS: Bedside Glucose 176 mg/dL (70-110)
[2021-11-30 06:51] LABS: Bedside Glucose 146 mg/dL (70-110)
[2021-11-30] MEDS: Enoxaparin 40 MG/0.4 ML Syringe SC (08:03)
[2021-11-30] MEDS: Aspirin 81 MG TAB.CHEW PO (08:03)
[2021-11-30] MEDS: Carvedilol 12.5 MG Tablet PO ×2 (08:03→22:33)
[2021-11-30 08:15] LABS: Bedside Glucose 118 mg/dL (70-110)
[2021-11-30 09:15] LABS: Bedside Glucose 113 mg/dL (70-110)
[2021-11-30] MEDS: Insulin Lispro 100 UNIT/ML INSULN.PEN SC ×3 (11:28→22:29)
[2021-11-30 11:35] LABS: Bedside Glucose 201 mg/dL (70-110)
--- NOTE | 2021-11-30 12:05 | PCS.PANDOC ---
PANDEMIC DOCUMENTATION INITIATED: Date: 07/04/2021 Time: 190
--- NOTE | 2021-11-30 12:24 | NURSING ---
arrived from ICU
[2021-11-30] MEDS: Acetaminophen 325 MG Tablet 650 MG PO (13:09)
--- NOTE | 2021-11-30 15:09 | PN.HOSP_ITS ---
Subjective Subjective Patient seen and examined. He had no active complaints and felt well. His anion gap closed and blood sugar was done in the 160s. He has been transitioned off of insulin drip and started on subcu insulin. Review of symptoms otherwise negative. Objective Data Objective Data Vital Signs: Vital Signs Temp Pulse Resp BP Pulse Ox 97.9 F 54 L 16 106/62 98 11/30/21 11:45 11/30/21 11:45 11/30/21 11:45 11/30/21 11:45 11/30/21 11:45 Oxygen Delivery Method Room Air Weight: 231 lb 0.006 oz Body Mass Index (BMI) 30.4 Intake & Output: Intake and Output for Last 24 Hours 11/28/21 11/29/21 11/30/21 23:59 23:59 23:59 Intake Total 756.7 / 806.7 2687.68 / 2687.68 Output Total 900 / 900 Balance 756.7 / 806.7 1787.68 / 1787.68 Lab / Micro Data Result Diagrams: 11/30/21 04:30 11/30/21 04:30 Labs: Laboratory Results - last 24 hr 11/29/21 18:44: POC Glucose > 500 H* 11/29/21 18:55: Urine Color Yellow, Urine Clarity Clear, Urine pH 6.0, Ur Specific [place] 1.010, Urine Protein Negative, Urine Glucose (UA) 1000 H, Urine Ketones Negative, Urine Occult Blood Negative, Urine Nitrite Negative, Urine Bilirubin Negative, Urine Urobilinogen Normal, Ur Leukocyte Esterase Negative, Urine RBC 0 SEEN, Urine WBC 0 SEEN, Ur Squamous Epith Cells 0 SEEN, Urine Bacteria 0 SEEN, Urine Mucus 0 SEEN 11/29/21 19:15: WBC 10.5, RBC 5.31, Hgb 16.9 H, Hct 45.9, MCV 86.4, MCH 31.8, MCHC 36.8 H, RDW Std Deviation 39.1, RDW Coeff of Jenna 12.5, Plt Count 237, MPV 12.4 H, Immature Gran % (Auto) 0.300, Neut % (Auto) 53.4, Lymph % (Auto) 34.7, [place] % (Auto) 9.2, Eos % (Auto) 1.6, Baso % (Auto) 0.8, Absolute Neuts (auto) 5.6, Absolute Lymphs (auto) 3.63, Nucleated RBC % 0 11/29/21 19:15: Sodium 124 L, Potassium 4.3, Chloride 87 L, Carbon Dioxide 28.0, Anion Gap 9, BUN 21 H, Creatinine 1.69 H, Estim Creat Clear Calc 59.95, Est GFR (MDRD) Af Amer 56 L, Est GFR (MDRD) Non-Af 47 L, BUN/Creatinine Ratio 12.4, Glucose 882 H*, Calcium 9.4, Total Bilirubin 0.80, AST 18, ALT 42, Alkaline Phosphatase 198 H, Total Protein 7.8, Albumin 4.0, Globulin 3.8, Albumin/Globulin Ratio 1.1 11/29/21 19:15: Acetone Level NEGATIVE 11/29/21 19:15: Phosphorus 4.0, Magnesium 2.5 11/29/21 19:15: Serum Osmolality 322 H 11/29/21 19:15: Hemoglobin A1c 11.4 H 11/29/21 21:40: POC Glucose > 500 H* 11/29/21 22:44: POC Glucose > 500 H* 11/29/21 23:15: Sodium 134 L, Potassium 3.5, Chloride 97 L, Carbon Dioxide 28.0, Anion Gap 9, BUN 18, Creatinine 1.39 H, Estim Creat Clear Calc 75.05, Est GFR (MDRD) Af Amer 71, Est GFR (MDRD) Non-Af 58 L, BUN/Creatinine Ratio 12.9, Glucose 481 H*, Calcium 8.6 11/29/21 23:17: POC Glucose 457 H* 11/30/21 00:11: POC Glucose 353 H 11/30/21 01:33: POC Glucose 322 H 11/30/21 02:29: POC Glucose 284 H 11/30/21 04:30: WBC 8.9, RBC 4.61, Hgb 14.6, Hct 39.9 L, MCV 86.6, MCH 31.7, MCHC 36.6 H, RDW Std Deviation 39.2, RDW Coeff of Jenna 12.6, Plt Count 211, MPV 12.1 H, Immature Gran % (Auto) 0.300, Neut % (Auto) 45.9 L, Lymph % (Auto) 39.9, [place] % (Auto) 10.5 H, Eos % (Auto) 2.7, Baso % (Auto) 0.7, Absolute Neuts (auto) 4.1, Absolute Lymphs (auto) 3.53, Nucleated RBC % 0 11/30/21 04:30: Sodium 141, Potassium 3.1 L, Chloride 104, Carbon Dioxide 28.0, Anion Gap 9, BUN 14, Creatinine 1.18, Estim Creat Clear Calc 88.40, Est GFR (MDRD) Af Amer 85, Est GFR (MDRD) Non-Af 70, BUN/Creatinine Ratio 11.9, Glucose 164 H, Calcium 8.4 L, Total Bilirubin 0.50, AST 14 L, ALT 35, Alkaline Phosphatase 144 H, Total Protein 6.4, Albumin 3.2, Globulin 3.2, Albumin/Globulin Ratio 1.0 11/30/21 04:36: POC Glucose 173 H 11/30/21 05:36: POC Glucose 176 H 11/30/21 06:42: POC Glucose 146 H 11/30/21 07:59: POC Glucose 118 H 11/30/21 09:01: POC Glucose 113 H 11/30/21 11:24: POC Glucose 201 H Physical Exam Const alert, oriented x3 and no apparent distress Exam Limitations: no limitations HEENT head/scalp atraumatic and moist oral mucous membranes Head and Scalp: normocephalic Eyes PERRL, EOMs intact bilaterally and conjunctivae normal Neck no lymphadenopathy and supple Resp normal respiratory effort, no retractions, no use of accessory muscles and clear to auscultation bilaterally Cardio regular rate, regular rhythm, S1 normal heart sound, S2 normal heart sound and no murmurs GI normal to inspection, nondistended, normoactive bowel sounds, soft to palpation, non-tender and non-distended Extremity normal to inspection, full ROM and no clubbing, cyanosis or edema Peripheral Pulses: Yes pulses 2+ throughout Skin no rashes or lesions noted Neuro oriented x3, CN's II-XII intact bilaterally and moves all extremities Sensorium / Orientation: awake and alert Psych affect normal Assessment & Plan Assessment/Plan (1) Hyperosmolar hyperglycemic state (HHS): (2) Diabetes mellitus, new onset: (3) Acute hyponatremia: PLAN: #Hyperosmolar hyperglycemia and a newly diagnosed diabetic * Anion gap is closed patient started on subcu insulin 10 units daily * Insulin sliding scale. Checks ACH S. * Patient now off insulin drip. * A1c is 11.4. * #Hyponatremia: Likely due to HHS and hyperglycemia. Resolved. #Hypokalemia: Potassium is 3.1. Replace and trend. #Acute renal insufficiency: Resolved #CAD: Status post CABG and stents in 2019. On aspirin, prasugrel, statin and Coreg. Has stopped heart failure with reduced ejection fraction: * Lasix on hold as patient required fluid hydration with HHS. * Will resume Lasix. * Has known EF of 40% * #Hyperlipidemia: * On statin and evolocumab injections every 2 weeks. * Evolocumab can cause diabetes mellitus, so to discuss risks vs benefits of evolocumab with public health dentist in light of new diagnosis of diabetes DVT prophylaxis: Lovenox Charges/Coding Visit Charges Inpatient E&M: 23139 Subs Hosp L2
[2021-11-30 16:40] LABS: Bedside Glucose 352 mg/dL (70-110)
[2021-11-30] MEDS: Atorvastatin Calcium 40 MG Tablet PO (22:33)
[2021-11-30 22:40] LABS: Bedside Glucose 404 mg/dL (70-110)
[2021-12-01 04:16] VITALS: BP 112/78; PULSE 69; RESP 16; TEMP 36.5; O2SAT 96
[2021-12-01] MEDS: Insulin Lispro 100 UNIT/ML INSULN.PEN SC ×2 (06:18→11:36)
[2021-12-01 06:25] LABS: Bedside Glucose 346 mg/dL (70-110)
[2021-12-01] MEDS: Enoxaparin 40 MG/0.4 ML Syringe SC (08:16)
[2021-12-01] MEDS: Aspirin 81 MG TAB.CHEW PO (08:17)
[2021-12-01] MEDS: Carvedilol 12.5 MG Tablet PO (08:17)
[2021-12-01 08:21] VITALS: BP 126/88; PULSE 55; RESP 16; TEMP 36.2; O2SAT 97
[2021-12-01 08:33] VITALS: O2SAT 97
[2021-12-01 11:41] LABS: Bedside Glucose 349 mg/dL (70-110)
[2021-12-01 11:58] VITALS: BP 122/72; PULSE 58; RESP 18; TEMP 36.8; O2SAT 98
--- NOTE | 2021-12-01 12:28 | PCM.DC.SUM ---
Providers Date of Admission: 11/29/21 Primary Care Physician: Dr. Lisset Avery MD Reason For Visit: NEW ONSET DM, HHS SUSPECTED Diagnosis Discharge Diagnosis (1) Hyperosmolar hyperglycemic state (HHS): Status: Acute Code(s): E11.00 - Type 2 diabetes mellitus with hyperosmolarity without nonketotic hyperglycemic-hyperosmolar coma (NKHHC); E11.65 - Type 2 diabetes mellitus with hyperglycemia (2) Diabetes mellitus, new onset: Status: Acute Code(s): E11.9 - Type 2 diabetes mellitus without complications (3) Acute hyponatremia: Status: Acute Code(s): E87.1 - Hypo-osmolality and hyponatremia Medications at Discharge Home Medications aspirin 81 mg PO DAILY@0800 06/22/20 cholecalciferol (vitamin D3) 2,000 unit PO DAILY 06/22/20 prasugrel 10 mg tablet 10 mg PO DAILY #90 tab 08/02/20 furosemide 40 mg tablet 40 mg PO DAILY tab 10/25/20 nitroglycerin 0.4 mg SUBLINGUAL Q5M PRN #10 tab.subl 01/15/21 atorvastatin 40 mg tablet 40 mg PO QHS tab 10/17/21 carvedilol 12.5 mg PO BID 11/29/21 blood sugar diagnostic #10 ea 12/01/21 blood-glucose meter #1 ea 12/01/21 insulin admin supplies #1 ea 12/01/21 insulin glargine 10 unit SUBCUT QPM #15 ml 12/01/21 metformin 500 mg PO BID #60 tab 12/01/21 pen needle, diabetic [Lite Touch Insulin Pen [place]] #100 ea 12/01/21 Hospital Course Operations None Procedures None Summary of Care Provided Minutes Spent on Discharge: 50 Hospital Course: Patient is a 46-year-old male with an extensive past medical history as outlined which includes a history of CAD s/p CABG and PCI was admitted through the ED on 11/29/2021 with a complaint of polyuria and polydipsia which has been going on for about a week. He went to see his PCP on the day of presentation and labs done showed elevated blood sugar in the 900s so he was referred to the ED. Anion gap was 9, and blood glucose level was 882, with urinalysis showing no evidence of ketones. He was admitted and managed for hyperglycemia nd HHS in a newly diagnosed diabetic. He was admitted to the ICu and started on insulin drip. A1c checked was 11.6. Blood sugars gradually trended down and he was switched to subcu insulin 10 units daily. He was also started on metformin. Patient was on evolocumab subcu every 2 weeks for hypertriglyceridemia. Evolocumab is known to cause diabetes mellitus. In fact, patient's A1c in December 2020 was only 5.6. I discussed this with Dr. Pack, assistant professor in family studies on-call. Per his recommendation, evolocumab will be stopped for now. Patient will be referred to endocrinology. He will be kept on his atorvastatin 40 mg nightly. Patient states he is unable to tolerate higher doses of atorvastatin. He was referrred to the perinatal educator, and was educated about insulin self administration. He was discharged home on 12/01/2021 on subcu insulin 10 mg daily and metformin 500 mg twice daily. He was referred to endocrinology. He is to follow-up with his primary care doctor and endocrinology as well as cardiology. Patient seen and examined prior to discharge. He had no active complaints and felt well. Review of systems otherwise negative. Labs and vitals reviewed. Home medication reviewed and reconciled. Physical Exam Const alert, oriented x3 and no apparent distress General Appearance: cooperative Exam Limitations: no limitations HEENT normocephalic, head/scalp atraumatic, hearing grossly normal bilaterally and moist oral mucous membranes Eyes PERRL, EOMs intact bilaterally and conjunctivae normal Neck no lymphadenopathy and supple Resp normal respiratory effort, no retractions, no use of accessory muscles and clear to auscultation bilaterally Cardio regular rate, regular rhythm, S1 normal heart sound, S2 normal heart sound and no murmurs GI normal to inspection, nondistended, normoactive bowel sounds, soft to palpation, non-tender and non-distended Extremity normal to inspection, full ROM and no clubbing, cyanosis or edema Skin no rashes or lesions noted Neuro oriented x3, CN's II-XII intact bilaterally and moves all extremities Sensorium / Orientation: awake and alert Psych affect normal Weight / BMI Weight Weight: 229 lb 11.547 oz Body Mass Index (BMI) 30.4 ABG / Lab / Microbiology Data Result Diagrams: 11/30/21 04:30 11/30/21 04:30 Laboratory: Laboratory Results - last 24 hr 11/30/21 16:34: POC Glucose 352 H 11/30/21 22:28: POC Glucose 404 H 12/01/21 06:17: POC Glucose 346 H 12/01/21 11:32: POC Glucose 349 H D/C Instructions Discharge Diet: Low fat / Low cholesterol and 1800 Calorie Control Diet Discharge Activity: Return to Normal Activity Weight Bearing Status: Weight bearing as tolerated Call your doctor if you observe: Fever of 101 or Higher, Shortness of breath, Dizziness, Swelling in the ankles, Chest pain and Increased palpitations (irregular heartbeat) Meaningful Use Info Meaningful Use Diagnoses (Choose all that apply): None applicable Discharge Plan Admission Admit Date/Time: 11/29/21 20:21 Primary Reason for Your Visit: HHS in newly diagnosed diabetes mellitus Attending Provider: Danielle Donovan Primary Care Provider: Lisset Avery Instructions Patient Instructions: Diabetes: The Benefits of Exercise, Diabetes Exercise Get Started, Diabetes: Activity Tips, Diabetes: Living Your Life, Diabetes Learn Serve Portion Size, Diabetes: Meal Planning, Diabetes Carbs Fats Protein Additional Instructions / Restrictions: evolocumab discontinued as per discussion with cardiology. Discharge Orders/Prescriptions Prescriptions: New (DME) insulin admin supplies Insulin Pen See Rx Instructions .ROUTE .MEDSUPPLY Qty: 1 RF: 0 insulin glargine 100 unit/mL (3 mL) insulin pen 10 unit subcut QPM Qty: 15 RF: 1 metformin 500 mg tablet 500 mg PO BID Qty: 60 RF: 1 (DME) blood-glucose meter Kit See Rx Instructions .ROUTE .MEDSUPPLY Qty: 1 RF: 0 (DME) blood sugar diagnostic Strip See Rx Instructions .ROUTE .MEDSUPPLY Qty: 10 RF: 1 (DME) pen needle, diabetic [Lite Touch Insulin Pen [place]] 29 gauge x 1/2 needle See Rx Instructions .ROUTE .MEDSUPPLY Qty: 100 RF: 0 Continued furosemide 40 mg tablet 40 mg PO DAILY RF: 0 atorvastatin 40 mg tablet 40 mg PO QHS RF: 0 aspirin 81 MG tablet,chewable 81 mg PO DAILY@0800 RF: 0 cholecalciferol (vitamin D3) 2,000 UNIT capsule 2,000 unit PO DAILY RF: 0 nitroglycerin 0.4 MG tablet, sublingual 0.4 mg sublingual Q5M PRN (Reason: Cardiac/Chest Pain) Qty: 10 RF: 0 carvedilol 12.5 mg tablet 12.5 mg PO BID RF: 0 prasugrel 10 mg tablet 10 mg PO DAILY Qty: 90 RF: 3 Discontinued Repatha SureClick 140 mg/mL pen injector 140 mg SC Q2W Qty: 2 RF: 11 Referrals / Follow Up: Caio Hay MD [STAFF PHYSICIAN] - Within 2 Weeks Lisset Avery MD [Primary Care Provider] - Within 2 Weeks Blake Moon MD [STAFF PHYSICIAN] - Within 2 Weeks (see to establish care for diabetes mellitus) Disposition Disposition (needs filled in before D/C Order can be placed): Home, Self Care Charges/Coding Visit Charges Inpatient E&M: 38264 Disch Hosp
== END 2021-12-01 13:25 | disposition home or self-care (01) | DRG 420 ==
LOC: ED 20:21 → ICU 21:10 → MS3 11-30 12:18
PROVIDERS: Admitting Provider Family Medicine; Emergency Provider Emergency Medicine; PCP Internal Medicine; Visit Provider Student in an Organized Health Care Education/Training Program
DX: E11.00 Type 2 diabetes mellitus with hyperosmolarity without nonketotic hyperglycemic-hyperosmolar coma (NKHHC) (principal); N17.9 Acute kidney failure, unspecified; I11.0 Hypertensive heart disease with heart failure; E11.69 Type 2 diabetes mellitus with other specified complication; I50.22 Chronic systolic (congestive) heart failure; E11.65 Type 2 diabetes mellitus with hyperglycemia; S37.009A Unspecified injury of unspecified kidney, initial encounter; E87.1 Hypo-osmolality and hyponatremia; I25.10 Atherosclerotic heart disease of native coronary artery without angina pectoris; I25.5 Ischemic cardiomyopathy; E78.5 Hyperlipidemia, unspecified; E87.6 Hypokalemia; I25.2 Old myocardial infarction; Z79.02 Long term (current) use of antithrombotics/antiplatelets; Z79.82 Long term (current) use of aspirin; Z87.891 Personal history of nicotine dependence; Z95.1 Presence of aortocoronary bypass graft
CPT/HCPCS: 36415; 80048; 80053; 81001; 82009; 82306; 82550; 82962; 83036; 83735; 83930; 84100; 84443; 85025; 85652; 93005; 97802; 99251; 99285; 99406; J7030; J7050; G0463; J7799

== ENCOUNTER 2021-12-12 07:53 | Outpatient (CLI) | payer MEDICAID, SELFPAY ==
[2021-11-01 07:34] VITALS: BMI 33.9
[2021-12-08 15:02] VITALS: BMI 33.6
--- NOTE | 2021-12-12 07:57 | ECHOCS_ITS ---
Reason For Study: chronic systolic CHF Procedure This was a 2D Doppler, Color Flow transthoracic echocardiogram. Contrast injection was performed. Exam performed in department. Left Ventricle Moderately dilated left ventricle. The estimated ejection fraction is 25 %. Stage 1 diastolic dysfunction. Mid-Inferior: Akinetic. Infero-Basal: Akinetic. Mid-Anterior : Akinetic. Basal inferoseptal: Akinetic. Mid-Posterior: Akinetic. The rest of the wall segments are hypokinetic. Right Ventricle Normal RV size. Normal systolic function. Atria Normal left atrium. Normal right atrium. Mitral Valve Normal mitral valve. Tricuspid Valve Normal tricuspid valve. Aortic Valve Trisinus/trileaflet aortic valve. Pulmonic Valve Normal pulmonic valve. Great Vessels Normal aortic root. The pulmonary artery is normal size. Normal inferior vena cava. Pericardium/Pleural No pericardial effusion. MMode/2D Measurements & Calculations LVIDd: 6.2 cm IVSd: 0.84 cm Ao root diam: 3.0 cm LVIDs: 5.2 cm LVPWd: 0.82 cm RVDd: 3.9 cm FS: 16.7 % LAV(MOD-bp): 52.7 ml LVAd ap4: 41.3 cm2 LVAd ap2: 35.5 cm2 LAV(MOD-bp) Indexed: 23.1 ml/m2 LVLd ap4: 9.1 cm LVLd ap2: 8.9 cm LAV(MOD-sp2): 52.8 ml EDV(MOD-sp4): 158.9 ml EDV(MOD-sp2): 117.3 ml LAV(MOD-sp4): 52.6 ml EDV(sp4-el): 158.9 ml EDV(sp2-el): 119.8 ml LVAs ap4: 31.7 cm2 LVAs ap2: 28.8 cm2 LVLs ap4: 8.5 cm LVLs ap2: 8.5 cm ESV(MOD-sp4): 100.5 ml ESV(MOD-sp2): 83.6 ml ESV(sp4-el): 100.5 ml ESV(sp2-el): 82.7 ml EF(MOD-sp4): 36.7 % EF(MOD-sp2): 28.7 % EF(sp4-el): 36.7 % SV(MOD-sp4): 58.4 ml SV(MOD-sp2): 33.7 ml SV(sp4-el): 58.4 ml LA dimension(2D): 4.7 cm LA A4 area: 18.3 cm2 RA A4 area: 13.0 cm2 Time Measurements MV dec time: 0.28 sec Doppler Measurements & Calculations MV E max donn: 52.6 cm/sec Lat Peak E' Donn: 7.2 cm/sec Med Peak E' Donn: 7.6 cm/sec MV A max donn: 69.0 cm/sec E/E' lat: 7.3 E/E' med: 7.0 MV E/A: 0.76 Ao V2 max: 111.5 cm/sec LV V1 max: 99.6 cm/sec PA V2 max: 100.2 cm/sec Ao max P.0 mmHg LV V1 max P.0 mmHg ECHO/Echo Complete W/ Contrast Interpretation Summary Stage 1 diastolic dysfunction. Moderately dilated left ventricle. The estimated ejection fraction is 25 %. Compared to previous study, the left ventricular systolic function has worsened .. Contrast injection was performed. Compared to previous study, the left ventricu lar systolic function has worsened.. Ordering Physician: Lisset Avery Referring Physician: Lisset Avery; Robert Celeste Performed By: Yolie Larry, SUNSHINE, RVT
== END 2021-12-12 23:59 | disposition short-term general hospital (02) ==
LOC: CVS 07:54
PROVIDERS: PCP Internal Medicine; Referring Provider Internal Medicine; Visit Provider Internal Medicine
DX: I50.22 Chronic systolic (congestive) heart failure (principal)
CPT/HCPCS: 93306; Q9957; A4216; C8929

== ENCOUNTER 2021-12-12 09:30 | Outpatient (RCR) | payer MEDICAID, SELFPAY ==
[2021-11-01 07:34] VITALS: BMI 33.9
--- NOTE | 2021-12-02 09:11 | PCM.CR.ITP ---
Diagnosis Exercise - 30-day Assessment - Visit Date of Eval: 12/02/21 Session #:: 1 Comments:: Pt is on medical hold. Pt is having trouble with is wires from CABG. - Physician Prescribed Exercise Modalities: Treadmill, Rower, Airdyne, NuStep Frequency: 3x/week for 12 weeks [36 sessions] Intensity: 60-80% of age predicted maximum heart rate reserve Current METSs:: 3 Target Heart Rate:: 101-136 Current RPE:: 13-13.5 Maximum Excercise HR:: 109 Resting Blood Pressure: 130/78 Maximum Exercise Blood Pressure: 132/84 EKG Type: NSR to sinus tachy with rare PAC/PVC. - Outcomes & Goals Goals:: Verbalizes understanding of THR, RPE & goal METS by session 6, Documents in home exercise log/reports 30 min aerobic 5 day/wk by DC, Demonstrates accurate pulse taking by DC, Other additional outcome/goals: see below - Intervention & Plan Exercise Program Goals: Instruct on personal THR & RPE, Instruct on MET level & personal MET goal, Show patient to take own pulse /validate performance until accurate, Instruct on home exercise, Other additional plan/int - 30-day Reassessments 30 day Reassessments:: Not Met - Physical Activity Home Exercise Physical Activity - Home Exercise: Safe Exercise, Warm-up, Self-monitoring, Cool-Down, Home Exercise > 30 min Daily, Sitting Time <3 hours/daily - Outcomes & Goals Outcomes/Goals: Demonstrates correct Warm-up/exercise Cool-Down (S3) if = 2.5 METs, Verbalizes symptoms of exercise intolerance by Session 3 (S3), Demonstrate safe equipment use (S3) & follows exercise prescrition (6), Other: See below - Intervention & Plan Plan/Intervention: Instruct warm-up & cool-down if exercising at > 2 METs, Instruct on symptoms of exercise intolerance & actions to take, Instruct & monitor on saf, Assess intial functional capacity & safety risk, Other See below - 30-day Reassessments 30 day Reassessments:: Not Met Nutrition - Initial Assessment Nutrition - 30-Day Assessment - Program Goals Nutrition Program Goals: LDL <100 optimal. 100 - 129 Near optimal. 130 - 159 Borderline High. 160 - 189 High. Total Cholesterol <200 desirable. 200 - 239 Borderline High. >/= 240 High. HDL < 40 Low >/=60 High. Triglycerides <150 desirable. <199 optimal. VlDL 5 - 40. HgbA1C <7%. BMI <25 Patient has diagnosis of Hyperlipidemia (ICD E78)?: Yes - Visit Date of Assessment:: 12/02/21 Session #:: 1 - Cholesterol/Lipids Determine presence & major risk factors that modify LDL goal: Hypertension or hypertensive medication, Low HDL cholesterol <40 mg/dL*, Family history of premature CHD in Male < 55 years: female <65 yearsFa, Age men > 45 years; women >/= 55 years Outcomes/Goals: Pt IDs own risk factors & lifestyle modifications by Session 10, Verbalizes symptoms of angina & response by session 3., Pt independently manages, Other Additional Outcomes/Goals: Intervention/Plan: Advocate for lipid panel cholesterol medication if applicable, Instruct on personal lipid levels & lipid goals/NCEP guidelines, Instruct on cholesterol, Other additional plan/int 30-day Reassessments:: Not Met - Weight Mgt (Other Care) Height: 6 ft Weight:: 112.491 kg BMI: 33.6 Diagnosis Overweight/Obesity BMI> 30% ICD-10 E66: Yes Outcomes/Goals: Pt sets, maintains & shows weight loss goal & trend during rehab, Other additional outcomes/goals Intervention/Plan: Instruct on ideal BMI & set weight loss goal w/patient, Assist pt to ID & incorporate diet changes for weight loss by S9, Refer to Structured Weight Loss program as appropriate, Encourage goal of using 250-300dcal per session for weight loss, Other additional plan/interventions 30 day Reassessments:: Not Met - Healthy Eating Habits Will attend diet classes:: Yes Outcomes/Goals:: Consume diet rich in vegs,fruits,whole grain/high fiber,fish,lean meat, Limit sat/trans fats,cholesterol & added salts & sugars, Other additional outcome/goals: Intervention/Plan:: Assess current eating habits, Other Additional plan/interventions 30-day Reassessments:: Not Met - Education Gave educational materials for:: Signs & symptoms of hypoglycemia, Signs & symptoms of hyperglycemia, Relate diabetes to coronary artery disease, Healthy eating Nutrition - 60-Day Assessment Nutrition - 90-Day Assessment Nutrition - Final Assessment Medical - Initial Assessment Medical- 30-Day Assessment - Visit Date of Eval: 12/02/21 Session #:: 1 - Medication Compliance Preventative Medication(s):: Aspirin, Statin/lipid, Beta alex H/O mental health issues: depression, anxiety, or addiction?: No Doesn?t believe in the benefits of treatment?: No Believes medications are unnecessary or harmful?: No Has a concern about medication side effects?: No Expresses concern over the cost of medications?: No Outcomes/Goals: Verbalizes medications,desired effect & common side effects @ DC, Pt self-reports following medication regimen, Keeps card in wallet w/medications listed by DC, Other additional outcome/goals: Interventions/plans: Instruct on medication effects & side effects, Review medication list w/patient every two weeks, Instruct importance of taking meds as ordered & assist problem solving, Other additional 30-day Reassessments:: Not Met - Tobacco Use Tobacco Use: Non-smoker How long ago did you quit using tobacco products?: Less than 6 months ago - Jun 19 2021 Do you use smokeless tobacco?: No Outcomes/Goals: Smoking cessation achieved or maintained by discharge, Identify aids/strategies for achieving smoking cessation by session 6, Other additional outcome/goals Interventions/plan: Instruct on effects of smoking & provide smoking cessation resource, Assist pt to set quit date & provide encouragement, Assist pt to develop strategies to achieve/maintain quit date, Assist pt w/nicotine replacement & medication for cessation success, Other additional plan/interventions 30-day Reassessments:: Not Met - Hypertension Hypertension Diagnosis:: Hypertension ICD-10 I10 Resting Blood Pressure:: 130/78 [employer] Hypertension Guidelines: [place] [employer] Hypertension Guidelines. Normal BP Less than 120/80. Elevated BP 120/80. Hypertension Stage 1: BP 130-139/80-89. Hypertesnion Stage 2: BP 140 or higher/90 or higher. Hypertension Crisis: BP higher than 180/120 Peak Exercise Blood Pressure:: 132/84 Outcomes/Goals: Able to verbalize/achieve optimal blood pressure <130/80, Incorporates diet changes & exercise for blood pressure control by DC, Other additional outcomes/goals Interventions/plan: Instruct on optimal blood pressure, hypertension & medications, Instruct on effects of sodium, alcohol, stress, exercise &hypertension, Other additional plan/interventions 30 day Reassessments:: Not Met - Tobacco Cessation Referral Smoking Cessation Referral:: No Individual Education/Counseling:: No Education Schedule Given:: Yes Medical- 60-Day Assessment Medical- 90-Day Assessment Medical - Final Assessment Psychosocial - Initial Assess Psychosocial - 30-Day Assess - VIsit Date of Eval: 12/02/21 Session #:: 1 History of previous Mental disease:: No - Psychosocial Test phq-9 Severity: Severity. 1-4 Minimal Depression. 5-9 Mild Depression. 10-14 Moderate Depression. 15-19 Moderately Sever Depression. 20-27 Severe Depression. Rule: See PHQ-9 Score: 14 - Referral to Behavioral Health PS - Interventions: Yes Referral to Behavioral Health if PHQ-9 score >9:, Yes Referral to [facility], Yes Referral to Physician if PHQ-9 if score is 5-9:, Yes Attend Stress Management Classes - Outcomes/Goals: See list Psychosocial Outcomes/Goals:: ID's personal stressors & 2 strategies to manage stress by discharge, Other Additional outcome/goals: - Intervention/Plan: See List Interventions/Plan:: Assess stressors,coping strategies & signs of derpression on admission, Instruct/assist pt to develop coping & personal stress Mgt strategies, Refer to Behavioral Health if appropriate, Refer to Physician if appropriate, Instruct patient to recognize signs & symptoms of depression, Instruct patient to recog, Other additional plan/intervention - 30-day Reassessments: 30 day Reassessments:: Not Met Psychosocial - 60-Day Assess Psychosocial - 90-Day Assess Psychosocial - Final Assessmen Patient Health Questionnaire 30-Day Re-eval Assessment 1. Little interest or pleasure in doing things: Nearly every day 2. Feeling down, depressed, or hopeless: More than half the days 3. Trouble falling or staying asleep, or sleeping too much: Nearly every day 4. Feeling tired or having little energy: Nearly every day 5. Poor appetite or overeating: Several days 6. Feeling bad about yourself -- or that you are a failure or have let yourself or your family down: Not at all 7. Trouble concentrating on things, such as reading the newspaper or watching television: Several days 8. Moving or speaking so slowly that other people could have noticed. Or the opposite - being so fidgety or restless that you have been moving around a lot more than usual: Not at all 9. Thoughts that you would be better off , or of hurting yourself in some way: Several days How difficult have these problems made it for you to do your work, take care of things at home, or get along with other people?: Very difficult Total Score: 14 Self-Efficacy 30-Day Re-eval Assessment We would like to know how confident you are in doing certain activities. Please select your confidence level for:: Select your confidence level for the following using the scale 1-10 where 1 is not at all confident and 10 is totally confident. Your score is the average of all 6 responses. Fatigue: How confident are you that you can keep the fatigue caused by your disease from interfering with the things you want to do? Select Number: 3 Physical Discomfort or Pain: How confident are you that you can keep the physical discomfort or pain of your disease from interfering with the things you want to do? Select Number: 3 Emotional Distress: How confident are you that you can keep the emotional distress caused by your disease from interfering with the things you want to do? Select Number: 5 Other Symptoms or Health Problems: How confident are you that you can keep other symptoms or health problems from interfering with the things you want to do? Select Number: 1 Different Tasks and Activities: How confident are you that you can do the different tasks and activities needed to manage your health condition so as to reduce your need to see a doctor? Select Number: 10 Medication: How confident are you that you can do things other than just taking medication to reduce how much your illness affects your everyday life? Select Number: 10 Total Score:: 5 Nutrition Survey
[2021-12-02 09:26] VITALS: BP 130/78; BP 132/84; BMI 33.6
== END 2021-12-19 23:59 ==
LOC: CR 09:30
PROVIDERS: PCP Internal Medicine; Referring Provider Internal Medicine Cardiovascular Disease; Visit Provider Internal Medicine Cardiovascular Disease
DX: I25.10 Atherosclerotic heart disease of native coronary artery without angina pectoris (principal); I50.22 Chronic systolic (congestive) heart failure; I11.0 Hypertensive heart disease with heart failure; Z95.1 Presence of aortocoronary bypass graft; I25.2 Old myocardial infarction; R77.8 Other specified abnormalities of plasma proteins; E78.5 Hyperlipidemia, unspecified; I25.5 Ischemic cardiomyopathy
CPT/HCPCS: S9472 ×2; 93798

== ENCOUNTER 2021-12-26 20:56 | Inpatient (IN) | payer MEDICAID, SELFPAY ==
[2021-12-08 15:02] VITALS: BMI 33.6
[2021-12-26 20:57] VITALS: BP 136/93; PULSE 57; RESP 16; TEMP 36.7; O2SAT 97; BMI 32.0
--- NOTE | 2021-12-26 21:27 | EKG12_ITS ---
Test Reason : CP Blood Pressure : / mmHG Vent. Rate : 075 BPM Atrial Rate : 075 BPM P-R Int : 140 ms QRS Dur : 110 ms QT Int : 406 ms P-R-T Axes : 051 -47 032 degrees QTc Int : 453 ms Normal sinus rhythm with sinus arrhythmia Left axis deviation Septal infarct , age undetermined Abnormal ECG Confirmed by ANAY BOWLES, ROXANA ([id number]), commissioning editor DERREK OWEN ([id number]) on 12/27/2021 11:26:46 AM Referred By: FRANCINE Confirmed By:ROXANA CUEVA MD
--- NOTE | 2021-12-26 21:28 | EDS_ITS ---
HPI History of Present Illness Chief Complaint: Chest Pain Informant: patient Narrative Narrative: 46-year-old male states around 6:00 this morning he woke from sleep with midsternal chest pain. States it was that bad he went back to bed for couple hours when he got up it was manageable. Over the past several hours however it has become more intense. He tried nitroglycerin that gave him a headache but did not cause any relief. He states that this is the exact same symptoms as all 7 of his prior heart attacks. Has had open heart surgery and cannot recall how many stents he has had. He has not taken any aspirin. Last heart cath was in June. [facility] Medical History Atherosclerosis of coronary artery of [place] heart without angina pectoris Chronic systolic (congestive) heart failure Diabetes mellitus, new onset Essential (primary) hypertension History of ST elevation myocardial infarction (STEMI) (06/22/20) Hyperlipidemia Ischemic cardiomyopathy 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) Home Medications aspirin 81 mg PO DAILY@0800 06/22/20 [History Last Taken 02/06/21] cholecalciferol (vitamin D3) 2,000 unit PO DAILY 06/22/20 [History Last Taken 02/06/21] prasugrel 10 mg tablet 10 mg PO DAILY #90 tab 08/02/20 [Rx Last Taken 02/06/21] nitroglycerin 0.4 mg SUBLINGUAL Q5M PRN #10 tab.subl 01/15/21 [Rx Last Taken Unknown] atorvastatin 40 mg tablet 40 mg PO QHS tab 10/17/21 [History Last Taken Unknown] carvedilol 12.5 mg PO BID 11/29/21 [History Last Taken Unknown] blood sugar diagnostic #10 ea 12/01/21 [Rx Last Taken Unknown] blood-glucose meter #1 ea 12/01/21 [Rx Last Taken Unknown] insulin admin supplies #1 ea 12/01/21 [Rx Last Taken Unknown] insulin glargine 10 unit SUBCUT QPM #15 ml 12/01/21 [Rx Last Taken Unknown] metformin 500 mg PO BID #60 tab 12/01/21 [Rx Last Taken Unknown] pen needle, diabetic [Lite Touch Insulin Pen [place]] #100 ea 12/01/21 [Rx Last Taken Unknown] furosemide 40 mg tablet 40 mg PO .PRN PRN tab 12/05/21 [History Last Taken Unknown] sacubitril 49 mg-valsartan 51 mg tablet 1 tab PO BID #60 tab 12/15/21 [Rx Last Taken Unknown] Allergy/AdvReac Type Severity Reaction Status Date / Time varenicline [From Chantix] Allergy Intermediate change in Verified 12/26/21 20:59 mental status adhesive tape AdvReac Rash Verified 12/26/21 20:59 Family History Father Myocardial infarction, Onset Age: 39 Mother Myocardial infarction, Onset Age: 40 Brother Myocardial infarction, Onset Age: 39 Brother Myocardial infarction, Onset Age: 36 Surgical History H/O coronary artery bypass surgery (07/26/21) History of coronary artery stent placement (06/22/20) History of left heart catheterization (02/07/21) History of myringotomy Social History household members: significant other Smoking Status: Former smoker how long ago did patient quit smoking: Quit 07/17/21, smoked 1.5-2 ppd since teen until quit. alcohol intake: never substance use type: does not use caffeine: Yes Type: coffee Number of servings: 3 ROS ROS ED Constitutional Constitutional ED: Denies chills or weight loss Eyes Eyes: Denies change in vision or diplopia ENT ENT ED: Denies ear pain, rhinorrhea or sore throat Cardiovascular Cardiovascular: Reports chest pain; Denies orthopnea, palpitations or racing heartbeat Respiratory/Chest Respiratory/Chest: Reports dyspnea; Denies cough or orthopnea Gastrointestinal Gastrointestinal: Reports nausea and vomiting; Denies abdominal pain or diarrhea Genitourinary Genitourinary ED: Denies dysuria, hematuria or urinary frequency Musculoskeletal Musculoskeletal: Denies arthralgias or myalgias Integumentary Denies abscess or rash Neurologic Neurologic: Reports headache(s); Denies weakness Psychiatric Psychiatric: Denies anxiety, depression, suicidal ideation or suicidal thoughts Endocrine Endocrinology: Denies polydipsia, polyphagia or polyuria Allergic/Immunologic Allergic/Immunologic ED: Denies mouth swelling, tongue swelling or urticaria EXAM Physical Exam Narrative Exam Narrative: Patient sitting up in the bed clutching his chest. Const Vital Signs: 12/26/21 20:57 12/26/21 21:02 12/26/21 21:29 Temperature 98.1 F Temperature Source Temporal Pulse Rate 57 L Respiratory Rate 16 Respiratory Effort Normal Non-Labored Blood Pressure 136/93 H Blood Pressure Mean 107 Pulse Ox 97 Oxygen Delivery Method Room Air Room Air 12/26/21 22:01 Temperature Temperature Source Pulse Rate 62 Respiratory Rate 23 H Respiratory Effort Blood Pressure 135/94 H Blood Pressure Mean 107 Pulse Ox 97 Oxygen Delivery Method Room Air Positive well nourished and well developed General Appearance ED: well developed HEENT Reports normocephalic, head/scalp atraumatic, TM's clear and moist mucous membranes normocephalic and atraumatic Tympanic Membrane ED: Yes TM's clear Eyes PERRL and EOMs intact bilaterally Neck no lymphadenopathy, supple and no JVD Resp normal respiratory effort and clear to auscultation bilaterally Cardio regular rate, regular rhythm and no murmurs GI normal to inspection, nondistended, normoactive bowel sounds and non-tender Palpation: soft Back/Spine no CVA tenderness and normal ROM Extremity normal to inspection General Extremety ED: Negative for edema General Extremity: Negative for edema Neuro oriented x3 and CN's II-XII intact bilaterally Sensorium / Orientation: alert Motor Exam: strength 5/5 throughout Psych Mood & Affect: anxious; Negative for depressed or tearful Skin no rashes or lesions noted and no wounds Heart Score History: Moderately Suspicious ECG: Normal Age: >45 - <65 years Risk Factors: >/= 3 Risk Factors or History of CAD Troponin: >/=3 x Normal Limit Score: 6 MDM MDM MDM Narrative Medical decision making narrative: CBC showed a hemoglobin 16.8. BMP with creatinine 1.14. Troponin is at 207. 2 EKGs did not show STEMI or ST depression. He received aspirin morphine Zofran and Ativan. States the pain is better but is still persisting. He received Dilaudid. I spoke with the interventional list Dr. Dennison. He recommends nitro drip and heparin drip. Patient was updated. Admission is planned Lab Data Attestation: I reviewed the patient's lab results. Labs: Laboratory Results - last 24 hr 12/26/21 12/26/21 21:05 21:05 WBC 10.6 RBC 4.98 Hgb 16.8 H Hct 47.1 MCV 94.6 H MCH 33.7 H MCHC 35.7 RDW Std Deviation 46.8 H RDW Coeff of Jenna 13.5 Plt Count 260 MPV 11.7 Immature Gran % (Auto) 0.300 Neut % (Auto) 39.3 L Lymph % (Auto) 46.3 H [place] % (Auto) 11.9 H Eos % (Auto) 1.7 Baso % (Auto) 0.5 Absolute Neuts (auto) 4.2 Absolute Lymphs (auto) 4.90 H Nucleated RBC % 0 Atypical Lymphocytes 1+ Platelet Estimate ADEQUATE Plt Morphology Comment LARGE RBC Morphology N CHROM Anisocytosis RARE Macrocytosis RARE Sodium 142 Potassium 4.2 Chloride 111 H Carbon Dioxide 23.0 Anion Gap 8 BUN 9 Creatinine 1.14 Estim Creat Clear Calc 88.87 Est GFR (MDRD) Af Amer 89 Est GFR (MDRD) Non-Af 73 BUN/Creatinine Ratio 7.9 L Glucose 117 H Calcium 9.7 Troponin I High Sens 207 H* Radiography Diagnostic Testing: Clinical Impression(s) from Imaging Studies Chest X-Ray 12/26/21 21:34 IMPRESSION: There are no acute findings. Electronically Signed: Emanuel Bender MD at 22:00 EST Reading Location ID and State: [facility]– [place][note 2] / [place] , Service support , EKG Initial EKG: Attestation: I personally reviewed and interpreted this EKG as follows: Comments: Normal sinus rhythm with sinus arrhythmia with a ventricular rate of [address] elevation or depression Follow-up EKG: Attestation: I personally reviewed and interpreted this EKG as follows: Comments: Sinus bradycardia with a ventricular rate of 55 bpm. No concerning features of ACS or ectopy noted. Critical Care Time Critical Care Time: Yes Critical care time (excluding procedures): 30-74 minutes (34 min), Including time spent:, Discussing w/Patient &/or Family/Sheather, Discussing w/Consultants, Arranging Admission or Transfer and Performing Direct Patient Care at Bedside Discharge Plan Dx/Rx/DC Orders Clinical Impression: Acute non-ST elevation myocardial infarction (NSTEMI), Chest pain Disposition Disposition: Acute Care Hospital [facility]
[2021-12-26] MEDS: Ondansetron 4 MG/2 ML Vial IV (21:34)
--- NOTE | 2021-12-26 21:34 | RAD_ITS ---
STUDY: X-RAY CHEST REASON FOR EXAM: Male, 46 years old. CHEST PAIN chest pain TECHNIQUE: XR Chest 1 View COMPARISON: 8 FINDINGS: There is no demonstrated pleural abnormality. There are multiple median sternotomy wires. Normal size heart. Normal mediastinum and sarah. Normal visualized pulmonary arteries. There is atherosclerotic calcification of the aortic arch with tortuosity. There are diffuse degenerative changes of the visualized thoracic spine. There is degenerative osteoarthritis of the bilateral shoulders. There is no demonstrated abnormality of the visualized soft tissue structures of the upper abdomen. RAD/Chest 1 View (Portable) IMPRESSION: There are no acute findings. Electronically Signed: Emanuel Bender MD at 22:00 EST ,
[2021-12-26] MEDS: Morphine 4 MG/ML Syringe IV (21:35)
[2021-12-26 21:36] LABS: Absolute Neutrophil Count 4.2 X10^3/uL (2.0-7.7); Basophil# 0.05 X10^3/uL; Basophil% 0.5 % (0-1); Eosinophil# 0.18 X10^3/uL; Eosinophils% 1.7 % (0-5); Hematocrit 47.1 % (40-54); Hemoglobin 16.8 g/dL (13.0-16.5); Lymphocyte % 46.3 % (19-41); Mean Corp Hgb Conc 35.7 g/dL (32-36); Mean Corpuscular Hgb 33.7 pg (27.0-32.0); Mean Corpuscular Volume 94.6 fL (80-94); Mean Platelet Vol. 11.7 fl (6.2-12.0); Monocyte# 1.26 X10^3/uL; Monocyte% 11.9 % (0-10); NRBC Flagged by Analyzer 0 % (0-5); Neutrophil # 4.17 X10^3/uL (2.7-7.7); Neutrophil % 39.3 % (47-70); POSITIVE MORPHOLOGY YES; Platelet Count 260 K/mm3 (150-450); RBC Distribution Width CV 13.5 % (11.6-14.6); RBC Distribution Width SD 46.8 fl (35.1-43.9); Red Blood Count 4.98 M/mm3 (4.6-6.2); White Blood Count 10.6 K/mm3 (4.4-11.0)
[2021-12-26] MEDS: LORazepam 2 MG/ML Syringe 1 MG IV (21:36)
[2021-12-26] MEDS: Aspirin 81 MG TAB.CHEW 324 MG PO (21:37)
[2021-12-26 21:52] LABS: Anion Gap 8 (5-15); BUN 9 mg/dL (7-18); BUN/Creat Ratio 7.9 RATIO (10-20); Calcium,Total 9.7 mg/dL (8.5-10.1); Chloride 111 mmol/L (98-107); Creatinine, Serum 1.14 mg/dL (0.70-1.30); EST Glomerular Filtration Rate 73 mL/min (>60); Est Glom Filt Rate - Afr Amer 89 mL/min (>60); Estimated Creatinine Clearance 88.87 ml/min; Glucose 117 mg/dL (74-106); Potassium 4.2 mmol/L (3.5-5.1); Sodium Level 142 mmol/L (136-145)
--- NOTE | 2021-12-26 21:54 | EKG12_ITS ---
Test Reason : CP Blood Pressure : / mmHG Vent. Rate : 055 BPM Atrial Rate : 055 BPM P-R Int : 144 ms QRS Dur : 112 ms QT Int : 420 ms P-R-T Axes : 045 -43 076 degrees QTc Int : 401 ms Sinus bradycardia Left axis deviation Septal infarct , age undetermined , cannot be excluded Nonspecific ST and T wave abnormality Abnormal ECG Confirmed by ANAY BOWLES, ROXANA ([id number]), index editor DERREK OWEN ([id number]) on 12/27/2021 11:41:17 AM Referred By: RUDOLPH Confirmed By:ROXANA CUEVA MD
[2021-12-26 21:55] LABS: Troponin-I HS 207 pg/mL (3.0-78.0)
[2021-12-26 22:01] VITALS: BP 135/94; PULSE 62; RESP 23; O2SAT 97
[2021-12-26 22:17] LABS: Differential Indicated SCAN CRITERIA MET
[2021-12-26 22:18] LABS: Anisocytosis RARE; Atypical Lymphocyte 1+ %; Macrocytosis RARE; Platelet Estimate ADEQUATE (ADEQ); Platelet Morphology LARGE; Red Cell Morphology N CHROM NORMAL (NORM C&C)
[2021-12-26] MEDS: HYDROmorphone 1 MG/ML Syringe IV (22:49)
[2021-12-26 22:57] LABS: International Normalized Ratio 0.9; Prothrombin Time (Protime)PT. 11.4 SECONDS (11.7-14.9)
[2021-12-26 22:58] LABS: Partial Thromboplast Time 23.2 Seconds (24.1-36.2)
[2021-12-26 23:00] VITALS: PULSE 62; RESP 17; O2SAT 95
[2021-12-26] MEDS: Heparin Injection (Vial) 5,000 UNIT/ML VIAL 8000 UNIT IV (23:15)
--- NOTE | 2021-12-26 23:15 | PCM.HP.STD ---
Documented by User: MIGEL Cartwright 12/26/21 23:25 HPI - General General Date of Admission: 12/26/21 Date of Service: 12/26/21 Chief Complaint: Chest pain HPI Narrative SALENA MONTALVO, is a 46 M who presents with complaints of chest pain that started at approximately 6 AM this morning patient states that he woke up with chest pain and went back to sleep for a few hours and when he awoke it was improved. However later this afternoon patient be states that the pain became more intense and continuous for approximately 2 hours prior to arrival. Patient states that he took sublingual nitro at home with no improvement. Patient reports a medical history that includes CABG, multiple stent placements, diabetes mellitus, hypertension, heart failure. Patient states that he knows he has had many stents placed but he is unsure of how many. Patient follows with Dr. Hay outpatient, case was discussed with Dr. Dennison who [facility] who advised patient be initiated on nitroglycerin and heparin drip. [facility] Medical History Atherosclerosis of coronary artery of [place] heart without angina pectoris Chronic systolic (congestive) heart failure Diabetes mellitus, new onset Essential (primary) hypertension History of ST elevation myocardial infarction (STEMI) (06/22/20) Hyperlipidemia Ischemic cardiomyopathy 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) Home Medications aspirin 81 mg PO DAILY@0800 06/22/20 [History Last Taken 02/06/21] cholecalciferol (vitamin D3) 2,000 unit PO DAILY 06/22/20 [History Last Taken 02/06/21] prasugrel 10 mg tablet 10 mg PO DAILY #90 tab 08/02/20 [Rx Last Taken 02/06/21] nitroglycerin 0.4 mg SUBLINGUAL Q5M PRN #10 tab.subl 01/15/21 [Rx Last Taken Unknown] atorvastatin 40 mg tablet 40 mg PO QHS tab 10/17/21 [History Last Taken Unknown] carvedilol 12.5 mg PO BID 11/29/21 [History Last Taken Unknown] blood sugar diagnostic #10 ea 12/01/21 [Rx Last Taken Unknown] blood-glucose meter #1 ea 12/01/21 [Rx Last Taken Unknown] insulin admin supplies #1 ea 12/01/21 [Rx Last Taken Unknown] insulin glargine 10 unit SUBCUT QPM #15 ml 12/01/21 [Rx Last Taken Unknown] metformin 500 mg PO BID #60 tab 12/01/21 [Rx Last Taken Unknown] pen needle, diabetic [Lite Touch Insulin Pen [place]] #100 ea 12/01/21 [Rx Last Taken Unknown] furosemide 40 mg tablet 40 mg PO .PRN PRN tab 12/05/21 [History Last Taken Unknown] sacubitril 49 mg-valsartan 51 mg tablet 1 tab PO BID #60 tab 12/15/21 [Rx Last Taken Unknown] Allergy/AdvReac Type Severity Reaction Status Date / Time varenicline [From Chantix] Allergy Intermediate change in Verified 12/26/21 20:59 mental status adhesive tape AdvReac Rash Verified 12/26/21 20:59 Family History Father Myocardial infarction, Onset Age: 39 Mother Myocardial infarction, Onset Age: 40 Brother Myocardial infarction, Onset Age: 39 Brother Myocardial infarction, Onset Age: 36 Surgical History H/O coronary artery bypass surgery (07/26/21) History of coronary artery stent placement (06/22/20) History of left heart catheterization (02/07/21) History of myringotomy Social History household members: significant other Smoking Status: Former smoker how long ago did patient quit smoking: Quit 07/17/21, smoked 1.5-2 ppd since teen until quit. alcohol intake: never substance use type: does not use caffeine: Yes Type: coffee Number of servings: 3 ROS Constitutional Constitutional: Denies anorexia, chills, fatigue, malaise or weakness Cardiovascular Cardiovascular: Reports chest pain at rest, chest pain with activity and tachypnea; Denies edema, nausea, palpitations or syncope Respiratory/Chest Respiratory/Chest: Denies cough, shortness of breath at rest, shortness of breath with exertion or wheezing Gastrointestinal Gastrointestinal: Denies abdominal pain, constipation, diarrhea, nausea or vomiting Genitourinary Genitourinary: Denies dysuria Musculoskeletal Musculoskeletal: Denies back pain, extremity pain, joint pain or joint stiffness Integumentary Integumentary: Denies dry skin Neurologic Neurologic: Denies abnormal gait, abnormal speech, confusion, dizziness or focal weakness Psychiatric Psychiatric: Denies anxiety or depression Endocrine Endocrinology: Denies change in body appearance Hematologic/Lymphatic Hematologic/Lymphatic: Denies anemia, easy bleeding or easy bruising Vital Signs Vital Signs Vital Signs: 12/26/21 20:57 12/26/21 21:02 12/26/21 21:29 Temperature 98.1 F Temperature Source Temporal Pulse Rate 57 L Respiratory Rate 16 Respiratory Effort Normal Non-Labored Blood Pressure 136/93 H Blood Pressure Mean 107 Pulse Ox 97 Oxygen Delivery Method Room Air Room Air 12/26/21 22:01 Temperature Temperature Source Pulse Rate 62 Respiratory Rate 23 H Respiratory Effort Blood Pressure 135/94 H Blood Pressure Mean 107 Pulse Ox 97 Oxygen Delivery Method Room Air Weight Weight: 236 lb Body Mass Index (BMI) 32.0 Physical Exam Const alert and oriented x3 General Appearance: cooperative HEENT normocephalic and head/scalp atraumatic Eyes conjunctivae normal and no scleral icterus Neck supple General: trachea midline Lymph Lymphatic: no lymphadenopathy noted Resp normal respiratory effort and normal air movement Auscultation: diminished lung sounds Cardio regular rate, regular rhythm, S1 normal heart sound, S2 normal heart sound and peripheral pulses 2+ throughout GI normal to inspection, nondistended, normoactive bowel sounds, soft to palpation and non-tender Extremity normal capillary refill and no clubbing, cyanosis or edema General Extremity: no tenderness to palpation of joints or extremities Skin General Skin Exam: no breakdown and turgor normal Lesions: no lesions Rashes: no rashes Neuro no focal motor deficits and no sensory deficits noted Speech: speech normal Motor Exam: Negative for general weakness Psych thought process normal, cooperative and affect normal Appearance: appropriate Results Lab / Micro Data Result Diagrams: 12/27/21 05:03 12/27/21 05:03 Labs: Laboratory Results - last 24 hr 12/26/21 21:05: WBC 10.6, RBC 4.98, Hgb 16.8 H, Hct 47.1, MCV 94.6 H, MCH 33.7 H, MCHC 35.7, RDW Std Deviation 46.8 H, RDW Coeff of Jenna 13.5, Plt Count 260, MPV 11.7, Immature Gran % (Auto) 0.300, Neut % (Auto) 39.3 L, Lymph % (Auto) 46.3 H, [place] % (Auto) 11.9 H, Eos % (Auto) 1.7, Baso % (Auto) 0.5, Absolute Neuts (auto) 4.2, Absolute Lymphs (auto) 4.90 H, Nucleated RBC % 0, Atypical Lymphocytes 1+, Platelet Estimate ADEQUATE, Plt Morphology Comment LARGE, RBC Morphology N CHROM, Anisocytosis RARE, Macrocytosis RARE 12/26/21 21:05: Sodium 142, Potassium 4.2, Chloride 111 H, Carbon Dioxide 23.0, Anion Gap 8, BUN 9, Creatinine 1.14, Estim Creat Clear Calc 88.87, Est GFR (MDRD) Af Amer 89, Est GFR (MDRD) Non-Af 73, BUN/Creatinine Ratio 7.9 L, Glucose 117 H, Calcium 9.7, Troponin I High Sens 207 H* 12/26/21 21:05: PT 11.4 L, INR 0.9, APTT 23.2 L Radiology Impression Chest X-Ray 12/26/21 21:34 IMPRESSION: There are no acute findings. Electronically Signed: Emanuel Bender MD at 22:00 EST Reading Location ID and State: [facility]– [place] / [place] , Service support , Assessment & Plan Assessment/Plan (1) Chest pain: QUALIFIERS: Chest pain type: unspecified Qualified Code(s): R07.9 - Chest pain, unspecified (2) Acute non-ST elevation myocardial infarction (NSTEMI): PLAN: 1. NSTEMI admit to PCU for continuous cardiac monitoring -Admit to PCU for stepdown monitoring -Continue heparin drip and nitroglycerin drip -Trend cardiac enzymes -Consult cardiology, case discussed with Dr. Dennison -Daily weights -Cardiac calorie controlled diet, n.p.o. at midnight -Oxygen therapy per protocol -CBC, BMP ordered for a.m. -EKG ordered for a.m. -magnesium ordered stat -As needed morphine and Zofran ordered -Normal saline 100 mL/h -Continue daily aspirin 2. Diabetes mellitus type 2 -Will hold p.o. Metformin -ACHS blood sugars with sliding scale insulin ordered -Continue patient's home Lantus regimen 3. Hypertension -Continue patient's home medication regimen including carvedilol, sacubitril/valsartan -Vital signs per protocol, currently stable 4. Hyperlipidemia -Continue atorvastatin DVT prophylaxis-not indicated, heparin drip This patient was seen by MIGEL Cartwright under the supervision of Dr. Winters. 34 minutes spent in clinical coordination of patient's plan of care. Documented by User: Dr. Fernando Winters MD 12/27/21 06:26 HPI - General General Date of Admission: 12/26/21 [facility] Medical History Atherosclerosis of coronary artery of [place] heart without angina pectoris Chronic systolic (congestive) heart failure Diabetes mellitus, new onset Essential (primary) hypertension History of ST elevation myocardial infarction (STEMI) (06/22/20) Hyperlipidemia Ischemic cardiomyopathy 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) Home Medications aspirin 81 mg PO DAILY@0800 06/22/20 [History Last Taken 02/06/21] cholecalciferol (vitamin D3) 2,000 unit PO DAILY 06/22/20 [History Last Taken 02/06/21] prasugrel 10 mg tablet 10 mg PO DAILY #90 tab 08/02/20 [Rx Last Taken 02/06/21] nitroglycerin 0.4 mg SUBLINGUAL Q5M PRN #10 tab.subl 01/15/21 [Rx Last Taken Unknown] atorvastatin 40 mg tablet 40 mg PO QHS tab 10/17/21 [History Last Taken Unknown] carvedilol 12.5 mg PO BID 11/29/21 [History Last Taken Unknown] blood sugar diagnostic #10 ea 12/01/21 [Rx Last Taken Unknown] blood-glucose meter #1 ea 12/01/21 [Rx Last Taken Unknown] insulin admin supplies #1 ea 12/01/21 [Rx Last Taken Unknown] insulin glargine 10 unit SUBCUT QPM #15 ml 12/01/21 [Rx Last Taken Unknown] metformin 500 mg PO BID #60 tab 12/01/21 [Rx Last Taken Unknown] pen needle, diabetic [Lite Touch Insulin Pen [place]] #100 ea 12/01/21 [Rx Last Taken Unknown] furosemide 40 mg tablet 40 mg PO .PRN PRN tab 12/05/21 [History Last Taken Unknown] sacubitril 49 mg-valsartan 51 mg tablet 1 tab PO BID #60 tab 12/15/21 [Rx Last Taken Unknown] Allergy/AdvReac Type Severity Reaction Status Date / Time varenicline [From Chantix] Allergy Intermediate change in Verified 12/26/21 20:59 mental status adhesive tape AdvReac Rash Verified 12/26/21 20:59 Family History Father Myocardial infarction, Onset Age: 39 Mother Myocardial infarction, Onset Age: 40 Brother Myocardial infarction, Onset Age: 39 Brother Myocardial infarction, Onset Age: 36 Surgical History H/O coronary artery bypass surgery (07/26/21) History of coronary artery stent placement (06/22/20) History of left heart catheterization (02/07/21) History of myringotomy Social History household members: significant other Smoking Status: Former smoker how long ago did patient quit smoking: Quit 07/17/21, smoked 1.5-2 ppd since teen until quit. alcohol intake: never substance use type: does not use caffeine: Yes Type: coffee Number of servings: 3 Results Lab / Micro Data Result Diagrams: 12/27/21 05:03 12/27/21 05:03 Charges/Coding Addendum Addendum: Patient seen and examined agree with above assessment and plan
[2021-12-26 23:17] VITALS: BP 128/84; PULSE 62
[2021-12-26] MEDS: Nitroglycerin Infusion 250 ML 3 MG CONT INF (23:17)
[2021-12-26] MEDS: HEPARIN/D5w 25,000 UNITS 25,000 UNITS/250 ML IV.SOLN. 15 UNITS IV (23:19)
--- NOTE | 2021-12-26 23:26 | NURSING ---
po drop to 84% on ra after dilaudid given. 02 at 4lnc applied
[2021-12-26 23:28] VITALS: BP 113/85; PULSE 65; RESP 18; TEMP 36.6; O2SAT 94
[2021-12-26 23:43] VITALS: BP 123/87; PULSE 63; RESP 16; O2SAT 95
[2021-12-26 23:52] LABS: Troponin-I HS 450 pg/mL (3.0-78.0)
[2021-12-26 23:58] VITALS: BMI 30.7
[2021-12-27] VITALS (39 sets, daily range): BP systolic 94–119; BP diastolic 51–82; PULSE 58–96; RESP 13–22; TEMP 36.6–37.3; O2SAT 90–97
--- NOTE | 2021-12-27 00:17 | EKG12_ITS ---
Test Reason : CP ADMISSION Blood Pressure : / mmHG Vent. Rate : 068 BPM Atrial Rate : 068 BPM P-R Int : 144 ms QRS Dur : 114 ms QT Int : 400 ms P-R-T Axes : 062 -38 093 degrees QTc Int : 425 ms Normal sinus rhythm Left axis deviation Septal infarct , age undetermined , cannot be excluded Abnormal ECG Confirmed by ANAY BOWLES, ROXANA ([id number]), pictures editor DERREK OWEN ([id number]) on 12/28/2021 9:25:43 AM Referred By: MICHAEL Confirmed By:ROXANA CUEVA MD
[2021-12-27] MEDS: 0.9% Normal Saline 1,000 ML 100 ML IV ×3 (00:33→18:04)
[2021-12-27 03:37] LABS: Troponin-I HS 5294 pg/mL (3.0-78.0)
[2021-12-27 05:27] LABS: Absolute Lymphocyte Count 2.52 X10^3/uL (0.83-4.51); Absolute Neutrophil Count 6.1 X10^3/uL (2.0-7.7); Basophil# 0.03 X10^3/uL; Basophil% 0.3 % (0-1); Hematocrit 39.9 % (40-54); Hemoglobin 13.5 g/dL (13.0-16.5); Lymphocyte # 2.52 X10^3/ul (0.83-4.51); Lymphocyte % 25.9 % (19-41); Mean Corp Hgb Conc 33.8 g/dL (32-36); Mean Corpuscular Hgb 32.3 pg (27.0-32.0); Mean Corpuscular Volume 95.5 fL (80-94); Mean Platelet Vol. 11.2 fl (6.2-12.0); Monocyte# 0.91 X10^3/uL; Monocyte% 9.4 % (0-10); NRBC Flagged by Analyzer 0 % (0-5); Neutrophil # 6.13 X10^3/uL (2.7-7.7); Neutrophil % 63.1 % (47-70); Platelet Count 229 K/mm3 (150-450); RBC Distribution Width CV 13.5 % (11.6-14.6); RBC Distribution Width SD 47.3 fl (35.1-43.9); Red Blood Count 4.18 M/mm3 (4.6-6.2); White Blood Count 9.7 K/mm3 (4.4-11.0)
[2021-12-27 05:54] LABS: Partial Thromboplast Time 100.9 Seconds (24.1-36.2)
[2021-12-27 05:57] LABS: Anion Gap 5 (5-15); BUN 9 mg/dL (7-18); BUN/Creat Ratio 10.6 RATIO (10-20); Calcium,Total 8.5 mg/dL (8.5-10.1); Chloride 111 mmol/L (98-107); Creatinine, Serum 0.85 mg/dL (0.70-1.30); EST Glomerular Filtration Rate 102 mL/min (>60); Est Glom Filt Rate - Afr Amer 124 mL/min (>60); Estimated Creatinine Clearance 119.19 ml/min; Glucose 135 mg/dL (74-106); Sodium Level 140 mmol/L (136-145)
[2021-12-27 07:11] LABS: Bedside Glucose 133 mg/dL (70-110)
[2021-12-27] MEDS: SACUBITRIL/VALSARTAN 49-51 MG TABLET 1 EACH PO ×2 (08:29→20:05)
[2021-12-27] MEDS: Aspirin 81 MG TAB.CHEW PO (08:29)
--- NOTE | 2021-12-27 08:36 | CON.PCM.CA_ITS ---
Assessment & Plan Assessment/Plan (1) Acute non-ST elevation myocardial infarction (NSTEMI): PLAN: Patient presents with an ST elevation myocardial infarction. Underwent cardiac catheterization which demonstrated the following: Normal left main coronary artery. Left anterior descending artery totally occluded. Left circumflex artery with mid segment high-grade stenosis and 2nd obtuse marginal branch with in-stent stenosis. Dominant right coronary artery with mild disease. Left internal mammary artery to the diagonal branch with anastomotic lesion of 90%. Right internal mammary artery to the left circumflex area which is totally occluded. Saphenous vein graft to the circumflex artery is occluded Severe left ventricular systolic dysfunction. Based on the above angiographic findings I would recommend the patient be transferred to a tertiary care facility for appropriate revascularization. (2) H/O coronary artery bypass surgery: PLAN: The patient is status post coronary bypass surgery as noted above the bypass grafts occluded (3) Ischemic cardiomyopathy: PLAN: The patient is noted to have severe ischemic cardiomyopathy with an estimated ejection fraction of 25% with a severely hypokinetic anterior wall apical wall and inferoapical wall. The patient would needed to be treated with guideline directed medical therapy and consider for an implantable defibrillator (4) Essential (primary) hypertension: PLAN: Patient has a history of hypertension which appears to be fairly w ell controlled at this time (5) Hyperlipidemia: QUALIFIERS: Hyperlipidemia type: unspecified Qualified Code(s): E78.5 - Hyperlipidemia, unspecified PLAN: Would recommend aggressive risk factor modification HPI Consult Data Date of Consult: 12/27/21 HPI Narrative HPI Narrative: SALENA MONTALVO, is a 46 M who presents with chest discomfort which he said started last night. He describes this as a heaviness across his c hest and is similar to the previous times when he has had angina and has undergone cardiac catheterization. His history is significant for presentation with an acute anterior myocardial infarction in June 2020. He underwent emergent coronary angiography which revealed in-stent thrombosis of prior LAD stent that was treated with thrombectomy and drug-eluting stent placement. He also had a stent placed in the mid LAD. There was a diagonal branch that was blocked by the LAD stent that was treated with angioplasty alone with residual 80% stenosis. This was a small diagonal branch with a patent stent in it. Patient's EF was around 30% at the time of [place]. Due to his recurrent discomfort he underwent a cardiac catheterization in January 2021. It demonstrated patency of the stents in the left anterior descending artery, diagonal branch, ramus intermedius, left circumflex artery, and proximal right coronary artery. He did have an AV groove branch which was small with a 70% stenosis which was medically treated. He was put on Ranexa as well as isosorbide but he got markedly sleepy on the Ranexa. He has discontinued the Renexa. He was admitted to [facility] in June 2021. He was transferred to [facility] in which she underwent coronary artery bypass on 07/26/2021. He underwent JERED to LAD, RIVERA to first circumflex, and SVG to proximal circumflex. His ec hocardiogram on 07/22/2021 showed an estimate ejection fraction of 40%. FORMERLY [facility], [facility] Medical History Atherosclerosis of coronary artery of [place] heart without angina pectoris Chronic systolic (congestive) heart failure Diabetes mellitus, new onset Essential (primary) hypertension History of ST elevation myocardial infarction (STEMI) (06/22/20) Hyperlipidemia Ischemic cardiomyopathy 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) Home Medications aspirin 81 mg PO DAILY@0800 06/22/20 [History Last Taken 02/06/21] cholecalciferol (vitamin D3) 2,000 unit PO DAILY 06/22/20 [History Last Taken 02/06/21] prasugrel 10 mg tablet 10 mg PO DAILY #90 tab 08/02/20 [Rx Last Taken 02/06/21] nitroglycerin 0.4 mg SUBLINGUAL Q5M PRN #10 tab.subl 01/15/21 [Rx Last Taken Unknown] atorvastatin 40 mg tablet 40 mg PO QHS tab 10/17/21 [History Last Taken Unkn own] carvedilol 12.5 mg PO BID 11/29/21 [History Last Taken Unknown] blood sugar diagnostic #10 ea 12/01/21 [Rx Last Taken Unknown] blood-glucose meter #1 ea 12/01/21 [Rx Last Taken Unknown] insulin admin supplies #1 ea 12/01/21 [Rx Last Taken Unknown] insulin glargine 10 unit SUBCUT QPM #15 ml 12/01/21 [Rx Last Taken Unknown] metformin 500 mg PO BID #60 tab 12/01/21 [Rx Last Taken Unknown] pen needle, diabetic [Lite Touch Insulin Pen [place]] #100 ea 12/01/21 [Rx Last Taken Unknown] furosemide 40 mg tablet 40 mg PO .PRN PRN tab 12/05/21 [History Last Taken Unknown] sacubitril 49 mg-valsartan 51 mg tablet 1 tab PO BID #60 tab 12/15/21 [Rx Last Taken Unknown] Allergy/AdvReac Type Severity Reaction Status Date / Time varenicline [From Chantix] Allergy Intermediate change in Verified 12/26/21 20:59 mental status adhesive tape AdvReac Rash Verified 12/26/21 20:59 Family History Father Myocardial infarction, Onset Age: 39 Mother Myocardial infarction, Onset Age: 40 Brother Myocardial infarction, Onset Age: 39 Brother Myocardial infarction, Onset Age: 36 Surgical History H/O coronary artery bypass surgery (07/26/21) History of coronary artery stent placement (06/22/20) History of left heart catheterization (02/07/21) History of myringotomy Social History household members: significant other Smoking Status: Former smoker how long ago did patient quit smoking: Quit 07/17/21, smoked 1.5-2 ppd since teen until quit. alcohol intake: never substance use type: does not use caffeine: Yes Type: coffee Number of servings: 3 ROS Constitutional Constitutional: Denies fever(s) or weight loss Eyes Eyes: Reports systems reviewed and no addt'l complaints, except as documented ENT HEENT: Reports systems reviewed and no addt'l complaints, except as documented Cardiovascular Cardiovascular: Denies chest pain at rest, chest pain with activity, dyspnea at rest, dyspnea on exertion, edema, palpitations or paroxysmal nocturnal dyspnea Respiratory/Chest Respiratory/Chest: Denies dyspnea on exertion, productive cough, shortness of breath at rest or shortness of breath with exertion Gastrointestinal Gastrointestinal: Denies change in bowel habits, nausea, vomiting or weight changes Genitourinary Genitourinary: Denies difficulty urinating Musculoskeletal Musculoskeletal: Denies joint stiffness or muscle weakness Integumentary Integumentary: Denies lesions Neurologic Neurologic: Denies dizziness or syncope Psychiatric Psychiatric: Denies anxiety Endocrine Endocrinology: Denies excessive sweating or fatigue Hematologic/Lymphatic Hematologic/Lymphatic: Denies anemia Allergic/Immunologic Allergic/Immunologic: Denies seasonal rhinorrhea Physical Exam Const alert, oriented x3 and no apparent distress General Appearance: cooperative HEENT hearing grossly normal bilaterally Head and Scalp: atraumatic Eyes EOMs intact bilaterally Neck General: normal visual inspection Chest inspection of chest normal and palpation of chest normal Resp normal respiratory effort Auscultation: clear to auscultation bilaterally Cardio regular rate, regular rhythm, S1 normal heart sound and S2 normal heart sound Jugular Venous Distention: JVD GI normal to inspection, nondistended, normoactive bowel sounds Extremity normal capillary refill and no pedal edema Peripheral Pulses: Yes pulses 2+ throughout and femoral pulses present Skin no rashes or lesions noted Neuro oriented x3 and CN's II-XII intact bilaterally Psych Appearance: grossly normal and appropriate Risk Stratification Risk Stratification Applicable: Yes Age >/= 65: No >/= 3 CAD Risk Factors (HTN, HLD, DM, family hx of CAD, or current smoker): No Aspirin Use in the Past 7 Days: Yes Severe Angina (>/= episodes in 24 hours): Yes EKG ST Changes >/= 0.5mm: No Positive Cardiac Marker: No ALEXX Risk Stratification Score: 2 ALEXX % Risk: 8% Risk Objective Data Vital Signs: Vital Signs Temp Pulse Resp BP Pulse Ox 98.3 F 60 18 105/69 95 12/27/21 08:34 12/27/21 08:34 12/27/21 08:34 12/27/21 08:34 12/27/21 08:34 Oxygen Flow Rate (L/min) 2 Oxygen Delivery Method Nasal Cannula Weight: 226 lb 6.636 oz Body Mass Index (BMI) 30.7 Intake & Output: Intake and Output for Last 24 Hours 12/25/21 12/26/21 12/27/21 23:59 23:59 23:59 Intake Total 208.23 / 208.23 Balance 208.23 / 208.23 Lab / Micro Data Result Diagrams: 12/27/21 05:03 12/27/21 05:03 Labs: Laboratory Results - last 24 hr 12/26/21 21:05: WBC 10.6, RBC 4.98, Hgb 16.8 H, Hct 47.1, MCV 94.6 H, MCH 33.7 H , MCHC 35.7, RDW Std Deviation 46.8 H, RDW Coeff of Jenna 13.5, Plt Count 260, MPV 11.7, Immature Gran % (Auto) 0.300, Neut % (Auto) 39.3 L, Lymph % (Auto) 46.3 H, [place] % (Auto) 11.9 H, Eos % (Auto) 1.7, Baso % (Auto) 0.5, Absolute Neuts (auto) 4.2, Absolute Lymphs (auto) 4.90 H, Nucleated RBC % 0, Atypical Lymphocytes 1+, Platelet Estimate ADEQUATE, Plt Morphology Comment LARGE, RBC Morphology N CHROM, Anisocytosis RARE, Macrocytosis RARE 12/26/21 21:05: Sodium 142, Potassium 4.2, Chloride 111 H, Carbon Dioxide 23.0, Anion Gap 8, BUN 9, Creatinine 1.14, Estim Creat Clear Calc 88.87, Est GFR (MDRD) Af Amer 89, Est GFR (MDRD) Non-Af 73, BUN/Creatinine Ratio 7.9 L, Glucose 117 H, Calcium 9.7, Troponin I High Sens 207 H* 12/26/21 21:05: PT 11.4 L, INR 0.9, APTT 23.2 L 12/26/21 23:10: Troponin I High Sens 450 H* 12/27/21 03:09: Troponin I High Sens 5294 H* 12/27/21 05:03: APTT 100.9 H* 12/27/21 05:03: WBC 9.7, RBC 4.18 L, Hgb 13.5, Hct 39.9 L, MCV 95.5 H, MCH 32.3 H, MCHC 33.8 D, RDW Std Deviation 47.3 H, RDW Coeff of Jenna 13.5, Plt Count 229, MPV 11.2, Immature Gran % (Auto) 0.300, Neut % (Auto) 63.1, Lymph % (Auto) 25.9, [place] % (Auto) 9.4, Eos % (Auto) 1.0, Baso % (Auto) 0.3, Absolute Neuts (auto) 6.1, Absolute Lymphs (auto) 2.52, Nucleated RBC % 0 12/27/21 05:03: Sodium 140, Potassium 4.0, Chloride 111 H, Carbon Dioxide 24.0, Anion Gap 5, BUN 9, Creatinine 0.85, Estim Creat Clear Calc 119.19, Est GFR (MDRD) Af Amer 124, Est GFR (MDRD) Non-Af 102, BUN/Creatinine Ratio 10.6, Glucose 135 H, Calcium 8.5 12/27/21 07:05: POC Glucose 133 H Cardiology Labs/Tests 12/26/21 21:05: WBC 10.6, RBC 4.98, Hgb 16.8 H, Hct 47.1, MCV 94.6 H, MCH 33.7 H , MCHC 35.7, Plt Count 260, MPV 11.7, Immature Gran % (Auto) 0.300, Neut % (Auto) 39.3 L, Lymph % (Auto) 46.3 H, [place] % (Auto) 11.9 H, Eos % (Auto) 1.7, B aso % (Auto) 0.5, Absolute Neuts (auto) 4.2, Nucleated RBC % 0 12/26/21 21:05: Sodium 142, Potassium 4.2, Chloride 111 H, Carbon Dioxide 23.0, Anion Gap 8, BUN 9, Creatinine 1.14, Est GFR (MDRD) Af Amer 89, Est GFR (MDRD) Non-Af 73, BUN/Creatinine Ratio 7.9 L, Glucose 117 H, Calcium 9.7 12/26/21 21:05: PT 11.4 L, INR 0.9, APTT 23.2 L 12/27/21 05:03: APTT 100.9 H* 12/27/21 05:03: WBC 9.7, RBC 4.18 L, Hgb 13.5, Hct 39.9 L, MCV 95.5 H, MCH 32.3 H, MCHC 33.8 D, Plt Count 229, MPV 11.2, Immature Gran % (Auto) 0.300, Neut % (Auto) 63.1, Lymph % (Auto) 25.9, [place] % (Auto) 9.4, Eos % (Auto) 1.0, Baso % (Auto) 0.3, Absolute Neuts (auto) 6.1, Nucleated RBC % 0 12/27/21 05:03: Sodium 140, Potassium 4.0, Chloride 111 H, Carbon Dioxide 24.0, Anion Gap 5, BUN 9, Creatinine 0.85, Est GFR (MDRD) Af Amer 124, Est GFR (MDRD) Non-Af 102, BUN/Creatinine Ratio 10.6, Glucose 135 H, Calcium 8.5 Rhythm: EKG: ECHO: Stress Test: Cardiac Cath: PCI: CT Surgery: Holter monitor: EPS: PPM: CXR: Chest CT Scan: Radiography Diagnostic Testing: Radiology Impression Chest X-Ray 12/26/21 21:34 IMPRESSION: There are no acute findings. Electronically Signed: Emanuel Bender MD at 22:00 EST ,
--- NOTE | 2021-12-27 09:11 | CASEMGMT ---
According to the [facility] website, the following are in-network tertiary facilities: [facility], [facility], [facility], [place], [facility], [facility], [facility], [place], [facility], and . Anastasia SEYMOUR CM
--- NOTE | 2021-12-27 10:44 | CASEMGMT ---
Readmission chart review: 11/29-12/01/21 New onset DM, HHS suspected 12/26/21-current STEMI Pt with significant hx SD's s/p stents/CABG, ischemic cardiomyopathy, HTN and most recently with DM dx. Pt had NSTEMI in end of June 2021 with transfer to for further cardiac evaluation for revascularization. Pt underwent coronary artery bypass on 07/26/2021 with JERED to LAD, RIVERA to first circumflex, and SVG to proximal circumflex. Pt was sent from PCP office on 11/29/21 for elevated blood sugars and dx'd with DM type II. Pt was started on insulin and advised to f/u with PCP, cardiology, and endocrinology. Pt did f/u with PCP and cardiology on 12/08/21 and 12/05/21 respectively. Pt has appt scheduled with endodrinology on 01/18/22. Pt returned to [facility] ED on 12/26/21 with c/o CP that started 3 hours seating captain and nitro did not help. Pt admitted with NSTEMI again as troponin was 207 on arrival and is now up to 5294. Pt to have heart cath today at [facility]. CM to follow for any further discharge planning/needs. SStjillian SEYMOUR CM
[2021-12-27 10:50] LABS: Bedside Glucose 123 mg/dL (70-110)
--- NOTE | 2021-12-27 12:40 | PCM.PN.HOSP ---
Documented by User: Robert NORIEGA 12/27/21 12:46 Subjective Subjective Patient is a 46-year-old male lying in bed, alert and orient x3. Patient reports that his chest pain has improved although is still present, denies development of any new symptoms overnight. Appears uncomfortable but not in acute distress. Objective Data Objective Data Vital Signs: Vital Signs Temp Pulse Resp BP Pulse Ox 98.3 F 59 L 19 H 94/51 L 93 12/27/21 10:00 12/27/21 11:00 12/27/21 11:00 12/27/21 11:00 12/27/21 11:00 Oxygen Flow Rate (L/min) 2 Oxygen Delivery Method Room Air Weight: 226 lb 6.636 oz Body Mass Index (BMI) 30.7 Intake & Output: Intake and Output for Last 24 Hours 12/25/21 12/26/21 12/27/21 23:59 23:59 23:59 Intake Total 1130.90 / 1130.90 Output Total 700 / 700 Balance 430.90 / 430.90 Lab / Micro Data Result Diagrams: 12/27/21 05:03 12/27/21 05:03 Labs: Laboratory Results - last 24 hr 12/26/21 21:05: WBC 10.6, RBC 4.98, Hgb 16.8 H, Hct 47.1, MCV 94.6 H, MCH 33.7 H, MCHC 35.7, RDW Std Deviation 46.8 H, RDW Coeff of Jenna 13.5, Plt Count 260, MPV 11.7, Immature Gran % (Auto) 0.300, Neut % (Auto) 39.3 L, Lymph % (Auto) 46.3 H, [place] % (Auto) 11.9 H, Eos % (Auto) 1.7, Baso % (Auto) 0.5, Absolute Neuts (auto) 4.2, Absolute Lymphs (auto) 4.90 H, Nucleated RBC % 0, Atypical Lymphocytes 1+, Platelet Estimate ADEQUATE, Plt Morphology Comment LARGE, RBC Morphology N CHROM, Anisocytosis RARE, Macrocytosis RARE 12/26/21 21:05: Sodium 142, Potassium 4.2, Chloride 111 H, Carbon Dioxide 23.0, Anion Gap 8, BUN 9, Creatinine 1.14, Estim Creat Clear Calc 88.87, Est GFR (MDRD) Af Amer 89, Est GFR (MDRD) Non-Af 73, BUN/Creatinine Ratio 7.9 L, Glucose 117 H, Calcium 9.7, Troponin I High Sens 207 H* 12/26/21 21:05: PT 11.4 L, INR 0.9, APTT 23.2 L 12/26/21 23:10: Troponin I High Sens 450 H* 12/27/21 03:09: Troponin I High Sens 5294 H* 12/27/21 05:03: APTT 100.9 H* 12/27/21 05:03: WBC 9.7, RBC 4.18 L, Hgb 13.5, Hct 39.9 L, MCV 95.5 H, MCH 32.3 H, MCHC 33.8 D, RDW Std Deviation 47.3 H, RDW Coeff of Jenna 13.5, Plt Count 229, MPV 11.2, Immature Gran % (Auto) 0.300, Neut % (Auto) 63.1, Lymph % (Auto) 25.9, [place] % (Auto) 9.4, Eos % (Auto) 1.0, Baso % (Auto) 0.3, Absolute Neuts (auto) 6.1, Absolute Lymphs (auto) 2.52, Nucleated RBC % 0 12/27/21 05:03: Sodium 140, Potassium 4.0, Chloride 111 H, Carbon Dioxide 24.0, Anion Gap 5, BUN 9, Creatinine 0.85, Estim Creat Clear Calc 119.19, Est GFR (MDRD) Af Amer 124, Est GFR (MDRD) Non-Af 102, BUN/Creatinine Ratio 10.6, Glucose 135 H, Calcium 8.5 12/27/21 07:05: POC Glucose 133 H 12/27/21 10:43: POC Glucose 123 H Radiography Diagnostic Testing: Radiology Impression Chest X-Ray 12/26/21 21:34 IMPRESSION: There are no acute findings. Electronically Signed: Emanuel Bender MD at 22:00 EST Reading Location ID and State: [facility] / [place] , Service support , Physical Exam Const alert and oriented x3 HEENT head/scalp atraumatic and moist oral mucous membranes Head and Scalp: normocephalic Eyes PERRL and conjunctivae normal Neck no lymphadenopathy, supple and no JVD Resp normal respiratory effort, no retractions and no use of accessory muscles Cardio regular rate, regular rhythm and no JVD GI normal to inspection, nondistended, normoactive bowel sounds Extremity normal to inspection Skin no rashes or lesions noted, no wounds and skin turgor normal Neuro CN's II-XII intact bilaterally Psych affect normal Assessment & Plan Assessment/Plan (1) Acute non-ST elevation myocardial infarction (NSTEMI): (2) Chest pain: QUALIFIERS: Chest pain type: unspecified Qualified Code(s): R07.9 - Chest pain, unspecified PLAN: Day 1 Discharge planning: Current plan is for patient to discharge home when medically ready. 1) NSTEMI Cardiac enzymes elevated at 207, 450 and 5294 respectively. Cardiology consult obtained, and patient to undergo cardiac catheterization on 12/27/2021. Will remain admitted overnight for cardiac monitoring, continue current medications. 2) DM2 Hold home metformin, continue home Lantus and Accu-Cheks with sliding scale insulin. 3) HTN Stable, continue home BP regimen to include carvedilol and Entresto. 4) hyperlipidemia Continue statin. DVT prophylaxis - not indicated, on heparin drip. Patient seen by Robert Colindres PA-C, under the supervision of Dr. Hernandez. Documented by User: Dr. Aneudy Hernandez MD 12/27/21 13:53 Objective Data Lab / Micro Data Result Diagrams: 12/27/21 05:03 12/27/21 05:03 Assessment & Plan Addt'l Comments This patient was seen in conjunction with Robert Colindres PA-C. I have independently interviewed and examined the patient and reviewed pertinent historical, laboratory, and other data. Please refer to Robert Colindres PA-C's note for details of this patient's presentation, findings, and recommendations. I have reviewed Robert Colindres PA-C's note and concur with documented findings. In brief, patient is a 46-year-old gentleman with significant past cardiac history with previous MIs with subsequent PCI presented with significant chest pain. An assessment of acute coronary syndrome?acute non-STEMI made admitted to monitored bed with consultation placed to cardiology Physical Examination: GENERAL: cooperative HEENT: Atraumatic; EYES; Anicteric, Normal Conjunctiva NECK; supple, normal thyroid, RESPIRATORY: Diminished to auscultation CARDIOVASCULAR: Regular S1 S2, GI: soft, normoactive bowel sounds, : No Renal angle tenderness; EXTREMITIES: No edema, no clubbing, MUSCULOSKELETAL: no muscle wasting NEURO: Awake; no lateralizing signs. SKIN: No Rash PSYCH; Flat affect Assessment: 1. Acute coronary syndrome (acute non-STEMI) 2. Ischemic cardiomyopathy 3. Dyslipidemia 4. Diabetes mellitus type 2 Recommendations: 1. I have discussed the results of my overview and impressions with the patient 2. Options for management were reviewed Plan; consult placed to cardiology with plans for patient to undergo left heart catheterization with intervention if warranted Total time spent by myself and the advanced practice practitioner evaluating patient, reviewing labs, subsequent management decisions, discussion with patient as well as other providers 40 minutes ( 25 of which was spent by myself) Charges/Coding Visit Charges Inpatient E&M: 88457 Subs Hosp L3
--- NOTE | 2021-12-27 13:21 | CL.D_ITS ---
Patient Name: SALENA MONTALVO Study Date: 12/27/2021 Performing: Caio Hay MD Ht: 72 inches 183 cm : 1975 Wt: 227.4 lbs 103 kg Age: 46 Gender: male BSA: 2.25 PROCEDURE(S) PERFORMED DC03-([id number])LHC/COR/LV/CABG CLINICAL PROFILE AND INDICATIONS Indications: ACS <= 24 hrs Heart Failure: None Stress/Imaging Stress/Image Study Performed: No CONCLUSIONS Severe two-vessel disease involving the LAD which is totally occluded, severe circumflex artery disea se and the RIVERA to the LAD which is jeopardized with anastomotic lesion, JERED to the LAD which is tot ally occluded, saphenous vein graft to the circumflex artery which is totally occluded RECOMMENDATIONS Would recommend transfer to a tertiary care facility for consideration for [employer] PCI to the LAD, or PCI to the RIVERA to the diagonal vessel or redo bypass surgery DESCRIPTION OF PROCEDURE The patient arrived to the procedure lab. The risks and benefits of the procedure as well as a full d escription of our services here and current unavailability of surgical backup were fully explained to the patient and/or their significant other prior to the catheterization. The Timeout was completed, verifying the correct patient and procedure. The patient's procedural site was prepped and draped in the usual fashion. Local anesthetic was given subcutaneously to right groin region with Lidocaine 2%. Using a modified Seldinger technique, arterial access was obtained via the right femoral artery, a 5 Fr sheath was inserted. Left Coronary Artery selective angiography was performed in multiple views u sing a 5 Fr. JL4 catheter. Right Coronary Artery selective angiography was then performed in multiple views using a 5 Fr. 3DRC (Abhi) catheter. Left internal mammary artery graft to the DIAG 1 selec tive angiography was performed in multiple views using a 5 Fr. 3DRC (Abhi) catheter. Right internal mammary artery graft to the LAD selective angiography was performed in multiple views using a 5 Fr. IM catheter. Left Ventriculography was performed in SANTOS projection using a 5 Fr. Pigtai l catheter. LV to AO pullback pressures were then recorded.Contrast was injected through the sheath a nd the Right Iliac and Femoral artery were assessed for possible closure device.The arterial sheath w as pulled and a Mynx closure device was deployed for hemostasis CORONARY ANGIOGRAPHY DOMINANCE: Right Dominant LEFT HEART ASSESSMENT Left Ventricular Ejection Fraction: by LV Gram 25 % Anterior Hypokinesis - Severe. Apical Hypokinesis - Severe Depressed Left Ventricular systolic function LEFT MAIN: Angiographically normal LEFT ANTERIOR DESCENDING ARTERY: The left anterior descending artery is totally occluded at its origi n CIRCUMFLEX ARTERY: The left circumflex artery is a medium size vessel. There is a first obtuse hillary nal branch which appears to be totally occluded and a second obtuse marginal branch previously stente d with a 70% in-stent stenosis and a mid Lcx 80% stenotic lesion RIGHT CORONARY ARTERY: Large dominant right coronary artery with mild to moderate diffuse disease GRAFTS: Saphenous Vein graft to the CIRC is totally occluded RIVERA graft to the 1st Diagonal Is patent with anastomotic site lesion of 90% which retrograde fills p art of the diagonal vessel as well as the entire left anterior descending artery JERED graft to the Mid LAD is totally occluded COMPLICATIONS No Complications PROCEDURE MEDICATIONS Versed 1 mg IV Fentanyl 50 mcg IV Versed 1 mg IV Fentanyl 50 mcg IV Oxygen: 2 L/min via nasal cannula Nitro glycerin 25mg / 250ml D5W @ 20 mcg/min arrived at the flue dust laborer on this drip 12/27/2021 12:21:07 Nitro glycerin 25mg / 250ml D5W @ 10 mcg/min (decreased rate) 12/27/2021 12:26:04 Nitro glycerin 25mg / 250ml D5W @ mcg/min discontinued 12/27/2021 12:27:19 SUMMARY OF HEMODYNAMIC DATA Time AIR REST ECG 12:12:27 AO 83/60 (70) SA 12:26:48 AO 89/58 (71) 12:40:17 LV 88/11, 20 12:49:05 LV 87/12, 20 12:49:12 LV 88/13, 24 12:50:10 LVp 91/13, 25 12:50:13 AOp 91/60 (74) 12:50:19 AO 112/60 (78) 12:51:17 AO 110/57 (75) 12:51:29 Signed By Caio Hay MD On 12/27/2021 13:20:12 Caio Hay MD
--- NOTE | 2021-12-27 14:00 | NURSING ---
This RN called and updated pt's daughter, Sofía
[2021-12-27] MEDS: Cholecalciferol (VIT D3) 25 MCG TABLET (1,000 UNITS) 50 MCG PO (14:06)
--- NOTE | 2021-12-27 14:16 | PCM.DC.SUM ---
Documented by User: Robert NORIEGA 12/27/21 14:20 Providers Date of Admission: 12/26/21 Primary Care Physician: Dr. Lisset Avery MD Consultations 12/27/21 00:17 Consult: Cardiology Routine Consulting Provider: Roxann Dennison Reason for Consult: elevated troponin EMERGENT Consult: No MD Notified: Yes Date Notified: 12/26/21 Time Notified: 23:12 Method of Notification: Provider Initiated Reason For Visit: CHEST PAIN Diagnosis Discharge Diagnosis (1) Acute non-ST elevation myocardial infarction (NSTEMI): Status: Acute Code(s): I21.4 - Non-ST elevation (NSTEMI) myocardial infarction (2) H/O coronary artery bypass surgery: Status: Acute Code(s): Z95.1 - Presence of aortocoronary bypass graft (3) Ischemic cardiomyopathy: Status: Chronic Code(s): I25.5 - Ischemic cardiomyopathy (4) Essential (primary) hypertension: Status: Chronic Code(s): I10 - Essential (primary) hypertension (5) Hyperlipidemia: Status: Chronic Code(s): E78.5 - Hyperlipidemia, unspecified Qualifiers: Hyperlipidemia type: unspecified Qualified Code(s): E78.5 - Hyperlipidemia, unspecified Medications at Discharge Home Medications aspirin 81 mg PO DAILY@0800 06/22/20 cholecalciferol (vitamin D3) 2,000 unit PO DAILY 06/22/20 prasugrel 10 mg tablet 10 mg PO DAILY #90 tab 08/02/20 nitroglycerin 0.4 mg SUBLINGUAL Q5M PRN #10 tab.subl 01/15/21 atorvastatin 40 mg tablet 40 mg PO QHS tab 10/17/21 carvedilol 12.5 mg PO BID 11/29/21 blood sugar diagnostic #10 ea 12/01/21 blood-glucose meter #1 ea 12/01/21 insulin admin supplies #1 ea 12/01/21 insulin glargine 10 unit SUBCUT QPM #15 ml 12/01/21 metformin 500 mg PO BID #60 tab 12/01/21 pen needle, diabetic [Lite Touch Insulin Pen [place]] #100 ea 12/01/21 furosemide 40 mg tablet 40 mg PO .PRN PRN tab 12/05/21 sacubitril 49 mg-valsartan 51 mg tablet 1 tab PO BID #60 tab 12/15/21 Hospital Course Procedures Cardiac catheterization Summary of Care Provided Minutes Spent on Discharge: 25 Hospital Course: Patient is a 46-year-old male who was admitted to [facility] on 12/26/2021 for evaluation and management of chest pain with elevated cardiac enzymes. Course and management as below. 1) NSTEMI Cardiac enzymes elevated at 207, 450 and 5294 respectively. Patient underwent cardiac catheterization on 12/26 which revealed severe two-vessel disease involving the LAD which was totally occluded, severe circumflex artery disease and the RIVERA to the LAD which is jeopardized with anastomotic lesion, JERED to the LAD which is totally occluded, saphenous vein graft to the circumflex artery which is totally occluded. Given level of patient's severe occlusive disease, recommendation from cardiology was to transfer to a tertiary care facility. Patient was accepted by interventional cardiology at [facility] and will be transferred immediately for follow on care. 2) DM2 Continue current diabetic regimen. 3) HTN Continue home hypertensive regimen. 4) hyperlipidemia Continue statin. Patient seen by Robert Colindres PA-C, under the supervision of Dr. Hernandez. Physical Exam Narrative Patient is a 46-year-old male lying in bed, alert and orient x3. Patient reports that his chest pain has improved although is still present, denies development of any new symptoms overnight. Appears uncomfortable but not in acute distress. Const alert, oriented x3 and no apparent distress HEENT normocephalic, head/scalp atraumatic and hearing grossly normal bilaterally Eyes PERRL and EOMs intact bilaterally Neck no lymphadenopathy and supple Resp normal respiratory effort, no retractions and no use of accessory muscles Cardio regular rate, regular rhythm and no JVD GI normal to inspection, nondistended, normoactive bowel sounds Extremity normal to inspection Skin no rashes or lesions noted, no wounds and skin turgor normal Neuro CN's II-XII intact bilaterally Psych affect normal Weight / BMI Weight Weight: 226 lb 6.636 oz Body Mass Index (BMI) 30.7 ABG / Lab / Microbiology Data Result Diagrams: 12/27/21 05:03 12/27/21 05:03 Laboratory: Laboratory Results - last 24 hr 12/26/21 21:05: WBC 10.6, RBC 4.98, Hgb 16.8 H, Hct 47.1, MCV 94.6 H, MCH 33.7 H, MCHC 35.7, RDW Std Deviation 46.8 H, RDW Coeff of Jenna 13.5, Plt Count 260, MPV 11.7, Immature Gran % (Auto) 0.300, Neut % (Auto) 39.3 L, Lymph % (Auto) 46.3 H, Josephine % (Auto) 11.9 H, Eos % (Auto) 1.7, Baso % (Auto) 0.5, Absolute Neuts (auto) 4.2, Absolute Lymphs (auto) 4.90 H, Nucleated RBC % 0, Atypical Lymphocytes 1+, Platelet Estimate ADEQUATE, Plt Morphology Comment LARGE, RBC Morphology N CHROM, Anisocytosis RARE, Macrocytosis RARE 12/26/21 21:05: Sodium 142, Potassium 4.2, Chloride 111 H, Carbon Dioxide 23.0, Anion Gap 8, BUN 9, Creatinine 1.14, Estim Creat Clear Calc 88.87, Est GFR (MDRD) Af Amer 89, Est GFR (MDRD) Non-Af 73, BUN/Creatinine Ratio 7.9 L, Glucose 117 H, Calcium 9.7, Troponin I High Sens 207 H* 12/26/21 21:05: PT 11.4 L, INR 0.9, APTT 23.2 L 12/26/21 23:10: Troponin I High Sens 450 H* 12/27/21 03:09: Troponin I High Sens 5294 H* 12/27/21 05:03: APTT 100.9 H* 12/27/21 05:03: WBC 9.7, RBC 4.18 L, Hgb 13.5, Hct 39.9 L, MCV 95.5 H, MCH 32.3 H, MCHC 33.8 D, RDW Std Deviation 47.3 H, RDW Coeff of Jenna 13.5, Plt Count 229, MPV 11.2, Immature Gran % (Auto) 0.300, Neut % (Auto) 63.1, Lymph % (Auto) 25.9, Josephine % (Auto) 9.4, Eos % (Auto) 1.0, Baso % (Auto) 0.3, Absolute Neuts (auto) 6.1, Absolute Lymphs (auto) 2.52, Nucleated RBC % 0 12/27/21 05:03: Sodium 140, Potassium 4.0, Chloride 111 H, Carbon Dioxide 24.0, Anion Gap 5, BUN 9, Creatinine 0.85, Estim Creat Clear Calc 119.19, Est GFR (MDRD) Af Amer 124, Est GFR (MDRD) Non-Af 102, BUN/Creatinine Ratio 10.6, Glucose 135 H, Calcium 8.5 12/27/21 07:05: POC Glucose 133 H 12/27/21 10:43: POC Glucose 123 H Radiography Diagnostic Testing: Radiology Impression Chest X-Ray 12/26/21 21:34 IMPRESSION: There are no acute findings. Electronically Signed: Emanuel Bender MD at 22:00 EST Reading Location ID and State: [facility] / [place] , Service support , Meaningful Use Info Meaningful Use Diagnoses (Choose all that apply): None applicable Discharge Plan Admission Admit Date/Time: 12/26/21 23:07 Attending Provider: Aneudy Hernandez Primary Care Provider: Lisset Avery Consulting Providers: Roxann Dennison Discharge Orders/Prescriptions Prescriptions: No Action atorvastatin 40 mg tablet 40 mg PO QHS RF: 0 furosemide 40 mg tablet 40 mg PO .PRN PRN (Reason: edema/SOB) RF: 0 aspirin 81 MG tablet,chewable 81 mg PO DAILY@0800 RF: 0 cholecalciferol (vitamin D3) 2,000 UNIT capsule 2,000 unit PO DAILY RF: 0 nitroglycerin 0.4 MG tablet, sublingual 0.4 mg sublingual Q5M PRN (Reason: Cardiac/Chest Pain) Qty: 10 RF: 0 carvedilol 12.5 mg tablet 12.5 mg PO BID RF: 0 (DME) insulin admin supplies Insulin Pen See Rx Instructions .ROUTE .MEDSUPPLY Qty: 1 RF: 0 insulin glargine 100 unit/mL (3 mL) insulin pen 10 unit subcut QPM Qty: 15 RF: 1 metformin 500 mg tablet 500 mg PO BID Qty: 60 RF: 1 (DME) blood-glucose meter Kit See Rx Instructions .ROUTE .MEDSUPPLY Qty: 1 RF: 0 (DME) blood sugar diagnostic Strip See Rx Instructions .ROUTE .MEDSUPPLY Qty: 10 RF: 1 (DME) pen needle, diabetic [Lite Touch Insulin Pen [place]] 29 gauge x 1/2 needle See Rx Instructions .ROUTE .MEDSUPPLY Qty: 100 RF: 0 prasugrel 10 mg tablet 10 mg PO DAILY Qty: 90 RF: 3 Entresto 49-51 mg tablet 1 tab PO BID Qty: 60 RF: 11 Referrals / Follow Up: Lisset Avery MD [Primary Care Provider] - Disposition Discharge Orders: Discharge Patient (Routine); Ordered 12/27/21 Ordered By: Dr. Caio Hay Documented by User: Dr. Aneudy Hernandez MD 12/27/21 14:44 Providers Date of Admission: 12/26/21 Reason For Visit: CHEST PAIN Medications at Discharge Home Medications aspirin 81 mg PO DAILY@0800 06/22/20 cholecalciferol (vitamin D3) 2,000 unit PO DAILY 06/22/20 prasugrel 10 mg tablet 10 mg PO DAILY #90 tab 08/02/20 nitroglycerin 0.4 mg SUBLINGUAL Q5M PRN #10 tab.subl 01/15/21 atorvastatin 40 mg tablet 40 mg PO QHS tab 10/17/21 carvedilol 12.5 mg PO BID 11/29/21 blood sugar diagnostic #10 ea 12/01/21 blood-glucose meter #1 ea 12/01/21 insulin admin supplies #1 ea 12/01/21 insulin glargine 10 unit SUBCUT QPM #15 ml 12/01/21 metformin 500 mg PO BID #60 tab 12/01/21 pen needle, diabetic [Lite Touch Insulin Pen [place]] #100 ea 12/01/21 furosemide 40 mg tablet 40 mg PO .PRN PRN tab 12/05/21 sacubitril 49 mg-valsartan 51 mg tablet 1 tab PO BID #60 tab 12/15/21 Hospital Course Operations None Summary of Care Provided Minutes Spent on Discharge: 45 Hospital Course: This patient was seen in conjunction with Robert Colindres PA-C. I have independently interviewed and examined the patient and reviewed pertinent historical, laboratory, and other data. Please refer to Robert Colindres PA-C's note for details of this patient's presentation, findings, and recommendations. I have reviewed Robert Colindres PA-C's note and concur with documented findings. In brief, patient is a 46-year-old gentleman with significant past cardiac history with previous MIs with subsequent PCI presented with significant chest pain. An assessment of acute coronary syndrome?acute non-STEMI made admitted to monitored bed with consultation placed to cardiology Patient underwent left heart catheterization found to have multivessel disease Severe two-vessel disease involving the LAD which is totally occluded, severe circumflex artery disease and the RIVERA to the LAD which is jeopardized with anastomotic lesion, JERED to the LAD which is totally occluded, saphenous vein graft to the circumflex artery which is totally occluded Based on above Dr Su with cardiology arrange for patient to be transferred to a tertiary care center?[facility] for consideration for JOINT RUNNER PCI to the LAD, or PCI to the RIVERA to the diagonal vessel or redo bypass surgery Physical Examination: GENERAL: cooperative HEENT: Atraumatic; EYES; Anicteric, Normal Conjunctiva NECK; supple, normal thyroid, RESPIRATORY: Diminished to auscultation CARDIOVASCULAR: Regular S1 S2, GI: soft, normoactive bowel sounds, : No Renal angle tenderness; EXTREMITIES: No edema, no clubbing, MUSCULOSKELETAL: no muscle wasting NEURO: Awake; no lateralizing signs. SKIN: No Rash PSYCH; Flat affect Assessment: 1. Acute coronary syndrome (acute non-STEMI) 2. Ischemic cardiomyopathy 3. Dyslipidemia 4. Diabetes mellitus type 2 Total time spent by myself and the advanced practice practitioner evaluating patient, reviewing labs, subsequent management decisions, discussion with patient as well as other providers 45 minutes ( 25 of which was spent by myself) ABG / Lab / Microbiology Data Result Diagrams: 12/27/21 05:03 12/27/21 05:03 Meaningful Use Info Meaningful Use Diagnoses (Choose all that apply): AMI AMI/Post PCI/Angioplasty Aspirin given w/in 24hrs of arrival?: Yes ASA at discharge?: Yes Antiplatelet Therapy at Discharge:: Yes Statins at discharge?: Yes Stan/ARB at discharge?: Yes Beta Nancy at discharge?: Yes Done w/ Acute [place] measure.: Yes Documented LVEF (%): 25 Discharge Plan Admission Admit Date/Time: 12/26/21 23:07 Attending Provider: Aneudy Hernandez Primary Care Provider: Lisset Avery Consulting Providers: Roxann Dennison Discharge Orders/Prescriptions Prescriptions: No Action atorvastatin 40 mg tablet 40 mg PO QHS RF: 0 furosemide 40 mg tablet 40 mg PO .PRN PRN (Reason: edema/SOB) RF: 0 aspirin 81 MG tablet,chewable 81 mg PO DAILY@0800 RF: 0 cholecalciferol (vitamin D3) 2,000 UNIT capsule 2,000 unit PO DAILY RF: 0 nitroglycerin 0.4 MG tablet, sublingual 0.4 mg sublingual Q5M PRN (Reason: Cardiac/Chest Pain) Qty: 10 RF: 0 carvedilol 12.5 mg tablet 12.5 mg PO BID RF: 0 (DME) insulin admin supplies Insulin Pen See Rx Instructions .ROUTE .MEDSUPPLY Qty: 1 RF: 0 insulin glargine 100 unit/mL (3 mL) insulin pen 10 unit subcut QPM Qty: 15 RF: 1 metformin 500 mg tablet 500 mg PO BID Qty: 60 RF: 1 (DME) blood-glucose meter Kit See Rx Instructions .ROUTE .MEDSUPPLY Qty: 1 RF: 0 (DME) blood sugar diagnostic Strip See Rx Instructions .ROUTE .MEDSUPPLY Qty: 10 RF: 1 (DME) pen needle, diabetic [Lite Touch Insulin Pen [place]] 29 gauge x 1/2 needle See Rx Instructions .ROUTE .MEDSUPPLY Qty: 100 RF: 0 prasugrel 10 mg tablet 10 mg PO DAILY Qty: 90 RF: 3 Entresto 49-51 mg tablet 1 tab PO BID Qty: 60 RF: 11 Referrals / Follow Up: Lisset Avery MD [Primary Care Provider] - Disposition Discharge Orders: Discharge Patient (Routine); Ordered 12/27/21 Ordered By: Dr. Caio Hay Charges/Coding Visit Charges Inpatient E&M: [id number] Disch Hosp Hospital Course Consultations Consultations: Consultations 12/27/21 00:17 Consult: Cardiology Routine Consulting Provider: Roxann Dennison Reason for Consult: elevated troponin EMERGENT Consult: No MD Notified: Yes Date Notified: 12/26/21 Time Notified: 23:12 Method of Notification: Provider Initiated Operations None
[2021-12-27] MEDS: 0.9% Saline Lock 10 ML Syringe IV ×2 (16:03→22:20)
[2021-12-27] MEDS: Morphine 4 MG/ML Syringe IV ×2 (16:04→20:07)
[2021-12-27 16:06] LABS: Bedside Glucose 114 mg/dL (70-110)
--- NOTE | 2021-12-27 16:07 | EKG12_ITS ---
Test Reason : CP Blood Pressure : / mmHG Vent. Rate : 064 BPM Atrial Rate : 064 BPM P-R Int : 148 ms QRS Dur : 114 ms QT Int : 426 ms P-R-T Axes : 059 -37 136 degrees QTc Int : 439 ms Normal sinus rhythm Left axis deviation Septal infarct , age undetermined ST & T wave abnormality, consider lateral ischemia Abnormal ECG When compared with ECG of 27-DEC-2021 01:23, MANUAL COMPARISON REQUIRED, DATA IS UNCONFIRMED Confirmed by NEETU BOWLES, CAIO ([id number]), primer expeditor and drier DERREK OWEN ([id number]) on 12/29/2021 9:56:33 AM Referred By: Caio Hay Confirmed By:CAIO HAY MD
--- NOTE | 2021-12-27 18:10 | NURSING ---
This RN ambulated pt in room. Drsg to R groin d/c/i. No signs of bleeding, hematoma or complications.
[2021-12-27] MEDS: Atorvastatin Calcium 40 MG Tablet PO (20:05)
[2021-12-27] MEDS: Ondansetron 4 MG/2 ML Vial IV (22:20)
[2021-12-27 22:30] LABS: Bedside Glucose 122 mg/dL (70-110)
== END 2021-12-27 22:30 | disposition short-term general hospital (02) | DRG 190 ==
LOC: ED 21:58 → PCU 12-27 07:00
PROVIDERS: Nurse Practitioner Family; Admitting Provider Family Medicine; Emergency Provider Emergency Medicine; PCP Internal Medicine; Visit Provider Internal Medicine
DX: I21.4 Non-ST elevation (NSTEMI) myocardial infarction (principal); I11.0 Hypertensive heart disease with heart failure; E11.9 Type 2 diabetes mellitus without complications; I50.22 Chronic systolic (congestive) heart failure; Z79.4 Long term (current) use of insulin; I25.5 Ischemic cardiomyopathy; E78.5 Hyperlipidemia, unspecified; I25.10 Atherosclerotic heart disease of native coronary artery without angina pectoris; I25.2 Old myocardial infarction; Z79.82 Long term (current) use of aspirin; Z87.891 Personal history of nicotine dependence; Z79.02 Long term (current) use of antithrombotics/antiplatelets; Z79.899 Other long term (current) drug therapy; Z95.1 Presence of aortocoronary bypass graft
CPT/HCPCS: 36415; 71045; 80048; 82962; 84484; 85025; 85610; 85730; 87426; 93005; 93459; 99152; 99153; 99285; 99406; C1760; J7030; J7050; Q9967; A4216; C1769; J2405

== ENCOUNTER 2022-03-03 13:49 | Outpatient (CLI) | payer MEDICAID, SELFPAY ==
[2021-12-08 15:02] VITALS: BMI 33.6
--- NOTE | 2022-03-03 13:53 | CR.ITP_ITS ---
Diagnosis - General Information Admitting Diagnosis: PCI angioplasty, coronary stent placement Secondary Diagnosis: New Onset DM Type II, Extensive cardiac history, previous cardiac rehab w/ each occurance, most recent was failed coronary bypass grafts x 2 and sent to [facility] for evaluation and received PCI intervention and stent placement. Personal Learning Style:: Audio/Visual, Written Barriers to Learning: No Barriers Gave educational material for:: Treating Heart Disease, Emotions & Heart Disease, Stress Management & Relaxation, Sleep Disorders & Heart Disease, How The Heart Works, What it means to have Heart Disease, How Coronary Artery Disease is Diagnosed, Heart Procedures, What Heart Medications Do, Risk Factors & Modifications, Living an Active Life, Nutrition - Education/Goals Individual Counseling: Initial Assessment: Nicotine/Smoking - at risk, Abnormal Cholesterol Levels, High Blood Pressure, Overweight/Obesity - BMI 29, new onset DM TYpe II, Diabetes - New Onset, Metabolic Syndrome (as evidenced by 3 of 5 A-E below), A. Fasting Blood Sugar >100, C. High Triglycerides >150 - 248, Hypertension, Low HDL <40/Males or <50/Females - 33 Cardiac Rehabilitation Goals: 1. Maintain the individual as the primary focus of care. 2. To improve the patient's quality of life. 3. Identification of cardiac risk factors and provide cardiac risk factor management. 4. Enhance the psychosocial status of the patient. 5. Reconditioning enough to allow the patient to resume customary activities. 6. Control symptoms of cardiac disease Personal Goals: Initial Assessment: Improve energy level, Participate in home exercise program, Get back to work, or to resume activities faster, Improve muscle strength and endurance, Control risk factors (learn risk factor modification) Scale for measuring improvement of personal goals: Enter appropriate number in Comments. 2 = Unchanged. 3 = Slightly Better. 4 = Moderate Improvement. 5 = Met my Goal Exercise - Initial Assessment - Visit Date of Eval: 03/03/22 Session #:: 0 - pre-cardiac rehab evaluation Mets: Pre-: >5 METS for 30 minutes by discharge Comments:: has not been doing any home exercise, including walking since being discaharged from [facility]. - Physician Prescribed Exercise Modalities: Treadmill, Airdyne, NuStep Frequency: 3x/week for 12 weeks [36 sessions] Intensity: 60-80% of age predicted maximum heart rate reserve Current METSs:: 3.0 Target Heart Rate:: 112-147 Resting Blood Pressure: 139/84 EKG Type: Normal sinus rhythm Current Physical Activity or Exercising minutes: 0 - Outcomes & Goals Goals:: Verbalizes understanding of THR, RPE & goal METS by session 6, Documents in home exercise log/reports 30 min aerobic 5 day/wk by DC, Demonstrates accurate pulse taking by DC - Intervention & Plan Exercise Program Goals: Instruct on personal THR & RPE, Instruct on MET level & personal MET goal, Show patient to take own pulse /validate performance until accurate, Instruct on home exercise - Physical Activity Home Exercise Physical Activity - Home Exercise: Safe Exercise, Warm-up, Self-monitoring, Cool-Down, Home Exercise > 30 min Daily, Sitting Time <3 hours/daily - Outcomes & Goals Outcomes/Goals: Demonstrates correct Warm-up/exercise Cool-Down (S3) if = 2.5 METs, Verbalizes symptoms of exercise intolerance by Session 3 (S3), Demonstrate safe equipment use (S3) & follows exercise prescrition (6) - Intervention & Plan Plan/Intervention: Instruct warm-up & cool-down if exercising at > 2 METs, Instruct on symptoms of exercise intolerance & actions to take, Instruct & monitor on saf, Assess intial functional capacity & safety risk Nutrition - Initial Assessment - Program Goals Nutrition Program Goals: LDL <100 optimal. 100 - 129 Near optimal. 130 - 159 Borderline High. 160 - 189 High. Total Cholesterol <200 desirable. 200 - 239 Borderline High. >/= 240 High. HDL < 40 Low >/=60 High. Triglycerides <150 desirable. <199 optimal. VlDL 5 - 40. HgbA1C <7%. BMI <25 Patient has diagnosis of Hyperlipidemia (ICD E78)?: Yes - Visit Date of Assessment:: 03/03/22 Session #:: 0 - Cholesterol/Lipids Triglycerides (mg/dL): 248 Total Cholesterol (mg/dL): 112 LDL Cholesterol (mg/dL): 29 HDL Cholesterol (mg/dL): 33 Determine presence & major risk factors that modify LDL goal: Cigarette smoking, Hypertension or hypertensive medication, Low HDL cholesterol <40 mg/dL*, Family history of premature CHD in Male < 55 years: female <65 yearsFa, Age men > 45 years; women >/= 55 years Outcomes/Goals: Pt IDs own risk factors & lifestyle modifications by Session 10, Verbalizes symptoms of angina & response by session 3., Pt independently manages Intervention/Plan: Instruct on personal lipid levels & lipid goals/NCEP guidelines, Instruct on cholesterol Referral to dietitian:: No - disagrees with clinical guidance from Nutritional services - Diabetes (Other Core Measures) Diabetes Type: Diagnosis Type II ICD-10 E11 Fasting blood glucose:: 135 Hgb A1C (4.2 - 6.3): 11.4 Insulin dependent injection/pump?: No Non-Insulin Dependent?: Yes - quit taking metforminon his own, physician is not aware of this. Do you monitor your blood sugar at home?: No Referral to Diabetic Clinic:: No - Weight Mgt (Other Care) Not Applicable: No Height: 6 ft Weight:: 223 lb BMI: 30.2 Diagnosis Overweight/Obesity BMI> 30% ICD-10 E66: Yes Diagnosis High BMI/Morbid Obesity BMI> 35% ICD-10 Z68: No Outcomes/Goals: Pt sets, maintains & shows weight loss goal & trend during rehab Intervention/Plan: Instruct on ideal BMI & set weight loss goal w/patient, Assist pt to ID & incorporate diet changes for weight loss by S9, Encourage goal of using 250-300dcal per session for weight loss - Healthy Eating Habits Will attend diet classes:: No Nutrition - 30-Day Assessment Nutrition - 60-Day Assessment Nutrition - 90-Day Assessment Nutrition - Final Assessment Medical - Initial Assessment - Visit Date of Eval: 03/03/22 Session #:: 0 - pre-cardiac rehab - Medication Compliance Preventative Medication(s):: Aspirin, Statin/lipid, Beta alex H/O mental health issues: depression, anxiety, or addiction?: No Doesn?t believe in the benefits of treatment?: No Believes medications are unnecessary or harmful?: No Has a concern about medication side effects?: No Expresses concern over the cost of medications?: No Outcomes/Goals: Verbalizes medications,desired effect & common side effects @ DC, Pt self-reports following medication regimen, Keeps card in wallet w/medications listed by DC Interventions/plans: Instruct on medication effects & side effects, Review medication list w/patient every two weeks, Instruct importance of taking meds as ordered & assist problem solving - Tobacco Use Tobacco Use: Cigarettes - reports quit smoking, but smells of cigarette smoke during visist. How long ago did you quit using tobacco products?: Greater than or equal to 6 months ago Do you use smokeless tobacco?: No - Hypertension Hypertension Diagnosis:: Hypertension ICD-10 I10 Resting Blood Pressure:: 139/84 [place] [employer] Hypertension Guidelines: [place] [employer] Hypertension Guidelines. Normal BP Less than 120/80. Elevated BP 120/80. Hypertension Stage 1: BP 130-139/80-89. Hypertesnion Stage 2: BP 140 or higher/90 or higher. Hypertension Crisis: BP higher than 180/120 Outcomes/Goals: Able to verbalize/achieve optimal blood pressure <130/80, Incorporates diet changes & exercise for blood pressure control by DC Interventions/plan: Instruct on optimal blood pressure, hypertension & medications, Instruct on effects of sodium, alcohol, stress, exercise &hypertension - Tobacco Cessation Referral Smoking Cessation Referral:: No Individual Education/Counseling:: No Education Schedule Given:: No Medical- 30-Day Assessment Medical- 60-Day Assessment Medical- 90-Day Assessment Medical - Final Assessment Psychosocial - Initial Assess - VIsit Date of Eval: 03/03/22 Session #:: 0 Not Applicable: Yes History of previous Mental disease:: No - Psychosocial Test Tool Used:: Abdi Sanchez QOL Cardiac, PHQ-9 Questionnaire phq-9 Severity: Severity. 1-4 Minimal Depression. 5-9 Mild Depression. 10-14 Moderate Depression. 15-19 Moderately Sever Depression. 20-27 Severe Depression. Rule: - Referral to Behavioral Health PS - Interventions: Yes Attend Stress Management Classes, No Referral to Behavioral Health if PHQ-9 score >9:, No Referral to [facility], No Referral to Physician if PHQ-9 if score is 5-9: - Outcomes/Goals: See list Psychosocial Outcomes/Goals:: ID's personal stressors & 2 strategies to manage stress by discharge Psychosocial - 30-Day Assess Psychosocial - 60-Day Assess Psychosocial - 90-Day Assess Psychosocial - Final Assessmen Patient Health Questionnaire Initial Assessment 1. Little interest or pleasure in doing things: Several days 2. Feeling down, depressed, or hopeless: Several days 3. Trouble falling or staying asleep, or sleeping too much: More than half the days 4. Feeling tired or having little energy: More than half the days 5. Poor appetite or overeating: More than half the days 6. Feeling bad about yourself -- or that you are a failure or have let yourself or your family down: Not at all 7. Trouble concentrating on things, such as reading the newspaper or watching television: Not at all 8. Moving or speaking so slowly that other people could have noticed. Or the opposite - being so fidgety or restless that you have been moving around a lot more than usual: Not at all 9. Thoughts that you would be better off , or of hurting yourself in some way: Not at all How difficult have these problems made it for you to do your work, take care of things at home, or get along with other people?: Somewhat difficult Total Score: 8 DREA-Q SV Test - Statements CAD is a disease of the arteries in the heart: False Examples of risk factors for heart disease: True Angina is chest pain or discomfort: True The benefits of resistance training include: True Eating more meat and dairy products: False Anti-platelet medications such as aspirin are important: I Don't Know The only effective way to manage stress: False An exercise warm-up slowly increases heart rate: True Prepared, processed foods usually have high sodium: True Depression is common after a heart attack: True The statin medications lower cholesterol: True To control blood pressure, lower the amount of sodium: True If someone gets chest discomfort during walking: False Transfats are partially hydrogenated vegetable oils: True Sleep apnea that is not treated increases the risk: I Don't Know To control cholesterol, one should become a vegetarian: False Someone knows if he/she is exercising at the right level: True Diabetes cannot be prevented with exercise & health eating: I Don't Know Stress is a large risk for heart attack: I Don't Know A diet that can help lower blood pressure is rich in: True - Total Score Total Correct Responses: 16 Self-Efficacy Initial Assessment We would like to know how confident you are in doing certain activities. Please select your confidence level for:: Select your confidence level for the following using the scale 1-10 where 1 is not at all confident and 10 is totally confident. Your score is the average of all 6 responses. Fatigue: How confident are you that you can keep the fatigue caused by your disease from interfering with the things you want to do? Select Number: 5 Physical Discomfort or Pain: How confident are you that you can keep the physical discomfort or pain of your disease from interfering with the things you want to do? Select Number: 5 Emotional Distress: How confident are you that you can keep the emotional distress caused by your disease from interfering with the things you want to do? Select Number: 5 Other Symptoms or Health Problems: How confident are you that you can keep other symptoms or health problems from interfering with the things you want to do? Select Number: 5 Different Tasks and Activities: How confident are you that you can do the different tasks and activities needed to manage your health condition so as to reduce your need to see a doctor? Select Number: 5 Medication: How confident are you that you can do things other than just taking medication to reduce how much your illness affects your everyday life? Select Number: 10 Total Score:: 5 Nutrition Survey - Nutrition Survey Initial Have you lost >10 lbs over the past 2 months without trying?: Yes Are you following a special diet at home for diabetes, low fat, or low salt?: Yes Are you interested in meeting with a dietitian for help understanding your diet?: No Do you eat less than 3 meals a day?: Yes Do you eat fatty meats (rodas, sausage, ribs, etc), fried foods, desserts, large amounts of salad dressings, margarine, butter, or cheese most days?: No Do you have food allergies? [Enter types in comment field]: No Do you eat in restaurants more than 3 times a week?: No Do you season food with salt, seasoning salt, or garlic salt?: No Do you used canned, boxed, frozen meals, or soups, seasoning packets?: No Total Score:: 3
--- NOTE | 2022-03-03 13:53 | CR.HP_ITS ---
CR - History & Physical - History of Present Cardiac Event Onset Date: Enter Onset Date of cardiac illnesses in Comment field below Acute Myocardial Infarction within 12 months:: Yes - 06/22/2020 transfer to , 12/26/2021 NSTEMI Coronary Artery Bypass Graft:: Yes - 07/26/2021 x 3 vessel at [facility] or coronary stenting:: Yes - 02/21/2020, 01/02/2022 Heart Failure EF <35%:: Yes - 12/12/2021 showed HFrEF 25% ischemic ca rdiomyopathy. Last EF 35-40% Type of Symptoms:: Coronary bypass done 2 of the three bypass have failed. Interventions with present event:: heart cath and transfer to [facility] for further evaluation Were there any complications?: Still has heart pounding and shortness of breath climbing stairs. - Sleep Disorder Evaluation Hx of Sleep Apnea: Yes Do you snore loudly (louder than talking or can be heard through closed doors)?: Yes Do you often feel tired/ fatigued/ sleepy during daytime?: No Has anyone observed you stop breathing during sleep?: No History of Hypertension (for STOP score): Yes STOP Results: Positive - Medications Home Medications: Ambulatory Orders Medication Instructions Recorded aspirin 81 mg PO DAILY@0800 06/22/20 cholecalciferol (vitamin D3) 2,000 unit PO DAILY 06/22/20 nitroglycerin 0.4 mg SUBLINGUAL Q5M PRN #10 01/15/21 tab.subl atorvastatin 40 mg tablet 40 mg PO QHS tab 10/17/21 blood sugar diagnostic #10 ea 12/01/21 blood-glucose meter #1 ea 12/01/21 furosemide 40 mg tablet 40 mg PO .PRN PRN tab 12/05/21 dapagliflozin 10 mg tablet 10 mg PO DAILY #90 tab 01/18/22 multivitamin 1 tab PO DAILY 01/18/22 metformin 500 mg tablet 500 mg PO BID tab 02/07/22 metoprolol succinate 50 mg 50 mg PO DAILY #90 tab 02/07/22 tablet,extended release 24 hr prasugrel 10 mg tablet 10 mg PO DAILY tab 02/07/22 sacubitril 49 mg-valsartan 51 mg 1 tab PO BID #120 tab 02/07/22 tablet - Allergies Allergies/Adverse Reactions: Allergies varenicline [From Chantix] Allergy (Intermediate, Verified 03/22/22 15:32) change in mental status adhesive tape Adverse Reaction (Verified 02/07/22 15:32) Rash Advanced Directives - Advanced Directives Power of Financial Compliance Officer: No Living Will: No Advance Directives Information Provided: Yes Advance Directives on File: No DNR Order?:: No - MOLST See MOLST form: No Past Medical History - Covid-19 Screening Fever: No Unexplained muscle aches: No Current respiratory symptoms: No Upper respiratory infections symptoms: No Gastro-intestinal symptoms: No Zhh-Vryd-Mqqwyv symptoms: No Has tested positive for COVID-19 in last 30 days: No Date of testin12/26/21 - positive test at [facility] while admitted Had contact w/person w/symptoms or Covid-19 (+) last 14 days: No Has High Risk Exposures ID'd by Health dept/Inf Control team: No 65 years or older:: No Lives in Assisted Living facility:: No Has a chronic lung disease or moderate to severe asthma:: No Has a serious heart condition:: Yes Immunocompromised:: Yes Severely obese (Body Mass Index of 40 or higher):: No Diabetic:: Yes Has chronic kidney disease undergoing dialysis:: No Has liver disease:: Yes - Past Medical Illness Medical History: Past Medical History (Last Reviewed 02/07/22 @ 16:[address] Caio Hay MD) Acute hypoxemic respiratory failure due to COVID-19 Onset Date: 12/28/21 U07.1, J96.01 Atherosclerosis of coronary artery bypass graft of [place] heart with angina pectoris I25.709 Atherosclerosis of coronary artery of [place] heart without angina pectoris I25.10 Chronic systolic (congestive) heart failure I50.22 Diabetes mellitus, new onset E11.9 Essential (primary) hypertension I10 History of non-ST elevation myocardial infarction (NSTEMI) Onset Date: 12/26/21 I25.2 06/2021, 12/26/[address] elevation myocardial infarction (STEMI) Onset Date: 06/22/20 I25.2 Hyperlipidemia E78.5 Ischemic cardiomyopathy I25.5 Old anterior wall myocardial infarction Onset Date: 06/2020 I25.2 - Past Surgical History Surgical History: Past Surgical History (Last Reviewed 02/07/22 @ 16:[address] Caio Hay MD) H/O coronary artery bypass surgery Onset Date: 07/26/21 Z95.1 CABG x 3 JERED-LAD, RIVERA-O1, SVG-PLCx History of coronary artery stent placement Onset Date: 01/02/22 Z95.5 JKX-BBW-yEPB and OM1 w/ Xience Xpedition Stent 06/07/14; PCI-BEN-OM1 w/ 2.5 x 22 mm Resolute Integrity Stent 12/27/15; JMM-FDK-jAOG w/ 4 x 15 mm Resolute 10/03/17; PCI-BEN-D1 w/ 3.0 x 20 Synergy Stent 12/03/18; PJD-PKH-bOQV w/ 4 x 12 Resolute [place] and BEN-mLCx w/ 3 x 12 Resolute Pankaj, BEN-mOM1 w/ 2.5 x 12 Resolute [place] 09/22/19; YUQ-HKY-Rletn w/ 3 x 12 Resolute [place] Stent and 2.25 x 15 Xience [place] Stent, POBA-OM1 10/11/19; IFL-YQP-yOQX w/ 4.00 x 08 mm Synergy Stent and mLAD w/ 3.00 x 8 mm Synergy MR Stent and POBA-D1 06/22/20; PCI-BEN-Mid to Distal OM2 w/ 2.5 x 23 mm XIENCE 01/02/2022 History of left heart catheterization Onset Date: 12/27/21 Z98.890 02/07/21, 12/27/21 History of myringotomy Z98.890 History of right heart catheterization Onset Date: 12/28/21 Z98.890 Surgical History: - - Several teeth resected, bilateral ear tube and scar tissue surgeries, significant PCI history. - Family History Summary Family History: Family History (Last Reviewed 02/07/22 @ 16:[address] Caio Hay MD) Father Myocardial infarction, Onset Age: 39 Mother Myocardial infarction, Onset Age: 40 Brother Myocardial infarction, Onset Age: 39 Brother Myocardial infarction, Onset Age: 36 Social History - Smoking History Smoking Status: Light Smoker (<10/day) Years Smokin Packs Smoked per Day: 1.5 Hx Smoking Cessation Date: 07/17/21 - ? Hx Tobacco Use: Yes Hx Smoking Exposure: Yes - Alcohol Use Alcohol Usage: Yes - Substance Abuse Hx Substance Use: No - Occupation Occupation (List type of work in comments):: Unemployed - Hobbies, Recreation, Social Activities Hobbies: None Recreational Activities: I am able to engage in most, but not all activities Social Environment - Status Marital Status: Single - Children How many children do you have?: 3 - daughter is only one in the state Do any of your children live nearby?: Yes - Safety Do you feel safe in your surroundings?: Yes - Assistance Do you need any assistance at home?: no Review of Systems - Review of Systems Hints: Right click = Denies (Slash). Left click = Reports ([place]) Review of Present Symptoms: Reports: Shortness of Breath with Exertion, Angina, Dizziness/Lightheadedness - when over active, Fatigue, Heart Arrhyt hmia/Irregularities - Normal sinus rhythm, left axis deviation, septal infarction, Appetite - Normal, Sleep - Normal. Denies: Shortness of Breath at Rest, Wound Healing, Appetite - Special Diet, Sexual Changes - Pain Is Patient Pain Free?: Yes Pain Location: none Pain Level: 0/10 Risk Factor Assessment - Chief Complaint Chief Complaint: 47 yr old with extensive cardiac history, family related heart disease, patient has history of non-compliance with attendance in cardiac rehab from previous enrollments. - Vital Signs Temperature: 98.6 F Respiratory Rate: 14 Pulse Ox: 98 Blood Pressure: 139/84 - Pulse Pulse Rate: 80 Pulse Rhythm: Regular - Hypertension Blood Pressure Sitting - Left Arm: 139/84 - Blood Cholesterol/Lipids Total Cholesterol (mg/dL) Goal = less than 200 mg/dL: 112 - 07/20/2021 HDL Cholesterol (mg/dL) Goal = less than 40 mg/dL: 33 LDL Cholesterol (mg/dL) Goal = less than 70 mg/dL: 29 Triglycerides (mg/dL) Goal = less than 150 mg/dL: 248 - Diabetes Diabetic History: Type II - HgbA1c 11.4%, Glucose 135 new onset DM Type II Nutrition Referral for Diabetes: Yes - Obesity Height: 6 ft Weight:: 223 lb Weight in Pounds: 223.0 lbs Weight Source: Stated by Patient Body Mass Index (BMI): 30.2 Nutritional Referral for Obesity: Yes - Physical Inactivity Physical Inactivity: None - Risk Stratification Risk Guidelines: Lowest Risk: Risk Factor for Depression, Moderate Risk: Risk Factor for Smoking, Risk Factor for Dyslipidemia, Risk Factor for Hypertension, Risk Factor for Sedentary Lifestyle, Highest Risk: Risk Factor for Diabetes, Risk Factor for Obesity - Family History Family History: Family History (Last Reviewed 02/07/22 @ 16:[address] Caio Hay MD) Father Myocardial infarction, Onset Age: 39 Mother Myocardial infarction, Onset Age: 40 Brother Myocardial infarction, Onset Age: 39 Brother Myocardial infarction, Onset Age: 36 Motivation - Motivation to Participate On a scale of 1 to 10, how prepared are you to commit to attending program?: 10 What do you see as barriers to successfully being able to complete the program?: 0 What do you see as the benefits of succesfully completing the program? In other words, what do you hope to get out of participating in the program?: healthier, back in shape Are there issues you are dealing with that will interfere with completing the program?: current failed grafts two of the three done previously. Do you have a spouse or signficant other, family or friends who will help support you to complete the program?: yes
[2022-03-03 14:15] VITALS: BP 139/84; PULSE 80; RESP 14; TEMP 37; O2SAT 98; BMI 30.2
[2022-03-03 14:27] VITALS: BP 139/84; BMI 30.2
== END 2022-03-03 23:59 | disposition home or self-care (01) ==
LOC: CR 13:49
PROVIDERS: PCP Internal Medicine; Referring Provider Internal Medicine Cardiovascular Disease; Visit Provider Internal Medicine Cardiovascular Disease
DX: Z00.00 Encounter for general adult medical examination without abnormal findings (principal)

== ENCOUNTER 2022-03-17 14:30 | Outpatient (RCR) | payer MEDICAID, SELFPAY | END 2022-03-18 23:59 | LOC: CR 14:30 | PROVIDERS: PCP Internal Medicine; Visit Provider Internal Medicine Cardiovascular Disease | DX: I25.708 Atherosclerosis of coronary artery bypass graft(s), unspecified, with other forms of angina pectoris (principal); R06.00 Dyspnea, unspecified; R00.2 Palpitations; I25.2 Old myocardial infarction; Z95.1 Presence of aortocoronary bypass graft; I25.5 Ischemic cardiomyopathy; I50.22 Chronic systolic (congestive) heart failure | CPT/HCPCS: 93798 ==

== ENCOUNTER → 2022-03-20 | Outpatient (CLI) | payer MEDICAID, SELFPAY ==
[2022-03-03 14:27] VITALS: BMI 30.2
[2022-03-20 15:51] LABS: Absolute Lymphocyte Count 2.91 X10^3/uL (0.83-4.51); Absolute Neutrophil Count 12.6 X10^3/uL (2.0-7.7); Basophil# 0.08 X10^3/uL; Basophil% 0.5 % (0-1); Eosinophil# 0.06 X10^3/uL; Eosinophils% 0.4 % (0-5); Hematocrit 49.2 % (40-54); Hemoglobin 16.7 g/dL (13.0-16.5); Lymphocyte # 2.91 X10^3/ul (0.83-4.51); Lymphocyte % 17.3 % (19-41); Mean Corp Hgb Conc 33.9 g/dL (32-36); Mean Corpuscular Hgb 32.1 pg (27.0-32.0); Mean Corpuscular Volume 94.4 fL (80-94); Mean Platelet Vol. 11.7 fl (6.2-12.0); Monocyte# 1.13 X10^3/uL; Monocyte% 6.7 % (0-10); NRBC Flagged by Analyzer 0 % (0-5); Neutrophil % 74.7 % (47-70); Platelet Count 212 K/mm3 (150-450); RBC Distribution Width CV 12.5 % (11.6-14.6); RBC Distribution Width SD 43.4 fl (35.1-43.9); Red Blood Count 5.21 M/mm3 (4.6-6.2); White Blood Count 16.9 K/mm3 (4.4-11.0)
[2022-03-20 16:16] LABS: AST(SGOT) 19 U/L (15-37); Alanine Aminotransfer ALT/SGPT 32 U/L (16-61); Albumin, Serum 3.7 g/dL (3.2-5.0); Alkaline Phosphatase 96 U/L (45-117); Anion Gap 6 (5-15); BUN 7 mg/dL (7-18); BUN/Creat Ratio 5.8 RATIO (10-20); Calcium,Total 8.7 mg/dL (8.5-10.1); Chloride 107 mmol/L (98-107); Creatinine, Serum 1.21 mg/dL (0.70-1.30); EST Glomerular Filtration Rate 68 mL/min (>60); Est Glom Filt Rate - Afr Amer 83 mL/min (>60); Globulin 3.7 g/dL (2.2-4.2); Glucose 96 mg/dL (74-106); Potassium 4.4 mmol/L (3.5-5.1); Protein, Total 7.4 g/dL (6.4-8.2); Sodium Level 141 mmol/L (136-145); Troponin-I HS 36 pg/mL (3.0-78.0)
== END | disposition home or self-care (01) ==
LOC: BIMLAB 15:26
PROVIDERS: PCP Internal Medicine; Visit Provider Physician Assistant
DX: R07.9 Chest pain, unspecified (principal); R53.83 Other fatigue
CPT/HCPCS: 87635; 36415; 80053; 84484; 85025; U0003; U0005

== ENCOUNTER → 2022-03-22 | Outpatient (CLI) | payer MEDICAID, SELFPAY ==
[2022-03-03 14:27] VITALS: BMI 30.2
--- NOTE | 2022-03-22 14:58 | EKG12_ITS ---
Test Reason : CP Blood Pressure : / mmHG Vent. Rate : 087 BPM Atrial Rate : 087 BPM P-R Int : 136 ms QRS Dur : 108 ms QT Int : 368 ms P-R-T Axes : 060 -72 092 degrees QTc Int : 442 ms Normal sinus rhythm Left anterior fascicular block Septal infarct , age undetermined Abnormal ECG Confirmed by NEETU BOWLES, THOMAS ([id number]), subeditor DERREK OWEN ([id number]) on 03/23/2022 10:10:25 AM Referred By: Cyn Garcia Confirmed By:THOMAS DE ANDA MD
--- NOTE | 2022-03-22 15:05 | RAD_ITS ---
STUDY: X-RAY CHEST REASON FOR EXAM: Male, 47 years old. chest pain TECHNIQUE: PA and lateral COMPARISON: 12/26/2021. FINDINGS: The lungs are clear and expanded. There is no demonstrated pleural abnormality. Normal size heart. Postsurgical changes of a CABG. Normal mediastinum and sarah. Normal visualized pulmonary arteries. Normal visualized aortic arch and descending thoracic aorta. Normal visualized thoracic spine. Normal visualized ribs, clavicles, and shoulders. There is no demonstrated abnormality of the visualized soft tissue structures of the upper abdomen. RAD/Chest PA and Lateral IMPRESSION: Normal x-ray examination of the chest. There is a CABG. Electronically Signed: Hiram Miles MD at 0:34 EDT ,
== END | disposition home or self-care (01) ==
LOC: PSN 14:57
PROVIDERS: PCP Internal Medicine; Referring Provider Physician Assistant; Visit Provider Physician Assistant
DX: R07.9 Chest pain, unspecified (principal); I20.8 Other forms of angina pectoris
CPT/HCPCS: 71046; 93005

== ENCOUNTER 2022-03-29 14:30 | Outpatient (RCR) | payer MEDICAID, SELFPAY ==
--- NOTE | 2022-03-31 07:01 | PCM.CR.ITP ---
Diagnosis Exercise - 30-day Assessment - Visit Date of Eval: 03/31/22 Session #:: 10 Comments:: Patient has re-entered CR following another stent placement at [facility]. - Physician Prescribed Exercise Modalities: Treadmill, Rower, Airdyne, Lateral Aircraft Electrical Systems Specialist Frequency: 3x/week for 12 weeks [36 sessions] Intensity: 60-80% of age predicted maximum heart rate reserve Current METSs:: 6.0 Target Heart Rate:: 112-147 Current RPE:: 13-14 Maximum Excercise HR:: 133 Resting Blood Pressure: 120/64 Maximum Exercise Blood Pressure: 138/78 EKG Type: NSR to sinus tach w/raer to occcasional multifocal PVCs. - Outcomes & Goals Goals:: Verbalizes understanding of THR, RPE & goal METS by session 6, Documents in home exercise log/reports 30 min aerobic 5 day/wk by DC, Demonstrates accurate pulse taking by DC - Intervention & Plan Exercise Program Goals: Instruct on personal THR & RPE, Instruct on MET level & personal MET goal, Show patient to take own pulse /validate performance until accurate, Instruct on home exercise - 30-day Reassessments 30 day Reassessments:: Progressing - Physical Activity Home Exercise Physical Activity - Home Exercise: Safe Exercise, Warm-up, Self-monitoring, Cool-Down, Home Exercise > 30 min Daily, Sitting Time <3 hours/daily - Outcomes & Goals Outcomes/Goals: Demonstrates correct Warm-up/exercise Cool-Down (S3) if = 2.5 METs, Verbalizes symptoms of exercise intolerance by Session 3 (S3), Demonstrate safe equipment use (S3) & follows exercise prescrition (6) - Intervention & Plan Plan/Intervention: Instruct warm-up & cool-down if exercising at > 2 METs, Instruct on symptoms of exercise intolerance & actions to take, Instruct & monitor on saf, Assess intial functional capacity & safety risk - 30-day Reassessments 30 day Reassessments:: Progressing Nutrition - Initial Assessment Nutrition - 30-Day Assessment - Program Goals Nutrition Program Goals: LDL <100 optimal. 100 - 129 Near optimal. 130 - 159 Borderline High. 160 - 189 High. Total Cholesterol <200 desirable. 200 - 239 Borderline High. >/= 240 High. HDL < 40 Low >/=60 High. Triglycerides <150 desirable. <199 optimal. VlDL 5 - 40. HgbA1C <7%. BMI <25 Patient has diagnosis of Hyperlipidemia (ICD E78)?: Yes - Visit Date of Assessment:: 03/31/22 Session #:: 10 - Cholesterol/Lipids Triglycerides (mg/dL): 248 Total Cholesterol (mg/dL): 1,122 LDL Cholesterol (mg/dL): 29 HDL Cholesterol (mg/dL): 33 Determine presence & major risk factors that modify LDL goal: Cigarette smoking, Hypertension or hypertensive medication, Low HDL cholesterol <40 mg/dL*, Family history of premature CHD in Male < 55 years: female <65 yearsFa, Age men > 45 years; women >/= 55 years Outcomes/Goals: Pt IDs own risk factors & lifestyle modifications by Session 10, Verbalizes symptoms of angina & response by session 3., Pt independently manages Intervention/Plan: Instruct on personal lipid levels & lipid goals/NCEP guidelines, Instruct on cholesterol Referral to dietitian:: Yes - Medical Nutrition Therapy 30-day Reassessments:: Progressing - Diabetes (Other Core Measures) Diabetes Type: Diagnosis Type II ICD-10 E11 - New Onset Fasting blood glucose:: 135 Hgb A1C (4.2 -6.3): 11.4 Insulin dependent injection/pump?: Yes Non-Insulin Dependent?: Yes Do you monitor your blood sugar at home?: Yes Referral to Diabetic Clinic:: Yes Outcomes/Goals:: Able to state symptoms of, Able to state, Able to state Intervention/Plan:: Instruct on, Refer to, Instruct on 30-day Reassessments:: Progressing - Weight Mgt (Other Care) Height: 6 ft Weight:: 226 lb - Gained 3 pounds this 30-day period BMI: 30.6 Diagnosis Overweight/Obesity BMI> 30% ICD-10 E66: Yes Diagnosis High BMI/Morbid Obesity BMI> 35% ICD-10 Z68: No Outcomes/Goals: Pt sets, maintains & shows weight loss goal & trend during rehab Intervention/Plan: Instruct on ideal BMI & set weight loss goal w/patient, Assist pt to ID & incorporate diet changes for weight loss by S9, Refer to Structured Weight Loss program as appropriate, Encourage goal of using 250-300dcal per session for weight loss 30 day Reassessments:: Progressing - Healthy Eating Habits Will attend diet classes:: Yes Outcomes/Goals:: Consume diet rich in vegs,fruits,whole grain/high fiber,fish,lean meat, Limit sat/trans fats,cholesterol & added salts & sugars Intervention/Plan:: Assess current eating habits 30-day Reassessments:: Progressing - Education Gave educational materials for:: Signs & symptoms of hypoglycemia, Signs & symptoms of hyperglycemia, Relate diabetes to coronary artery disease, Healthy eating Nutrition - 60-Day Assessment Nutrition - 90-Day Assessment Nutrition - Final Assessment Medical - Initial Assessment Medical- 30-Day Assessment - Visit Date of Eval: 03/31/22 Session #:: 10 - Medication Compliance Preventative Medication(s):: Aspirin, Statin/lipid H/O mental health issues: depression, anxiety, or addiction?: No Doesn?t believe in the benefits of treatment?: No Believes medications are unnecessary or harmful?: No Has a concern about medication side effects?: No Expresses concern over the cost of medications?: No Outcomes/Goals: Verbalizes medications,desired effect & common side effects @ DC, Pt self-reports following medication regimen, Keeps card in wallet w/medications listed by DC Interventions/plans: Instruct on medication effects & side effects, Review medication list w/patient every two weeks, Instruct importance of taking meds as ordered & assist problem solving 30-day Reassessments:: Progressing - Tobacco Use Tobacco Use: Cigarettes How long ago did you quit using tobacco products?: Less than 6 months ago - Reinforced importance of complete smoking cessation to to high risk with multiple risk factors/medical history. How many cigarettes do you smoke per day?: 0 - Claims to have quit but still presents to CR smelling of smoke Years Smokin - smoked since teen Do you use smokeless tobacco?: Yes - Outcomes/Goals: Smoking cessation achieved or maintained by discharge, Identify aids/strategies for achieving smoking cessation by session 6 Interventions/plan: Instruct on effects of smoking & provide smoking cessation resource, Assist pt to set quit date & provide encouragement, Assist pt to develop strategies to achieve/maintain quit date, Assist pt w/nicotine replacement & medication for cessation success 30-day Reassessments:: Not Met - Hypertension Hypertension Diagnosis:: Hypertension ICD-10 I10 Resting Blood Pressure:: 120/64 [place] [employer] Hypertension Guidelines: [place] [employer] Hypertension Guidelines. Normal BP Less than 120/80. Elevated BP 120/80. Hypertension Stage 1: BP 130-139/80-89. Hypertesnion Stage 2: BP 140 or higher/90 or higher. Hypertension Crisis: BP higher than 180/120 Peak Exercise Blood Pressure:: 138/78 Outcomes/Goals: Able to verbalize/achieve optimal blood pressure <130/80, Incorporates diet changes & exercise for blood pressure control by DC Interventions/plan: Instruct on optimal blood pressure, hypertension & medications, Instruct on effects of sodium, alcohol, stress, exercise &hypertension 30 day Reassessments:: Not Met - Tobacco Cessation Referral Smoking Cessation Referral:: Yes Individual Education/Counseling:: No Education Schedule Given:: Yes Medical- 60-Day Assessment Medical- 90-Day Assessment Medical - Final Assessment Psychosocial - Initial Assess Psychosocial - 30-Day Assess - VIsit Date of Eval: 03/31/22 Session #:: 10 Not Applicable: Yes History of previous Mental disease:: No Self-reported stressors: Financial, Medical/Health - Psychosocial Test Tool Used:: PHQ-9 Questionnaire phq-9 Severity: Severity. 1-4 Minimal Depression. 5-9 Mild Depression. 10-14 Moderate Depression. 15-19 Moderately Sever Depression. 20-27 Severe Depression. Rule: - Referral to Behavioral Health PS - Interventions: Yes Attend Stress Management Classes, No Referral to Behavioral Health if PHQ-9 score >9:, No Referral to [facility], No Referral to Physician if PHQ-9 if score is 5-9: - Outcomes/Goals: See list Psychosocial Outcomes/Goals:: ID's personal stressors & 2 strategies to manage stress by discharge - Intervention/Plan: See List Interventions/Plan:: Assess stressors,coping strategies & signs of derpression on admission, Instruct/assist pt to develop coping & personal stress Mgt strategies, Instruct patient to recognize signs & symptoms of depression, Instruct patient to recog - 30-day Reassessments: 30 day Reassessments:: Progressing Psychosocial - 60-Day Assess Psychosocial - 90-Day Assess Psychosocial - Final Assessmen Patient Health Questionnaire 30-Day Re-eval Assessment 1. Little interest or pleasure in doing things: Several days 2. Feeling down, depressed, or hopeless: Several days 3. Trouble falling or staying asleep, or sleeping too much: More than half the days 4. Feeling tired or having little energy: More than half the days 5. Poor appetite or overeating: More than half the days 6. Feeling bad about yourself -- or that you are a failure or have let yourself or your family down: Not at all 7. Trouble concentrating on things, such as reading the newspaper or watching television: Not at all 8. Moving or speaking so slowly that other people could have noticed. Or the opposite - being so fidgety or restless that you have been moving around a lot more than usual: Not at all 9. Thoughts that you would be better off , or of hurting yourself in some way: Not at all How difficult have these problems made it for you to do your work, take care of things at home, or get along with other people?: Somewhat difficult Total Score: 8 Self-Efficacy 30-Day Re-eval Assessment We would like to know how confident you are in doing certain activities. Please select your confidence level for:: Select your confidence level for the following using the scale 1-10 where 1 is not at all confident and 10 is totally confident. Your score is the average of all 6 responses. Fatigue: How confident are you that you can keep the fatigue caused by your disease from interfering with the things you want to do? Select Number: 6 Physical Discomfort or Pain: How confident are you that you can keep the physical discomfort or pain of your disease from interfering with the things you want to do? Select Number: 7 Emotional Distress: How confident are you that you can keep the emotional distress caused by your disease from interfering with the things you want to do? Select Number: 7 Other Symptoms or Health Problems: How confident are you that you can keep other symptoms or health problems from interfering with the things you want to do? Select Number: 8 Different Tasks and Activities: How confident are you that you can do the different tasks and activities needed to manage your health condition so as to reduce your need to see a doctor? Select Number: 10 Medication: How confident are you that you can do things other than just taking medication to reduce how much your illness affects your everyday life? Select Number: 10 Total Score:: 8 Nutrition Survey
[2022-03-31 07:13] VITALS: BP 120/64; BP 138/78; BMI 30.6
== END 2022-04-18 23:59 ==
LOC: CR 14:30
PROVIDERS: PCP Internal Medicine; Referring Provider Internal Medicine Cardiovascular Disease; Visit Provider Internal Medicine Cardiovascular Disease
DX: R06.00 Dyspnea, unspecified; R00.2 Palpitations; I25.2 Old myocardial infarction; Z95.1 Presence of aortocoronary bypass graft; I25.5 Ischemic cardiomyopathy; I50.22 Chronic systolic (congestive) heart failure; Z95.5 Presence of coronary angioplasty implant and graft
CPT/HCPCS: 93798

== ENCOUNTER 2022-03-31 14:26 | Emergency (ER) | payer MEDICAID, SELFPAY ==
[2022-03-31 07:13] VITALS: BMI 30.6
[2022-03-31 14:27] VITALS: BP 127/94; PULSE 80; RESP 20; TEMP 36.5; O2SAT 95; BMI 30.5
--- NOTE | 2022-03-31 14:43 | EKG12_ITS ---
Test Reason : CHEST TIGHTNESS Blood Pressure : / mmHG Vent. Rate : 081 BPM Atrial Rate : 081 BPM P-R Int : 142 ms QRS Dur : 110 ms QT Int : 364 ms P-R-T Axes : 053 -73 083 degrees QTc Int : 422 ms Normal sinus rhythm Left axis deviation Septal infarct , age undetermined Abnormal ECG Confirmed by NEETU BOWLES, THOMAS ([id number]), photographic editor DERREK OWEN ([id number]) on 04/03/2022 1:35:26 PM Referred By: PIERCE/ASHLEY Confirmed By:THOMAS DE ANDA MD
[2022-03-31 14:52] LABS: Absolute Lymphocyte Count 2.78 X10^3/uL (0.83-4.51); Absolute Neutrophil Count 9.8 X10^3/uL (2.0-7.7); Basophil# 0.08 X10^3/uL; Basophil% 0.6 % (0-1); Eosinophil# 0.16 X10^3/uL; Eosinophils% 1.2 % (0-5); Hematocrit 52.7 % (40-54); Hemoglobin 17.3 g/dL (13.0-16.5); Lymphocyte # 2.78 X10^3/ul (0.83-4.51); Lymphocyte % 20.2 % (19-41); Mean Corp Hgb Conc 32.8 g/dL (32-36); Mean Corpuscular Hgb 31.5 pg (27.0-32.0); Mean Platelet Vol. 11.1 fl (6.2-12.0); Monocyte# 0.89 X10^3/uL; Monocyte% 6.5 % (0-10); NRBC Flagged by Analyzer 0 % (0-5); Neutrophil % 71.1 % (47-70); Platelet Count 228 K/mm3 (150-450); RBC Distribution Width CV 12.6 % (11.6-14.6); RBC Distribution Width SD 44.8 fl (35.1-43.9); Red Blood Count 5.49 M/mm3 (4.6-6.2); White Blood Count 13.8 K/mm3 (4.4-11.0)
[2022-03-31 15:11] VITALS: BP 110/74; PULSE 80; RESP 18; O2SAT 97
[2022-03-31 15:13] VITALS: O2SAT 97
[2022-03-31 15:13] LABS: Anion Gap 4 (5-15); BUN 10 mg/dL (7-18); BUN/Creat Ratio 7.7 RATIO (10-20); Calcium,Total 9.5 mg/dL (8.5-10.1); Chloride 108 mmol/L (98-107); EST Glomerular Filtration Rate 63 mL/min (>60); Est Glom Filt Rate - Afr Amer 76 mL/min (>60); Glucose 115 mg/dL (74-106); Potassium 4.7 mmol/L (3.5-5.1); Sodium Level 139 mmol/L (136-145); Troponin-I HS 26 pg/mL (3.0-78.0)
--- NOTE | 2022-03-31 15:19 | EDS_ITS ---
HPI History of Present Illness Chief Complaint: Shortness of Breath Informant: patient Narrative Narrative: Patient presents with worsening dyspnea and chest pain since Sunday. He was at cardiac rehab on the rowing machine and for the first time he could not finish due to exertional dyspnea. Patient states he always has some chest discomfort and dyspnea but it is clearly gotten worse. This is the typical pattern that he develops when he has blockage of a vessel. This patient has had between 10 and 21 stents prior to his bypass surgery at in July 2021. He then had stents again in December of this year. He is not sure how many. He was also told that he has one of his bypasses to the LAD that is very narrowed and might need stenting if he has further symptoms. It was recommended that he come in for evaluation if he develops symptoms with transfer back down to [place] where he had the most recent bypass. At this time sitting in the room he is at his baseline. But he felt too tired and short of breath with exertion to go to cardiac rehab today so they referred him here. He is taking all his medications. He states he has not gained any weight or does not feel any fluid gain. He has not had fevers chills sweats or coughing. He does smoke about a cigarette a week and was counseled on the importance of stopping. He is taking his Effient and his aspirin. He has not had COVID vaccines but he did have COVID back in December. He has no fevers chills or GI symptoms. Patient also has a known ejection fraction of approximately 30 to 35%. ICD was held because they wanted to recheck this as he recovered from COVID. [facility] Medical History Acute hypoxemic respiratory failure due to COVID-19 (12/28/21) Atherosclerosis of coronary artery bypass graft of [place] heart with angina pectoris Atherosclerosis of coronary artery of [place] heart without angina pectoris Chronic systolic (congestive) heart failure Diabetes mellitus, new onset Essential (primary) hypertension History of non-ST elevation myocardial infarction (NSTEMI) (12/26/21) History of ST elevation myocardial infarction (STEMI) (06/22/20) Hyperlipidemia Ischemic cardiomyopathy 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) Home Medications aspirin 81 mg PO DAILY@0800 08/04/20 [History Last Taken 02/06/21] cholecalciferol (vitamin D3) 2,000 unit PO DAILY 06/22/20 [History Last Taken 02/06/21] nitroglycerin 0.4 mg SUBLINGUAL Q5M PRN #10 tab.subl 01/15/21 [Rx Last Taken Unknown] blood sugar diagnostic #10 ea 12/01/21 [Rx Last Taken Unknown] blood-glucose meter #1 ea 12/01/21 [Rx Last Taken Unknown] furosemide 40 mg tablet 40 mg PO .PRN PRN tab 12/05/21 [History Last Taken Unknown] dapagliflozin 10 mg tablet 10 mg PO DAILY #90 tab 01/18/22 [Rx Last Taken Unknown] multivitamin 1 tab PO DAILY 01/18/22 [History Last Taken Unknown] metformin 500 mg tablet 500 mg PO BID tab 02/07/22 [History Last Taken Unknown] metoprolol succinate 50 mg tablet,extended release 24 hr 50 mg PO DAILY #90 tab 02/07/22 [Rx Last Taken Unknown] sacubitril 49 mg-valsartan 51 mg tablet 1 tab PO BID #120 tab 02/07/22 [Rx Last Taken Unknown] blood sugar diagnostic #50 ea 03/07/22 [Rx Last Taken Unknown] atorvastatin 40 mg tablet 40 mg PO QHS #90 tab 03/13/22 [Rx Last Taken Unknown] prasugrel 10 mg tablet 10 mg PO DAILY #90 tab 03/13/22 [Rx Last Taken Unknown] Allergy/AdvReac Type Severity Reaction Status Date / Time varenicline [From Chantix] Allergy Intermediate change in Verified 03/31/22 14:27 mental status adhesive tape AdvReac Rash Verified 03/31/22 14:27 Family History Father Myocardial infarction, Onset Age: 39 Mother Myocardial infarction, Onset Age: 40 Brother Myocardial infarction, Onset Age: 39 Brother Myocardial infarction, Onset Age: 36 Surgical History H/O coronary artery bypass surgery (07/26/21) History of coronary artery stent placement (01/02/22) History of left heart catheterization (12/27/21) History of myringotomy History of right heart catheterization (12/28/21) Social History household members: significant other Smoking Status: Light Smoker (<10/day) how long ago did patient quit smoking: Quit 07/17/21, smoked 1.5-2 ppd since teen until quit. alcohol intake: never substance use type: does not use caffeine: Yes Type: coffee Number of servings: 3 ROS ROS ED Constitutional Constitutional ED: Denies chills or fever(s) Eyes Eyes: Denies blurry vision ENT ENT ED: Denies rhinorrhea or sore throat Cardiovascular Cardiovascular: Reports chest pain; Denies palpitations or racing heartbeat Respiratory/Chest Respiratory/Chest: Reports dyspnea and dyspnea on exertion Gastrointestinal Gastrointestinal: Denies abdominal pain, nausea or vomiting Genitourinary Genitourinary ED: Denies dysuria Musculoskeletal Musculoskeletal: Denies myalgias Integumentary Denies rash Neurologic Neurologic: Denies headache(s) Endocrine Endocrinology: Denies polydipsia or polyuria Hematologic/Lymphatic Hematologic/Lymphatic: Reports easy bleeding and easy bruising Allergic/Immunologic Allergic/Immunologic ED: Denies urticaria EXAM Physical Exam Const Vital Signs: 03/31/22 14:27 03/31/22 15:11 03/31/22 15:13 Temperature 97.7 F L Temperature Source Temporal Pulse Rate 80 80 Respiratory Rate 20 H 18 Respiratory Effort Short of Breath Respiratory Depth Normal Respiratory Pattern Normal Blood Pressure 127/94 H 110/74 Blood Pressure Mean 105 86 Pulse Ox 95 97 Oxygen Delivery Method Room Air Room Air Room Air 03/31/22 16:07 03/31/22 17:08 Temperature Temperature Source Pulse Rate 73 69 Respiratory Rate 15 22 H Respiratory Effort Respiratory Depth Respiratory Pattern Blood Pressure 104/91 H 94/79 Blood Pressure Mean 95 84 Pulse Ox 95 95 Oxygen Delivery Method Room Air Room Air Positive well nourished General Appearance ED: NAD HEENT Reports moist mucous membranes Eyes General Eye ED: Negative for pale conjunctiva or scleral icterus Neck no JVD Resp normal respiratory effort Resp Narrative: Patient had a few basilar crackles but these cleared with some deep breaths. No pain with a deep breath. Cardio regular rhythm Cardio Narrative: Median sternotomy is healing well. GI non-tender Palpation: soft Back/Spine no CVA tenderness and normal to inspection Extremity normal to inspection Extremity Narrative: No edema tenderness or asymmetry. General Extremety ED: Negative for edema or tenderness General Extremity: Negative for edema Neuro oriented x3 Sensorium / Orientation: alert Psych mental status grossly normal Skin Rashes: no rashes MDM MDM MDM Narrative Medical decision making narrative: Patient CBC shows minimal bump in his white count. He has elevated hemoglobins. Electrolytes show no marked abnormalities. Troponin is negative despite 2 days of increasing symptoms. He is comfortable right now. I talked with the patient about calling [facility] to transfer him there. However, he is not comfortable in doing this at this time. I explained that his res habilitation assistant, Dr. Hay is not on-call but I will try to reach him. Patient wanted me to talk to him. I was able to talk to Dr. Hay. This patient's troponin and BNP are normal despite 2 days of symptoms. He has symptoms all the time but this is an increase. He is comfortable and baseline now. Plan will be very close follow- up in the office. Patient really did not want to go to [facility] at this time. We did have a discussion about having an extremely low threshold for return. Lab Data Attestation: I reviewed the patient's lab results. Labs: Laboratory Results - last 24 hr 03/31/22 03/31/22 03/31/22 14:47 14:47 14:47 WBC 13.8 H RBC 5.49 Hgb 17.3 H Hct 52.7 MCV 96.0 H MCH 31.5 MCHC 32.8 RDW Std Deviation 44.8 H RDW Coeff of Jenna 12.6 Plt Count 228 MPV 11.1 Immature Gran % (Auto) 0.400 Neut % (Auto) 71.1 H Lymph % (Auto) 20.2 [place] % (Auto) 6.5 Eos % (Auto) 1.2 Baso % (Auto) 0.6 Absolute Neuts (auto) 9.8 H Absolute Lymphs (auto) 2.78 Nucleated RBC % 0 Sodium 139 Potassium 4.7 Chloride 108 H Carbon Dioxide 27.0 Anion Gap 4 L BUN 10 Creatinine 1.30 Estim Creat Clear Calc 77.10 Est GFR (MDRD) Af Amer 76 Est GFR (MDRD) Non-Af 63 BUN/Creatinine Ratio 7.7 L Glucose 115 H Calcium 9.5 Troponin I High Sens 26 B-Natriuretic Peptide 58.8 Radiography Diagnostic Testing: Clinical Impression(s) from Imaging Studies Chest X-Ray 03/31/22 15:26 IMPRESSION: No acute cardiopulmonary abnormality. Electronically Signed: Johnny Fay MD at 15:49 EDT , Discharge Plan Triage Chief Complaint: Shortness of Breath Other Complaint: Chest Pain ED Provider: Semaj Soto Dx/Rx/DC Orders Clinical Impression: Exertional dyspnea, History of coronary artery disease Instructions: ED Dyspnea Prescriptions: No Action metformin 500 mg tablet 500 mg PO BID RF: 0 metoprolol succinate 50 mg tablet extended release 24 hr 50 mg PO DAILY Qty: 90 RF: 3 Entresto 49-51 mg tablet 1 tab PO BID Qty: 120 RF: 2 furosemide 40 mg tablet 40 mg PO .PRN PRN (Reason: edema/SOB) RF: 0 multivitamin [Daily Multi-Vitamin] Tablet 1 tab PO DAILY RF: 0 Farxiga 10 mg tablet 10 mg PO DAILY Qty: 90 RF: 3 aspirin 81 MG tablet,chewable 81 mg PO DAILY@0800 RF: 0 cholecalciferol (vitamin D3) 2,000 UNIT capsule 2,000 unit PO DAILY RF: 0 nitroglycerin 0.4 MG tablet, sublingual 0.4 mg sublingual Q5M PRN (Reason: Cardiac/Chest Pain) Qty: 10 RF: 0 (DME) blood-glucose meter Kit See Rx Instructions .ROUTE .MEDSUPPLY Qty: 1 RF: 0 (DME) blood sugar diagnostic Strip See Rx Instructions .ROUTE .MEDSUPPLY Qty: 10 RF: 1 (DME) Blood Glucose Test Strip See Rx Instructions .ROUTE .MEDSUPPLY Qty: 50 RF: 11 prasugrel 10 mg tablet 10 mg PO DAILY Qty: 90 RF: 3 atorvastatin 40 mg tablet 40 mg PO QHS Qty: 90 RF: 3 Primary Care Provider: Lisset Avery Referrals: Caio Hay MD [STAFF PHYSICIAN] - As soon as possible Lisset Avery MD [Primary Care Provider] - Disposition Disposition: Home, Self Care
--- NOTE | 2022-03-31 15:26 | RAD_ITS ---
EXAM: XR CHEST, 1 VIEW CLINICAL INDICATION: chest pain TECHNIQUE: Frontal view of the chest. This report was created using [employer] report generation technology. COMPARISON: 03/22/2022 FINDINGS: LUNGS AND PLEURAL SPACES: Unremarkable. No consolidation or edema. No pneumothorax. No effusion. HEART: Heart is normal size. MEDIASTINUM: Central airways and mediastinal contour are unremarkable. BONES/JOINTS: Sternotomy wires and mediastinal clips in place consistent with CABG surgery. SOFT TISSUES: Unremarkable. RAD/Chest 1 View (Portable) IMPRESSION: No acute cardiopulmonary abnormality. Electronically Signed: Johnny Fay MD at 15:49 EDT ,
[2022-03-31 16:07] VITALS: BP 104/91; PULSE 73; RESP 15; O2SAT 95
[2022-03-31 16:46] LABS: BNP,B-Type NATRIURETIC PEPTIDE 58.8 pg/mL (0-100)
[2022-03-31 17:08] VITALS: BP 94/79; PULSE 69; RESP 22; O2SAT 95
[2022-03-31 17:18] VITALS: BP 96/78; PULSE 72; RESP 16; O2SAT 96
== END 2022-03-31 17:22 | disposition home or self-care (01) ==
PROVIDERS: Emergency Provider Emergency Medicine; PCP Internal Medicine; Visit Provider Emergency Medicine
DX: R06.09 Other forms of dyspnea (principal); I11.0 Hypertensive heart disease with heart failure; I50.22 Chronic systolic (congestive) heart failure; I25.5 Ischemic cardiomyopathy; I25.10 Atherosclerotic heart disease of native coronary artery without angina pectoris; E78.5 Hyperlipidemia, unspecified; F17.200 Nicotine dependence, unspecified, uncomplicated; I25.2 Old myocardial infarction; Z79.82 Long term (current) use of aspirin; Z79.899 Other long term (current) drug therapy; Z86.16 Personal history of COVID-19; Z95.5 Presence of coronary angioplasty implant and graft
CPT/HCPCS: 71045; 80048; 83880; 84484; 85025; 93005; 99283; A4216

== ENCOUNTER 2022-04-05 00:27 | Emergency (ER) | payer MEDICAID, SELFPAY ==
[2022-04-05] VITALS (21 sets, daily range): BP systolic 94–142; BP diastolic 59–92; PULSE 59–93; RESP 13–22; TEMP 36.7; O2SAT 90–100; BMI 31.1
--- NOTE | 2022-04-05 00:32 | EKG12_ITS ---
Test Reason : CP Blood Pressure : / mmHG Vent. Rate : 074 BPM Atrial Rate : 074 BPM P-R Int : 138 ms QRS Dur : 112 ms QT Int : 384 ms P-R-T Axes : 051 -58 083 degrees QTc Int : 426 ms Normal sinus rhythm Left anterior fascicular block Septal infarct , age undetermined Abnormal ECG Confirmed by LANE BOWLES, MIREYA ([id number]), editor trade journal DERREK OWEN ([id number]) on 04/07/2022 10:47:00 A M Referred By: Confirmed By:JUAN SHERMAN MD
--- NOTE | 2022-04-05 00:32 | RAD_ITS ---
STUDY: X-RAY CHEST REASON FOR EXAM: Male, 47 years old. chest pain TECHNIQUE: AP portable upright COMPARISON: 03/31/2022 FINDINGS: The lungs are clear and expanded. There is no demonstrated pleural abnormality. Normal size heart. There are mediastinal sutures. Normal mediastinum and sarah. Normal visualized pulmonary arteries. Normal visualized aortic arch and descending thoracic aorta. Normal visualized thoracic spine. Normal visualized ribs, clavicles, and shoulders. There is no demonstrated abnormality of the visualized soft tissue structures of the upper abdomen. RAD/Chest 1 View (Portable) IMPRESSION: Normal x-ray examination of the chest. Electronically Signed: Hiram Miles MD at 1:16 EDT ,
[2022-04-05] MEDS: Aspirin 81 MG TAB.CHEW 324 MG PO (00:37)
[2022-04-05] MEDS: Nitroglycerin SL (ED/IMG/CATH) 0.4 MG TABLET SL ×3 (00:45→00:54)
--- NOTE | 2022-04-05 00:45 | ED.VIS.CHEST ---
HPI History of Present Illness Chief Complaint: Chest Pain Informant: patient Narrative Narrative: 47-year-old male presenting to the emergency department chest pain. Patient has an extensive cardiac history including multiple stents and open heart surgery. Last heart catheterization in December of this year at [facility]. While he was there he had COVID. 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 Because of his COVID was elected not to proceed. 5 days ago the patient presented to the emergency department with dyspnea. His troponins were negative and he did not wish to go to [facility]. Tonight the pressure that he has been feeling in his chest turned into a pain. He states that this pain radiates to the left shoulder and arm and is very similar in nature to when he has his heart attacks. [facility] Medical History Acute hypoxemic respiratory failure due to COVID-19 (12/28/21) Atherosclerosis of coronary artery bypass graft of [place] heart with angina pectoris Atherosclerosis of coronary artery of [place] heart without angina pectoris Chronic systolic (congestive) heart failure Diabetes mellitus, new onset Essential (primary) hypertension History of non-ST elevation myocardial infarction (NSTEMI) (12/26/21) History of ST elevation myocardial infarction (STEMI) (06/22/20) Hyperlipidemia Ischemic cardiomyopathy 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) Home Medications aspirin 81 mg PO DAILY@0800 06/22/20 [History Last Taken 02/06/21] cholecalciferol (vitamin D3) 2,000 unit PO DAILY 06/22/20 [History Last Taken 02/06/21] nitroglycerin 0.4 mg SUBLINGUAL Q5M PRN #10 tab.subl 01/15/21 [Rx Last Taken Unknown] blood sugar diagnostic #10 ea 12/01/21 [Rx Last Taken Unknown] blood-glucose meter #1 ea 12/01/21 [Rx Last Taken Unknown] furosemide 40 mg tablet 40 mg PO .PRN PRN tab 12/05/21 [History Last Taken Unknown] dapagliflozin 10 mg tablet 10 mg PO DAILY #90 tab 01/18/22 [Rx Last Taken Unknown] multivitamin 1 tab PO DAILY 01/18/22 [History Last Taken Unknown] metformin 500 mg tablet 500 mg PO BID tab 02/07/22 [History Last Taken Unknown] metoprolol succinate 50 mg tablet,extended release 24 hr 50 mg PO DAILY #90 tab 02/07/22 [Rx Last Taken Unknown] sacubitril 49 mg-valsartan 51 mg tablet 1 tab PO BID #120 tab 02/07/22 [Rx Last Taken Unknown] blood sugar diagnostic #50 ea 03/07/22 [Rx Last Taken Unknown] atorvastatin 40 mg tablet 40 mg PO QHS #90 tab 03/13/22 [Rx Last Taken Unknown] prasugrel [Effient] 10 mg PO DAILY 04/05/22 [History Last Taken Unknown] Allergy/AdvReac Type Severity Reaction Status Date / Time varenicline [From Chantix] Allergy Intermediate change in Verified 04/05/22 00:31 mental status adhesive tape AdvReac Rash Verified 04/05/22 00:31 Family History Father Myocardial infarction, Onset Age: 39 Mother Myocardial infarction, Onset Age: 40 Brother Myocardial infarction, Onset Age: 39 Brother Myocardial infarction, Onset Age: 36 Surgical History H/O coronary artery bypass surgery (07/26/21) History of coronary artery stent placement (01/02/22) History of left heart catheterization (12/27/21) History of myringotomy History of right heart catheterization (12/28/21) Social History household members: significant other Smoking Status: Light Smoker (<10/day) how long ago did patient quit smoking: Quit 07/17/21, smoked 1.5-2 ppd since teen until quit. alcohol intake: never substance use type: does not use caffeine: Yes Type: coffee Number of servings: 3 ROS ROS ED ROS Narrative Fatigue Constitutional Constitutional ED: Denies chills or weight loss Eyes Eyes: Denies change in vision or diplopia ENT ENT ED: Denies ear pain, rhinorrhea or sore throat Cardiovascular Cardiovascular: Reports chest pain; Denies orthopnea, palpitations or racing heartbeat Respiratory/Chest Respiratory/Chest: Reports dyspnea and dyspnea on exertion; Denies cough or orthopnea Gastrointestinal Gastrointestinal: Denies abdominal pain, diarrhea, nausea or vomiting Genitourinary Genitourinary ED: Denies dysuria, hematuria or urinary frequency Musculoskeletal Musculoskeletal: Denies arthralgias or myalgias Integumentary Denies abscess or rash Neurologic Neurologic: Denies headache(s) or weakness Psychiatric Psychiatric: Denies anxiety, depression, suicidal ideation or suicidal thoughts Endocrine Endocrinology: Denies polydipsia, polyphagia or polyuria Allergic/Immunologic Allergic/Immunologic ED: Denies mouth swelling, tongue swelling or urticaria EXAM Physical Exam Const Vital Signs: 04/05/22 00:28 04/05/22 00:33 04/05/22 00:45 Temperature 98.1 F Temperature Source Temporal Pulse Rate 80 76 Respiratory Rate 18 Respiratory Effort Short of Breath Blood Pressure 142/83 H 118/92 H Blood Pressure Mean 102 Pulse Ox 100 Oxygen Delivery Method Room Air 04/05/22 00:50 04/05/22 00:54 04/05/22 01:27 Temperature Temperature Source Pulse Rate 86 93 74 Respiratory Rate 20 H Respiratory Effort Blood Pressure 129/82 H 109/77 99/82 H Blood Pressure Mean 87 Pulse Ox 91 Oxygen Delivery Method Room Air 04/05/22 02:00 04/05/22 03:37 Temperature Temperature Source Pulse Rate 72 62 Respiratory Rate 19 H 16 Respiratory Effort Blood Pressure 96/68 123/75 H Blood Pressure Mean 77 91 Pulse Ox 96 98 Oxygen Delivery Method Room Air Positive well nourished and well developed General Appearance ED: well developed HEENT Reports normocephalic, head/scalp atraumatic, TM's clear and moist mucous membranes normocephalic and atraumatic Tympanic Membrane ED: Yes TM's clear Eyes PERRL and EOMs intact bilaterally Neck no lymphadenopathy, supple and no JVD Resp normal respiratory effort and clear to auscultation bilaterally Cardio regular rate, regular rhythm and no murmurs GI normal to inspection, nondistended, normoactive bowel sounds and non-tender Palpation: soft Back/Spine no CVA tenderness and normal ROM Extremity normal to inspection General Extremety ED: Negative for edema General Extremity: Negative for edema Neuro oriented x3 and CN's II-XII intact bilaterally Sensorium / Orientation: alert Motor Exam: strength 5/5 throughout Psych mental status grossly normal Mood & Affect: Negative for depressed or tearful Skin no rashes or lesions noted and no wounds Heart Score History: Highly Suspicious ECG: Normal Age: >45 - <65 years Risk Factors: >/= 3 Risk Factors or History of CAD Score: 5 MDM MDM MDM Narrative Medical decision making narrative: Patient got symptomatic relief with the nitroglycerin. Though he continues to have the vague chest pressure that he normally has. First and second heart enzymes are within the normal range. Creatinine 1.24. My interpretation of the chest x-ray is no acute process. He is remained in a sinus rhythm on the monitor. Case was discussed and reviewed with [facility]. They currently do not have a bed at this hour of the night. They will accept him in transfer later in the day when a bed becomes available. Lab Data Attestation: I reviewed the patient's lab results. Labs: Laboratory Results - last 24 hr 04/05/22 04/05/22 04/05/22 00:40 00:40 03:20 WBC 13.2 H RBC 5.22 Hgb 16.7 H Hct 48.3 MCV 92.5 MCH 32.0 MCHC 34.6 D RDW Std Deviation 43.7 RDW Coeff of Jenna 12.9 Plt Count 221 MPV 11.3 Immature Gran % (Auto) 0.200 Neut % (Auto) 56.8 Lymph % (Auto) 31.4 Kimball % (Auto) 8.9 Eos % (Auto) 2.1 Baso % (Auto) 0.6 Absolute Neuts (auto) 7.5 Absolute Lymphs (auto) 4.15 Nucleated RBC % 0 Sodium 141 Potassium 3.9 Chloride 109 H Carbon Dioxide 25.0 Anion Gap 7 BUN 10 Creatinine 1.24 Estim Creat Clear Calc 80.83 Est GFR (MDRD) Af Amer 80 Est GFR (MDRD) Non-Af 66 BUN/Creatinine Ratio 8.1 L Glucose 93 Calcium 9.1 Troponin I High Sens 28 33 Radiography Diagnostic Testing: Clinical Impression(s) from Imaging Studies Chest X-Ray 04/05/22 00:32 IMPRESSION: Normal x-ray examination of the chest. Electronically Signed: Hiram Miles MD at 1:16 EDT , EKG Initial EKG: Attestation: I personally reviewed and interpreted this EKG as follows: Comments: Normal sinus rhythm with a ventricular rate of 74 bpm. 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 Prescriptions: No Action metformin 500 mg tablet 500 mg PO BID RF: 0 metoprolol succinate 50 mg tablet extended release 24 hr 50 mg PO DAILY Qty: 90 RF: 3 Entresto 49-51 mg tablet 1 tab PO BID Qty: 120 RF: 2 furosemide 40 mg tablet 40 mg PO .PRN PRN (Reason: edema/SOB) RF: 0 multivitamin [Daily Multi-Vitamin] Tablet 1 tab PO DAILY RF: 0 Farxiga 10 mg tablet 10 mg PO DAILY Qty: 90 RF: 3 aspirin 81 MG tablet,chewable 81 mg PO DAILY@0800 RF: 0 cholecalciferol (vitamin D3) 2,000 UNIT capsule 2,000 unit PO DAILY RF: 0 nitroglycerin 0.4 MG tablet, sublingual 0.4 mg sublingual Q5M PRN (Reason: Cardiac/Chest Pain) Qty: 10 RF: 0 (DME) blood-glucose meter Kit See Rx Instructions .ROUTE .MEDSUPPLY Qty: 1 RF: 0 (DME) blood sugar diagnostic Strip See Rx Instructions .ROUTE .MEDSUPPLY Qty: 10 RF: 1 prasugrel [Effient] 10 mg tablet 10 mg PO DAILY RF: 0 (DME) Blood Glucose Test Strip See Rx Instructions .ROUTE .MEDSUPPLY Qty: 50 RF: 11 atorvastatin 40 mg tablet 40 mg PO QHS Qty: 90 RF: 3 Primary Care Provider: Lisset Avery Referrals: Lisset Avery MD [Primary Care Provider] - Disposition Disposition: Acute Care Hospital Discharge Location: [facility]
[2022-04-05 00:49] LABS: Absolute Lymphocyte Count 4.15 X10^3/uL (0.83-4.51); Absolute Neutrophil Count 7.5 X10^3/uL (2.0-7.7); Basophil# 0.08 X10^3/uL; Basophil% 0.6 % (0-1); Eosinophil# 0.28 X10^3/uL; Eosinophils% 2.1 % (0-5); Hematocrit 48.3 % (40-54); Hemoglobin 16.7 g/dL (13.0-16.5); Lymphocyte # 4.15 X10^3/ul (0.83-4.51); Lymphocyte % 31.4 % (19-41); Mean Corp Hgb Conc 34.6 g/dL (32-36); Mean Corpuscular Volume 92.5 fL (80-94); Mean Platelet Vol. 11.3 fl (6.2-12.0); Monocyte# 1.17 X10^3/uL; Monocyte% 8.9 % (0-10); NRBC Flagged by Analyzer 0 % (0-5); Neutrophil # 7.51 X10^3/uL (2.7-7.7); Neutrophil % 56.8 % (47-70); POSITIVE MORPHOLOGY YES; Platelet Count 221 K/mm3 (150-450); RBC Distribution Width CV 12.9 % (11.6-14.6); RBC Distribution Width SD 43.7 fl (35.1-43.9); Red Blood Count 5.22 M/mm3 (4.6-6.2); White Blood Count 13.2 K/mm3 (4.4-11.0)
[2022-04-05 00:50] LABS: Differential Indicated SCAN CRITERIA MET
[2022-04-05 01:12] LABS: Anion Gap 7 (5-15); BUN 10 mg/dL (7-18); BUN/Creat Ratio 8.1 RATIO (10-20); Calcium,Total 9.1 mg/dL (8.5-10.1); Chloride 109 mmol/L (98-107); Creatinine, Serum 1.24 mg/dL (0.70-1.30); EST Glomerular Filtration Rate 66 mL/min (>60); Est Glom Filt Rate - Afr Amer 80 mL/min (>60); Estimated Creatinine Clearance 80.83 ml/min; Glucose 93 mg/dL (74-106); Potassium 3.9 mmol/L (3.5-5.1); Sodium Level 141 mmol/L (136-145); Troponin-I HS (w/2H Reflex) 28 pg/mL (3.0-78.0)
--- NOTE | 2022-04-05 03:35 | CCN.REFER ---
As of 229 pt awaiting transfer to [facility]. They have no beds and ER is full. We are to await a bed available there. If one is not available at 0830, we will admit here.
[2022-04-05 03:55] LABS: Troponin-I HS 33 pg/mL (3.0-78.0)
--- NOTE | 2022-04-05 08:51 | NURSING ---
I CALLED [facility] TO CHECK ON BED STATUS AND THEY SAID IT SHOULD BE IN A FEW HOURS. DR CLAUDIO OJEDA IS THE ACCEPTING
--- NOTE | 2022-04-05 12:31 | EKG12_ITS ---
Test Reason : Blood Pressure : / mmHG Vent. Rate : 070 BPM Atrial Rate : 070 BPM P-R Int : 144 ms QRS Dur : 108 ms QT Int : 400 ms P-R-T Axes : 062 -63 090 degrees QTc Int : 432 ms Normal sinus rhythm Left anterior fascicular block Septal infarct , age undetermined Abnormal ECG Confirmed by LANE BOWLES, MIREYA ([id number]), editor at large DERREK OWEN ([id number]) on 04/07/2022 11:01:53 A M Referred By: Confirmed By:JUAN SHERMAN MD
--- NOTE | 2022-04-05 14:29 | ED.RN ---
Attempt to call report to Leonardo SEYMOUR at [facility]. Nurse in the middle of discharge and will call back.
--- NOTE | 2022-04-05 17:05 | ED.RN ---
Per Sarah medic 11 will be here within the hour.
--- NOTE | 2022-04-05 17:07 | ED.RN ---
pt was found in the room fully dressed and ready to leave. pt still had iv in left ac. he states i need some fresh air. pt was informed that if he left and returned we would have to restart his care. pt expressed understanding and stated i could have driven myself. he agreed to stay. pt placed on the monitor and meal tray ordered. i reassured patient that we are doing everything within our power to transfer him in a timely manner. niya arevalo rn [id number]
--- NOTE | 2022-04-05 18:40 | ED.RN ---
AFTER ARRIVAL OF AMBULANCE PT STATED I'VE BEEN HERE TO LONG. PT LEFT AMA. EXTENDED CONVERSATION HAD EARLY WITH PATIENT ABOUT DELAY AND PLAN OF CARE. Paula ZAPATA RN [id number]
--- NOTE | 2022-04-05 18:47 | ED.RN ---
This RN spoke with patient about why he did not want to be transferred to [facility] now that the transport crew was here to take him. Patient stated that he was tired of being lied to and that the transport crew had told him there has been a transport crew available in [place] to take him. During his stay this RN was informed that the patient's transport crew was diverted to more critical patients twice. This RN had kept the patient up to date on the status of his transfer and continually apologized for the delays. Until the point of the transport crew arriving the patient was agreeable to the transfer.
== END 2022-04-05 18:45 | disposition left against medical advice (07) ==
PROVIDERS: Emergency Provider Emergency Medicine; PCP Internal Medicine; Visit Provider Emergency Medicine
DX: I25.709 Atherosclerosis of coronary artery bypass graft(s), unspecified, with unspecified angina pectoris (principal); I11.0 Hypertensive heart disease with heart failure; I50.22 Chronic systolic (congestive) heart failure; E11.9 Type 2 diabetes mellitus without complications; I25.5 Ischemic cardiomyopathy; E78.5 Hyperlipidemia, unspecified; I25.2 Old myocardial infarction; Z87.891 Personal history of nicotine dependence; Z95.5 Presence of coronary angioplasty implant and graft; Z79.82 Long term (current) use of aspirin; Z79.84 Long term (current) use of oral hypoglycemic drugs
CPT/HCPCS: 71045; 80048; 84484; 85025; 93005; 99285; A4216

== ENCOUNTER → 2022-05-01 | Outpatient (CLI) | payer MEDICAID, SELFPAY ==
[2022-05-01 11:34] LABS: AST(SGOT) 22 U/L (15-37); Alanine Aminotransfer ALT/SGPT 31 U/L (16-61); Albumin, Serum 3.9 g/dL (3.2-5.0); Alkaline Phosphatase 103 U/L (45-117); Bilirubin, Direct 0.11 mg/dL (0.00-0.30); Cholesterol 247 mg/dL (200); High Density Lipoprotein 30 mg/dL; Protein, Total 7.9 g/dL (6.4-8.2); Triglycerides 219 mg/dL; Very Low Density Lipoprotein 44 mg/dL (5-40)
== END | disposition home or self-care (01) ==
LOC: LAB 10:11
PROVIDERS: PCP Internal Medicine; Referring Provider Internal Medicine Cardiovascular Disease; Visit Provider Internal Medicine Cardiovascular Disease
DX: E78.00 Pure hypercholesterolemia, unspecified (principal)
CPT/HCPCS: 36415; 80061; 80076

== ENCOUNTER → 2022-10-20 | Outpatient (CLI) | payer MEDICAID, SELFPAY ==
[2022-05-31 15:20] VITALS: BMI 30.6
[2022-10-20 11:10] LABS: Absolute Lymphocyte Count 3.44 X10^3/uL (0.83-4.51); Absolute Neutrophil Count 5.8 X10^3/uL (2.0-7.7); Basophil# 0.09 X10^3/uL; Basophil% 0.8 % (0-1); Eosinophil# 0.36 X10^3/uL; Eosinophils% 3.4 % (0-5); Hematocrit 49.3 % (40-54); Hemoglobin 16.7 g/dL (13.0-16.5); Lymphocyte # 3.44 X10^3/ul (0.83-4.51); Lymphocyte % 32.3 % (19-41); Mean Corp Hgb Conc 33.9 g/dL (32-36); Mean Corpuscular Hgb 32.1 pg (27.0-32.0); Mean Corpuscular Volume 94.8 fL (80-94); Mean Platelet Vol. 11.5 fl (6.2-12.0); Monocyte# 0.94 X10^3/uL; Monocyte% 8.8 % (0-10); NRBC Flagged by Analyzer 0 % (0-5); Neutrophil % 54.4 % (47-70); Platelet Count 192 K/mm3 (150-450); RBC Distribution Width CV 12.3 % (11.6-14.6); RBC Distribution Width SD 43.5 fl (35.1-43.9); White Blood Count 10.7 K/mm3 (4.4-11.0)
[2022-10-20 11:34] LABS: Vitamin D,25 Hydroxy 19.6 ng/mL
[2022-10-20 11:49] LABS: AST(SGOT) 12 U/L (15-37); Alanine Aminotransfer ALT/SGPT 26 U/L (16-61); Albumin, Serum 3.7 g/dL (3.2-5.0); Alkaline Phosphatase 93 U/L (45-117); Anion Gap 3 (5-15); BUN 11 mg/dL (7-18); BUN/Creat Ratio 8.4 RATIO (10-20); Calcium,Total 8.9 mg/dL (8.5-10.1); Chloride 107 mmol/L (98-107); Cholesterol 305 mg/dL (200); Creatinine, Serum 1.31 mg/dL (0.70-1.30); EST Glomerular Filtration Rate 62 mL/min (>60); Est Glom Filt Rate - Afr Amer 75 mL/min (>60); Globulin 3.7 g/dL (2.2-4.2); Glucose 120 mg/dL (74-106); High Density Lipoprotein 36 mg/dL; PSA,Total - Annual Screen 0.56 ng/mL (0.00-4.00); Potassium 3.9 mmol/L (3.5-5.1); Protein, Total 7.4 g/dL (6.4-8.2); Sodium Level 139 mmol/L (136-145); Thyroid Stim Hormone (TSH) 3.29 uIU/mL (0.358-3.74); Triglycerides 226 mg/dL; Very Low Density Lipoprotein 45 mg/dL (5-40)
== END | disposition home or self-care (01) ==
PROVIDERS: PCP Internal Medicine; Referring Provider Internal Medicine; Visit Provider Internal Medicine
DX: E11.9 Type 2 diabetes mellitus without complications (principal); I10 Essential (primary) hypertension; E78.5 Hyperlipidemia, unspecified; E66.9 Obesity, unspecified; F32.A Depression, unspecified; F41.9 Anxiety disorder, unspecified; Z95.1 Presence of aortocoronary bypass graft; Z95.5 Presence of coronary angioplasty implant and graft
CPT/HCPCS: 84153; 36415; 80053; 80061; 82306; 84443; 85025; G0103

== ENCOUNTER 2022-10-22 02:24 | Emergency (ER) | payer MEDICAID, SELFPAY ==
[2022-05-31 15:20] VITALS: BMI 30.6
[2022-10-22 02:27] VITALS: BP 148/106; PULSE 85; RESP 22; TEMP 36.3; O2SAT 97; BMI 32.0
--- NOTE | 2022-10-22 02:39 | EKG12_ITS ---
Test Reason : NUMBNESS Blood Pressure : / mmHG Vent. Rate : 082 BPM Atrial Rate : 082 BPM P-R Int : 142 ms QRS Dur : 112 ms QT Int : 376 ms P-R-T Axes : 053 -50 085 degrees QTc Int : 439 ms Normal sinus rhythm Left anterior fascicular block Minimal voltage criteria for LVH, may be normal variant ( Lueders product ) Septal infarct , age undetermined Abnormal ECG Confirmed by NEETU BOWLES, THOMAS ([id number]), advertising editor DERREK OWEN ([id number]) on 10/23/2022 10:01:15 AM Referred By: Confirmed By:THOMAS DE ANDA MD
--- NOTE | 2022-10-22 02:39 | CT_ITS ---
STUDY: CTA HEAD AND NECK WITH CONTRAST REASON FOR EXAM: Male, 47 years old. NUMBNESS AND TINGLING TO LT CHEEK,ARM AND LEG X 45 MINUTES,ELEVATED BP. HX:DIABETES,HTN,HLD,CHF,NV WITH STENTS RADIATION DOSAGE (If Supplied By Facility): CTDIvol = ( 25.56 ) mGy, DLP = ( 1571.98 ) mGycm TECHNIQUE: Precontrast head CT performed. CT angiography was performed with a multi-detector CT scanner. Data acquisition was obtained from the skull base through the vertex following intravenous administration of IV 100mL Isovue-370 with MIP reconstructed images. Individualized dose optimization techniques were used for this CT. COMPARISON: No relevant priors. FINDINGS: Precontrast head CT shows no evidence of infarct, hemorrhage or mass. ASPECTS stroke score 10 out of 10. Cervical ICA narrowing is measured per NASCET criteria (% ICA stenosis = (1 - [narrowest ICA diameter/diameter normal distal cervical ICA]) x 100. CTA NECK: Aortic arch: Left-sided aortic arch with no significant narrowing of the great vessel origins or subclavian arteries. Right carotids: Right CCA: No significant narrowing or dissection. Right ICA: No significant narrowing or dissection. Right ECA: No significant narrowing or dissection. Left carotids Left CCA:No significant narrowing or dissection. Left ICA: No significant narrowing or dissection. Left ECA: No significant narrowing or dissection. Vertebrals: Left dominant. No dissection or significant stenosis. CTA HEAD: Intracranial carotids:Normal course and caliber. MCAs:No aneurysm or significant stenosis. ACAs:No aneurysm or significant stenosis. Basilar:Normal caliber. No aneurysm. compensation consultant:No aneurysm or significant narrowing. Fed by dominant P1 segments bilaterally. Patent bilateral posterior and anterior inferior and superior cerebellar arteries are identified. No evidence of AVM or aneurysm. Nonvascular structures: Sternotomy wires partially visible. The patient is edentulous. Mild emphysema lung apices. No acute findings. CT/CTA Head AND Neck W/ Contrast IMPRESSION: No significant arterial narrowing in the head or neck. Electronically Signed: Vick Lilly MD at 3:47 EST Reading Location ID and State: 1952 [place] Tel , Service support ,
[2022-10-22 03:00] LABS: Absolute Lymphocyte Count 3.91 X10^3/uL (0.83-4.51); Absolute Neutrophil Count 7.4 X10^3/uL (2.0-7.7); Basophil# 0.11 X10^3/uL; Basophil% 0.8 % (0-1); Eosinophil# 0.36 X10^3/uL; Eosinophils% 2.7 % (0-5); Hematocrit 49.7 % (40-54); Hemoglobin 17.4 g/dL (13.0-16.5); Lymphocyte # 3.91 X10^3/ul (0.83-4.51); Lymphocyte % 29.3 % (19-41); Mean Corpuscular Hgb 33.1 pg (27.0-32.0); Mean Corpuscular Volume 94.7 fL (80-94); Mean Platelet Vol. 11.6 fl (6.2-12.0); Monocyte# 1.51 X10^3/uL; Monocyte% 11.3 % (0-10); NRBC Flagged by Analyzer 0 % (0-5); Neutrophil # 7.43 X10^3/uL (2.7-7.7); Neutrophil % 55.7 % (47-70); POSITIVE DIFFERENTIAL YES; Platelet Count 204 K/mm3 (150-450); RBC Distribution Width CV 12.3 % (11.6-14.6); RBC Distribution Width SD 43.1 fl (35.1-43.9); Red Blood Count 5.25 M/mm3 (4.6-6.2); White Blood Count 13.4 K/mm3 (4.4-11.0)
[2022-10-22 03:02] LABS: Differential Indicated SCAN CRITERIA MET
--- NOTE | 2022-10-22 03:10 | RAD_ITS ---
STUDY: X-RAY CHEST REASON FOR EXAM: Male, 47 years old. Paresthesias. TECHNIQUE: AP COMPARISON: 02/04/2020 CXR FINDINGS: LUNGS: No apparent pneumothorax, pneumonia, pleural effusion, or edema. MEDIASTINUM, MADDI: Cardiac silhouette, maddi and mediastinal contours are within normal limits. Mediastinal surgical clips. BONES: No acute osseous abnormality. Sternotomy wires. UPPER ABDOMEN: No evidence of free air under the diaphragm. RAD/Chest 1 View (Portable) IMPRESSION: No acute findings. Previous sternotomy. Electronically Signed: Vick Lilly MD at 3:32 EST Reading Location ID and State: [address] [place] [address] Tel , Service support ,
[2022-10-22 03:12] LABS: Anion Gap 6 (5-15); BUN 13 mg/dL (7-18); BUN/Creat Ratio 9.8 RATIO (10-20); Calcium,Total 8.5 mg/dL (8.5-10.1); Chloride 108 mmol/L (98-107); Creatinine, Serum 1.33 mg/dL (0.70-1.30); EST Glomerular Filtration Rate 61 mL/min (>60); Est Glom Filt Rate - Afr Amer 74 mL/min (>60); Estimated Creatinine Clearance 75.36 ml/min; Glucose 106 mg/dL (74-106); Magnesium 2.3 mg/dL (1.6-2.6); Potassium 3.8 mmol/L (3.5-5.1); Sodium Level 142 mmol/L (136-145)
[2022-10-22 03:14] VITALS: BP 122/83; PULSE 79; RESP 18; O2SAT 95
[2022-10-22 03:14] LABS: International Normalized Ratio 0.9; Prothrombin Time (Protime)PT. 11.9 SECONDS (11.7-14.9)
[2022-10-22 03:15] LABS: Partial Thromboplast Time 26.7 Seconds (24.1-36.2)
[2022-10-22 03:26] LABS: Macrocytosis RARE
[2022-10-22 04:22] VITALS: BP 100/80; PULSE 74; RESP 20; O2SAT 96
--- NOTE | 2022-10-22 04:22 | EDS_ITS ---
HPI History of Present Illness Chief Complaint: Numb/Ting Narrative Narrative: Patient is a 47-year-old male with past medical history of diabetes CAD hypertension and heart failure. He states that this evening/morning he was walking to the kitchen when his left arm began to spasm and shake uncontrollably. He states this lasted for a few minutes and then resolved and then he felt like there was numbness and tingling present in the arm. He states that this occurred approximately 45 minutes prior to arrival. He denies any recent trauma or excessive activity. He denies any chest pain palpitations or shortness of breath associated with this. He states he was concerned about a p ossible stroke because of the sudden onset of symptoms and therefore comes in for evaluation. [facility] Medical History Acute hypoxemic respiratory failure due to COVID-19 (12/28/21) Atherosclerosis of coronary artery bypass graft of [place] heart with angina pectoris Atherosclerosis of coronary artery of [place] heart without angina pectoris Chronic systolic (congestive) heart failure Diabetes mellitus, new onset Essential (primary) hypertension History of non-ST elevation myocardial infarction (NSTEMI) (12/26/21) History of ST elevation myocardial infarction (STEMI) (06/22/20) Hyperlipidemia Ischemic cardiomyopathy 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) Home Medications aspirin 81 mg chewable tablet 81 mg PO DAILY@0800 06/22/20 [History Last Taken 02/06/21] cholecalciferol (vitamin D3) 50 mcg (2,000 unit) capsule 2,000 unit PO DAILY 06/22/20 [History Last Taken 02/06/21] nitroglycerin 0.4 mg sublingual tablet 0.4 mg sublingual Q5M PRN Cardiac/Chest Pain ##10 01/15/21 [Rx Last Taken Unknown] blood sugar diagnostic #10 ea 12/01/21 [Rx Last Taken Unknown] blood-glucose meter #1 ea 12/01/21 [Rx Last Taken Unknown] furosemide 40 mg tablet 40 mg PO .PRN PRN edema/SOB 12/05/21 [History Last Taken Unknown] dapagliflozin 10 mg tablet (Farxiga) 10 mg PO DAILY #90 tabs 01/18/22 [Rx Last Taken Unknown] multivitamin (Daily Multi-Vitamin tablet) 1 tab PO DAILY 01/18/22 [History Last Taken Unknown] blood sugar diagnostic (Blood Glucose Test strips) #50 ea 03/07/22 [Rx Last Taken Unknown] atorvastatin 40 mg tablet 40 mg PO QHS #90 tabs 03/13/22 [Rx Last Taken Unknown] prasugrel 10 mg tablet (Effient) 10 mg PO DAILY 04/05/22 [History Last Taken Unknown] spironolactone 25 mg tablet 25 mg PO DAILY #90 tabs 04/20/22 [Rx Last Taken Unknown] ezetimibe 10 mg tablet 10 mg PO DAILY #90 tabs 05/09/22 [Rx Last Taken Unknown] metoprolol succinate 100 mg tablet,extended release 24 hr 150 mg PO DAILY 08/04/22 [History Last Taken Unknown] sacubitril 49 mg-valsartan 51 mg tablet (Entresto) 1 tab PO BID 10/22/22 [History Last Taken Unknown] Allergy/AdvReac Type Severity Reaction Status Date / Time varenicline [From Chantix] Allergy Intermediate change in Verified 10/22/22 0 2:37 mental status metformin AdvReac Mild Diarrhea Verified 10/22/22 02:37 adhesive tape AdvReac Rash Verified 10/22/22 02:37 Family History Father Myocardial infarction, Onset Age: 39 Mother Myocardial infarction, Onset Age: 40 Brother Myocardial infarction, Onset Age: 39 Brother Myocardial infarction, Onset Age: 36 Surgical History H/O coronary artery bypass surgery (07/26/21) History of coronary artery stent placement (05/30/22) History of left heart catheterization (12/27/21) History of myringotomy History of right heart catheterization (12/28/21) Social History household members: significant other Smoking Status: Current every day smoker tobacco type: cigarettes how long ago did patient quit smoking: Quit 07/17/21, smoked 1.5-2 ppd since teen until quit. alcohol intake: never substance use type: does not use caffeine: Yes Type: coffee Number of servings: 3 ROS ROS ED Constitutional Constitutional ED: Denies chills or fever(s) Eyes Eyes: Denies change in vision ENT ENT ED: Denies sore throat Cardiovascular Cardiovascular: Denies chest pain or palpitations Respiratory/Chest Respiratory/Chest: Denies cough or dyspnea Gastrointestinal Gastrointestinal: Denies abdominal pain, diarrhea, nausea or vomiting Genitourinary Genitourinary ED: Denies dysuria Musculoskeletal Musculoskeletal: Denies myalgias Integumentary Denies rash Neurologic Neurologic: Reports paresthesias; Denies headache(s) Hematologic/Lymphatic Hematologic/Lymphatic: Reports easy bleeding and easy bruising EXAM Physical Exam Const Vital Signs: 10/22/22 02:27 10/22/22 03:14 10/22/22 04:22 Temperature 97.3 F L Temperature Source Temporal Pulse Rate 85 79 74 Respiratory Rate 22 H 18 20 H Blood Pressure 148/106 H 122/83 H 100/80 Blood Pressure Mean 120 96 Pulse Ox 97 95 96 Oxygen Delivery Method Room Air Room Air Positive well nourished and well developed General Appearance ED: well developed HEENT Reports moist mucous membranes Eyes PERRL and EOMs intact bilaterally Neck supple and no JVD Neck Narrative: No bony deformity or step-off of the cervical spine no midline pain with palpation. Negative Spurling sign bilaterally Resp normal respiratory effort and clear to auscultation bilaterally Cardio regular rate and regular rhythm Rate: other Other Details: Radial pulses are plus 2 out of 4 bilaterally are equal and symmetric Carotid pulses are equal and symmetric as well GI normal to inspection, nondistended, normoactive bowel sounds, non-tender and non-distended GI Narrative: No voluntary guarding or rigidity no pulsatile mass Auscultation: normoactive bowel sounds Palpation: soft Extremity normal to inspection Extremity Narrative: No bony deformity or joint effusion noted. Left upper extremity is neurovascular intact; AIN/PIN are intact and normal Neuro oriented x3 and CN's II-XII intact bilaterally Neuro Narrative: Cranial nerves II through XII are grossly intact. Patient has a faint resting tremor of the left hand/arm compared to right. He reports slight derangement in sensation to the left cheek and left upper arm compared to the right as well. Secondary to this paresthesia reported he received a stroke scale score of 2. Otherwise there are no focal deficit. He has no pronator drift no dysmetria and no truncal ataxia. Because of the patient's reported paresthesia he was stressed in multiple dermatomes of the left arm he can differentiate between soft and sharp sensation in each dermatome. Sensorium / Orientation: alert Psych mental status grossly normal Skin no rashes or lesions noted MDM MDM MDM Narrative Medical decision making narrative: Patient presented to the ER hypertensive but otherwise with stable vital. He stated that at the start of his symptoms there was shaking of his left arm but he was awake and alert with no other symptoms while this was occurring. Upon arrival he does receive a stroke scale score of 2 for report of paresthesias to the left cheek and left arm but otherwise neuro exam is nonfocal. Therefore this time do not feel there is need to activate a stroke alert but because of the paresthesias I did elect to perform a CTA of the head and neck. CTA revealed vessels to be patent through the head and neck. Lab work revealed elevation to his white blood cell count but otherwise no clinically significant finding. Chest x-ray also revealed no acute lung pathology. On reevaluation he has had resolution of his paresthesias his strength remains normal and now with the resolution of paresthesias his stroke scale score is 0. As patient reported that symptoms began with tremors or shaking of the left arm I do not feel that this was strokelike in nature. He was advised that this could have been a partial seizure with the initial onset of shaking/tremors but a one-time event of this does not require admission. Therefore this time as the CTA is normal his symptoms have improved spontaneously and his work-up does not reveal any acute changes I feel this can be further worked up on an outpatient basis with possible neurology consult to rule out partial seizure activity and possible MRI of his neck to check for some type of nervous compression causing the intermittent paresthesias. Patient states he is agreeable with this plan as his work-up does not show anything acute and his symptoms are improving and therefore we discharged him Lab Data Attestation: I reviewed the patient's lab results. Labs: Laboratory Results - last 24 hr 10/22/22 10/22/22 10/22/22 02:45 02:45 02:45 WBC 13.4 H RBC 5.25 Hgb 17.4 H Hct 49.7 MCV 94.7 H MCH 33.1 H MCHC 35.0 RDW Std Deviation 43.1 RDW Coeff of Jenna 12.3 Plt Count 204 MPV 11.6 Immature Gran % (Auto) 0.200 Neut % (Auto) 55.7 Lymph % (Auto) 29.3 [place] % (Auto) 11.3 H Eos % (Auto) 2.7 Baso % (Auto) 0.8 Absolute Neuts (auto) 7.4 Absolute Lymphs (auto) 3.91 Nucleated RBC % 0 Diff Path Review May foll Macrocytosis RARE PT 11.9 INR 0.9 APTT 26.7 Sodium 142 Potassium 3.8 Chloride 108 H Carbon Dioxide 28.0 Anion Gap 6 BUN 13 Creatinine 1.33 H Estim Creat Clear Calc 75.36 Est GFR (MDRD) Af Amer 74 Est GFR (MDRD) Non-Af 61 BUN/Creatinine Ratio 9.8 L Glucose 106 Calcium 8.5 Magnesium 2.3 Radiography Diagnostic Testing: Clinical Impression(s) from Imaging Studies Head/Neck CTA 10/22/22 02:39 IMPRESSION: No significant arterial narrowing in the head or neck. Electronically Signed: Vick Lilly MD at 3:47 EST Reading Location ID and State: [address] [place] [address] Tel , Service support , Chest X-Ray 10/22/22 03:10 IMPRESSION: No acute findings. Previous sternotomy. Electronically Signed: Vick Lilly MD at 3:32 EST Reading Location ID and State: [address] [place] [address] Tel , Service support , Chest x-ray as interpreted by the emergency medicine physician reveals no acute infiltrate pneumothorax or pleural effusion Discharge Plan Triage Chief Complaint: Numb/Ting ED Provider: Praneeth Flores Dx/Rx/DC Orders Clinical Impression: Arm paresthesia, left, Tremor, Essential (primary) hypertension, Type 2 diabetes mellitus Instructions: ED Paraesthesias Prescriptions: No Action spironolactone 25 mg tablet 25 mg PO DAILY Qty: 90 3RF furosemide 40 mg tablet 40 mg PO .PRN PRN (Reason: edema/SOB) multivitamin [Daily Multi-Vitamin] Tablet 1 tab PO DAILY Farxiga 10 mg tablet 10 mg PO DAILY Qty: 90 3RF metoprolol succinate 100 mg tablet extended release 24 hr 150 mg PO DAILY Label Comments: TAKE 1 TABLET BY MOUTH ONCE DAILY aspirin 81 MG tablet,chewable 81 mg PO DAILY@0800 cholecalciferol (vitamin D3) 2,000 UNIT capsule 2,000 unit PO DAILY nitroglycerin 0.4 MG tablet, sublingual 0.4 mg sublingual Q5M PRN (Reason: Cardiac/Chest Pain) Qty: 10 0RF (DME) blood-glucose meter Kit See Rx Instructions .ROUTE .MEDSUPPLY Qty: 1 0RF Rx Instructions: As directed (DME) blood sugar diagnostic Strip See Rx Instructions .ROUTE .MEDSUPPLY Qty: 10 1RF Rx Instructions: As directed prasugrel [Effient] 10 mg tablet 10 mg PO DAILY Entresto 49-51 mg tablet 1 tab PO BID Label Comments: TAKE 1 TABLET BY MOUTH TWICE DAILY (DME) Blood Glucose Test Strip See Rx Instructions .ROUTE .MEDSUPPLY Qty: 50 11RF Rx Instructions: use twice daily to check blood glucose for type 2 DM atorvastatin 40 mg tablet 40 mg PO QHS Qty: 90 3RF ezetimibe 10 mg tablet 10 mg PO DAILY Qty: 90 3RF Primary Care Provider: Lisset Avery Referrals: Lisset Avery MD [Primary Care Provider] - Activity Restrictions/Additional Instructions: Your work-up today did not show any sign of stroke. With your report of shaking/tremors of the left arm prior to symptoms beginning he could have had a partial seizure. There also has possibility of nervous compression from possible scar tissue or a ruptured disc that could have caused your symptoms. Therefore follow-up with your family doctor to discuss possible MRI of your neck and neurology referral and return to the ER should you have any further concerns Disposition Disposition: Home, Self Care Discharge Date/Time: 10/22/22 04:39
[2022-10-23 13:57] LABS: Pathologist Review Reviewed
== END 2022-10-22 04:39 | disposition home or self-care (01) ==
PROVIDERS: Emergency Provider Emergency Medicine; PCP Internal Medicine; Visit Provider Emergency Medicine
DX: R20.2 Paresthesia of skin (principal); I11.0 Hypertensive heart disease with heart failure; I50.22 Chronic systolic (congestive) heart failure; E11.9 Type 2 diabetes mellitus without complications; E78.5 Hyperlipidemia, unspecified; I25.10 Atherosclerotic heart disease of native coronary artery without angina pectoris; R25.1 Tremor, unspecified; Z87.891 Personal history of nicotine dependence
CPT/HCPCS: 70496; 70498; 71045; 80048; 83735; 85025; 85610; 85730; 93005; 99282; J7040; Q9967; A4216

== ENCOUNTER → 2022-11-27 | Outpatient (CLI) | payer MEDICAID, SELFPAY ==
[2022-05-31 15:20] VITALS: BMI 30.6
--- NOTE | 2022-11-27 12:52 | ECHOCS_ITS ---
Reason For Study: CAD/ASHD Procedure This was a 2D Doppler, Color Flow transthoracic echocardiogram. The study was technically difficult. Contrast injection was performed. Exam performed in department. Left Ventricle Moderately dilated left ventricle. The estimated ejection fraction is 25 %. Moderately severe segmental systolic dysfunction (see wall motion). There are regional wall motion abnormalities as specified. Posterior-Basal: Akinetic. Infero-Basal: Akinetic. Basal inferoseptal: Akinetic. Mid- Posterior: Akinetic. Mid-Inferior: Akinetic. The rest of the wall segments are hypokinetic. Right Ventricle Normal RV size. Normal systolic function. Atria Normal left atrium. Normal right atrium. Mitral Valve Normal mitral valve. Tricuspid Valve Normal tricuspid valve. Aortic Valve Trisinus/trileaflet aortic valve. Moderate focal aortic valve thickening. Pulmonic Valve Normal pulmonic valve. Great Vessels Normal aortic root. Mild pulmonary artery dilation. Normal inferior vena cava. Pericardium/Pleural No pericardial effusion. Medication 20 gauge I.V. with prn adaptor inserted into right arm. Diluted definity 4.5ml given slow IV push to enhance endocardial definition. MMode/2D Measurements & Calculations LVIDd: 6.6 cm IVSd: 0.80 cm Ao root diam: 3.2 cm LVIDs: 6.0 cm LVPWd: 0.75 cm LA dimension: 4.7 cm RVDd: 4.3 cm FS: 8.7 % LAV(MOD-bp): 53.9 ml LVAd ap4: 40.6 cm2 SV(MOD-sp4): 35.4 ml LAV(MOD-bp) Indexed: 23.9 ml/m2 LVLd ap4: 9.3 cm LAV(MOD-sp2): 59.6 ml EDV(MOD-sp4): 147.6 ml LAV(MOD-sp4): 46.6 ml EDV(sp4-el): 151.2 ml LVAs ap4: 33.1 cm2 LVLs ap4: 8.3 cm ESV(MOD-sp4): 112.2 ml ESV(sp4-el): 112.1 ml EF(MOD-sp4): 24.0 % EF(sp4-el): 25.8 % SV(sp4-el): 39.1 ml LA A4 area: 17.2 cm2 RA A4 area: 14.1 cm2 Time Measurements MV dec time: 0.31 sec Doppler Measurements & Calculations MV E max donn: 61.5 cm/sec Lat Peak E' Donn: 6.4 cm/sec Med Peak E' Donn: 5.7 cm/sec MV A max donn: 64.1 cm/sec E/E' lat: 9.6 E/E' med: 10.8 MV E/A: 0.96 MV V2 max: 80.3 cm/sec MV P1/2t max donn: 57.0 cm/sec Ao V2 max: 107.2 cm/sec MV max P.6 mmHg MV P1/2t: 142.0 msec Ao max P.6 mmHg MV V2 mean: 37.9 cm/sec Ao V2 mean: 75.8 cm/sec MV mean P.69 mmHg MV dec slope: 117.6 cm/sec2 Ao mean P.7 mmHg MV V2 VTI: 30.2 cm MVA(P1/2t): 1.5 cm2 Ao V2 VTI: 21.4 cm AV (velocity ratio): 0.83 LV V1 max: 96.7 cm/sec PA V2 max: 108.3 cm/sec PI end-d donn: 151.3 cm/sec LV V1 max P.7 mmHg LV V1 mean P.2 mmHg LV V1 mean: 70.3 cm/sec LV V1 VTI: 17.8 cm ECHO/Echo Complete W/ Contrast Interpretation Summary Moderately dilated left ventricle. The estimated ejection fraction is 25 %. Moderately severe segmental systolic dysfunction (see wall motion). Compared to previous study, the left ventricular systolic function is the same. . Contrast injection was performed. Ordering Physician: Caio Hay Referring Physician: Lisset Avery M.D. Performed By: Raul Sawyer RCS
== END | disposition home or self-care (01) ==
LOC: CVS 12:51
PROVIDERS: PCP Internal Medicine; Referring Provider Internal Medicine Cardiovascular Disease; Visit Provider Internal Medicine Cardiovascular Disease
DX: I25.5 Ischemic cardiomyopathy (principal)
CPT/HCPCS: 93306; Q9957; A4216; C8929

== ENCOUNTER → 2022-12-12 | Outpatient (CLI) | payer MEDICAID, SELFPAY ==
[2022-05-31 15:20] VITALS: BMI 30.6
[2022-12-12 11:31] LABS: Anion Gap 5 (5-15); BUN 11 mg/dL (7-18); BUN/Creat Ratio 6.9 RATIO (10-20); Chloride 106 mmol/L (98-107); Creatinine, Serum 1.59 mg/dL (0.70-1.30); EST Glomerular Filtration Rate 50 mL/min (>60); Est Glom Filt Rate - Afr Amer 60 mL/min (>60); Glucose 109 mg/dL (74-106); Potassium 3.8 mmol/L (3.5-5.1); Sodium Level 141 mmol/L (136-145)
== END | disposition home or self-care (01) ==
LOC: LAB 10:20
PROVIDERS: PCP Internal Medicine; Referring Provider Nurse Practitioner Family; Visit Provider Nurse Practitioner Family
DX: I25.5 Ischemic cardiomyopathy (principal); E11.65 Type 2 diabetes mellitus with hyperglycemia; I10 Essential (primary) hypertension; E78.5 Hyperlipidemia, unspecified
CPT/HCPCS: 36415; 80048

== ENCOUNTER → 2022-12-27 | Outpatient (CLI) | payer MEDICARE, MEDICAID, SELFPAY ==
[2022-05-31 15:20] VITALS: BMI 30.6
[2022-12-27 11:15] LABS: Absolute Lymphocyte Count 3.37 X10^3/uL (0.83-4.51); Absolute Neutrophil Count 4.8 X10^3/uL (2.0-7.7); Basophil# 0.08 X10^3/uL; Basophil% 0.9 % (0-1); Eosinophil# 0.25 X10^3/uL; Eosinophils% 2.7 % (0-5); Hematocrit 48.4 % (40-54); Hemoglobin 16.8 g/dL (13.0-16.5); Lymphocyte # 3.37 X10^3/ul (0.83-4.51); Lymphocyte % 36.2 % (19-41); Mean Corp Hgb Conc 34.7 g/dL (32-36); Mean Corpuscular Hgb 32.6 pg (27.0-32.0); Mean Corpuscular Volume 93.8 fL (80-94); Monocyte% 8.6 % (0-10); NRBC Flagged by Analyzer 0 % (0-5); Neutrophil # 4.77 X10^3/uL (2.7-7.7); Neutrophil % 51.3 % (47-70); Platelet Count 239 K/mm3 (150-450); RBC Distribution Width CV 12.7 % (11.6-14.6); RBC Distribution Width SD 43.8 fl (35.1-43.9); Red Blood Count 5.16 M/mm3 (4.6-6.2); White Blood Count 9.3 K/mm3 (4.4-11.0)
[2022-12-27 11:40] LABS: Anion Gap 5 (5-15); BUN 10 mg/dL (7-18); BUN/Creat Ratio 7.6 RATIO (10-20); Calcium,Total 9.1 mg/dL (8.5-10.1); Chloride 106 mmol/L (98-107); Creatinine, Serum 1.31 mg/dL (0.70-1.30); EST Glomerular Filtration Rate 62 mL/min (>60); Est Glom Filt Rate - Afr Amer 75 mL/min (>60); Glucose 91 mg/dL (74-106); Potassium 3.6 mmol/L (3.5-5.1); Sodium Level 141 mmol/L (136-145)
== END | disposition home or self-care (01) ==
PROVIDERS: PCP Internal Medicine
DX: Z01.810 Encounter for preprocedural cardiovascular examination (principal)
CPT/HCPCS: 36415; 80048; 85025

== ENCOUNTER → 2023-01-15 | Outpatient (CLI) | payer MEDICARE, MEDICAID, SELFPAY ==
[2022-05-31 15:20] VITALS: BMI 30.6
== END | disposition home or self-care (01) ==
LOC: SL 10:56
PROVIDERS: PCP Internal Medicine; Referring Provider Internal Medicine; Visit Provider Internal Medicine
DX: G47.34 Idiopathic sleep related nonobstructive alveolar hypoventilation (principal); E11.65 Type 2 diabetes mellitus with hyperglycemia; Z95.1 Presence of aortocoronary bypass graft; I25.5 Ischemic cardiomyopathy; I10 Essential (primary) hypertension; E78.5 Hyperlipidemia, unspecified
CPT/HCPCS: 94762

== ENCOUNTER 2023-03-24 04:23 | Emergency (ER) | payer MEDICARE, MEDICAID, SELFPAY ==
[2022-05-31 15:20] VITALS: BMI 30.6
[2023-03-24 04:24] VITALS: BP 123/72; PULSE 66; RESP 17; TEMP 36.3; O2SAT 99; BMI 33.0
--- NOTE | 2023-03-24 04:31 | ED.VIS.BACK ---
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 Atherosclerosis of coronary artery of burns [place] heart without angina pectoris Chronic systolic (congestive) heart failure Diabetes mellitus Diabetes mellitus, new onset Essential (primary) hypertension History of non-ST elevation myocardial infarction (NSTEMI) (12/26/21) History of ST elevation myocardial infarction (STEMI) (06/22/20) Hyperlipidemia Ischemic cardiomyopathy 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) Plantar wart Home Medications aspirin 81 mg chewable tablet 81 mg PO DAILY@0800 06/22/20 [History Last Taken 02/06/21] nitroglycerin 0.4 mg sublingual tablet 0.4 mg sublingual Q5M PRN Cardiac/Chest Pain ##10 01/15/21 [Rx Last Taken Unknown] blood sugar diagnostic #10 ea 12/01/21 [Rx Last Taken Unknown] blood-glucose meter #1 ea 12/01/21 [Rx Last Taken Unknown] furosemide 40 mg tablet 40 mg PO .PRN PRN edema/SOB 12/05/21 [History Last Taken Unknown] dapagliflozin 10 mg tablet (Farxiga) 10 mg PO DAILY #90 tabs 01/18/22 [Rx Last Taken Unknown] multivitamin (Daily Multi-Vitamin tablet) 1 tab PO DAILY 01/18/22 [History Last Taken Unknown] blood sugar diagnostic (Blood Glucose Test strips) #50 ea 03/07/22 [Rx Last Taken Unknown] atorvastatin 40 mg tablet 40 mg PO QHS #90 tabs 03/13/22 [Rx Last Taken Unknown] prasugrel 10 mg tablet (Effient) 10 mg PO DAILY 04/05/22 [History Last Taken Unknown] spironolactone 25 mg tablet 25 mg PO DAILY #90 tabs 04/20/22 [Rx Last Taken Unknown] ezetimibe 10 mg tablet 10 mg PO DAILY #90 tabs 05/09/22 [Rx Last Taken Unknown] fluoxetine 10 mg capsule 10 mg PO DAILY 12/12/22 [History Last Taken Unknown] metoprolol succinate 100 mg tablet,extended release 24 hr 100 mg PO DAILY 12/12/22 [History Last Taken Unknown] sacubitril 97 mg-valsartan 103 mg tablet (Entresto) 1 tab PO BID #60 tabs 12/31/22 [Rx Last Taken Unknown] metoprolol succinate 50 mg tablet,extended release 24 hr 50 mg PO DAILY 01/16/23 [History Last Taken Unknown] cholecalciferol (vitamin D3) 125 mcg (5,000 unit) capsule 125 mcg PO DAILY 01/17/23 [History Last Taken Unknown] triamcinolone acetonide 0.1 % topical cream 1 applic topical BID 14 days #30 grams 01/17/23 [Rx Last Taken Unknown] OXYGEN #1 ea 01/24/23 [Rx Last Taken Unknown] Allergy/AdvReac Type Severity Reaction Status Date / Time varenicline [From Chantix] Allergy Intermediate change in Verified 03/24/23 04:26 mental status metformin AdvReac Mild Diarrhea Verified 03/24/23 04:26 adhesive tape AdvReac Rash Verified 03/24/23 04:26 Family History Father Myocardial infarction, Onset Age: 39 Mother Myocardial infarction, Onset Age: 40 Brother Myocardial infarction, Onset Age: 39 Brother Myocardial infarction, Onset Age: 36 Surgical History H/O coronary artery bypass surgery (07/26/21) History of coronary angioplasty (01/01/23) History of coronary artery stent placement (05/30/22) History of left heart catheterization (12/27/21) History of myringotomy History of right heart catheterization (12/28/21) Social History household members: significant other Smoking Status: Current every day smoker tobacco type: cigarettes quit status: has quit before alcohol intake: never substance use type: does not use caffeine: Yes Type: coffee Number of servings: 4 EXAM Physical Exam Const Vital Signs: 03/24/23 04:24 Temperature 97.3 F L Temperature Source Temporal Pulse Rate 66 Respiratory Rate 17 Blood Pressure 123/72 H Blood Pressure Mean 89 Pulse Ox 99 Oxygen Delivery Method Room Air MDM MDM MDM Narrative Medical decision making narrative: HISTORY OF PRESENT ILLNESS: 48-year-old male here with back pain. He states this been ongoing for 4 days. He notes lower back pain that goes across his back. Is not radiating to his groin. It is not associated with urinating. Not associated bowel movements. States it is better when he stands up and worse when he sits. Denies any falls, trauma or other inciting event. Denies lifting heavy objects. Denies history of surgery to the back. Patient denies any saddle anesthesia, urinary tension, bowel or bladder incontinence, lower extremity weakness, fever or IV drug use, no recent spinal manipulation or surgery, no recent urinary catheterization. REVIEW OF SYMTPTOMS: Pertinent positives: Endorses back pain Pertinent negatives: Denies bowel or bladder incontinence, saddle anesthesia, loss sensation weakness inability move his lower extremities, denies any dysuria hematuria PHYSICAL EXAM: Nursing triage notes reviewed, Vital signs reviewed Constitutional: please see mdm Lungs: Clear to auscultation, No wheezing or rales. No increased work of breathing, no conversational dyspnea, no accessory muscle use, no nasal flaring. No respiratory distress noted Heart: Regular rate and rhythm, No murmurs, No rubs and No gallops, 2+ distal pulses (radial, femoral, posterior tibial) in all extremities Abdomen: Soft, there is no tenderness, rigidity, rebound or guarding, no obvious peritoneal signs, no palpable pulsatile abdominal masses, no auscultated abdominal bruit : No CVAT Extremities: No edema Neuro: Intact sensation L1-S1 dermatomal distributions. Intact 5/5 strength in hip flexion (T12-L3). Knee extension (L2-L4). Ankle dorsiflexion (L4-L5). Ankle plantar flexion (S1). Great toe extension (L5). 2+ patellar and Achilles DTRs. Skin: No rash or lesions noted MEDICAL DECISION MAKING: Chief Complaint: Back pain External records reviewed: No recent advanced imaging of the axial skeleton [facility] Narrative: The patient was hemodynamically stable, afebrile, nontoxic-appearing. Exam without evidence of midline step-offs deformities, midline tenderness. There are no focal neurologic deficits. There is no pulsatile abdominal masses I considered the following differential diagnosis: Musculoskeletal back pain, space-occupying lesion of the spine, cauda equina, spinal fracture dislocation, AAA, UTI Patient had no association with urination and as such I do not think he has a UTI. No pulsatile abdominal masses, pulse deficits to suggest AAA. No falls to suggest fracture dislocation. He had no red flag symptoms such as bowel or bladder incontinence, saddle anesthesia, recent spinal manipulation or Rooney catheterization to suggest epidural abscess or other space-occupying lesion. He is likely having musculoskeletal back pain and/or lumbar radiculopathy or some variant. He does not require emergent MRI at this time. We will give symptomatic treatment in the form of 1 narcotic dose here, Decadron for anti-inflammatory effect (used steroid given patient cannot take NSAIDs secondary to chronic cardiovascular issues), lidocaine patches and Tylenol. He be encouraged to take anti-inflammatories, lidocaine patches at home and to follow with his primary care physician for repeat evaluation and further pain management. The patient presented complaining of back pain. There was no history of recent fall or trauma. There was no evidence to support genitourinary etiology. There is also no evidence to suggest vascular pathology such as AAA dissection. No fevers or other evidence to suspect infectious processes, abscess, osteomyelitis etc. The patient?s neurological exam is normal with normal motor and sensory. There is no saddle paresthesias reported and no bowel or bladder incontinence or retention. I suspect the pain is mechanical in nature. Clinical suspicion, plan of care and management was discussed with the patient. The patient was instructed to follow up with their health care provider. The patient was also instructed to return if the pain worsened, changed, or developed weakness or bowel or bladder trouble. The patient agreed with plan. I completed a structured, evidence-based clinical evaluation to screen for acute non-traumatic spinal emergencies. The patient has a normal detailed neurologic exam and red flag historical factors were negative. The evidence indicates that the patient is very low risk for an acute spinal emergency and this is consistent with my clinical intuition. The risk of further workup is higher than the likelihood of the patient having a spinal epidural abscess or other dangerous emergency spinal condition. It is, therefore, in the patient?s best interest not to do additional emergent testing at this time. Shared Decision-Making I have discussed with the patient my clinical impression and the result of an evidence-based clinical evaluation to screen for spinal epidural abscess and other spinal emergencies, as well as the risk of further testing and hospitalization. The evidence shows that the risk for an acute spinal emergency is less than 1%. Although the risk of an acute spinal emergency has not been completely eliminated, the risks of further testing likely exceed any potential benefit, and the patient agrees with not pursuing further emergent evaluation for causes of back pain at this time. Factors affecting care: History of CAD, hyperlipidemia, hypertension, heart failure, ischemic cardiomyopathy Social determinants of health: Current every day smoker History obtained from others: none Consults: None Discharge Plan Triage Chief Complaint: Back ED Provider: Hayden Alvarado Dx/Rx/DC Orders Clinical Impression: Back pain Instructions: ED Back Pain (Acute or Chronic) Prescriptions: No Action spironolactone 25 mg tablet 25 mg PO DAILY Qty: 90 3RF furosemide 40 mg tablet 40 mg PO .PRN PRN (Reason: edema/SOB) multivitamin [Daily Multi-Vitamin] Tablet 1 tab PO DAILY Farxiga 10 mg tablet 10 mg PO DAILY Qty: 90 3RF metoprolol succinate 100 mg tablet extended release 24 hr 100 mg PO DAILY Label Comments: TAKE 1 TABLET BY MOUTH ONCE DAILY Rx Instructions: Take with 50 mg to = 150 mg fluoxetine 10 mg capsule 10 mg PO DAILY metoprolol succinate 50 mg tablet extended release 24 hr 50 mg PO DAILY Rx Instructions: Take with 100 mg to = 150 mg cholecalciferol (vitamin D3) 125 mcg (5,000 unit) capsule 125 mcg PO DAILY triamcinolone acetonide 0.1 % cream 1 applic topical BID 14 Days Qty: 30 1RF aspirin 81 MG tablet,chewable 81 mg PO DAILY@0800 nitroglycerin 0.4 MG tablet, sublingual 0.4 mg sublingual Q5M PRN (Reason: Cardiac/Chest Pain) Qty: 10 0RF (DME) blood-glucose meter Kit See Rx Instructions .ROUTE .MEDSUPPLY Qty: 1 0RF Rx Instructions: As directed (DME) blood sugar diagnostic Strip See Rx Instructions .ROUTE .MEDSUPPLY Qty: 10 1RF Rx Instructions: As directed prasugrel [Effient] 10 mg tablet 10 mg PO DAILY (DME) Blood Glucose Test Strip See Rx Instructions .ROUTE .MEDSUPPLY Qty: 50 11RF Rx Instructions: use twice daily to check blood glucose for type 2 DM atorvastatin 40 mg tablet 40 mg PO QHS Qty: 90 3RF ezetimibe 10 mg tablet 10 mg PO DAILY Qty: 90 3RF Entresto 97-103 mg tablet 1 tab PO BID Qty: 60 11RF (DME) OXYGEN See Rx Instructions .Route .MEDSUPPLY Qty: 1 0RF Rx Instructions: 2 L/M Via [place] Humidified , On at HS off at AM Stand Alone Forms: ED Work / School Excuse Primary Care Provider: Lisset Avery Referrals: Lisset Avery MD [Primary Care Provider] - Activity Restrictions/Additional Instructions: Thank you for trusting us with your care today! Please take Tylenol (2 pills, 650 mg) every 6 hours as needed for pain and fever control. Please go to local pharmacy or drugstore and pharmacy picking tech Salonpas lidocaine patches and apply them as needed and as directed for back pain. Please return to the emergency department if your symptoms change or worsen. Please follow with your primary care physician for further outpatient evaluation and management. Disposition Disposition: Home, Self Care
[2023-03-24 04:56] VITALS: PULSE 61; RESP 16; O2SAT 97
[2023-03-24] MEDS: Acetaminophen 500 MG Tablet PO (05:05)
[2023-03-24] MEDS: oxyCODONE 5 MG Tablet PO (05:05)
[2023-03-24] MEDS: dexAMETHasone 4 MG Tablet 6 MG PO (05:06)
[2023-03-24] MEDS: Lidocaine 5% Patch 1 PATCH TOPICAL (05:06)
== END 2023-03-24 05:29 | disposition home or self-care (01) ==
PROVIDERS: Emergency Provider Emergency Medicine; PCP Internal Medicine; Visit Provider Emergency Medicine
DX: M54.9 Dorsalgia, unspecified (principal); I50.22 Chronic systolic (congestive) heart failure; I25.10 Atherosclerotic heart disease of native coronary artery without angina pectoris; I25.2 Old myocardial infarction; F17.210 Nicotine dependence, cigarettes, uncomplicated; Z95.5 Presence of coronary angioplasty implant and graft; Z95.1 Presence of aortocoronary bypass graft
CPT/HCPCS: 99283

== ENCOUNTER 2023-07-06 13:01 | Outpatient (CLI) | payer MEDICARE, SELFPAY ==
[2022-05-31 15:20] VITALS: BMI 30.6
[2023-07-06 13:14] VITALS: BP 156/93; PULSE 71; RESP 16; O2SAT 95
[2023-07-06] MEDS: [UNRECOGNIZED DRUG - OTHER] SC (13:15)
== END 2023-07-06 13:02 | disposition home or self-care (01) ==
PROVIDERS: PCP Internal Medicine; Referring Provider Internal Medicine Cardiovascular Disease; Visit Provider Internal Medicine Cardiovascular Disease
DX: I25.10 Atherosclerotic heart disease of native coronary artery without angina pectoris (principal); I50.22 Chronic systolic (congestive) heart failure; I25.5 Ischemic cardiomyopathy; I25.2 Old myocardial infarction
CPT/HCPCS: 96372; J1306

== ENCOUNTER → 2023-07-09 | Outpatient (CLI) | payer MEDICARE, SELFPAY ==
[2022-05-31 15:20] VITALS: BMI 30.6
[2023-07-09 11:55] LABS: Cholesterol 132 mg/dL (200); High Density Lipoprotein 33 mg/dL; Triglycerides 268 mg/dL; Very Low Density Lipoprotein 54 mg/dL (5-40)
[2023-07-10 14:09] LABS: LDL, Direct 120295 74 mg/dL (0-99); Lipoprotein A 174.2 nmol/L (<75.0)
== END | disposition home or self-care (01) ==
LOC: LAB 10:46
PROVIDERS: PCP Internal Medicine
DX: I25.119 Atherosclerotic heart disease of native coronary artery with unspecified angina pectoris (principal); E78.01 Familial hypercholesterolemia; Z95.1 Presence of aortocoronary bypass graft
CPT/HCPCS: 36415; 80061; 83695; 83721

== ENCOUNTER 2023-09-17 08:36 | Observation (INO) | payer MEDICARE, MEDICAID, SELFPAY ==
[2022-05-31 15:20] VITALS: BMI 30.6
[2023-09-17 08:37] VITALS: BP 165/98; PULSE 69; RESP 18; TEMP 36.4; O2SAT 100
--- NOTE | 2023-09-17 09:12 | ED.VIS.CHEST ---
HPI History of Present Illness Chief Complaint: Chest Pain Informant: patient Onset/Context/Timing Onset: Days (3) Activity at onset: gradual Timing: Continuous Quality: Positive for Pressure Location: Left Chest Worsened By: Nothing Relieved By: NTG Associated Symptoms: Positive for Dyspnea, Lightheadedness and Palpitations; Negative for Nausea, Vomiting, Diaphoresis, Cough, Fever or Acid Reflux Narrative Narrative: Patient presents with chest pain that has been constant for the past 3 days. Patient describes it as a pressure. Patient states the pain was worse today. Patient states he took nitroglycerin at home with some improvement. Patient states he still feels some pressure in the left side of her chest. Patient states nothing makes it worse. Patient admits to some shortness of breath. Patient also admits to some lightheadedness and palpitations. Patient states it does not feel like a heart attack but it feels like a blockage in his heart. Patient denies any nausea or vomiting. Patient denies any diaphoresis. Patient denies any cough or fevers. 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 Atherosclerosis of coronary artery of [place] heart without angina pectoris Chronic systolic (congestive) heart failure Diabetes mellitus Diabetes mellitus, new onset Essential (primary) hypertension History of non-ST elevation myocardial infarction (NSTEMI) (12/26/21) History of ST elevation myocardial infarction (STEMI) (06/22/20) Hyperlipidemia Ischemic cardiomyopathy 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) Plantar wart Home Medications blood sugar diagnostic #10 ea 12/01/21 [Rx Last Taken Unknown] blood-glucose meter #1 ea 12/01/21 [Rx Last Taken Unknown] blood sugar diagnostic (Blood Glucose Test strips) #50 ea 03/07/22 [Rx Last Taken Unknown] spironolactone 25 mg tablet 25 mg PO DAILY #90 tabs 04/20/22 [Rx Last Taken 09/17/23] OXYGEN #1 ea 03/08/23 [Rx Last Taken Unknown] aspirin 81 mg chewable tablet 81 mg PO DAILY@0800 #90 tabs 05/03/23 [Rx Last Taken 09/17/23] atorvastatin 40 mg tablet 40 mg PO QHS #90 tabs 05/03/23 [Rx Last Taken 09/16/23] cholecalciferol (vitamin D3) 125 mcg (5,000 unit) capsule 125 mcg PO DAILY #90 caps 05/03/23 [Rx Last Taken 09/17/23] dapagliflozin propanediol 10 mg tablet (Farxiga) 10 mg PO DAILY #90 tabs 05/03/23 [Rx Last Taken 09/17/23] fluoxetine 10 mg capsule 10 mg PO DAILY #90 caps 05/03/23 [Rx Last Taken 09/17/23] metoprolol succinate 100 mg tablet,extended release 24 hr 100 mg PO DAILY #90 tabs 05/03/23 [Rx Last Taken 09/17/23] metoprolol succinate 50 mg tablet,extended release 24 hr 50 mg PO DAILY #90 tabs 05/03/23 [Rx Last Taken 09/17/23] multivitamin (Daily Multi-Vitamin tablet) 1 tab PO DAILY #90 tabs 05/03/23 [Rx Last Taken 09/17/23] nitroglycerin 0.4 mg sublingual tablet 0.4 mg sublingual Q5M PRN Cardiac/Chest Pain ##10 05/03/23 [Rx Last Taken 09/17/23] omega-3 fatty acids 1,250 mg capsule 1,250 mg PO DAILY #90 caps 05/03/23 [Rx Last Taken Unknown] prasugrel 10 mg tablet (Effient) 10 mg PO DAILY #90 tabs 05/03/23 [Rx Last Taken 09/17/23] sacubitril 97 mg-valsartan 103 mg tablet (Entresto) 1 tab PO BID #180 tabs 05/03/23 [Rx Last Taken 09/17/23] furosemide 40 mg tablet 40 mg PO .PRN PRN edema/SOB #20 tabs 05/23/23 [Rx Last Taken Unknown] inclisiran 284 mg/1.5 mL subcutaneous syringe (Leqvio) 284 mg (1.5 mL) subcut [id number] Please give at [facility] q 6 months #1.5 mL 07/13/23 [Rx Last Taken Unknown] ezetimibe 10 mg tablet 10 mg PO DAILY 08/30/23 [History Last Taken 09/17/23] Allergy/AdvReac Type Severity Reaction Status Date / Time varenicline [From Chantix] Allergy Intermediate change in Verified 09/17/23 08:37 mental status metformin AdvReac Mild Diarrhea Verified 09/17/23 08:37 adhesive tape AdvReac Rash Verified 09/17/23 08:37 Family History Father Myocardial infarction, Onset Age: 39 Mother Myocardial infarction, Onset Age: 40 Brother Myocardial infarction, Onset Age: 39 Brother Myocardial infarction, Onset Age: 36 Surgical History H/O coronary artery bypass surgery (07/26/21) History of coronary angioplasty (01/01/23) History of coronary artery stent placement (05/30/22) History of left heart catheterization (12/27/21) History of myringotomy History of right heart catheterization (12/28/21) Presence of implantable cardioverter-defibrillator (ICD) Social History household members: significant other Smoking Status: Current every day smoker tobacco type: cigarettes quit status: has quit before alcohol intake: never substance use type: does not use caffeine: Yes Type: coffee Number of servings: 4 ROS ROS ED Constitutional Constitutional ED: Denies chills or fever(s) Eyes Eyes: Denies blurry vision or change in vision ENT ENT ED: Denies rhinorrhea or sore throat Cardiovascular Cardiovascular: Reports chest pain and palpitations Respiratory/Chest Respiratory/Chest: Reports dyspnea; Denies cough Gastrointestinal Gastrointestinal: Denies abdominal pain, nausea or vomiting Genitourinary Genitourinary ED: Denies dysuria or hematuria Musculoskeletal Musculoskeletal: Denies back pain or neck pain Integumentary Reports rash; Denies abscess Neurologic Neurologic: Reports paresthesias RUE and LUE; Denies headache(s) or weakness Allergic/Immunologic Allergic/Immunologic ED: Denies mouth swelling or urticaria EXAM Physical Exam Const Vital Signs: 09/17/23 08:37 09/17/23 08:49 09/17/23 09:41 Temperature 97.5 F L Temperature Source Temporal Pulse Rate 69 Respiratory Rate 18 Respiratory Effort Short of Breath Blood Pressure 165/98 H Blood Pressure Mean 120 Pulse Ox 100 Oxygen Delivery Method Room Air Room Air 09/17/23 09:48 09/17/23 11:33 Temperature Temperature Source Pulse Rate 79 60 Respiratory Rate 16 Respiratory Effort Blood Pressure 145/98 H 130/86 H Blood Pressure Mean 100 Pulse Ox 93 Oxygen Delivery Method Room Air Positive well nourished, well developed and obese General Appearance ED: well developed and NAD Nutritional Appearance: obese HEENT Reports moist mucous membranes Neck supple and no JVD Chest Wall inspection of chest normal and palpation of chest normal Resp normal respiratory effort and clear to auscultation bilaterally Cardio regular rate and regular rhythm GI soft to palpation, non-tender and non-distended Extremity normal to inspection General Extremety ED: Negative for edema or tenderness General Extremity: Negative for edema Neuro oriented x3, CN's II-XII intact bilaterally and no sensory deficits noted Sensorium / Orientation: awake and alert Motor Exam: strength 5/5 throughout Psych mental status grossly normal Heart Score History: Moderately Suspicious ECG: Nonspecific Repolarization Age: >45 - <65 years Risk Factors: >/= 3 Risk Factors or History of CAD Troponin: </= Normal Limit Score: 5 MDM MDM MDM Narrative Medical decision making narrative: Differential diagnosis includes cardiac dysrhythmia, cardiac ischemia, pneumonia, pneumothorax, musculoskeletal pain, electrolyte abnormality, and anxiety. Patient has a Wells score of 0. Patient has no PE risk factors. I do not feel this is from a pulmonary embolism. EKG will be obtained to assess for cardiac dysrhythmia and cardiac ischemia. Chest x-ray will be obtained to assess for pneumonia and pneumothorax. CBC will be obtained to assess for leukocytosis and anemia. Basic metabolic profile will be obtained to assess for electrolyte abnormality and renal function. High-sensitivity troponin will be obtained to assess for cardiac ischemia. 2-hour repeat high-sensitivity troponin will be obtained to assess for ongoing cardiac ischemia. History & Record Review Additional record(s) reviewed:: Prior outpatient record and Prior labs Lab Data Attestation: I reviewed the patient's lab results. Lab results narrative: CBC was reviewed. There is a slight leukocytosis of 13.9. Hemoglobin was 18.1. The remainder is within normal limits. Basic metabolic profile was reviewed. Creatinine was slightly elevated at 1.38. The remainder was essentially within normal limits. Initial high-sensitivity troponin was reviewed and was normal at 42. Labs: Laboratory Results - last 24 hr 09/17/23 08:48 WBC 13.9 H RBC 5.54 Hgb 18.1 H* Hct 52.7 MCV 95.1 H MCH 32.7 H MCHC 34.3 RDW Std Deviation 45.1 H RDW Coeff of Jenna 12.8 Plt Count 241 MPV 11.6 Immature Gran % (Auto) 0.300 Neut % (Auto) 60.5 Lymph % (Auto) 27.0 [place] % (Auto) 9.5 Eos % (Auto) 1.9 Baso % (Auto) 0.8 Absolute Neuts (auto) 8.4 H Absolute Lymphs (auto) 3.76 Nucleated RBC % 0 Diff Path Review May foll Sodium 138 Potassium 3.8 Chloride 108 H Carbon Dioxide 26.0 Anion Gap 4 L BUN 9 Creatinine 1.38 H Estim Creat Clear Calc 71.85 Est GFR (MDRD) Af Amer 71 Est GFR (MDRD) Non-Af 58 L BUN/Creatinine Ratio 6.5 L Glucose 141 H Calcium 9.4 Troponin I High Sens 42 Radiography Diagnostic Testing: Clinical Impression(s) from Imaging Studies Chest X-Ray 09/17/23 10:00 IMPRESSION: Normal x-ray examination of the chest. Electronically Signed: Dann Hill MD at 10:20 EDT , Portable 1 view chest x-ray was obtained. On my independent interpretation, lung lopez are clear. There is normal cardiac silhouette. Bony thorax is normal. There is no acute process noted. Radiologist also interpreted the x-ray and agrees. EKG Initial EKG: Attestation: I personally reviewed and interpreted this EKG as follows: Interpretation: Sinus Rhythm (66) and Non-Specific ST Changes Comments: EKG was obtained. On my independent interpretation, it showed a normal sinus rhythm with a rate of 66. MA interval, QRS interval, and QTc intervals were all normal. There is left axis deviation at -60. There are nonspecific ST-T wave changes. Prior EKG tracings: available for review Prior: Unchanged (10/22/2022) Management Discussion w/another healthcare provider: Hospitalist (Dr. Donovan) Treatment and Re-Evaluation :: Smoking cessation was discussed. Patient was given aspirin here. Patient was given nitroglycerin paste. Patient was advised of his findings. Patient has a HEART score of 5. Patient is agreeable with admission. Case was discussed with the hospitalist. She will admit the patient to her service. Patient understood and was agreeable with the plan. All questions were answered. Discharge Plan Triage Chief Complaint: Chest Pain ED Provider: Gregory Arriola Dx/Rx/DC Orders Clinical Impression: Chest pain, H/O coronary artery bypass surgery, Type 2 diabetes mellitus, Obesity (BMI 30.0-34.9), Presence of implantable cardioverter-defibrillator (ICD) Prescriptions: No Action spironolactone 25 mg tablet 25 mg PO DAILY Qty: 90 3RF clotrimazole-betamethasone 1-0.05 % cream 1 applic topical BID 14 Days Qty: 15 1RF ezetimibe 10 mg tablet 10 mg PO DAILY (DME) blood-glucose meter Kit See Rx Instructions .ROUTE .MEDSUPPLY Qty: 1 0RF Rx Instructions: As directed (DME) blood sugar diagnostic Strip See Rx Instructions .ROUTE .MEDSUPPLY Qty: 10 1RF Rx Instructions: As directed (DME) Blood Glucose Test Strip See Rx Instructions .ROUTE .MEDSUPPLY Qty: 50 11RF Rx Instructions: use twice daily to check blood glucose for type 2 DM (DME) OXYGEN See Rx Instructions .Route .MEDSUPPLY Qty: 1 0RF Rx Instructions: 2 L/M Via NC Humidified , On at HS off at AM aspirin 81 mg tablet,chewable 81 mg PO DAILY@0800 Qty: 90 3RF atorvastatin 40 mg tablet 40 mg PO QHS Qty: 90 3RF cholecalciferol (vitamin D3) 125 mcg (5,000 unit) capsule 125 mcg PO DAILY Qty: 90 3RF Farxiga 10 mg tablet 10 mg PO DAILY Qty: 90 3RF fluoxetine 10 mg capsule 10 mg PO DAILY Qty: 90 3RF metoprolol succinate 100 mg tablet extended release 24 hr 100 mg PO DAILY Qty: 90 3RF Rx Instructions: Take with 50 mg to = 150 mg metoprolol succinate 50 mg tablet extended release 24 hr 50 mg PO DAILY Qty: 90 3RF Rx Instructions: Take with 100 mg to = 150 mg multivitamin [Daily Multi-Vitamin] Tablet 1 tab PO DAILY Qty: 90 3RF nitroglycerin 0.4 mg tablet, sublingual 0.4 mg sublingual Q5M PRN (Reason: Cardiac/Chest Pain) Qty: 10 0RF omega-3 fatty acids 1,250 mg capsule 1,250 mg PO DAILY Qty: 90 3RF prasugrel [Effient] 10 mg tablet 10 mg PO DAILY Qty: 90 3RF Entresto 97-103 mg tablet 1 tab PO BID Qty: 180 3RF furosemide 40 mg tablet 40 mg PO .PRN PRN (Reason: edema/SOB) Qty: 20 3RF Leqvio 284 mg/1.5 mL syringe 284 mg subcut [id number] Qty: 1.5 1RF Primary Care Provider: Lisset Avery Referrals: Lisset Avery MD [Primary Care Provider] - Disposition Disposition: Acute Care Hospital [facility]
--- NOTE | 2023-09-17 09:39 | EKG12_ITS ---
Test Reason : CP Blood Pressure : / mmHG Vent. Rate : 066 BPM Atrial Rate : 066 BPM P-R Int : 146 ms QRS Dur : 118 ms QT Int : 396 ms P-R-T Axes : 020 -60 080 degrees QTc Int : 415 ms Normal sinus rhythm Left axis deviation Pulmonary disease pattern Minimal voltage criteria for LVH, may be normal variant ( Pedro product ) Septal infarct (cited on or before 19-JUL-2021) Abnormal ECG Confirmed by NEETU BOWLES, THOMAS ([id number]), proposal editor PRIYANK HANNON ([id number]) on 09/19/2023 6:45:59 AM Referred By: ES/PL Confirmed By:THOMAS DE ANDA MD
[2023-09-17] MEDS: Aspirin 81 MG TAB.CHEW 243 MG PO (09:47)
[2023-09-17 09:48] VITALS: BP 145/98; PULSE 79
[2023-09-17 09:48] LABS: Absolute Lymphocyte Count 3.76 X10^3/uL (0.83-4.51); Absolute Neutrophil Count 8.4 X10^3/uL (2.0-7.7); Basophil# 0.11 X10^3/uL; Basophil% 0.8 % (0-1); Eosinophil# 0.27 X10^3/uL; Eosinophils% 1.9 % (0-5); Hematocrit 52.7 % (40-54); Hemoglobin 18.1 g/dL (13.0-16.5); Lymphocyte # 3.76 X10^3/ul (0.83-4.51); Mean Corp Hgb Conc 34.3 g/dL (32-36); Mean Corpuscular Hgb 32.7 pg (27.0-32.0); Mean Corpuscular Volume 95.1 fL (80-94); Mean Platelet Vol. 11.6 fl (6.2-12.0); Monocyte# 1.33 X10^3/uL; Monocyte% 9.5 % (0-10); NRBC Flagged by Analyzer 0 % (0-5); Neutrophil # 8.43 X10^3/uL (2.7-7.7); Neutrophil % 60.5 % (47-70); Platelet Count 241 K/mm3 (150-450); RBC Distribution Width CV 12.8 % (11.6-14.6); RBC Distribution Width SD 45.1 fl (35.1-43.9); Red Blood Count 5.54 M/mm3 (4.6-6.2); White Blood Count 13.9 K/mm3 (4.4-11.0)
[2023-09-17] MEDS: Nitroglycerin Oint 1 INCH PACKET TD (09:48)
[2023-09-17] MEDS: Morphine 4 MG/ML Syringe IV (09:49)
[2023-09-17 09:55] VITALS: BMI 33.2
--- NOTE | 2023-09-17 10:00 | RAD_ITS ---
STUDY: X-RAY CHEST REASON FOR EXAM: Male, 48 years old. Chest pain TECHNIQUE: Single AP portable view of the chest. COMPARISON: Comparison is made with prior study dated July 23, 2022. FINDINGS: EKG changes are seen. The lungs are clear and expanded. There is no demonstrated pleural abnormality. Sternal cerclage wires and vascular clips are present from a prior sternotomy and coronary artery bypass graft procedure (CABG). A left-sided unipolar pacemaker is seen. Normal mediastinum and sarah. Normal visualized pulmonary arteries. Normal visualized aortic arch and descending thoracic aorta. Normal visualized thoracic spine. Normal visualized ribs, clavicles, and shoulders. There is no demonstrated abnormality of the visualized soft tissue structures of the upper abdomen. RAD/Chest 1 View (Portable) IMPRESSION: Normal x-ray examination of the chest. Electronically Signed: Dann Hill MD at 10:20 EDT ,
[2023-09-17 10:11] LABS: Anion Gap 4 (5-15); BUN 9 mg/dL (7-18); BUN/Creat Ratio 6.5 RATIO (10-20); Calcium,Total 9.4 mg/dL (8.5-10.1); Chloride 108 mmol/L (98-107); Creatinine, Serum 1.38 mg/dL (0.70-1.30); EST Glomerular Filtration Rate 58 mL/min (>60); Est Glom Filt Rate - Afr Amer 71 mL/min (>60); Estimated Creatinine Clearance 71.85 ml/min; Glucose 141 mg/dL (74-106); Potassium 3.8 mmol/L (3.5-5.1); Sodium Level 138 mmol/L (136-145); Troponin-I HS (w/2H Reflex) 42 pg/mL (3.0-78.0)
[2023-09-17 11:33] VITALS: BP 130/86; PULSE 60; RESP 16; O2SAT 93
[2023-09-17 11:43] LABS: Reflex Troponin-HS? (from REC) Y
--- NOTE | 2023-09-17 11:52 | PCM.HP.STD ---
HPI - General General Date of Admission: 09/17/23 Date of Service: 09/17/23 Chief Complaint: chest pain HPI Narrative SALENA MONTALVO, is a 48 M with a PMH as outlined who presents via the ED on 09/17/2023 with a complaint of chest pain. Chest pain had been going on for 3 days prior to admission. Chest pain worsened the day of admission. He had been improving with sublingual nitroglycerin at home. He said it was pressure-like and mainly on the left side of his chest. He had no exacerbating factors. He had assisted shortness of breath, palpitations and lightheadedness. Review of systems otherwise negative. Vitals in the ED were blood pressure of 132/86, pulse rate of 60, respirate rate of 16 and oxygen saturation of 93% on room air. CBC showed hemoglobin of 18.1, WBC of 13.9 and platelets of 241. Chemistry shows sodium of 138 with bicarb of 26 and creatinine of 1.38. Initial troponin was negative. Chest x-ray showed no acute cardiopulmonary process. EKG showed no acute ST changes. He has been admitted to be managed for chest pain to rule out ACS. 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 Atherosclerosis of coronary artery of [place] heart without angina pectoris Chronic systolic (congestive) heart failure Diabetes mellitus Diabetes mellitus, new onset Essential (primary) hypertension History of non-ST elevation myocardial infarction (NSTEMI) (12/26/21) History of ST elevation myocardial infarction (STEMI) (06/22/20) Hyperlipidemia Ischemic cardiomyopathy 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) Plantar wart Home Medications blood sugar diagnostic #10 ea 12/01/21 [Rx Last Taken Unknown] blood-glucose meter #1 ea 12/01/21 [Rx Last Taken Unknown] blood sugar diagnostic (Blood Glucose Test strips) #50 ea 03/07/22 [Rx Last Taken Unknown] spironolactone 25 mg tablet 25 mg PO DAILY diuretic #90 tabs 04/20/22 [Rx Last Taken 09/17/23] OXYGEN #1 ea 01/24/23 [Rx Last Taken Unknown] aspirin 81 mg chewable tablet 81 mg PO DAILY@0800 heart health #90 tabs 05/03/23 [Rx Last Taken 09/17/23] atorvastatin 40 mg tablet 40 mg PO QHS cholesterol #90 tabs 05/03/23 [Rx Last Taken 09/16/23] cholecalciferol (vitamin D3) 125 mcg (5,000 unit) capsule 125 mcg PO DAILY vitamin #90 caps 05/03/23 [Rx Last Taken 09/17/23] dapagliflozin propanediol 10 mg tablet (Farxiga) 10 mg PO DAILY diabetes #90 tabs 05/03/23 [Rx Last Taken 09/17/23] fluoxetine 10 mg capsule 10 mg PO DAILY mental health #90 caps 05/03/23 [Rx Last Taken 09/17/23] metoprolol succinate 100 mg tablet,extended release 24 hr 100 mg PO DAILY blood pressure #90 tabs 05/03/23 [Rx Last Taken 09/17/23] metoprolol succinate 50 mg tablet,extended release 24 hr 50 mg PO DAILY blood pressure #90 tabs 05/03/23 [Rx Last Taken 09/17/23] multivitamin (Daily Multi-Vitamin tablet) 1 tab PO DAILY vitamin #90 tabs 05/03/23 [Rx Last Taken 09/17/23] nitroglycerin 0.4 mg sublingual tablet 0.4 mg sublingual Q5M PRN Cardiac/Chest Pain ##10 05/03/23 [Rx Last Taken 09/17/23] omega-3 fatty acids 1,250 mg capsule 1,250 mg PO DAILY supplement #90 caps 05/03/23 [Rx Last Taken Unknown] prasugrel 10 mg tablet (Effient) 10 mg PO DAILY #90 tabs 05/03/23 [Rx Last Taken 09/17/23] sacubitril 97 mg-valsartan 103 mg tablet (Entresto) 1 tab PO BID heart #180 tabs 05/03/23 [Rx Last Taken 09/17/23] furosemide 40 mg tablet 40 mg PO .PRN PRN edema/SOB #20 tabs 05/23/23 [Rx Last Taken Unknown] inclisiran 284 mg/1.5 mL subcutaneous syringe (Leqvio) 284 mg (1.5 mL) subcut [id number] Please give at [facility] q 6 months #1.5 mL 05/31/23 [Rx Last Taken Unknown] ezetimibe 10 mg tablet 10 mg PO DAILY increased lipids 08/30/23 [History Last Taken 09/17/23] isosorbide mononitrate 30 mg tablet,extended release 24 hr 30 mg PO DAILY #30 tabs 09/18/23 [Rx Last Taken Unknown] Allergy/AdvReac Type Severity Reaction Status Date / Time varenicline [From Chantix] Allergy Intermediate change in Verified 09/17/23 08:37 mental status metformin AdvReac Mild Diarrhea Verified 09/17/23 08:37 adhesive tape AdvReac Rash Verified 09/17/23 08:37 Family History Father Myocardial infarction, Onset Age: 39 Mother Myocardial infarction, Onset Age: 40 Brother Myocardial infarction, Onset Age: 39 Brother Myocardial infarction, Onset Age: 36 Surgical History H/O coronary artery bypass surgery (07/26/21) History of coronary angioplasty (01/01/23) History of coronary artery stent placement (05/30/22) History of left heart catheterization (12/27/21) History of myringotomy History of right heart catheterization (12/28/21) Presence of implantable cardioverter-defibrillator (ICD) Social History household members: significant other Smoking Status: Current every day smoker tobacco type: cigarettes quit status: has quit before alcohol intake: never substance use type: does not use caffeine: Yes Type: coffee Number of servings: 4 ROS Review of Systems ROS Unobtainable: Denies due to encephalopathy Constitutional Constitutional: Denies anorexia, chills, fatigue, fever(s), night sweats or weakness Eyes Eyes: Denies change in vision ENT HEENT: Denies dysphagia or headache(s) Cardiovascular Cardiovascular: Reports chest pain; Denies edema, orthopnea, palpitations, paroxysmal nocturnal dyspnea or syncope Respiratory/Chest Respiratory/Chest: Reports shortness of breath at rest; Denies cough, shortness of breath with exertion or wheezing Gastrointestinal Gastrointestinal: Denies abdominal pain, constipation, diarrhea, nausea or vomiting Genitourinary Genitourinary: Denies dysuria Musculoskeletal Musculoskeletal: Denies back pain or muscle weakness Neurologic Neurologic: Denies dizziness, focal weakness or headache(s) Endocrine Endocrinology: Denies change in body appearance Hematologic/Lymphatic Hematologic/Lymphatic: Denies anemia Vital Signs Vital Signs Vital Signs: 09/17/23 08:37 09/17/23 08:49 09/17/23 09:41 Temperature 97.5 F L Temperature Source Temporal Pulse Rate 69 Respiratory Rate 18 Respiratory Effort Short of Breath Blood Pressure 165/98 H Blood Pressure Mean 120 Pulse Ox 100 Oxygen Delivery Method Room Air Room Air 09/17/23 09:48 09/17/23 11:33 Temperature Temperature Source Pulse Rate 79 60 Respiratory Rate 16 Respiratory Effort Blood Pressure 145/98 H 130/86 H Blood Pressure Mean 100 Pulse Ox 93 Oxygen Delivery Method Room Air Weight Weight: 245 lb Body Mass Index (BMI) 33.2 Physical Exam Const alert, oriented x3 and no apparent distress General Appearance: cooperative HEENT normocephalic, head/scalp atraumatic, moist oral mucous membranes and oropharynx normal Eyes PERRL and EOMs intact bilaterally Neck no lymphadenopathy and supple Resp normal respiratory effort, normal air movement and clear to auscultation bilaterally Cardio regular rate, regular rhythm, S1 normal heart sound, S2 normal heart sound and no murmurs GI normal to inspection, nondistended, normoactive bowel sounds, soft to palpation, non-tender and non-distended Extremity normal capillary refill, no clubbing, cyanosis or edema and no calf tenderness Skin General Skin Exam: no breakdown Neuro CN's II-XII intact bilaterally, no focal motor deficits, no sensory deficits noted and deep tendon reflexes 2+ bilaterally Motor Exam: strength 5/5 throughout and general weakness Psych thought process normal, cooperative and affect normal Appearance: appropriate Results Lab / Micro Data 09/18/23 06:25 09/18/23 06:25 Labs: Laboratory Results - last 24 hr 09/17/23 08:48: WBC 13.9 H, RBC 5.54, Hgb 18.1 H*, Hct 52.7, MCV 95.1 H, MCH 32.7 H, MCHC 34.3, RDW Std Deviation 45.1 H, RDW Coeff of Jenna 12.8, Plt Count 241, MPV 11.6, Immature Gran % (Auto) 0.300, Neut % (Auto) 60.5, Lymph % (Auto) 27.0, [place] % (Auto) 9.5, Eos % (Auto) 1.9, Baso % (Auto) 0.8, Absolute Neuts (auto) 8.4 H, Absolute Lymphs (auto) 3.76, Nucleated RBC % 0, Diff Path Review May foll, Sodium 138, Potassium 3.8, Chloride 108 H, Carbon Dioxide 26.0, Anion Gap 4 L, BUN 9, Creatinine 1.38 H, Estim Creat Clear Calc 71.85, Est GFR (MDRD) Af Amer 71, Est GFR (MDRD) Non-Af 58 L, BUN/Creatinine Ratio 6.5 L, Glucose 141 H, Calcium 9.4, Troponin I High Sens 42 Radiology Impression Chest X-Ray 09/17/23 10:00 IMPRESSION: Normal x-ray examination of the chest. 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 To start patient on imdur 30mg daily if chest pain persists. No plans for cardiac cath #CAD s/p CABG and stents: on aspirin, prasugrel and statins. Imdur added on. Also on metoprolol #TYpe 2 diabetes mellitus: on dapagliflozin. ISS. Accuchecks ACHS. #HFrEF: on lasix and entresto as well as spironolactone. Has a defibrillator in place. #Hyperlipidemia: on statin #Nicotine dependence -patient continues to smoke, and smokes at least one pack per day. Patient counseled about the dangers of smoking, especially with his extensive cardiac history. -nicotine patch 21mg daily. DVT prophylaxis: lovenox COde status: full code -Patient counseled extensively about difference between full code, DNRCC nad DNRCCA. Patient elects to be full code. -total face to face time was 16 mins Charges/Coding Visit Charges Inpatient E&M: 58489 Init Hosp L3 Procedures Hospitalists Procedures: 96110 Advncd Care Plan 30 Min
[2023-09-17 11:59] LABS: Troponin-I HS 51 pg/mL (3.0-78.0)
[2023-09-17 13:12] VITALS: BP 115/86; PULSE 57; RESP 18; TEMP 36.4; O2SAT 96; BMI 32.3
[2023-09-17 15:33] LABS: Troponin-I HS 41 pg/mL (3.0-78.0)
[2023-09-17] MEDS: Isosorbide Mononitrate 30 MG Tablet PO (15:54)
[2023-09-17] MEDS: Acetaminophen 325 MG Tablet 650 MG PO (17:42)
[2023-09-17 17:49] VITALS: BP 99/74; PULSE 68; RESP 16; TEMP 36.1; O2SAT 94
[2023-09-17] MEDS: Atorvastatin Calcium 40 MG Tablet PO (21:03)
[2023-09-17] MEDS: SACUBITRIL/VALSARTAN 97-103 MG TABLET 1 EACH PO (21:03)
[2023-09-17 23:00] VITALS: BP 100/62; PULSE 66; RESP 16; TEMP 36.5; O2SAT 94
[2023-09-18 03:00] VITALS: BP 101/66; PULSE 69; RESP 15; TEMP 36.7; O2SAT 94
[2023-09-18 07:09] LABS: Absolute Lymphocyte Count 3.56 X10^3/uL (0.83-4.51); Absolute Neutrophil Count 5.9 X10^3/uL (2.0-7.7); Basophil# 0.09 X10^3/uL; Basophil% 0.8 % (0-1); Eosinophil# 0.32 X10^3/uL; Eosinophils% 2.9 % (0-5); Hematocrit 50.1 % (40-54); Hemoglobin 17.2 g/dL (13.0-16.5); Lymphocyte # 3.56 X10^3/ul (0.83-4.51); Lymphocyte % 32.2 % (19-41); Mean Corp Hgb Conc 34.3 g/dL (32-36); Mean Corpuscular Hgb 32.5 pg (27.0-32.0); Mean Corpuscular Volume 94.7 fL (80-94); Mean Platelet Vol. 11.4 fl (6.2-12.0); Monocyte# 1.11 X10^3/uL; Monocyte% 10.1 % (0-10); NRBC Flagged by Analyzer 0 % (0-5); Neutrophil % 53.5 % (47-70); Platelet Count 210 K/mm3 (150-450); RBC Distribution Width CV 12.8 % (11.6-14.6); RBC Distribution Width SD 44.7 fl (35.1-43.9); Red Blood Count 5.29 M/mm3 (4.6-6.2)
[2023-09-18 07:40] LABS: Anion Gap 5 (5-15); BUN 14 mg/dL (7-18); BUN/Creat Ratio 11.4 RATIO (10-20); Calcium,Total 8.7 mg/dL (8.5-10.1); Chloride 109 mmol/L (98-107); Creatinine, Serum 1.23 mg/dL (0.70-1.30); EST Glomerular Filtration Rate 67 mL/min (>60); Est Glom Filt Rate - Afr Amer 81 mL/min (>60); Glucose 124 mg/dL (74-106); Potassium 3.9 mmol/L (3.5-5.1); Sodium Level 139 mmol/L (136-145)
[2023-09-18] MEDS: Aspirin 81 MG TAB.CHEW PO (08:35)
[2023-09-18] MEDS: Spironolactone 25 MG Tablet PO (08:35)
[2023-09-18] MEDS: Multivitamins,Therapeutic Tablet 1 TABLET PO (08:36)
[2023-09-18] MEDS: Empagliflozin 25 MG Tablet PO (08:36)
[2023-09-18] MEDS: Enoxaparin 40 MG/0.4 ML Syringe SC (08:36)
[2023-09-18] MEDS: SACUBITRIL/VALSARTAN 97-103 MG TABLET 1 EACH PO (08:36)
[2023-09-18] MEDS: Omega-3 Acid Ethyl Esters 1 GM Capsule PO (08:36)
[2023-09-18] MEDS: Cholecalciferol (Vit D3) 125 MCG CAPSULE (5,000 UNITS) PO (08:37)
[2023-09-18] MEDS: Ezetimibe 10 MG Tablet PO (08:37)
[2023-09-18] MEDS: FLUoxetine 10 MG Capsule PO (08:37)
[2023-09-18 10:19] VITALS: BP 107/80; PULSE 65
[2023-09-18] MEDS: Metoprolol(XL)Succ 50 MG Tablet PO (10:19)
[2023-09-18] MEDS: Isosorbide Mononitrate 30 MG Tablet PO (10:19)
[2023-09-18 10:20] VITALS: BP 107/80; PULSE 65
[2023-09-18] MEDS: Metoprolol(XL)Succ 100 MG Tablet PO (10:20)
[2023-09-18 10:28] LABS: Pathologist Review Reviewed
--- NOTE | 2023-09-18 10:58 | PCM.DC.SUM ---
Providers Date of Admission: 09/17/23 Date of Discharge: 09/18/23 Primary Care Physician: Dr. Lisset Avery MD Reason For Visit: CHEST PAIN Diagnosis Discharge Diagnosis (1) Chest pain: Status: Acute Code(s): R07.9 - Chest pain, unspecified Plan #Chest pain to rule out ACS admit to PCU cycle troponins has a history of CAD s/p stents and CABG on aspirin and statins as well as prasugrel SL nitroglycerin EKG showed no acute ST changes discussed with patient's pbx wire chief Dr Hay; per cardiology, a stress test wont be beneficial even if troponins are negative due to patient's extensive cardiac history which makes him high risk. To start patient on imdur 30mg daily if chest pain persists. No plans for cardiac cath #CAD s/p CABG and stents: on aspirin, prasugrel and statins. Imdur added on. Also on metoprolol #TYpe 2 diabetes mellitus: on dapagliflozin. ISS. Accuchecks ACHS. #HFrEF: on lasix and entresto as well as spironolactone. Has a defibrillator in place. #Hyperlipidemia: on statin #Nicotine dependence -patient continues to smoke, and smokes at least one pack per day. Patient counseled about the dangers of smoking, especially with his extensive cardiac history. -nicotine patch 21mg daily. DVT prophylaxis: lovenox COde status: full code -Patient counseled extensively about difference between full code, DNRCC nad DNRCCA. Patient elects to be full code. Medications at Discharge Home Medications blood sugar diagnostic #10 ea 12/01/21 blood-glucose meter #1 ea 12/01/21 blood sugar diagnostic (Blood Glucose Test strips) #50 ea 03/07/22 spironolactone 25 mg tablet 25 mg PO DAILY diuretic #90 tabs 04/20/22 OXYGEN #1 ea 01/24/23 aspirin 81 mg chewable tablet 81 mg PO DAILY@0800 heart health #90 tabs 05/03/23 atorvastatin 40 mg tablet 40 mg PO QHS cholesterol #90 tabs 05/03/23 cholecalciferol (vitamin D3) 125 mcg (5,000 unit) capsule 125 mcg PO DAILY vitamin #90 caps 05/03/23 dapagliflozin propanediol 10 mg tablet (Farxiga) 10 mg PO DAILY diabetes #90 tabs 05/03/23 fluoxetine 10 mg capsule 10 mg PO DAILY mental health #90 caps 05/03/23 metoprolol succinate 100 mg tablet,extended release 24 hr 100 mg PO DAILY blood pressure #90 tabs 05/03/23 metoprolol succinate 50 mg tablet,extended release 24 hr 50 mg PO DAILY blood pressure #90 tabs 05/03/23 multivitamin (Daily Multi-Vitamin tablet) 1 tab PO DAILY vitamin #90 tabs 05/03/23 nitroglycerin 0.4 mg sublingual tablet 0.4 mg sublingual Q5M PRN Cardiac/Chest Pain ##10 05/03/23 omega-3 fatty acids 1,250 mg capsule 1,250 mg PO DAILY supplement #90 caps 05/03/23 prasugrel 10 mg tablet (Effient) 10 mg PO DAILY #90 tabs 05/03/23 sacubitril 97 mg-valsartan 103 mg tablet (Entresto) 1 tab PO BID heart #180 tabs 05/03/23 furosemide 40 mg tablet 40 mg PO .PRN PRN edema/SOB #20 tabs 05/23/23 inclisiran 284 mg/1.5 mL subcutaneous syringe (Leqvio) 284 mg (1.5 mL) subcut [id number] Please give at [facility] q 6 months #1.5 mL 05/31/23 ezetimibe 10 mg tablet 10 mg PO DAILY increased lipids 08/30/23 isosorbide mononitrate 30 mg tablet,extended release 24 hr 30 mg PO DAILY #30 tabs 09/18/23 Hospital Course Operations None Procedures None Summary of Care Provided Minutes Spent on Discharge: 55 Hospital Course: SALENA MONTALVO, is a 48 M with a H as outlined who presents via the ED on 09/17/2023 with a complaint of chest pain. Chest pain had been going on for 3 days prior to admission. Chest pain worsened the day of admission. He had been improving with sublingual nitroglycerin at home. He said it was pressure-like and mainly on the left side of his chest. He had no exacerbating factors. He had assisted shortness of breath, palpitations and lightheadedness. Review of systems otherwise negative. Vitals in the ED were blood pressure of 132/86, pulse rate of 60, respirate rate of 16 and oxygen saturation of 93% on room air. CBC showed hemoglobin of 18.1, WBC of 13.9 and platelets of 241. Chemistry shows sodium of 138 with bicarb of 26 and creatinine of 1.38. Initial troponin was negative. Chest x-ray showed no acute cardiopulmonary process. EKG showed no acute ST changes. He has been admitted to be managed for chest pain to rule out ACS. His troponins were cycled but they were negative. In light of his extensive cardiac history, a stress test would serve no utility he was already high risk for cardiac disease. I discussed with patient's pbx wire chief Dr. Sy who recommended patient be initiated on Imdur 30 mg daily to help with his stable angina. Patient was started on the sinus chest pressure did improve. Patient was counseled to follow-up with his cardio neurology team at [facility] within 1 week. He remained stable and was discharged on 06/18/2023. He is to follow-up with his primary care doctor and follow-up with cardiology on outpatient basis. Patient seen and examined prior to discharge. He had no complaints and had uneventful night. Review of systems is otherwise negative. Labs and vitals reviewed. Home meds reviewed and reconciled. He was counseled strongly to quit smoking as he still smokes one pack of cigarettes daily. Physical Exam Const alert, oriented x3 and no apparent distress General Appearance: cooperative and comfortable Orientation / Consciousness: awake Exam Limitations: no limitations HEENT normocephalic, head/scalp atraumatic, moist oral mucous membranes and oropharynx normal Eyes PERRL and EOMs intact bilaterally Neck no lymphadenopathy and supple Resp normal respiratory effort, normal air movement and clear to auscultation bilaterally Cardio regular rate, regular rhythm, S1 normal heart sound, S2 normal heart sound and no murmurs GI normal to inspection, nondistended, normoactive bowel sounds, soft to palpation, non-tender and non-distended Extremity normal to inspection, full ROM, normal capillary refill, no clubbing, cyanosis or edema and no calf tenderness Skin no rashes or lesions noted and no wounds General Skin Exam: no breakdown Neuro oriented x3, CN's II-XII intact bilaterally, moves all extremities, no focal motor deficits, no sensory deficits noted and deep tendon reflexes 2+ bilaterally Sensorium / Orientation: awake Motor Exam: strength 5/5 throughout and general weakness Psych thought process normal, cooperative and affect normal Appearance: appropriate Weight / BMI Weight Weight: 245 lb Body Mass Index (BMI) 32.3 ABG / Lab / Microbiology Data 09/18/23 06:25 09/18/23 06:25 Laboratory: Laboratory Results - last 24 hr 09/17/23 08:48: Diff Path Review Reviewed 09/17/23 11:11: Troponin I High Sens 51 09/17/23 14:46: Troponin I High Sens 41 09/18/23 06:25: WBC 11.0, RBC 5.29, Hgb 17.2 H, Hct 50.1, MCV 94.7 H, MCH 32.5 H, MCHC 34.3, RDW Std Deviation 44.7 H, RDW Coeff of Jenna 12.8, Plt Count 210, MPV 11.4, Immature Gran % (Auto) 0.500, Neut % (Auto) 53.5, Lymph % (Auto) 32.2, [place] % (Auto) 10.1 H, Eos % (Auto) 2.9, Baso % (Auto) 0.8, Absolute Neuts (auto) 5.9, Absolute Lymphs (auto) 3.56, Nucleated RBC % 0, Sodium 139, Potassium 3.9, Chloride 109 H, Carbon Dioxide 25.0, Anion Gap 5, BUN 14, Creatinine 1.23, Estim Creat Clear Calc 83.00, Est GFR (MDRD) Af Amer 81, Est GFR (MDRD) Non-Af 67, BUN/Creatinine Ratio 11.4, Glucose 124 H, Calcium 8.7 D/C Instructions Discharge Diet: Low fat / Low cholesterol Weight Bearing Status: Weight bearing as tolerated Call your doctor if you observe: Fever of 101 or Higher, Shortness of breath, Dizziness, Swelling in the ankles and Chest pain Meaningful Use Info Meaningful Use Diagnoses (Choose all that apply): None applicable Discharge Plan Admission Admit Date/Time: 09/17/23 12:23 Primary Reason for Your Visit: chest pain Attending Provider: Danielle Donovan Primary Care Provider: Lisset Avery Instructions Patient Instructions: ED Angina, Stable Discharge Orders/Prescriptions Prescriptions: New isosorbide mononitrate 30 mg Tablet Extended Release 24 Hr 30 mg PO DAILY Qty: 30 2RF Continued spironolactone 25 mg tablet 25 mg PO DAILY Qty: 90 3RF ezetimibe 10 mg tablet 10 mg PO DAILY ([facility]) blood-glucose meter Kit See Rx Instructions .ROUTE .MEDSUPPLY Qty: 1 0RF Rx Instructions: As directed ([facility]) blood sugar diagnostic Strip See Rx Instructions .ROUTE .MEDSUPPLY Qty: 10 1RF Rx Instructions: As directed ([facility]) Blood Glucose Test Strip See Rx Instructions .ROUTE .MEDSUPPLY Qty: 50 11RF Rx Instructions: use twice daily to check blood glucose for type 2 DM (DME) OXYGEN See Rx Instructions .Route .MEDSUPPLY Qty: 1 0RF Rx Instructions: 2 L/M Via NC Humidified , On at HS off at AM aspirin 81 mg tablet,chewable 81 mg PO DAILY@0800 Qty: 90 3RF atorvastatin 40 mg tablet 40 mg PO QHS Qty: 90 3RF cholecalciferol (vitamin D3) 125 mcg (5,000 unit) capsule 125 mcg PO DAILY Qty: 90 3RF Farxiga 10 mg tablet 10 mg PO DAILY Qty: 90 3RF fluoxetine 10 mg capsule 10 mg PO DAILY Qty: 90 3RF metoprolol succinate 100 mg tablet extended release 24 hr 100 mg PO DAILY Qty: 90 3RF Rx Instructions: Take with 50 mg to = 150 mg metoprolol succinate 50 mg tablet extended release 24 hr 50 mg PO DAILY Qty: 90 3RF Rx Instructions: Take with 100 mg to = 150 mg multivitamin [Daily Multi-Vitamin] Tablet 1 tab PO DAILY Qty: 90 3RF nitroglycerin 0.4 mg tablet, sublingual 0.4 mg sublingual Q5M PRN (Reason: Cardiac/Chest Pain) Qty: 10 0RF Patient Comments: PT STATES TOOK 3 BETWEEN [id number] omega-3 fatty acids 1,250 mg capsule 1,250 mg PO DAILY Qty: 90 3RF prasugrel [Effient] 10 mg tablet 10 mg PO DAILY Qty: 90 3RF Entresto 97-103 mg tablet 1 tab PO BID Qty: 180 3RF furosemide 40 mg tablet 40 mg PO .PRN PRN (Reason: edema/SOB) Qty: 20 3RF Leqvio 284 mg/1.5 mL syringe 284 mg subcut [id number] Qty: 1.5 1RF Referrals / Follow Up: Lisset Avery MD [Primary Care Provider] - Within 2 Weeks Disposition Disposition (needs filled in before D/C Order can be placed): Home, Self Care Charges/Coding Visit Charges Inpatient E&M: 23506 Disch Hosp >30min
[2023-09-18 11:26] VITALS: BP 106/80; PULSE 77; RESP 18; TEMP 36.1; O2SAT 97
== END 2023-09-18 10:50 | disposition home or self-care (01) ==
LOC: ED 11:57 → PCU 12:25
PROVIDERS: Admitting Provider Student in an Organized Health Care Education/Training Program; Emergency Provider Emergency Medicine; PCP Internal Medicine; Visit Provider Student in an Organized Health Care Education/Training Program
DX: R07.89 Other chest pain (principal); I11.0 Hypertensive heart disease with heart failure; I50.22 Chronic systolic (congestive) heart failure; E11.9 Type 2 diabetes mellitus without complications; Z86.16 Personal history of COVID-19; E78.5 Hyperlipidemia, unspecified; I25.5 Ischemic cardiomyopathy; I25.10 Atherosclerotic heart disease of native coronary artery without angina pectoris; Z95.810 Presence of automatic (implantable) cardiac defibrillator; E66.9 Obesity, unspecified; Z79.02 Long term (current) use of antithrombotics/antiplatelets; F17.210 Nicotine dependence, cigarettes, uncomplicated; Z79.84 Long term (current) use of oral hypoglycemic drugs; R42 Dizziness and giddiness; R06.02 Shortness of breath; I25.2 Old myocardial infarction; Z79.899 Other long term (current) drug therapy; Z79.82 Long term (current) use of aspirin; Z95.1 Presence of aortocoronary bypass graft; R00.2 Palpitations
CPT/HCPCS: 36415; 71045; 80048; 84484; 85025; 93005; 96372; 96374; 99221; 99285; A4216; G0378

== ENCOUNTER 2024-01-04 12:22 | Outpatient (CLI) | payer MEDICARE, MEDICAID, SELFPAY ==
[2022-05-31 15:20] VITALS: BMI 30.6
[2024-01-04 12:53] VITALS: BP 105/68; PULSE 61; RESP 16; TEMP 36.6; O2SAT 96; BMI 33.5
[2024-01-04] MEDS: [UNRECOGNIZED DRUG - OTHER] SC (13:00)
[2024-01-04 13:32] LABS: Cholesterol 154 mg/dL (200); High Density Lipoprotein 24 mg/dL; Triglycerides 232 mg/dL; Very Low Density Lipoprotein 46 mg/dL (5-40)
[2024-01-07 14:08] LABS: Lipoprotein A 223.6 nmol/L (<75.0)
== END 2024-01-04 12:23 | disposition home or self-care (01) ==
PROVIDERS: PCP Internal Medicine; Referring Provider Internal Medicine Cardiovascular Disease; Visit Provider Internal Medicine Cardiovascular Disease
DX: I25.10 Atherosclerotic heart disease of native coronary artery without angina pectoris (principal); I50.22 Chronic systolic (congestive) heart failure; I25.5 Ischemic cardiomyopathy; I25.2 Old myocardial infarction; E78.01 Familial hypercholesterolemia; Z95.1 Presence of aortocoronary bypass graft
CPT/HCPCS: 36415; 80061; 83695; 96372; J1306

== ENCOUNTER → 2024-02-28 | Outpatient (CLI) | payer MEDICARE, MEDICAID, SELFPAY ==
[2022-05-31 15:20] VITALS: BMI 30.6
== END | disposition home or self-care (01) ==
LOC: PSN 09:29
PROVIDERS: PCP Internal Medicine; Referring Provider Internal Medicine Cardiovascular Disease; Visit Provider Internal Medicine Cardiovascular Disease
DX: R00.2 Palpitations (principal)
CPT/HCPCS: 93225; 93226

== ENCOUNTER → 2024-04-15 | Outpatient (CLI) | payer MEDICARE, MEDICAID, SELFPAY ==
[2022-05-31 15:20] VITALS: BMI 30.6
[2024-04-15 12:24] LABS: Anion Gap 4 (5-15); BUN 9 mg/dL (7-18); BUN/Creat Ratio 7.3 RATIO (10-20); Calcium,Total 9.5 mg/dL (8.5-10.1); Chloride 112 mmol/L (98-107); Creatinine, Serum 1.24 mg/dL (0.70-1.30); EST Glomerular Filtration Rate 66 mL/min (>60); Est Glom Filt Rate - Afr Amer 80 mL/min (>60); Glucose 124 mg/dL (74-106); Potassium 4.2 mmol/L (3.5-5.1); Sodium Level 141 mmol/L (136-145)
== END | disposition home or self-care (01) ==
PROVIDERS: PCP Internal Medicine; Referring Provider Internal Medicine Cardiovascular Disease; Visit Provider Internal Medicine Cardiovascular Disease
DX: I25.5 Ischemic cardiomyopathy (principal); I50.22 Chronic systolic (congestive) heart failure; Z95.810 Presence of automatic (implantable) cardiac defibrillator
CPT/HCPCS: 36415; 80048

== ENCOUNTER → 2024-05-19 | Outpatient (CLI) | payer MEDICARE, MEDICAID, SELFPAY ==
[2022-05-31 15:20] VITALS: BMI 30.6
[2024-05-19 10:03] LABS: CPK Total, Creatine Kinase 89 U/L (39-308); Cholesterol 195 mg/dL (200); High Density Lipoprotein 29 mg/dL; Triglycerides 327 mg/dL; Uric Acid 6.8 mg/dL (3.5-7.2); Very Low Density Lipoprotein 65 mg/dL (5-40)
[2024-05-19 10:04] LABS: Hemoglobin A1c 5.7 % (3.8-5.6)
[2024-05-25 15:16] LABS: LDL, Direct 120295 127 mg/dL (0-99)
== END | disposition home or self-care (01) ==
PROVIDERS: PCP Internal Medicine
DX: Z79.4 Long term (current) use of insulin (principal); E78.01 Familial hypercholesterolemia; Z95.1 Presence of aortocoronary bypass graft
CPT/HCPCS: 36415; 80061; 82550; 83036; 83721; 84550

== ENCOUNTER 2024-06-25 10:02 | Outpatient (CLI) | payer MEDICARE, MEDICAID, SELFPAY ==
[2022-05-31 15:20] VITALS: BMI 30.6
[2024-06-25 10:17] VITALS: BP 147/90; PULSE 57; RESP 16; TEMP 36.3
[2024-06-25] MEDS: [UNRECOGNIZED DRUG - OTHER] SC (10:24)
== END 2024-06-25 23:59 | disposition home or self-care (01) ==
LOC: MEDOUTP 10:03
PROVIDERS: PCP Internal Medicine; Referring Provider Internal Medicine Cardiovascular Disease; Visit Provider Internal Medicine Cardiovascular Disease
DX: I25.10 Atherosclerotic heart disease of native coronary artery without angina pectoris (principal); I50.22 Chronic systolic (congestive) heart failure; I25.5 Ischemic cardiomyopathy; I25.2 Old myocardial infarction
CPT/HCPCS: 96372; J1306

== ENCOUNTER → 2024-08-19 | Outpatient (CLI) | payer MEDICARE, MEDICAID, SELFPAY ==
[2022-05-31 15:20] VITALS: BMI 30.6
[2024-08-19 16:52] LABS: BNP,B-Type NATRIURETIC PEPTIDE 49.9 pg/mL (0-100)
[2024-08-19 16:55] LABS: Anion Gap 5 (5-15); BUN 19 mg/dL (7-18); BUN/Creat Ratio 11.8 RATIO (10-20); Calcium,Total 9.4 mg/dL (8.5-10.1); Chloride 108 mmol/L (98-107); Creatinine, Serum 1.61 mg/dL (0.70-1.30); EST Glomerular Filtration Rate 49 mL/min (>60); Est Glom Filt Rate - Afr Amer 59 mL/min (>60); Glucose 123 mg/dL (74-106); Potassium 4.2 mmol/L (3.5-5.1); Sodium Level 136 mmol/L (136-145); Troponin-I HS 94 pg/mL (3.0-78.0)
== END | disposition home or self-care (01) ==
PROVIDERS: PCP Internal Medicine; Referring Provider Internal Medicine Cardiovascular Disease
DX: I50.22 Chronic systolic (congestive) heart failure (principal); I25.5 Ischemic cardiomyopathy; Z95.5 Presence of coronary angioplasty implant and graft
CPT/HCPCS: 36415; 80048; 83880; 84484

== ENCOUNTER → 2024-08-29 | Outpatient (CLI) | payer MEDICARE, MEDICAID, SELFPAY ==
[2022-05-31 15:20] VITALS: BMI 30.6
--- NOTE | 2024-08-29 08:07 | CR.HP_ITS ---
CR - History & Physical General Arrival date:: 08/29/24 Arrival time:: 08:07 Date of Referral:: 08/19/24 Date of CR Evaluation:: 08/29/24 Referring Physician: Dr. Hay Primary Diagnosis: ID-NonSTEMI<12 Months History of Present Cardiac Event Onset Date Acute Myocardial Infarction within 12 months:: Yes (08/14/24 onset) Medications Ambulatory Orders ?Medication ?Instructions ?Recorded blood sugar diagnostic #10 ea 12/01/21 blood-glucose meter #1 ea 12/01/21 blood sugar diagnostic (Blood #50 ea 03/07/22 Glucose Test strips) OXYGEN #1 ea 01/24/23 omega-3 fatty acids 1,250 mg 1,250 mg PO DAILY supplement #90 05/03/23 capsule caps sacubitril 97 mg-valsartan 103 mg 1 tab PO BID heart #180 tabs 11/28/23 tablet (Entresto) inclisiran 284 mg/1.5 mL 284 mg (1.5 mL) subcut .COMPLEX 03/06/24 subcutaneous syringe (Leqvio) #1.5 mL atorvastatin 40 mg tablet 40 mg PO QHS cholesterol #90 tabs 04/10/24 dapagliflozin propanediol 10 mg 10 mg PO DAILY diabetes #90 tabs 04/10/24 tablet (Farxiga) ezetimibe 10 mg tablet 10 mg PO DAILY increased lipids 04/10/24 #90 tabs metoprolol succinate 100 mg 100 mg PO DAILY blood pressure #90 04/10/24 tablet,extended release 24 hr tabs prasugrel 10 mg tablet (Effient) 10 mg PO DAILY #90 tabs 04/10/24 nitroglycerin 0.4 mg sublingual 0.4 mg sublingual Q5M PRN 05/05/24 tablet Cardiac/Chest Pain #25 tabs aspirin 81 mg chewable tablet 81 mg PO DAILY@0800 heart health 05/09/24 #90 tabs cholecalciferol (vitamin D3) 125 125 mcg PO DAILY vitamin #90 caps 05/09/24 mcg (5,000 unit) capsule fluoxetine 20 mg capsule 20 mg PO QDAY #90 caps 05/09/24 multivitamin (Daily Multi-Vitamin 1 tab PO DAILY vitamin #90 tabs 05/09/24 tablet) spironolactone 25 mg tablet 25 mg PO DAILY diuretic #90 tabs 05/09/24 furosemide 40 mg tablet 20 mg PO QDAY edema/SOB 08/19/24 metoprolol succinate 50 mg 50 mg PO DAILY blood pressure 08/19/24 tablet,extended release 24 hr nicotine 21 mg/24 hr daily 1 patch transdermal Q24H 08/19/24 transdermal patch pantoprazole 40 mg tablet,delayed 40 mg PO QDAY 08/19/24 release Allergies Allergies varenicline (From Chantix) Allergy (Intermediate, Verified 08/19/24 15:19) change in mental status metformin Adverse Reaction (Mild, Verified 08/19/24 15:19) Diarrhea adhesive tape Adverse Reaction (Verified 08/19/24 15:19) Rash Sleep Disorder Evaluation Hx of Sleep Apnea: No Do you snore loudly (louder than talking or can be heard through closed doors)?: No Do you often feel tired/ fatigued/ sleepy during daytime?: No Has anyone observed you stop breathing during sleep?: No History of Hypertension (for STOP score): Yes STOP Results: Negative Advanced Directives Advanced Directives Power of Operations Forester: No Living Will: No Advance Directives Information Provided: No Advance Directives on File: No DNR Order?:: No Past Medical History Covid-19 Screening Physicial Symptoms Other Clinical Concerns Exposure Risk Pertinent Comorbidities Has a serious heart condition:: Yes Diabetic:: Yes Past Medical Illness Medical History Chest pain Diabetes mellitus Plantar wart Anxiety and depression Obesity (BMI 30.0-34.9) Atherosclerosis of coronary artery bypass graft of [place] heart with angina pectoris History of non-ST elevation myocardial infarction (NSTEMI) (12/26/21) Acute hypoxemic respiratory failure due to COVID-19 (12/28/21) Type 2 diabetes mellitus Diabetes mellitus, new onset 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) Ischemic cardiomyopathy Chronic systolic (congestive) heart failure History of ST elevation myocardial infarction (STEMI) (06/22/20) Essential (primary) hypertension Hyperlipidemia Atherosclerosis of coronary artery of [place] heart without angina pectoris Past Surgical History Surgical History Presence of implantable cardioverter-defibrillator (ICD) History of coronary angioplasty (01/01/23) History of right heart catheterization (12/28/21) H/O coronary artery bypass surgery (07/26/21) History of left heart catheterization (12/27/21) History of myringotomy History of coronary artery stent placement (05/30/22) Surgical History: - Family History Summary Family History Father Myocardial infarction, Onset Age: 39 Mother Myocardial infarction, Onset Age: 40 Brother Myocardial infarction, Onset Age: 39 Brother Myocardial infarction, Onset Age: 36 Social History Smoking History Smoking Status: Current every day smoker Years Smokin Packs Smoked per Day: 0.5 (pt is in a smoking cessation class with [facility]) Alcohol Use Alcohol Usage: No Occupation Occupation (List type of work in comments):: Unemployed Hobbies, Recreation, Social Activities Hobbies: None Social Environment Status Marital Status: Current Living Arrangements Living Environment:: Family Children How many children do you have?: 3 Do any of your children live nearby?: Yes Safety Do you feel safe in your surroundings?: Yes Assistance Do you need any assistance at home?: no Review of Systems Review of Systems Hints Review of Present Symptoms: Reports Shortness of Breath with Exertion, Dizziness/Lightheadedness, Fatigue, Heart Arrhythmia/Irregularities, Appetite - Normal and Appetite - Special Diet; Denies Shortness of Breath at Rest, PVD, Operative Discomfort, Angina, Wound Healing, Sleep - Normal or Sexual Changes Pain Is Patient Pain Free?: Yes Risk Factor Assessment Chief Complaint Chief Complaint: ID-NonSTEMI<12 months Vital Signs Blood Pressure: 110/70 Pulse Pulse Rate: 54 Hypertension How long have you been treated?: 10 years Blood Pressure Sitting - Right Arm: 110/70 Diabetes Diabetic History: Type II Nutrition Referral for Diabetes: No Obesity Height: 6 ft Weight:: 237 lb Weight in Pounds: 237.0 lbs Body Mass Index (BMI): 32.1 Nutritional Referral for Obesity: No (declines) Physical Inactivity Physical Inactivity: None Risk Stratification Risk Guidelines: Moderate Risk: Risk Factor for Sedentary Lifestyle and Highest Risk: Risk Factor for Smoking, Risk Factor for Dyslipidemia, Risk Factor for Diabetes, Risk Factor for Obesity, Risk Factor for Hypertension and Risk Factor for Depression For Smoking Smoking Risk Guidelines For Dyslipidemia Dyslipidemia Risk Guidelines For Diabetes Mellitus Diabetes Risk Guidelines For Obesity/Overweight Obesity/Overweight Risk Guidelines For Hypertension Hypertension Risk Guidelines For Sedentary Lifestyle Sedentary Lifestyle Risk Guidelines For Depression Depression Risk Guidelines Family History Family History Father Myocardial infarction, Onset Age: 39 Mother Myocardial infarction, Onset Age: 40 Brother Myocardial infarction, Onset Age: 39 Brother Myocardial infarction, Onset Age: 36 Motivation Motivation to Participate On a scale of 1 to 10, how prepared are you to commit to attending program?: 10 What do you see as barriers to successfully being able to complete the program?: nothing What do you see as the benefits of succesfully completing the program? In other words, what do you hope to get out of participating in the program?: knowledge of limits, feel better Are there issues you are dealing with that will interfere with completing the program?: no Do you have a spouse or signficant other, family or friends who will help support you to complete the program?: yes
--- NOTE | 2024-08-29 08:16 | CR.ITP_ITS ---
Diagnosis General Information Admitting Diagnosis: SD-NonSTEMI<12Months Personal Learning Style:: Audio/Visual Barriers to Learning: No Barriers Stage of change r/t lifestyle modifications:: Contemplation Gave educational material for:: Treating Heart Disease, How The Heart Works, What it means to have Heart Disease, How Coronary Artery Disease is Diagnosed, Heart Procedures, What Heart Medications Do, Risk Factors & Modifications, Living an Active Life, Nutrition, Emotions & Heart Disease, Stress Management & Relaxation and Sleep Disorders & Heart Disease Education/Goals Cardiac Rehabilitation Goals Personal Goals: Initial Assessment: Quit smoking (participate in smoking cessation, Participate in home exercise program and Improve muscle strength and endurance Scale for measuring improvement of personal goals Diagnosis & Disease Process Outcomes/Goals: Pt IDs own risk factors & lifestyle modifications by Session 10, Verbalizes symptoms of angina & response by session 3., Pt independently manages and Other Additional Outcomes/Goals: Plan/Interventions: Assist Pt to ID & engage in lifestyle modification to reduce CVD risk, Instruct on individual risk factors, Review symptoms of angina & emergency actions, Review secondary diagnosis & identify educational needs. and Other see comment 30 day Reassessments:: Not Met 30 day Reassessments:: Not Met 30 day Reassessments:: Not Met 30 day Reassessments:: Not Met Final Reassessments:: Not Met Safety Referral to Physical Therapy: No Referral to [facility] Case Management: No Fall Risk Assessed:: Yes Assistive Devices:: None Exercise - Initial Assessment Visit Date of Eval: 08/29/24 (initial eval) Mets: Pre-: >3 METS for 30 minutes by discharge, >5 METS for 30 minutes by discharge, >7 METS for 30 minutes by discharge and Unable to meet goal due to: (see comment below) Physician Prescribed Exercise Modalities: Treadmill, Rower, Schwinn Airdyne AD-7, SciFit Stepper, SciFit Pro- II Ergometer and SciFit Lateral [place] Frequency: 2x/week for 18 weeks [36 sessions] and 3x/week for 12 weeks [36 sessions] Intensity: 60-80% of age predicted maximum heart rate reserve Duration: 30 - 45 minutes Current METSs:: 3 Target Heart Rate:: 103-128 Resting Blood Pressure: 110/70 EKG Type: SB left anterior fascicular block Outcomes & Goals Goals:: Verbalizes understanding of THR, RPE & goal METS by session 6, Documents in home exercise log/reports 30 min aerobic 5 day/wk by DC, Demonstrates accur ate pulse taking by DC and Other additional outcome/goals: see below Intervention & Plan Exercise Program Goals: Instruct on personal THR & RPE, Instruct on MET level & personal MET goal, Show patient to take own pulse /validate performance until accurate, Instruct on home exercise and Other additional plan/int Physical Activity Home Exercise Physical Activity - Home Exercise: Safe Exercise, Warm-up, Self-monitoring, Cool-Down, Home Exercise > 30 min Daily and Sitting Time <3 hours/daily Outcomes & Goals Outcomes/Goals: Demonstrates correct Warm-up/exercise Cool-Down (S3) if = 2.5 METs, Verbalizes symptoms of exercise intolerance by Session 3 (S3), Demonstrate safe equipment use (S3) & follows exercise prescrition (6) and Other: See below Intervention & Plan Plan/Intervention: Instruct warm-up & cool-down if exercising at > 2 METs, Instruct on symptoms of exercise intolerance & actions to take, Instruct & monitor on saf, Assess intial functional capacity & safety risk and Other See below Nutrition - Initial Assessment Program Goals Nutrition Program Goals Patient has diagnosis of Hyperlipidemia (ICD E78)?: Yes Visit Date of Eval: 08/29/24 (initial eval ) Cholesterol/Lipids (Other Core Measures) Determine presence & major risk factors that modify LDL goal: Cigarette smoking, Hypertension or hypertensive medication, Low HDL cholesterol <40 mg/dL*, Family history of premature CHD in Male < 55 years: female <65 yearsFa and Age men > 45 years; women >/= 55 years Outcomes/Goals: Pt IDs own risk factors & lifestyle modifications by Session 10, Verbalizes symptoms of angina & response by session 3., Pt independently manages and Other Additional Outcomes/Goals: Intervention/Plan: Advocate for lipid panel cholesterol medication if applica ble, Instruct on personal lipid levels & lipid goals/NCEP guidelines, Instruct on cholesterol and Other additional plan/int Referral to dietitian:: No (declines) Diabetes (Other Core Measures) Diabetes Type: Diagnosis Type II ICD-10 E11 Insulin dependent injection/pump?: No Non-Insulin Dependent?: Yes Do you monitor your blood sugar at home?: No Referral to Diabetic Clinic:: No (declines) Weight Mgt (Other Care) Height: 6 ft Weight:: 237 lb BMI: 32.1 Diagnosis Overweight/Obesity BMI> 30% ICD-10 E66: Yes Diagnosis High BMI/Morbid Obesity BMI> 35% ICD-10 Z68: No Outcomes/Goals: Pt sets, maintains & shows weight loss goal & trend during rehab and Other additional outcomes/goals Intervention/Plan: Instruct on ideal BMI & set weight loss goal w/patient, Assist pt to ID & incorporate diet changes for weight loss by S9, Refer to [facility] program as appropriate, Encourage goal of using 250-300dcal per session for weight loss and Other additional plan/interventions Healthy Eating Habits Will attend diet classes:: Yes Outcomes/Goals:: Consume diet rich in vegs,fruits,whole grain/high fiber,fish,lean meat, Limit sat/trans fats,cholesterol & added salts & sugars and Other additional outcome/goals: Intervention/Plan:: Assess current eating habits and Other Additional plan/interventions Education Gave educational materials for:: Signs & symptoms of hypoglycemia, Signs & symptoms of hyperglycemia, Relate diabetes to coronary artery disease and Healthy eating Core - Initial Assessment Visit Date of Eval: 08/29/24 (initial eval ) Medication Compliance Preventative Medication(s):: Aspirin, Statin/lipid and Beta alex H/O mental health issues: depression, anxiety, or addiction?: Yes Doesn?t believe in the benefits of treatment?: No Believes medications are unnecessary or harmful?: No Has a concern about medication side effects?: No Expresses concern over the cost of medications?: No Outcomes/Goals: Verbalizes medications,desired effect & common side effects @ DC, Pt self-reports following medication regimen, Keeps card in wallet w/medications listed by DC and Other additional outcome/goals: Interventions/plans: Instruct on medication effects & side effects, Review medication list w/patient every two weeks, Instruct importance of taking meds as ordered & assist problem solving and Other additional Tobacco Use Tobacco Use: Cigarettes How many cigarettes do you smoke per day?: 10 Years Smokin Outcomes/Goals: Smoking cessation achieved or maintained by discharge, Identify aids/strategies for achieving smoking cessation by session 6 and Other additional outcome/goals Interventions/plan: Instruct on effects of smoking & provide smoking cessation resource, Assist pt to set quit date & provide encouragement, Assist pt to develop strategies to achieve/maintain quit date, Assist pt w/nicotine replacement & medication for cessation success and Other additional plan/interventions Hypertension Hypertension Diagnosis:: Hypertension ICD-10 I10 Resting Blood Pressure:: 110/70 [place] [employer] Hypertension Guidelines Outcomes/Goals: Able to verbalize/achieve optimal blood pressure <130/80, Incorporates diet changes & exercise for blood pressure control by DC and Other additional outcomes/goals Interventions/plan: Instruct on optimal blood pressure, hypertension & medications, Instruct on effects of sodium, alcohol, stress, exercise &hypertension and Other additional plan/interventions Tobacco Cessation Referral Smoking Cessation Referral:: No (declines. pt states he is in smoking cessation at [facility]) Individual Education/Counseling:: No Education Schedule Given:: Yes Psychosocial - Initial Assess VIsit Date of Eval: 08/29/24 (initial eval ) History of previous Mental disease:: Yes History of Emotional Disorders: Anxious and Depression (pt states he is in counseling) Target Goals Target Goals Psychosocial Test Tool Used:: Abdi Sanchez QOL Cardiac and PHQ-9 Questionnaire phq-9 Severity Referral to Behavioral Health PS - Interventions: Yes: Attend Stress Management Classes Outcomes/Goals: See list Psychosocial Outcomes/Goals:: ID's personal stressors & 2 strategies to manage stress by discharge and Other Additional outcome/goals: Intervention/Plan: See List Interventions/Plan:: Assess stressors,coping strategies & signs of derpression on admission, Instruct/assist pt to develop coping & personal stress Mgt strategies, Refer to Behavioral Health if appropriate, Refer to Physician if appropriate, Instruct patient to recognize signs & symptoms of depression, Instruct patient to recog and Other additional plan/intervention Patient Health Questionnaire PHQ-9 Screening Initial Assessment: 1. Little interest or pleasure in doing things: Several days 2. Feeling down, depressed, or hopeless: Several days 3. Trouble falling or staying asleep, or sleeping too much: Several days 4. Feeling tired or having little energy: Nearly every day 5. Poor appetite or overeating: Not at all 6. Feeling bad about yourself -- or that you are a failure or have let yourself or your family down: Not at all 7. Trouble concentrating on things, such as reading the newspaper or watching television: Not at all 8. Moving or speaking so slowly that other people could have noticed. Or the opposite - being so fidgety or restless that you have been moving around a lot more than usual: Several days 9. Thoughts that you would be better off , or of hurting yourself in some way: Not at all Total Score: 7 DREA-Q SV Test Statements CAD is a disease of the arteries in the heart: False Examples of risk factors for heart disease: True Angina is chest pain or discomfort: True The benefits of resistance training include: True Eating more meat and dairy products: I Don't Know Anti-platelet medications such as aspirin are important: True The only effective way to manage stress: False An exercise warm-up slowly increases heart rate: I Don't Know Prepared, processed foods usually have high sodium: True Depression is common after a heart attack: True The statin medications lower cholesterol: True To control blood pressure, lower the amount of sodium: True If someone gets chest discomfort during walking: False Transfats are partially hydrogenated vegetable oils: True Sleep apnea that is not treated increases the risk: I Don't Know To control cholesterol, one should become a vegetarian: False Someone knows if he/she is exercising at the right level: I Don't Know Diabetes cannot be prevented with exercise & health eating: False Stress is a large risk for heart attack: True A diet that can help lower blood pressure is rich in: True Total Score Total Correct Responses: 16 Self-Efficacy 6-Item Scale Initial Assessment: We would like to know how confident you are in doing certain activities. Please select your confidence level for: Fatigue Select Number: 5 Physical Discomfort or Pain Select Number: 2 Emotional Distress Select Number: 10 Other Symptoms or Health Problems Select Number: 7 Different Tasks and Activities Select Number: 6 Medication Select Number: 9 Total Score:: 6 Nutrition Survey Nutrition Survey Instructions Scoring Instructions Nutrition Survey Initial: Have you lost >10 lbs over the past 2 months without trying?: No Are you following a special diet at home for diabetes, low fat, or low salt?: Yes Are you interested in meeting with a dietitian for help understanding your diet?: No Do you eat less than 3 meals a day?: Yes Do you eat fatty meats (rodas, sausage, ribs, etc), fried foods, desserts, large amounts of salad dressings, margarine, butter, or cheese most days?: No Do you have food allergies? 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 Exercise - 60-day Assessment Physician Prescribed Exercise Modalities: Treadmill, Rower, Schwinn Airdyne AD-7, SciFit Stepper, SciFit Pro- II Ergometer and SciFit Lateral Automotive Mechanic Exercise - 90-day Assessment Physician Prescribed Exercise Modalities: Treadmill, Rower, Schwinn Airdyne AD-7, SciFit Stepper, SciFit Pro- II Ergometer and SciFit Lateral Automotive Mechanic Exercise - Final/Discharge Physician Prescribed Exercise Modalities: Treadmill, Rower, Schwinn Airdyne AD-7, SciFit Stepper, SciFit Pro- II Ergometer and SciFit Lateral Automotive Mechanic Frequency: 2x/week for 18 weeks [36 sessions] and 3x/week for 12 weeks [36 sessions] Intensity: 60-80% of age predicted maximum heart rate reserve Current METSs:: 3 Target Heart Rate:: 103-128 Nutrition - 30-Day Assessment Weight Mgt (Other Care) Height: 6 ft Weight:: 237 lb BMI: 32.1 Nutrition - 60-Day Assessment Weight Mgt (Other Care) Height: 6 ft Weight:: 237 lb BMI: 32.1 Core - 30-Day Assessment Tobacco Use Years Smokin Core - Final Assessment Hypertension Resting Blood Pressure:: 110/70 [place] [employer] Hypertension Guidelines Core - 60-Day Assessment Hypertension Resting Blood Pressure:: 110/70 [place] [employer] Hypertension Guidelines Psychosocial - 30-Day Assess Target Goals Target Goals Referral to Behavioral Health PS - Interventions: Yes: Attend Stress Management Classes Psychosocial - 60-Day Assess Target Goals Target Goals Referral to Behavioral Health PS - Interventions: Yes: Attend Stress Management Classes Psychosocial - 90-Day Assess Target Goals Target Goals Referral to Behavioral Health PS - Interventions: Yes: Attend Stress Management Classes Psychosocial - Final Assessmen Target Goals Target Goals Referral to Behavioral Health PS - Interventions: Yes: Attend Stress Management Classes Nutrition - 90-Day Assessment Weight Mgt (Other Care) Height: 6 ft Weight:: 237 lb BMI: 32.1 Nutrition - Final Assessment Program Goals Patient has diagnosis of Hyperlipidemia (ICD E78)?: Yes Weight Mgt (Other Care) Height: 6 ft Weight:: 237 lb BMI: 32.1
[2024-08-29 08:33] VITALS: BMI 32.1
[2024-08-29 08:55] VITALS: BP 110/70; PULSE 54
[2024-08-29 09:03] VITALS: BP 110/70
[2024-08-29 09:08] VITALS: BP 110/70; BMI 32.1
== END | disposition home or self-care (01) ==
LOC: CR 07:59
PROVIDERS: PCP Internal Medicine; Referring Provider Internal Medicine Cardiovascular Disease; Visit Provider Internal Medicine Cardiovascular Disease
DX: I25.2 Old myocardial infarction (principal); I11.0 Hypertensive heart disease with heart failure; I50.22 Chronic systolic (congestive) heart failure; E11.9 Type 2 diabetes mellitus without complications; E66.9 Obesity, unspecified; I25.5 Ischemic cardiomyopathy; I25.119 Atherosclerotic heart disease of native coronary artery with unspecified angina pectoris; E78.5 Hyperlipidemia, unspecified; F41.9 Anxiety disorder, unspecified; F32.A Depression, unspecified; F17.210 Nicotine dependence, cigarettes, uncomplicated; Z95.1 Presence of aortocoronary bypass graft; Z68.32 Body mass index [BMI] 32.0-32.9, adult; Z79.82 Long term (current) use of aspirin; Z79.899 Other long term (current) drug therapy; Z95.810 Presence of automatic (implantable) cardiac defibrillator

== ENCOUNTER → 2024-09-10 | Outpatient (CLI) | payer MEDICARE, MEDICAID, SELFPAY ==
[2022-05-31 15:20] VITALS: BMI 30.6
[2024-08-29 09:08] VITALS: BMI 32.1
[2024-09-10 18:10] LABS: Anion Gap 5 (5-15); BUN 14 mg/dL (7-18); BUN/Creat Ratio 11.8 RATIO (10-20); Calcium,Total 9.2 mg/dL (8.5-10.1); Chloride 109 mmol/L (98-107); Creatinine, Serum 1.19 mg/dL (0.70-1.30); EST Glomerular Filtration Rate 69 mL/min (>60); Est Glom Filt Rate - Afr Amer 83 mL/min (>60); Glucose 91 mg/dL (74-106); Sodium Level 139 mmol/L (136-145)
[2024-09-11 01:54] LABS: BNP,B-Type NATRIURETIC PEPTIDE 47.2 pg/mL (0-100)
== END | disposition home or self-care (01) ==
PROVIDERS: PCP Internal Medicine
DX: I25.5 Ischemic cardiomyopathy (principal); Z51.81 Encounter for therapeutic drug level monitoring
CPT/HCPCS: 36415; 80048; 83880

== ENCOUNTER 2024-09-17 15:15 | Outpatient (RCR) | payer MEDICARE, MEDICAID, SELFPAY ==
[2024-08-29 09:08] VITALS: BMI 32.1
== END 2024-09-18 23:59 ==
LOC: CR 15:15
PROVIDERS: PCP Internal Medicine; Referring Provider Internal Medicine Cardiovascular Disease; Visit Provider Internal Medicine Cardiovascular Disease
DX: Z95.5 Presence of coronary angioplasty implant and graft (principal)
CPT/HCPCS: 93798

== ENCOUNTER 2024-10-15 15:15 | Outpatient (RCR) | payer MEDICARE, MEDICAID, SELFPAY ==
[2024-08-29 09:08] VITALS: BMI 32.1
--- NOTE | 2024-09-29 08:09 | CR.ITP_ITS ---
Exercise - Initial Assessment Visit Session #:: 9 Physician Prescribed Exercise Modalities: Treadmill, Rower and SciFit Stepper Nutrition - Initial Assessment Weight Mgt (Other Care) Height: 6 ft Weight:: 243 lb BMI: 32.9 Core - Initial Assessment Tobacco Use Years Smokin Psychosocial - Initial Assess Target Goals Target Goals Referral to Behavioral Health PS - Interventions: Yes: Attend Stress Management Classes Patient Health Questionnaire PHQ-9 Screening 30-Day Re-eval Assessment: 1. Little interest or pleasure in doing things: Several days 2. Feeling down, depressed, or hopeless: Several days 3. Trouble falling or staying asleep, or sleeping too much: Several days 4. Feeling tired or having little energy: Nearly every day 5. Poor appetite or overeating: Not at all 6. Feeling bad about yourself -- or that you are a failure or have let yourself or your family down: Not at all 7. Trouble concentrating on things, such as reading the newspaper or watching television: Not at all 8. Moving or speaking so slowly that other people could have noticed. Or the opposite - being so fidgety or restless that you have been moving around a lot more than usual: Several days 9. Thoughts that you would be better off , or of hurting yourself in some way: Not at all Total Score: 7 Self-Efficacy 6-Item Scale 30-Day Re-eval Assessment: We would like to know how confident you are in doing certain activities. Please select your confidence level for: Fatigue Select Number: 5 Physical Discomfort or Pain Select Number: 2 Emotional Distress Select Number: 10 Other Symptoms or Health Problems Select Number: 7 Different Tasks and Activities Select Number: 6 Medication Select Number: 9 Total Score:: 6 Nutrition Survey Nutrition Survey Instructions Scoring Instructions Exercise - 30-day Assessment Visit Date of Eval: 09/29/24 Session #:: 9 Physician Prescribed Exercise Modalities: Treadmill, Rower and SciFit Stepper Frequency: 3x/week for 12 weeks [36 sessions] Intensity: 60-80% of age predicted maximum heart rate reserve Duration: 30 - 45 minutes Current METSs:: 4.9 Target Heart Rate:: 103-128 Current RPE:: 13 Maximum Excercise HR:: 119 Resting Blood Pressure: 116/62 Maximum Exercise Blood Pressure: 126/68 EKG Type: NSR to ST with occas PVC's, PVC couplet, bigeminy of PVC noted Outcomes & Goals Goals:: Verbalizes understanding of THR, RPE & goal METS by session 6, Documents in home exercise log/reports 30 min aerobic 5 day/wk by DC, Demonstrates accurate pulse taking by DC and Other additional outcome/goals: see below Intervention & Plan Exercise Program Goals: Instruct on personal THR & RPE, Instruct on MET level & personal MET goal, Show patient to take own pulse /validate performance until accurate, Instruct on home exercise and Other additional plan/int 30-day Reassessments 30 day Reassessments:: Progressing Reassessment Notes & Comments:: RPE explained to pt. Pt demonstrates understanding. Physical Activity Home Exercise Physical Activity - Home Exercise: Safe Exercise, Warm-up, Self-monitoring, Cool-Down, Home Exercise > 30 min Daily and Sitting Time <3 hours/daily Outcomes & Goals Outcomes/Goals: Demonstrates correct Warm-up/exercise Cool-Down (S3) if = 2.5 METs, Verbalizes symptoms of exercise intolerance by Session 3 (S3), Demonstrate safe equipment use (S3) & follows exercise prescrition (6) and Other: See below Intervention & Plan Plan/Intervention: Instruct warm-up & cool-down if exercising at > 2 METs, Instruct on symptoms of exercise intolerance & actions to take, Instruct & monitor on saf, Assess intial functional capacity & safety risk and Other See below 30-day Reassessments 30 day Reassessments:: Progressing Reassessment Notes & Comments:: Proper warm up explained and demonstrated to pt. Pt is able to return demonstration. Exercise - 60-day Assessment Physician Prescribed Exercise Modalities: Treadmill, Rower and SciFit Stepper Exercise - 90-day Assessment Physician Prescribed Exercise Modalities: Treadmill, Rower and SciFit Stepper Exercise - Final/Discharge Physician Prescribed Exercise Modalities: Treadmill, Rower and SciFit Stepper Nutrition - 30-Day Assessment Program Goals Nutrition Program Goals Patient has diagnosis of Hyperlipidemia (ICD E78)?: Yes Visit Date of Eval: 09/29/24 Session #:: 9 Cholesterol/Lipids (Other Core Measures) Determine presence & major risk factors that modify LDL goal: Cigarette smoking, Hypertension or hypertensive medication, Low HDL cholesterol <40 mg/dL*, Family history of premature CHD in Male < 55 years: female <65 yearsFa and Age men > 45 years; women >/= 55 years Outcomes/Goals: Pt IDs own risk factors & lifestyle modifications by Session 10, Verbalizes symptoms of angina & response by session 3., Pt independently manages and Other Additional Outcomes/Goals: Intervention/Plan: Advocate for lipid panel cholesterol medication if applicable, Instruct on personal lipid levels & lipid goals/NCEP guidelines, Instruct on cholesterol and Other additional plan/int Referral to dietitian:: No (declines) 30-day Reassessments:: Progressing Reassessment Notes & Comments:: Risk factors and ways to minimize risk factors discussed with pt. Pt demonstrates understanding. Diabetes (Other Core Measures) Diabetes Type: Diagnosis Type II ICD-10 E11 Insulin dependent injection/pump?: No Non-Insulin Dependent?: Yes Do you monitor your blood sugar at home?: No Referral to Diabetic Clinic:: No (declines) 30-day Reassessments:: Progressing Reassessment Notes & Comments:: Will encouraged pt to attend diabetic clinic and to monitor BS. Weight Mgt (Other Care) Height: 6 ft Weight:: 243 lb BMI: 32.9 Diagnosis Overweight/Obesity BMI> 30% ICD-10 E66: Yes Diagnosis High BMI/Morbid Obesity BMI> 35% ICD-10 Z68: No Outcomes/Goals: Pt sets, maintains & shows weight loss goal & trend during rehab and Other additional outcomes/goals Intervention/Plan: Instruct on ideal BMI & set weight loss goal w/patient, Assist pt to ID & incorporate diet changes for weight loss by S9, Refer to Structured Weight Loss program as appropriate, Encourage goal of using 250- 300dcal per session for weight loss and Other additional plan/interventions 30 day Reassessments:: Progressing Reassessment Notes & Comments:: Pt is to attend nutrition class this week. Will encourage pt to keep a food log. Healthy Eating Habits Will attend diet classes:: Yes Outcomes/Goals:: Consume diet rich in vegs,fruits,whole grain/high fiber,fish,lean meat, Limit sat/trans fats,cholesterol & added salts & sugars and Other additional outcome/goals: Intervention/Plan:: Assess current eating habits and Other Additional plan/interventions 30-day Reassessments:: Progressing Reassessment Notes & Comments:: Pt scheduled to attend diet class this week. Education Gave educational materials for:: Signs & symptoms of hypoglycemia, Signs & symptoms of hyperglycemia, Relate diabetes to coronary artery disease and Healthy eating Nutrition - 60-Day Assessment Weight Mgt (Other Care) Height: 6 ft Weight:: 243 lb BMI: 32.9 Core - 30-Day Assessment Visit Date of Eval: 09/29/24 Session #:: 9 Medication Compliance Preventative Medication(s):: Aspirin, Statin/lipid and Beta alex H/O mental health issues: depression, anxiety, or addiction?: Yes Doesn?t believe in the benefits of treatment?: No Believes medications are unnecessary or harmful?: No Has a concern about medication side effects?: No Expresses concern over the cost of medications?: No Outcomes/Goals: Verbalizes medications,desired effect & common side effects @ DC, Pt self-reports following medication regimen, Keeps card in wallet w/medications listed by DC and Other additional outcome/goals: Interventions/plans: Instruct on medication effects & side effects, Review medication list w/patient every two weeks, Instruct importance of taking meds as ordered & assist problem solving and Other additional 30-day Reassessments:: Progressing Reassessment Notes & Comments:: Importance of medication compliance discussed with pt. Pt demonstrates understanding. Tobacco Use Tobacco Use: Cigarettes How many cigarettes do you smoke per day?: 10 Years Smokin Outcomes/Goals: Smoking cessation achieved or maintained by discharge, Identify aids/strategies for achieving smoking cessation by session 6 and Other additional outcome/goals Interventions/plan: Instruct on effects of smoking & provide smoking cessation resource, Assist pt to set quit date & provide encouragement, Assist pt to develop strategies to achieve/maintain quit date, Assist pt w/nicotine replacement & medication for cessation success and Other additional plan/interventions 30-day Reassessments:: Progressing Reassessment Notes & Comments:: Discussed importance of quitting smoking with pt. Pt demonstrates understanding. Will continue to monitor. Hypertension Hypertension Diagnosis:: Hypertension ICD-10 I10 Resting Blood Pressure:: 116/62 [place] [employer] Hypertension Guidelines Peak Exercise Blood Pressure:: 126/68 Outcomes/Goals: Able to verbalize/achieve optimal blood pressure <130/80, Incorporates diet changes & exercise for blood pressure control by DC and Other additional outcomes/goals Interventions/plan: Instruct on optimal blood pressure, hypertension & medications, Instruct on effects of sodium, alcohol, stress, exercise &hypertension and Other additional plan/interventions 30 day Reassessments:: Met Reassessment Notes & Comments:: Pt's bp's are within AHA's normal limits will continue to monitor. Tobacco Cessation Referral Smoking Cessation Referral:: No (declines) Individual Education/Counseling:: Yes Education Schedule Given:: Yes Psychosocial - 30-Day Assess VIsit Date of Eval: 09/29/24 Session #:: 9 History of previous Mental disease:: Yes History of Emotional Disorders: Anxious and Depression (Pt states that he is in counseling.) Target Goals Target Goals Psychosocial Test Tool Used:: [employer] QOL Cardiac and PHQ-9 Questionnaire phq-9 Severity Referral to Behavioral Health PS - Interventions: Yes: Attend Stress Management Classes Outcomes/Goals: See list Psychosocial Outcomes/Goals:: ID's personal stressors & 2 strategies to manage stress by discharge and Other Additional outcome/goals: Intervention/Plan: See List Interventions/Plan:: Assess stressors,coping strategies & signs of derpression on admission, Instruct/assist pt to develop coping & personal stress Mgt strategies, Refer to Behavioral Health if appropriate, Refer to Physician if appropriate, Instruct patient to recognize signs & symptoms of depression, Instruct patient to recog and Other additional plan/intervention 30-day Reassessments: 30 day Reassessments:: Progressing Reassessment Notes & Comments:: Pt is currently in counseling for anxiety and depression Psychosocial - 60-Day Assess Target Goals Target Goals Referral to Behavioral Health PS - Interventions: Yes: Attend Stress Management Classes Outcomes/Goals: See list Psychosocial Outcomes/Goals:: ID's personal stressors & 2 strategies to manage stress by discharge and Other Additional outcome/goals: Psychosocial - 90-Day Assess Target Goals Target Goals Referral to Behavioral Health PS - Interventions: Yes: Attend Stress Management Classes Psychosocial - Final Assessmen Target Goals Target Goals Referral to Behavioral Health PS - Interventions: Yes: Attend Stress Management Classes Nutrition - 90-Day Assessment Weight Mgt (Other Care) Height: 6 ft Weight:: 243 lb BMI: 32.9 Nutrition - Final Assessment Weight Mgt (Other Care) Height: 6 ft Weight:: 243 lb BMI: 32.9
[2024-09-29 08:17] VITALS: BP 116/62
[2024-09-29 08:30] VITALS: BP 116/62; BMI 32.9
== END 2024-10-18 23:59 ==
LOC: CR 15:15
PROVIDERS: PCP Internal Medicine; Referring Provider Internal Medicine Cardiovascular Disease; Visit Provider Internal Medicine Cardiovascular Disease
DX: Z95.5 Presence of coronary angioplasty implant and graft (principal)
CPT/HCPCS: 93798

== ENCOUNTER 2024-10-24 15:15 | Outpatient (RCR) | payer MEDICARE, MEDICAID, SELFPAY ==
[2024-09-29 08:30] VITALS: BMI 32.9
[2024-10-19 00:44] VITALS: BP 116/62
--- NOTE | 2024-10-29 09:14 | CR.ITP_ITS ---
Exercise - Initial Assessment Physician Prescribed Exercise Modalities: Treadmill, Rower and SciFit Lateral [employer] Nutrition - Initial Assessment Weight Mgt (Other Care) Height: 6 ft Weight:: 242 lb BMI: 32.8 Core - Initial Assessment Hypertension Resting Blood Pressure:: 92/60 [place] [employer] Hypertension Guidelines Psychosocial - Initial Assess Target Goals Target Goals Referral to Behavioral Health PS - Interventions: Yes: Attend Stress Management Classes Patient Health Questionnaire PHQ-9 Screening 60-Day Re-eval Assessment: 1. Little interest or pleasure in doing things: Several days 2. Feeling down, depressed, or hopeless: Several days 3. Trouble falling or staying asleep, or sleeping too much: Several days 4. Feeling tired or having little energy: Nearly every day 5. Poor appetite or overeating: Not at all 6. Feeling bad about yourself -- or that you are a failure or have let yourself or your family down: Not at all 7. Trouble concentrating on things, such as reading the newspaper or watching television: Not at all 8. Moving or speaking so slowly that other people could have noticed. Or the opposite - being so fidgety or restless that you have been moving around a lot more than usual: Several days 9. Thoughts that you would be better off , or of hurting yourself in some way: Not at all How difficult have these problems made it for you to do your work, take care of things at home, or get along with other people?: Somewhat difficult Total Score: 7 Self-Efficacy 6-Item Scale 60-Day Re-eval Assessment: We would like to know how confident you are in doing certain activities. Please select your confidence level for: Fatigue Select Number: 5 Physical Discomfort or Pain Select Number: 2 Emotional Distress Select Number: 10 Other Symptoms or Health Problems Select Number: 7 Different Tasks and Activities Select Number: 6 Medication Select Number: 9 Total Score:: 6 Nutrition Survey Nutrition Survey Instructions Scoring Instructions Exercise - 30-day Assessment Physician Prescribed Exercise Modalities: Treadmill, Rower and SciFit Lateral [place] Exercise - 60-day Assessment Visit Date of Eval: 10/29/24 Session #:: 20 Physician Prescribed Exercise Modalities: Treadmill, Rower and SciFit Lateral [place] Frequency: 3x/week for 12 weeks [36 sessions] Intensity: 60-80% of age predicted maximum heart rate reserve Duration: 30 - 45 minutes Current METSs:: 4.9 Target Heart Rate:: 103-128 Current RPE:: 12-13 Maximum Excercise HR:: 104 Resting Blood Pressure: 106/66 Maximum Exercise Blood Pressure: 118/68 EKG Type: SB-ST with occas PVC, PVC couplet. Outcomes & Goals Goals:: Verbalizes understanding of THR, RPE & goal METS by session 6, Documents in home exercise log/reports 30 min aerobic 5 day/wk by DC, Demonstrates accurate pulse taking by DC and Other additional outcome/goals: see below Intervention & Plan Exercise Program Goals: Instruct on personal THR & RPE, Instruct on MET level & personal MET goal, Show patient to take own pulse /validate performance until accurate, Instruct on home exercise and Other additional plan/int 30-day Reassessments 30 day Reassessments:: Progressing Reassessment Notes & Comments:: THR explained. Pt demonstrates understanding. Physical Activity Home Exercise Physical Activity - Home Exercise: Safe Exercise, Warm-up, Self-monitoring, Cool-Down, Home Exercise > 30 min Daily and Sitting Time <3 hours/daily Outcomes & Goals Outcomes/Goals: Demonstrates correct Warm-up/exercise Cool-Down (S3) if = 2.5 METs, Verbalizes symptoms of exercise intolerance by Session 3 (S3), Demonstrate safe equipment use (S3) & follows exercise prescrition (6) and Other: See below Intervention & Plan Plan/Intervention: Instruct warm-up & cool-down if exercising at > 2 METs, Inst ruct on symptoms of exercise intolerance & actions to take, Instruct & monitor on saf, Assess intial functional capacity & safety risk and Other See below 30-day Reassessments 30 day Reassessments:: Progressing Reassessment Notes & Comments:: cool down explained and demonstrated to pt. Pt is able to return demonstration Exercise - 90-day Assessment Physician Prescribed Exercise Modalities: Treadmill, Rower and SciFit Lateral [place] Exercise - Final/Discharge Physician Prescribed Exercise Modalities: Treadmill, Rower and SciFit Lateral [place] Nutrition - 30-Day Assessment Weight Mgt (Other Care) Height: 6 ft Weight:: 242 lb BMI: 32.8 Nutrition - 60-Day Assessment Program Goals Nutrition Program Goals Patient has diagnosis of Hyperlipidemia (ICD E78)?: Yes Visit Date of Eval: 10/29/24 Session #:: 20 Cholesterol/Lipids (Other Core Measures) Determine presence & major risk factors that modify LDL goal: Cigarette smoking, Hypertension or hypertensive medication, Low HDL cholesterol <40 mg/dL*, Family history of premature CHD in Male < 55 years: female <65 yearsFa and Age men > 45 years; women >/= 55 years Outcomes/Goals: Pt IDs own risk factors & lifestyle modifications by Session 10, Verbalizes symptoms of angina & response by session 3., Pt independently manages and Other Additional Outcomes/Goals: Intervention/Plan: Advocate for lipid panel cholesterol medication if applicable, Instruct on personal lipid levels & lipid goals/NCEP guidelines, Instruct on cholesterol and Other additional plan/int Referral to dietitian:: No (declines) 30-day Reassessments:: Progressing Reassessment Notes & Comments:: Smoking cessation discussed with pt. Pt has reduced his smoking. Diabetes (Other Core Measures) Diabetes Type: Diagnosis Type II ICD-10 E11 Insulin dependent injection/pump?: No Non-Insulin Dependent?: Yes Do you monitor your blood sugar at home?: No Referral to Diabetic Clinic:: No 30-day Reassessments:: Progressing Reassessment Notes & Comments:: encourage pt to attend diabetic clinic and monitor BS. Weight Mgt (Other Care) Height: 6 ft Weight:: 242 lb BMI: 32.8 Diagnosis Overweight/Obesity BMI> 30% ICD-10 E66: Yes Diagnosis High BMI/Morbid Obesity BMI> 35% ICD-10 Z68: No Outcomes/Goals: Pt sets, maintains & shows weight loss goal & trend during rehab and Other additional outcomes/goals Intervention/Plan: Instruct on ideal BMI & set weight loss goal w/patient, Assist pt to ID & incorporate diet changes for weight loss by S9, Refer to Structured Weight Loss program as appropriate, Encourage goal of using 250- 300dcal per session for weight loss and Other additional plan/interventions 30 day Reassessments:: Progressing Reassessment Notes & Comments:: Pt attended nutrition class. Pt understands the importance of a heart healthy diet. Healthy Eating Habits Will attend diet classes:: Yes Outcomes/Goals:: Consume diet rich in vegs,fruits,whole grain/high fiber,fish,lean meat, Limit sat/trans fats,cholesterol & added salts & sugars and Other additional outcome/goals: Intervention/Plan:: Assess current eating habits and Other Additional plan/interventions 30-day Reassessments:: Met Reassessment Notes & Comments:: Pt attended nutrition class. Pt understands the importance of a heart healthy diet. Education Gave educational materials for:: Signs & symptoms of hypoglycemia, Signs & symptoms of hyperglycemia, Relate diabetes to coronary artery disease and Healthy eating Core - Final Assessment Tobacco Use How many cigarettes do you smoke per day?: 10 Years Smokin Hypertension Resting Blood Pressure:: 92/60 [place] [employer] Hypertension Guidelines Core - 60-Day Assessment Visit Date of Eval: 10/29/24 Session #:: 20 Medication Compliance Preventative Medication(s):: Aspirin, Statin/lipid and Beta alex H/O mental health issues: depression, anxiety, or addiction?: Yes Doesn?t believe in the benefits of treatment?: No Believes medications are unnecessary or harmful?: No Has a concern about medication side effects?: No Expresses concern over the cost of medications?: No Outcomes/Goals: Verbalizes medications,desired effect & common side effects @ DC, Pt self-reports following medication regimen, Keeps card in wallet w/medications listed by DC and Other additional outcome/goals: Interventions/plans: Instruct on medication effects & side effects, Review medication list w/patient every two weeks, Instruct importance of taking meds as ordered & assist problem solving and Other additional 30-day Reassessments:: Met Reassessment Notes & Comments:: Pt is currently taking his meds as prescribed. Will continue to monitor. Tobacco Use Tobacco Use: Cigarettes How many cigarettes do you smoke per day?: 10 Years Smokin Outcomes/Goals: Smoking cessation achieved or maintained by discharge, Identify aids/strategies for achieving smoking cessation by session 6 and Other additional outcome/goals Interventions/plan: Instruct on effects of smoking & provide smoking cessation resource, Assist pt to set quit date & provide encouragement, Assist pt to develop strategies to achieve/maintain quit date, Assist pt w/nicotine replacement & medication for cessation success and Other additional plan/interventions 30-day Reassessments:: Progressing Reassessment Notes & Comments:: Pt i smoking less. Pt is encouraged to attend smoking cessation class. Hypertension Hypertension Diagnosis:: Hypertension ICD-10 I10 Resting Blood Pressure:: 118/68 Resting Blood Pressure:: 92/60 [place] [employer] Hypertension Guidelines Peak Exercise Blood Pressure:: 118/68 Outcomes/Goals: Able to verbalize/achieve optimal blood pressure <130/80, Incorporates diet changes & exercise for blood pressure control by DC and Other additional outcomes/goals Interventions/plan: Instruct on optimal blood pressure, hypertension & medications, Instruct on effects of sodium, alcohol, stress, exercise &hypertension and Other additional plan/interventions 30 day Reassessments:: Met Reassessment Notes & Comments:: Pt's bp's are within AHA's normal limits Tobacco Cessation Referral Smoking Cessation Referral:: No (declines) Individual Education/Counseling:: No Education Schedule Given:: Yes Psychosocial - 30-Day Assess Target Goals Target Goals Referral to Behavioral Health PS - Interventions: Yes: Attend Stress Management Classes Outcomes/Goals: See list Psychosocial Outcomes/Goals:: ID's personal stressors & 2 strategies to manage stress by discharge and Other Additional outcome/goals: Psychosocial - 60-Day Assess VIsit Date of Eval: 10/29/24 Session #:: 20 History of Emotional Disorders: Anxious and Depression (pt states he is currently in counseling) Target Goals Target Goals Psychosocial Test Tool Used:: [employer] QOL Cardiac and PHQ-9 Questionnaire phq-9 Severity Referral to Behavioral Health PS - Interventions: Yes: Attend Stress Management Classes Outcomes/Goals: See list Psychosocial Outcomes/Goals:: ID's personal stressors & 2 strategies to manage stress by discharge and Other Additional outcome/goals: Intervention/Plan: See List Interventions/Plan:: Assess stressors,coping strategies & signs of derpression on admission, Instruct/assist pt to develop coping & personal stress Mgt strategies, Refer to Behavioral Health if appropriate, Refer to Physician if appropriate, Instruct patient to recognize signs & symptoms of depression, Instruct patient to recog and Other additional plan/intervention 30-day Reassessments: 30 day Reassessments:: Progressing Reassessment Notes & Comments:: Pt is currently in counseling. Psychosocial - 90-Day Assess Target Goals Target Goals Referral to Behavioral Health PS - Interventions: Yes: Attend Stress Management Classes Psychosocial - Final Assessmen Target Goals Target Goals Referral to Behavioral Health PS - Interventions: Yes: Attend Stress Management Classes Nutrition - 90-Day Assessment Weight Mgt (Other Care) Height: 6 ft Weight:: 242 lb BMI: 32.8 Nutrition - Final Assessment Weight Mgt (Other Care) Height: 6 ft Weight:: 242 lb BMI: 32.8
[2024-10-29 09:28] VITALS: BP 106/66; BMI 32.8
[2024-10-29 10:47] VITALS: BP 118/68; BP 92/60
== END 2024-11-18 23:59 ==
LOC: CR 15:15
PROVIDERS: PCP Internal Medicine; Referring Provider Internal Medicine Cardiovascular Disease; Visit Provider Internal Medicine Cardiovascular Disease
DX: Z95.5 Presence of coronary angioplasty implant and graft (principal)
CPT/HCPCS: 93798

== ENCOUNTER 2024-11-21 08:30 | Outpatient (RCR) | payer MEDICARE, MEDICAID, SELFPAY ==
[2024-11-19 00:44] VITALS: BP 106/66; BP 116/62; BP 118/68; BP 92/60
== END 2024-12-19 23:59 ==
LOC: CR 08:30
PROVIDERS: PCP Internal Medicine; Referring Provider Internal Medicine Cardiovascular Disease; Visit Provider Internal Medicine Cardiovascular Disease
DX: Z95.5 Presence of coronary angioplasty implant and graft (principal)

== ENCOUNTER 2025-01-17 05:22 | Inpatient (IN) | payer MEDICARE, MEDICAID, SELFPAY ==
[2025-01-17] VITALS (8 sets, daily range): BP systolic 109–144; BP diastolic 64–106; PULSE 74–79; RESP 15–18; TEMP 36.6–36.9; O2SAT 94–98; BMI 33.9; BMI 33.5
--- NOTE | 2025-01-17 05:41 | EKG12_ITS ---
Test Reason : DYSRHYTHMIA Blood Pressure : */* mmHG Vent. Rate : 89 BPM Atrial Rate : 89 BPM P-R Int : 136 ms QRS Dur : 122 ms QT Int : 378 ms P-R-T Axes : 53 -67 89 degrees QTcB Int : 459 ms Normal sinus rhythm Left axis deviation Minimal voltage criteria for LVH, may be normal variant ( Dougherty product ) Septal infarct (cited on or before 19-Jul-2021) Abnormal ECG Confirmed by Feliciano Dimas ([id number]), non linear editor PRIYANK HANNON ([id number]) on 01/19/2025 6:58:16 AM Referred By: Confirmed By: Feliciano Dimas
--- NOTE | 2025-01-17 05:43 | EX.ED.DYSGE1 ---
HPI History of Present Illness Chief Complaint: Hyperglycemia Informant: patient Narrative Narrative: 50-year-old male states almost 24 hours ago he started feeling shaky and having polydipsia and polyuria so although he does not typically check his blood sugar, he is a type II diabetic on [facility] along with congestive heart failure, so we checked his blood sugar and it was in the 300s. Later in the evening it was again in the 300s. This morning he woke up feeling very shaky, so he checked it again and it was 402 which is very high for him. He does not have insulin or any other way to bring his sugar down other than drinking water which is what he was doing before the sugar went up further. He states he also took Lasix earlier in the day due to feeling some dyspnea on exertion. He complains of a mild cough recently but no fevers, chills, weakness, fatigue, malaise. [facility] Medical History Chest pain Diabetes mellitus Plantar wart Anxiety and depression Obesity (BMI 30.0-34.9) Atherosclerosis of coronary artery bypass graft of [place] heart with angina pectoris History of non-ST elevation myocardial infarction (NSTEMI) (12/26/21) Acute hypoxemic respiratory failure due to COVID-19 (12/28/21) Type 2 diabetes mellitus Diabetes mellitus, new onset 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) Ischemic cardiomyopathy Chronic systolic (congestive) heart failure History of ST elevation myocardial infarction (STEMI) (06/22/20) Essential (primary) hypertension Hyperlipidemia Atherosclerosis of coronary artery of [place] heart without angina pectoris Home Medications ?Medication ?Instructions ?Recorded ?Last Taken ?Type blood sugar diagnostic #10 ea 12/01/21 Unknown Rx blood-glucose meter #1 ea 12/01/21 Unknown Rx blood sugar diagnostic (Blood #50 ea 03/07/22 Unknown Rx Glucose Test strips) OXYGEN #1 ea 01/24/23 Unknown Rx omega-3 fatty acids 1,250 mg 1,250 mg PO DAILY supplement #90 05/03/23 Unknown Rx capsule caps inclisiran 284 mg/1.5 mL 284 mg (1.5 mL) subcut .COMPLEX 03/06/24 Unknown Rx subcutaneous syringe (Leqvio) #1.5 mL atorvastatin 40 mg tablet 40 mg PO QHS cholesterol #90 tabs 04/10/24 Unknown Rx dapagliflozin propanediol 10 mg 10 mg PO DAILY diabetes #90 tabs 04/10/24 Unknown Rx tablet (Farxiga) ezetimibe 10 mg tablet 10 mg PO DAILY increased lipids 04/10/24 Unknown Rx #90 tabs metoprolol succinate 100 mg 100 mg PO DAILY blood pressure #90 04/10/24 Unknown Rx tablet,extended release 24 hr tabs prasugrel 10 mg tablet (Effient) 10 mg PO DAILY #90 tabs 04/10/24 Unknown Rx nitroglycerin 0.4 mg sublingual 0.4 mg sublingual Q5M PRN 05/05/24 Unknown Rx tablet Cardiac/Chest Pain #25 tabs aspirin 81 mg chewable tablet 81 mg PO DAILY@0800 heart health 05/09/24 Unknown Rx #90 tabs cholecalciferol (vitamin D3) 125 125 mcg PO DAILY vitamin #90 caps 05/09/24 Unknown Rx mcg (5,000 unit) capsule fluoxetine 20 mg capsule 20 mg PO QDAY #90 caps 05/09/24 Unknown Rx multivitamin (Daily Multi-Vitamin 1 tab PO DAILY vitamin #90 tabs 05/09/24 Unknown Rx tablet) spironolactone 25 mg tablet 25 mg PO DAILY diuretic #90 tabs 05/09/24 Unknown Rx furosemide 40 mg tablet 20 mg PO QDAY edema/SOB 08/19/24 Unknown History metoprolol succinate 50 mg 50 mg PO DAILY blood pressure 08/19/24 Unknown History tablet,extended release 24 hr pantoprazole 40 mg tablet,delayed 40 mg PO QDAY 08/19/24 Unknown History release sacubitril 97 mg-valsartan 103 mg 1 tab PO BID heart #180 tabs 11/24/24 Unknown Rx tablet (Entresto) Allergy/AdvReac Type Severity Reaction Status Date / Time varenicline (From Chantix) Allergy Intermediate change in Verified 01/17/25 05:26 mental status metformin AdvReac Mild Diarrhea Verified 01/17/25 05:26 adhesive tape AdvReac Rash Verified 01/17/25 05:26 Family History Father Myocardial infarction, Onset Age: 39 Mother Myocardial infarction, Onset Age: 40 Brother Myocardial infarction, Onset Age: 39 Brother Myocardial infarction, Onset Age: 36 Surgical History Presence of implantable cardioverter-defibrillator (ICD) History of coronary angioplasty (01/01/23) History of right heart catheterization (12/28/21) H/O coronary artery bypass surgery (07/26/21) History of left heart catheterization (12/27/21) History of myringotomy History of coronary artery stent placement (05/30/22) Social History household members: significant other Smoking Status: Current every day smoker tobacco type: cigarettes quit status: has quit before alcohol intake: never substance use type: does not use caffeine: Yes Type: coffee Number of servings: 4 ROS ROS ED Constitutional Constitutional ED: Denies chills or fever(s) Eyes Eyes: Denies change in vision or diplopia ENT ENT ED: Denies rhinorrhea or sore throat Cardiovascular Cardiovascular: Denies chest pain, leg edema, orthopnea or palpitations Respiratory/Chest Respiratory/Chest: Reports cough and dyspnea on exertion; Denies orthopnea Gastrointestinal Gastrointestinal: Denies abdominal pain, diarrhea, nausea or vomiting Genitourinary Genitourinary ED: Denies dysuria or hematuria Musculoskeletal Musculoskeletal: Denies back pain or neck pain Integumentary Denies abscess or rash Neurologic Neurologic: Denies headache(s), paresthesias or weakness Psychiatric Psychiatric: Denies anxiety or suicidal thoughts Endocrine Endocrinology: Reports polydipsia and polyuria EXAM Physical Exam Const Vital Signs: 01/17/25 05:22 01/17/25 05:41 01/17/25 06:08 Temperature 98.5 F Temperature Source Oral Pulse Rate 79 Respiratory Rate 18 Respiratory Effort Normal Respiratory Pattern Normal Blood Pressure 144/106 H Blood Pressure Mean 118 Pulse Ox 95 96 Oxygen Delivery Method Room Air Room Air 01/17/25 07:22 Temperature Temperature Source Pulse Rate 74 Respiratory Rate 18 Respiratory Effort Respiratory Pattern Blood Pressure 124/68 H Blood Pressure Mean 86 Pulse Ox 98 Oxygen Delivery Method Room Air Positive well nourished and well developed General Appearance ED: well developed and NAD HEENT Reports moist mucous membranes normocephalic and atraumatic Eyes PERRL and EOMs intact bilaterally Neck full ROM and supple Resp normal respiratory effort and clear to auscultation bilaterally Cardio regular rate, regular rhythm and no murmurs Rate: Negative for tachycardic GI non-tender and non-distended Auscultation: normoactive bowel sounds Palpation: soft Back/Spine no CVA tenderness General Back: other FROM Extremity normal to inspection General Extremety ED: Negative for edema, pulses abnormal or tenderness General Extremity: Negative for edema or pulses abnormal Neuro oriented x3, CN's II-XII intact bilaterally and no sensory deficits noted Sensorium / Orientation: awake and alert Motor Exam: strength 5/5 throughout Skin no rashes or lesions noted and no wounds MDM MDM MDM Narrative Medical decision making narrative: Two-view chest x-ray obtained which on my interpretation is normal, radiology in agreement, treated his high blood sugar with some subcutaneous insulin while obtaining labs and a urinalysis. The urine shows ketones but no infection, sugar came down to 286 but his anion gap is elevated with a decreased bicarb, and in context of the patient feeling dyspneic with continuously elevated blood sugars this is concerning for DKA. His potassium is normal, he is doing a little better after IV fluids and the insulin, I am waiting for beta hydroxybutyrate and venous pH to come back to confirm DKA and advised the patient he will likely need to be admitted. Discussed with Dr. Chawla, he states for this patient and he would admit him and should be able to manage him without an insulin drip, therefore he will not require the ICU and we will admit him to PCU. Lab Data Attestation: I reviewed the patient's lab results. Labs: Laboratory Results - last 24 hr 01/17/25 01/17/25 01/17/25 05:29 05:35 06:05 WBC 10.8 RBC 5.17 Hgb 17.3 H Hct 46.5 MCV 89.9 MCH 33.5 H MCHC 37.2 H RDW Std Deviation 41.1 RDW Coeff of Jenna 12.4 Plt Count 208 MPV 12.4 H Immature Gran % (Auto) 0.500 Neut % (Auto) 54.6 Lymph % (Auto) 34.9 Garza % (Auto) 7.1 Eos % (Auto) 1.9 Baso % (Auto) 1.0 Absolute Neuts (auto) 5.9 Absolute Lymphs (auto) 3.76 Nucleated RBC % 0 Sodium 137 Potassium 3.7 Chloride Direct 102 Carbon Dioxide 18.6 L Anion Gap 17 H BUN 11 Creatinine 1.19 Estim Creat Clear Calc 96.60 Est GFR (MDRD) Non-Af 74 BUN/Creatinine Ratio 8.9 L Glucose 290 H Calcium 9.3 Troponin T High Sens 13 Urine Color Yellow Urine Clarity Clear Urine pH 5.0 Ur Specific [place] 1.020 Urine Protein 30 H Urine Glucose (UA) 100 H Urine Ketones 5 H Urine Occult Blood 10 H Urine Nitrite Negative Urine Bilirubin Negative Urine Urobilinogen Normal Ur Leukocyte Esterase 25 H Urine RBC 0-5 SEEN Urine WBC 0-5 SEEN Ur Squamous Epith Cells 0-5 SEEN Urine Bacteria 1+ Urine Mucus 1+ POC Glucose 286 H 01/17/25 07:30 WBC RBC Hgb Hct MCV MCH MCHC RDW Std Deviation RDW Coeff of Jenna Plt Count MPV Immature Gran % (Auto) Neut % (Auto) Lymph % (Auto) Garza % (Auto) Eos % (Auto) Baso % (Auto) Absolute Neuts (auto) Absolute Lymphs (auto) Nucleated RBC % Sodium Potassium Chloride Direct Carbon Dioxide Anion Gap BUN Creatinine Estim Creat Clear Calc Est GFR (MDRD) Non-Af BUN/Creatinine Ratio Glucose Calcium Troponin T High Sens Urine Color Urine Clarity Urine pH Ur Specific [place] Urine Protein Urine Glucose (UA) Urine Ketones Urine Occult Blood Urine Nitrite Urine Bilirubin Urine Urobilinogen Ur Leukocyte Esterase Urine RBC Urine WBC Ur Squamous Epith Cells Urine Bacteria Urine Mucus POC Glucose 238 H Radiography Diagnostic Testing: Clinical Impression(s) from Imaging Studies Chest X-Ray 01/17/25 06:08 IMPRESSION: No evidence of acute disease.. Reading Location: [id number] Rhythm Strip Rhythm Strip: Sinus Rhythm Rate: 90 Ectopy: None EKG Initial EKG: Attestation: I personally reviewed and interpreted this EKG as follows: Interpretation: Sinus Rhythm, No Acute Injury Pattern and LAFB Prior EKG tracings: available for review Prior: Unchanged Management Discussion w/another healthcare provider: Hospitalist Critical Care Time Critical Care Time: Yes Critical care time (excluding procedures): 30-74 minutes (33 min), Including time spent:, Discussing w/Patient &/or Family/Horse Show Judge, Discussing w/Consultants, Arranging Admission or Transfer and Performing Direct Patient Care at Bedside Discharge Plan Dx/Rx/DC Orders Clinical Impression: DKA (diabetic ketoacidosis) Disposition Disposition: Acute Care Hospital [facility]
[2025-01-17 05:49] LABS: Bedside Glucose 286 mg/dL (74-106)
[2025-01-17] MEDS: Insulin Lispro 100 UNIT/ML INSULN.PEN 8 UNIT SC (05:55)
[2025-01-17] MEDS: 0.9% Normal Saline (1000mL) 1,000 ML 999 ML IV (05:55)
--- NOTE | 2025-01-17 06:08 | RAD_ITS ---
PROCEDURE: CHEST PA AND LATERAL REASON FOR EXAM: Shortness of breath with exertion, mild cough TECHNIQUE: PA and lateral views of the chest. COMPARISON: 09/17/2023 FINDINGS: The lungs are clear. Pulmonary vascularity appears within limits. No pleural effusion. Status post CABG, coronary stents, epicardial pacing wires and single lead AICD again noted. The cardiac and mediastinal contours appear within limits. Visualized osseous structures appear within limits. RAD/Chest PA and Lateral IMPRESSION: No evidence of acute disease.. Reading Location: [id number]
[2025-01-17 06:12] LABS: Absolute Lymphocyte Count 3.76 X10^3/uL (0.83-4.51); Absolute Neutrophil Count 5.9 X10^3/uL (2.0-7.7); Basophil# 0.11 X10^3/uL; Eosinophil# 0.21 X10^3/uL; Eosinophils% 1.9 % (0-5); Hematocrit 46.5 % (40-54); Hemoglobin 17.3 g/dL (13.0-16.5); Lymphocyte # 3.76 X10^3/ul (0.83-4.51); Lymphocyte % 34.9 % (19-41); Mean Corp Hgb Conc 37.2 g/dL (32-36); Mean Corpuscular Hgb 33.5 pg (27.0-32.0); Mean Corpuscular Volume 89.9 fL (80-94); Mean Platelet Vol. 12.4 fl (6.2-12.0); Monocyte# 0.77 X10^3/uL; Monocyte% 7.1 % (0-10); NRBC Flagged by Analyzer 0 % (0-5); Neutrophil # 5.88 X10^3/uL (2.7-7.7); Neutrophil % 54.6 % (47-70); Platelet Count 208 K/mm3 (150-450); RBC Distribution Width CV 12.4 % (11.6-14.6); RBC Distribution Width SD 41.1 fl (35.1-43.9); Red Blood Count 5.17 M/mm3 (4.6-6.2); White Blood Count 10.8 K/mm3 (4.4-11.0)
[2025-01-17 06:39] LABS: Troponin T High Sensitivity 13 ng/L (<=22)
[2025-01-17 07:13] LABS: Anion Gap 17 (5-15); BUN 11 mg/dL (4-19); BUN/Creat Ratio 8.9 RATIO (10-20); Calcium 9.3 mg/dL (7.6-11.0); Carbon Dioxide 18.6 mmol/L (22.0-29.0); Chloride 102 mmol/L (96-108); Creatinine, Serum 1.19 mg/dL (0.70-1.20); EST Glomerular Filtration Rate 74 (>60); Glucose 290 mg/dL (70-99); Potassium 3.7 mmol/L (3.3-5.1); Sodium Level 137 mmol/L (133-145)
[2025-01-17 07:17] LABS: Color, Urine Yellow (Yellow); Glucose, Dipstick 100 mg/dl (Normal); Ketone-Dipstick 5 mg/dl (Negative); Leukocyte Esterase-Dipstick 25 /ul (Negative); Nitrite-Dipstick Negative (Negative); Occult Blood-Urine 10 /ul (Negative); Protein-Dipstick 30 mg/dl (Negative); Urine Bilirubin Dipstick Negative (Negative); Urine Clarity Clear (Clear); Urine Urobilinogen Normal (Normal)
[2025-01-17 07:29] LABS: Bacteria 1+ /hpf (None Seen); Mucous, Urine 1+ /hpf (<or=2+); Red Blood Cells-Urine 0-5 SEEN /hpf (0-5); Squamous Epithelial Cells - UA 0-5 SEEN /hpf (0-5); White Blood Cells 0-5 SEEN /hpf (0-5)
[2025-01-17 07:47] LABS: Bedside Glucose 238 mg/dL (74-106)
[2025-01-17 08:34] LABS: TROPONIN VARIANCE 2 HR 1; Troponin T High Sens 2 HR 14 ng/L (<=22)
[2025-01-17 08:34] LABS: Blood Gas Specimen Type VEN; O2 Delivery Device Not entered; SITE Not entered; VBG BASE EXCESS 0 mmol/L (-1.0-3.5); VBG Bicarbonate 24 mmol/L (22-26); VBG PO2 44 mmHg (25-40); VBG SO2 80 % (50-70); VBG TCO2 26 mmol/L (23-33); VBG pCO2 38.1 mmHg (41-51); VBG pH 7.41 (7.32-7.42)
[2025-01-17] MEDS: Insulin Lispro 100 UNIT in 0.9% Normal Saline (100mL Bag) 99 ML 11.4 UNIT CONT INF (09:01)
[2025-01-17 09:16] LABS: Bedside Glucose 183 mg/dL (74-106)
[2025-01-17 09:51] LABS: BETA-HYDROXYBUTYRATE 0.1 mmol/L (0.0-0.3)
--- NOTE | 2025-01-17 09:56 | ED.RN ---
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
[2025-01-17 10:24] LABS: TROPONIN VARIANCE 4 HR 1; Troponin T High Sens 4 HR 14 ng/L (<=22)
[2025-01-17 10:37] LABS: Anion Gap 11 (5-15); BUN 10 mg/dL (4-19); BUN/Creat Ratio 9.1 RATIO (10-20); Calcium 8.6 mg/dL (7.6-11.0); Carbon Dioxide 20.7 mmol/L (22.0-29.0); Chloride 108 mmol/L (96-108); Creatinine, Serum 1.08 mg/dL (0.70-1.20); EST Glomerular Filtration Rate 84 (>60); Estimated Creatinine Clearance 106.44 ml/min; Glucose 122 mg/dL (70-99); Potassium 3.5 mmol/L (3.3-5.1); Sodium Level 140 mmol/L (133-145)
[2025-01-17] MEDS: 0.9% Normal Saline (1000mL) 1,000 ML 100 ML IV (12:44)
[2025-01-17] MEDS: 0.9% Saline Lock 10 ML Syringe IV (12:45)
[2025-01-17] MEDS: Enoxaparin 40 MG/0.4 ML Syringe SC (12:46)
[2025-01-17 12:47] LABS: Bedside Glucose 114 mg/dL (74-106)
--- NOTE | 2025-01-17 15:55 | HP.PCM.HOS_ITS ---
HPI - General General Date of Admission: 01/17/25 HPI Narrative SALENA MONTALVO, is a 50 M who presents to the hospital with some shortness of breath and feelings of dehydration and polyuria. He does have well-controlled type 2 diabetes as well as heart failure with an EF of 25%. He was started on an SGLT2 inhibitor as an outpatient as his only diabetic [place] medication. He does have a slight anion gap acidosis related to DKA. His blood sugars were slightly elevated at home and in the 300 range and he is on an SGLT2 inhibitor which can cause euglycemic DKA. He did receive IV fluids in the ER though his systolic cardiomyopathy complicates his treatment course. He denies any nausea or vomiting, no recent illnesses. [facility] Medical History Chest pain Diabetes mellitus Plantar wart Anxiety and depression Obesity (BMI 30.0-34.9) Atherosclerosis of coronary artery bypass graft of [place] heart with angina pectoris History of non-ST elevation myocardial infarction (NSTEMI) (12/26/21) Acute hypoxemic respiratory failure due to COVID-19 (12/28/21) Type 2 diabetes mellitus Diabetes mellitus, new onset 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) Ischemic cardiomyopathy Chronic systolic (congestive) heart failure History of ST elevation myocardial infarction (STEMI) (06/22/20) Essential (primary) hypertension Hyperlipidemia Atherosclerosis of coronary artery of [place] heart without angina pectoris Home Medications ?Medication ?Instructions ?Recorded ?Last Taken ?Type blood sugar diagnostic #10 ea 12/01/21 Unknown Rx blood-glucose meter #1 ea 12/01/21 Unknown Rx blood sugar diagnostic (Blood #50 ea 03/07/22 Unknown Rx Glucose Test strips) OXYGEN #1 ea 01/24/23 Unknown Rx omega-3 fatty acids 1,250 mg 1,250 mg PO DAILY supplem ent #90 05/03/23 01/16/25 Rx capsule caps inclisiran 284 mg/1.5 mL 284 mg (1.5 mL) subcut .COMP LILLIANA 03/06/24 01/16/25 Rx subcutaneous syringe (Leqvio) cholesterol #1.5 mL Held on 01/17/25. Instructions: insurance atorvastatin 40 mg tablet 40 mg PO QHS cholesterol #90 tabs 04/10/24 01/16/25 Rx dapagliflozin propanediol 10 mg 10 mg PO DAILY diabete s #90 tabs 04/10/24 01/17/25 Rx tablet (Farxiga) ezetimibe 10 mg tablet 10 mg PO DAILY increased lip ids 04/10/24 01/17/25 Rx #90 tabs metoprolol succinate 100 mg 100 mg PO DAILY blood pres sure #90 04/10/24 01/17/25 Rx tablet,extended release 24 hr tabs prasugrel 10 mg tablet (Effient) 10 mg PO DAILY Blood thinner #90 04/10/24 01/17/25 Rx tabs nitroglycerin 0.4 mg sublingual 0.4 mg sublingual Q5M PRN 05/05/24 01/17/25 Rx tablet Cardiac/Chest Pain #25 tabs aspirin 81 mg chewable tablet 81 mg PO DAILY@0800 [facility] 05/09/24 01/16/25 Rx #90 tabs cholecalciferol (vitamin D3) 125 125 mcg PO DAILY faith min #90 caps 05/09/24 01/17/25 Rx mcg (5,000 unit) capsule fluoxetine 20 mg capsule 20 mg PO QDAY Antidepressent #90 05/09/24 01/16/25 Rx caps multivitamin (Daily Multi-Vitamin 1 tab PO DAILY vitam in #90 tabs 05/09/24 01/17/25 Rx tablet) spironolactone 25 mg tablet 25 mg PO DAILY diuretic #9 0 tabs 05/09/24 01/17/25 Rx furosemide 40 mg tablet 20 mg PO QDAY edema/SOB 10/0 12/1201/16/25 History metoprolol succinate 50 mg 50 mg PO DAILY blood pressu re 08/19/24 01/17/25 History tablet,extended release 24 hr sacubitril 97 mg-valsartan 103 mg 1 tab PO BID heart # 180 tabs 11/24/24 01/17/25 Rx tablet (Entresto) Allergy/AdvReac Type Severity Reaction Status Date / Time varenicline (From Chantix) Allergy Intermediate change in Verified 01/17/25 05:26 mental status metformin AdvReac Mild Diarrhea Verified 01/17/25 05:26 adhesive tape AdvReac Rash Verified 01/17/25 05:26 Family History Father Myocardial infarction, Onset Age: 39 Mother Myocardial infarction, Onset Age: 40 Brother Myocardial infarction, Onset Age: 39 Brother Myocardial infarction, Onset Age: 36 Surgical History Presence of implantable cardioverter-defibrillator (ICD) History of coronary angioplasty (01/01/23) History of right heart catheterization (12/28/21) H/O coronary artery bypass surgery (07/26/21) History of left heart catheterization (12/27/21) History of myringotomy History of coronary artery stent placement (05/30/22) Social History household members: significant other Smoking Status: Current every day smoker tobacco type: cigarettes quit status: has quit before alcohol intake: never substance use type: does not use caffeine: Yes Type: coffee Number of servings: 4 ROS Constitutional Constitutional: Denies chills, fatigue, fever(s) or malaise Eyes Eyes: Denies blurry vision ENT HEENT: Denies headache(s) or nasal discharge Cardiovascular Cardiovascular: Denies chest pain, dyspnea on exertion or syncope Respiratory/Chest Respiratory/Chest: Reports shortness of breath at rest; Denies cough or shortness of breath with exertion Gastrointestinal Gastrointestinal: Denies constipation, diarrhea, nausea or vomiting Genitourinary Genitourinary: Denies dysuria Neurologic Neurologic: Denies focal weakness, numbness or tremor(s) Psychiatric Psychiatric: Denies anxiety or depression Endocrine Endocrinology: Reports polydipsia and polyuria Vital Signs Vital Signs Vital Signs: 01/17/25 05:22 01/17/25 05:41 01/17/25 06:08 Temperature 98.5 F Temperature Source Oral Pulse Rate 79 Respiratory Rate 18 Respiratory Effort Normal Respiratory Pattern Normal Blood Pressure 144/106 H Blood Pressure Mean 118 Blood Pressure Source Blood Pressure Position Blood Pressure Location Pulse Ox 95 96 Oxygen Delivery Method Room Air Room Air 01/17/25 07:22 01/17/25 08:55 01/17/25 09:00 Temperature 98.1 F Temperature Source Pulse Rate 74 78 78 Respiratory Rate 18 18 15 Respiratory Effort Respiratory Pattern Blood Pressure 124/68 H 112/72 112/72 Blood Pressure Mean 86 85 85 Blood Pressure Source Blood Pressure Position Blood Pressure Location Pulse Ox 98 98 95 Oxygen Delivery Method Room Air Room Air 01/17/25 12:00 Temperature 97.9 F Temperature Source Oral Pulse Rate 75 Respiratory Rate 16 Respiratory Effort Respiratory Pattern Blood Pressure 128/66 H Blood Pressure Mean 86 Blood Pressure Source Monitor Blood Pressure Position Sitting Blood Pressure Location Right Arm Pulse Ox 94 Oxygen Delivery Method Room Air Weight Weight: 250 lb 3.594 oz Body Mass Index (BMI) 33.5 Physical Exam Narrative general: Alert, Oriented x3, Cooperative, No apparent distress HEENT: Atraumatic, PERRLA, EOMI, Normocephalic Oral: Moist Mucosa Neck: Supple, No JVD Lungs: Clear to auscultation, Normal air movement, No rhonchi, No wheeze, No rales Cardiovascular: Regular rate, Regular Rhythm, Normal S1, Normal S2, No murmurs Abdomen: Soft, Non Tender, Non-Distended, No Hepato-splenomegaly Extremities: No edema Skin: No rashes, No breakdown Neurological: No focal neurological deficits, moves all extremities Psych/Mental Status: Normal Affect, Appropriate Results Lab / Micro Data 01/17/25 05:35 01/17/25 09:51 Labs: Laboratory Results - last 24 hr 01/17/25 05:29: POC Glucose 286 H 01/17/25 05:35: WBC 10.8, RBC 5.17, Hgb 17.3 H, Hct 46.5, MCV 89.9, MCH 33.5 H, MCHC 37.2 H, RDW Std Deviation 41.1, RDW Coeff of Jenna 12.4, Plt Count 208, MPV 12.4 H, Immature Gran % (Auto) 0.500, Neut % (Auto) 54.6, Lymph % (Auto) 34.9, [place] % (Auto) 7.1, Eos % (Auto) 1.9, Baso % (Auto) 1.0, Absolute Neuts (auto) 5.9, Absolute Lymphs (auto) 3.76, Nucleated RBC % 0, Sodium 137, Potassium 3.7, Chloride Direct 102, Carbon Dioxide 18.6 L, Anion Gap 17 H, BUN 11, Creatinine 1.19, Estim Creat Clear Calc 96.60, Est GFR (MDRD) Non-Af 74, BUN/Creatinine Ratio 8.9 L, Glucose 290 H, Calcium 9.3, Troponin T High Sens 13 01/17/25 06:05: Urine Color Yellow, Urine Clarity Clear, Urine pH 5.0, Ur Specific [place] 1.020, Urine Protein 30 H, Urine Glucose (UA) 100 H, Urine Ketones 5 H, Urine Occult Blood 10 H, Urine Nitrite Negative, Urine Bilirubin Negative, Urine Urobilinogen Normal, Ur Leukocyte Esterase 25 H, Urine RBC 0-5 SEEN, Urine WBC 0-5 SEEN, Ur Squamous Epith Cells 0-5 SEEN, Urine Bacteria 1+, Urine Mucus 1+ 01/17/25 07:30: POC Glucose 238 H 01/17/25 07:42: Troponin T Hi Sens 2 Hr 14, Troponin T Hi Sens 2Hr Delta 1, b- Hydroxybutyric mmol/L 0.1 01/17/25 08:57: POC Glucose 183 H 01/17/25 09:51: Sodium 140, Potassium 3.5, Chloride Direct 108, Carbon Dioxide 20.7 L, Anion Gap 11, BUN 10, Creatinine 1.08, Estim Creat Clear Calc 106.44, Est GFR (MDRD) Non-Af 84, BUN/Creatinine Ratio 9.1 L, Glucose 122 H, Calcium 8.6, Troponin T Hi Sens 4Hr 14, Troponin T Hi Sens 4Hr Delta 1 01/17/25 12:11: POC Glucose 114 H ABG Data ABG results: ABG 01/17/25 08:31 Specimen Type LALY Sample Site Not entered VBG pH 7.41 VBG pO2 44 H VBG HCO3 24 VBG Total CO2 26 VBG O2 Sat (Calc) 80 H VBG Base Excess 0 POC Mix VBG pCO2 Pt Tmp 38.1 L O2 Delivery Device Not entered Rhythm Strip Rhythm Strip: Sinus Rhythm Rate: 90 Ectopy: None Imaging Radiology Impression Chest X-Ray 01/17/25 06:08 IMPRESSION: No evidence of acute disease.. Reading Location: [id number] Assessment & Plan Assessment/Plan (1) DKA (diabetic ketoacidosis): PLAN: Plan 1. Euglycemic DKA ? Likely related to his Farxiga at home ? Will hold his medication while inpatient ? Will place him on subcu insulin ? Continue with IV fluids for 1 L ? Will place him on a calorie controlled cardiac diet with limited carbs ? Discussed the possibility of needing to switch him back to metformin, he does not want to secondary to the GI side effects therefore we will have him follow- up with his PCP on discharge to discuss different medications other than SGLT2 inhibitors however given his control, these episodes of euglycemic DKA just have to be a risk with his continued use of the medication especially given the benefits in patients with reduced EF 2. Chronic systolic CHF/CAD status post CABG and stents/essential HTN/HLD ? Continue with his home Lipitor and blood pressure medications ? Will monitor make adjustments as necessary ? Will hold his Lasix as he is getting some IV fluids today for his DKA can likely restart tomorrow ? Will continue with his other blood thinners as well as his Aldactone. 3. Anxiety/depression ? Stable ? Continue with his home Prozac DVT: Lovenox 75 minutes was spent on direct patient care, including documentation as well as chart review and collaboration with colleagues Charges/Coding Visit Charges Inpatient E&M: 84688 Init Hosp L3
--- NOTE | 2025-01-17 16:04 | CASEMGMT ---
Social Work SW received referral for food resources. SW met with pt and provided delivered meals, food panties, [employer] card and [employer] information. Pt denies any additional needs. Cecil Pace
[2025-01-17] MEDS: Insulin Lispro 100 UNIT/ML INSULN.PEN SC ×2 (16:57→21:22)
[2025-01-17 17:16] LABS: Bedside Glucose 161 mg/dL (74-106)
[2025-01-17] MEDS: SACUBITRIL/VALSARTAN 97-103 MG TABLET 1 EACH PO (21:22)
[2025-01-17] MEDS: Atorvastatin Calcium 40 MG Tablet PO (21:22)
[2025-01-17 21:43] LABS: Bedside Glucose 235 mg/dL (74-106)
[2025-01-18] VITALS (7 sets, daily range): BP systolic 107–138; BP diastolic 74–91; PULSE 61–72; RESP 18; TEMP 36.3–36.6; O2SAT 95–97
[2025-01-18] MEDS: Insulin Lispro 100 UNIT/ML INSULN.PEN SC (06:18)
[2025-01-18 06:47] LABS: Bedside Glucose 261 mg/dL (74-106)
[2025-01-18 07:53] LABS: Anion Gap 12 (5-15); BUN 11 mg/dL (4-19); BUN/Creat Ratio 9.5 RATIO (10-20); Carbon Dioxide 18.9 mmol/L (22.0-29.0); Chloride 106 mmol/L (96-108); Creatinine, Serum 1.11 mg/dL (0.70-1.20); EST Glomerular Filtration Rate 81 (>60); Estimated Creatinine Clearance 103.56 ml/min (50-250); Glucose 256 mg/dL (70-99); Potassium 4.3 mmol/L (3.3-5.1); Sodium Level 137 mmol/L (133-145)
[2025-01-18 08:00] LABS: Absolute Lymphocyte Count 3.24 X10^3/uL (0.83-4.51); Absolute Neutrophil Count 4.2 X10^3/uL (2.0-7.7); Basophil% 1.2 % (0-1); Eosinophil# 0.25 X10^3/uL; Eosinophils% 2.9 % (0-5); Hematocrit 45.7 % (40-54); Hemoglobin 16.4 g/dL (13.0-16.5); Lymphocyte # 3.24 X10^3/ul (0.83-4.51); Lymphocyte % 37.5 % (19-41); Mean Corp Hgb Conc 35.9 g/dL (32-36); Mean Corpuscular Hgb 32.7 pg (27.0-32.0); Monocyte# 0.86 X10^3/uL; NRBC Flagged by Analyzer 0 % (0-5); Neutrophil # 4.16 X10^3/uL (2.7-7.7); Neutrophil % 48.1 % (47-70); Platelet Count 185 K/mm3 (150-450); RBC Distribution Width CV 12.7 % (11.6-14.6); RBC Distribution Width SD 41.3 fl (35.1-43.9); Red Blood Count 5.02 M/mm3 (4.6-6.2); White Blood Count 8.6 K/mm3 (4.4-11.0)
--- NOTE | 2025-01-18 08:29 | DCINST_ITS ---
Discharge Instructions Diet Discharge Diet: Low fat / Low cholesterol and Carb Control Diet DC O2, CPAP, BIPAP needs Home O2 Discharge instructions: No Dressing / Incision Discharge Activity: Return to Normal Activity Dressing / Incision Call your doctor if you observe: Fever of 101 or Higher, Shortness of breath, Dizziness, Fainting spells, Swelling in the ankles, Chest pain and Increased palpitations (irregular heartbeat) Follow Up Care Test Results: Test results from this visit will be discussed in further detail at your follow- up appointment, if applicable. Discharge Plan Admission Admit Date/Time: 01/17/25 08:32 Attending Provider: Sam Henderson Primary Care Provider: Lisset Avery Discharge Orders/Prescriptions Prescriptions: New insulin glargine [Lantus Solostar U-100 Insulin] 100 unit/mL (3 mL) insulin pen 10 unit subcut QPM Qty: 15 0RF Continued furosemide 40 mg tablet 20 mg PO QDAY metoprolol succinate 50 mg tablet extended release 24 hr 50 mg PO DAILY Rx Instructions: Take with 100 mg to = 150 mg (DME) blood-glucose meter Kit See Rx Instructions .ROUTE .MEDSUPPLY Qty: 1 0RF Rx Instructions: As directed (DME) blood sugar diagnostic Strip See Rx Instructions .ROUTE .MEDSUPPLY Qty: 10 1RF Rx Instructions: As directed (DME) Blood Glucose Test Strip See Rx Instructions .ROUTE .MEDSUPPLY Qty: 50 11RF Rx Instructions: use twice daily to check blood glucose for type 2 DM (DME) OXYGEN See Rx Instructions .Route .MEDSUPPLY Qty: 1 0RF Rx Instructions: 2 L/M Via [place] Humidified , On at HS off at AM omega-3 fatty acids 1,250 mg capsule 1,250 mg PO DAILY Qty: 90 3RF Leqvio 284 mg/1.5 mL syringe 284 mg subcut .COMPLEX Qty: 1.5 2RF Rx Instructions: 284 mg subcutaneously every 6 months: medication needs ordered from [facility] and given at [facility]; Next dose due end of May 2024 atorvastatin 40 mg tablet 40 mg PO QHS Qty: 90 3RF dapagliflozin propanediol [Farxiga] 10 mg tablet 10 mg PO DAILY Qty: 90 3RF ezetimibe 10 mg tablet 10 mg PO DAILY Qty: 90 3RF metoprolol succinate 100 mg tablet extended release 24 hr 100 mg PO DAILY Qty: 90 3RF Rx Instructions: Take with 50 mg to = 150 mg prasugrel [Effient] 10 mg tablet 10 mg PO DAILY Qty: 90 3RF nitroglycerin 0.4 mg tablet, sublingual 0.4 mg sublingual Q5M PRN (Reason: Cardiac/Chest Pain) Qty: 25 3RF Patient Comments: PT STATES TOOK 3 BETWEEN [id number] aspirin 81 mg tablet,chewable 81 mg PO DAILY@0800 Qty: 90 3RF cholecalciferol (vitamin D3) 125 mcg (5,000 unit) capsule 125 mcg PO DAILY Qty: 90 3RF fluoxetine 20 mg capsule 20 mg PO QDAY Qty: 90 3RF multivitamin [Daily Multi-Vitamin] Tablet 1 tab PO DAILY Qty: 90 3RF spironolactone 25 mg tablet 25 mg PO DAILY Qty: 90 3RF Entresto 97-103 mg tablet 1 tab PO BID Qty: 180 3RF Referrals / Follow Up: Lisset Avery MD [Primary Care Provider] - Within 1 Week Disposition Disposition (needs filled in before D/C Order can be placed): Home, Self Care
[2025-01-18] MEDS: Aspirin 81 MG TAB.CHEW PO (08:33)
[2025-01-18] MEDS: SACUBITRIL/VALSARTAN 97-103 MG TABLET 1 EACH PO (10:27)
[2025-01-18] MEDS: FLUoxetine 20 MG Capsule PO (10:28)
[2025-01-18] MEDS: Metoprolol(XL)Succ 50 MG Tablet PO (10:28)
[2025-01-18] MEDS: Metoprolol(XL)Succ 100 MG Tablet PO (10:29)
[2025-01-18] MEDS: Ezetimibe 10 MG Tablet PO (10:29)
[2025-01-18] MEDS: Spironolactone 25 MG Tablet PO (10:30)
--- NOTE | 2025-01-18 15:52 | PCM.DC.SUM ---
Providers Date of Admission: 01/17/25 Primary Care Physician: Dr. Lisset Avery MD Reason For Visit: euglycemic dka Diagnosis Discharge Diagnosis (1) DKA (diabetic ketoacidosis): Status: Acute Code(s): E11.10 - Type 2 diabetes mellitus with ketoacidosis without coma Medications at Discharge Home Medications blood sugar diagnostic #10 ea 12/01/21 blood-glucose meter #1 ea 12/01/21 blood sugar diagnostic (Blood Glucose Test strips) #50 ea 03/07/22 OXYGEN #1 ea 01/24/23 omega-3 fatty acids 1,250 mg capsule 1,250 mg PO DAILY supplement #90 caps 05/03/23 inclisiran 284 mg/1.5 mL subcutaneous syringe (Leqvio) 284 mg (1.5 mL) subcut .COMPLEX cholesterol #1.5 mL 03/06/24 atorvastatin 40 mg tablet 40 mg PO QHS cholesterol #90 tabs 04/10/24 dapagliflozin propanediol 10 mg tablet (Farxiga) 10 mg PO DAILY diabetes #90 tabs 04/10/24 ezetimibe 10 mg tablet 10 mg PO DAILY increased lipids #90 tabs 04/10/24 metoprolol succinate 100 mg tablet,extended release 24 hr 100 mg PO DAILY blood pressure #90 tabs 04/10/24 prasugrel 10 mg tablet (Effient) 10 mg PO DAILY Blood thinner #90 tabs 04/10/24 nitroglycerin 0.4 mg sublingual tablet 0.4 mg sublingual Q5M PRN Cardiac/Chest Pain #25 tabs 05/05/24 aspirin 81 mg chewable tablet 81 mg PO DAILY@0800 heart health #90 tabs 05/09/24 cholecalciferol (vitamin D3) 125 mcg (5,000 unit) capsule 125 mcg PO DAILY vitamin #90 caps 05/09/24 fluoxetine 20 mg capsule 20 mg PO QDAY Antidepressent #90 caps 05/09/24 multivitamin (Daily Multi-Vitamin tablet) 1 tab PO DAILY vitamin #90 tabs 05/09/24 spironolactone 25 mg tablet 25 mg PO DAILY diuretic #90 tabs 05/09/24 furosemide 40 mg tablet 20 mg PO QDAY edema/SOB 08/19/24 metoprolol succinate 50 mg tablet,extended release 24 hr 50 mg PO DAILY blood pressure 08/19/24 sacubitril 97 mg-valsartan 103 mg tablet (Entresto) 1 tab PO BID heart #180 tabs 11/24/24 insulin glargine 100 unit/mL (3 mL) subcutaneous pen (Lantus Solostar U-100 Insulin) 10 unit (0.1 mL) subcut QPM #15 mL 01/18/25 Hospital Course Operations None Procedures None Summary of Care Provided Minutes Spent on Discharge: 34 Hospital Course: Per HPI: SALENA MONTALVO, is a 50 M who presents to the hospital with some shortness of breath and feelings of dehydration and polyuria. He does have well-controlled type 2 diabetes as well as heart failure with an EF of 25%. He was started on an SGLT2 inhibitor as an outpatient as his only diabetic [place] medication. He does have a slight anion gap acidosis related to DKA. His blood sugars were slightly elevated at home and in the 300 range and he is on an SGLT2 inhibitor which can cause euglycemic DKA. He did receive IV fluids in the ER though his systolic cardiomyopathy complicates his treatment course. He denies any nausea or vomiting, no recent illnesses. Hospital Course: 1. Euglycemic DKA secondary to his Farxiga use for diabetes and his heart failure?50-year-old male presented to the hospital signs and symptoms consistent with DKA. His blood sugars were nonsignificant elevated and given that he is on Farxiga this is consistent with euglycemic DKA. I discussed with him the possibility of switching to a different medication including metformin however he had significant GI side effects with metformin and was hesitant. Also given the fact that the SGLT2 inhibitors show significant mortality benefit with people in systolic cardiomyopathy, there is good reason to continue to try to use the Farxiga. He has significant improvement on the day of discharge after some gentle IV fluids, his blood sugars had improved and his acidotic signs have resolved and his anion gap closed. I discussed with him the possibility for discharge today he expressed understanding there is benefits going home and would like to go home today. I will provide him with a Lantus pen as he was still unsure as whether or not he want to go back on the Farxiga or not, would recommend using 10 units and adjusting accordingly based on his blood sugar readings at home. He will attempt to get an appointment with his PCP sometime this week, or potentially talk with his customer account coordinator on at [facility] for the possibility of continuing Farxiga. If he does choose to continue Farxiga would recommend maintaining hydration is much as possible, to the point where we might have to relax his fluid restrictions if he has any home in order to potentially prevent this from happening in the future. 2. Chronic systolic CHF, coronary artery disease status post CABG and stent, essential hypertension, hyperlipidemia, anxiety, depression are all chronic medical conditions which complicate his care. His home medications were continued where appropriate Weight / BMI Weight Weight: 250 lb 3.594 oz Body Mass Index (BMI) 33.5 ABG / Lab / Microbiology Data 01/18/25 07:50 01/18/25 06:22 Laboratory: Laboratory Results - last 24 hr 01/17/25 16:57: POC Glucose 161 H 01/17/25 21:20: POC Glucose 235 H 01/18/25 06:13: POC Glucose 261 H 01/18/25 06:22: WBC Cancelled, Corrected WBC Cancelled, RBC Cancelled, Hgb Cancelled, Hct Cancelled, MCV Cancelled, MCH Cancelled, MCHC Cancelled, RDW Std Deviation Cancelled, RDW Coeff of Jenna Cancelled, Plt Count Cancelled, MPV Cancelled, Immature Gran % (Auto) Cancelled, Neut % (Auto) Cancelled, Lymph % (Auto) Cancelled, [place] % (Auto) Cancelled, Eos % (Auto) Cancelled, Baso % (Auto) Cancelled, Absolute Neuts (auto) Cancelled, Absolute Lymphs (auto) Cancelled, Total Counted Cancelled, Neutrophils % (Manual) Cancelled, Band Neutrophils % Cancelled, Lymphocytes % (Manual) Cancelled, Monocytes % (Manual) Cancelled, Eosinophils % (Manual) Cancelled, Basophils % (Manual) Cancelled, Metamyelocytes % Cancelled, Myelocytes % Cancelled, Promyelocytes % Cancelled, Blast Cells % Cancelled, Plasma Cell % (Manual) Cancelled, Other Cells % Cancelled, Nucleated RBC % Cancelled, Nucleated RBCs/100 WBC Cancelled, Differential Comment Cancelled, Diff Path Review Cancelled, Hypersegmented Neuts Cancelled, Atypical Lymphocytes Cancelled, Reactive Lymphocytes Cancelled, Smudge Cells Cancelled, Toxic Granulation Cancelled, Toxic Vacuolation Cancelled, Dohle Bodies Cancelled, Bryan Rods Cancelled, Platelet Estimate Cancelled, Plt Morphology Comment Cancelled, RBC Morphology Cancelled 01/18/25 06:22: RBC Morphology Cancelled, Polychromasia Cancelled, Hypochromasia Cancelled, Basophilic Stippling Cancelled, Anisocytosis Cancelled, Microcytosis Cancelled, Macrocytosis Cancelled, Spherocytes Cancelled, Sickle Cells Cancelled, Target Cells Cancelled, Tear Drop Cells Cancelled, Ovalocytes Cancelled, Stomatocytes Cancelled, Rob[place] Bodies Cancelled, Embudo Cells Cancelled, Bite Cells Cancelled, Crenated Cell Cancelled, Acanthocytes (Spur) Cancelled, Rouleaux Cancelled, Schistocytes Cancelled, Sodium 137, Potassium 4.3, Chloride Direct 106, Carbon Dioxide 18.9 L, Anion Gap 12, BUN 11, Creatinine 1.11, Estim Creat Clear Calc 103.56, Est GFR (MDRD) Non-Af 81, BUN/Creatinine Ratio 9.5 L, Glucose 256 H, Calcium 9.0 01/18/25 07:50: WBC 8.6, RBC 5.02, Hgb 16.4, Hct 45.7, MCV 91.0, MCH 32.7 H, MCHC 35.9, RDW Std Deviation 41.3, RDW Coeff of Jenna 12.7, Plt Count 185, MPV 12.0, Immature Gran % (Auto) 0.300, Neut % (Auto) 48.1, Lymph % (Auto) 37.5, [place] % (Auto) 10.0, Eos % (Auto) 2.9, Baso % (Auto) 1.2 H, Absolute Neuts (auto) 4.2, Absolute Lymphs (auto) 3.24, Nucleated RBC % 0 D/C Instructions Discharge Diet: Low fat / Low cholesterol and Carb Control Diet Call your doctor if you observe: Fever of 101 or Higher, Shortness of breath, Dizziness, Fainting spells, Swelling in the ankles, Chest pain and Increased palpitations (irregular heartbeat) DC O2, CPAP, BIPAP Needs Home O2 Discharge instructions: No Meaningful Use Info Meaningful Use Meaningful Use Diagnoses (Choose all that apply): None applicable Ischemic Stroke Statin Dosing Therapy Reference: STATIN DOSE THERAPY REFERENCE: * Patients > 75 years receive moderate or high dose statin therapy. * Patients 75 years or YOUNGER should receive HIGH intensity statin dose unless contraindicated. You will be required to document reason for non-treatment if statin daily dose does not meet guidelines. HIGH DOSE STATIN THERAPY DAILY Atorvastatin > than or = to 40 mg Rosuvastatin > than or = to 20 mg Amlodipine + Atorvastatin > than or = to 2.5/40 mg Ezetimibe + Simvastatin 10/80 mg Simvastatin 80mg Discharge Plan Admission Admit Date/Time: 01/17/25 08:32 Attending Provider: Sam Henderson Primary Care Provider: Lisset Avery Instructions Additional Instructions / Restrictions: Take the lantus if you decide to hold the Farxiga as discussed Discharge Orders/Prescriptions Prescriptions: New insulin glargine [Lantus Solostar U-100 Insulin] 100 unit/mL (3 mL) insulin pen 10 unit subcut QPM Qty: 15 0RF Continued furosemide 40 mg tablet 20 mg PO QDAY metoprolol succinate 50 mg tablet extended release 24 hr 50 mg PO DAILY Rx Instructions: Take with 100 mg to = 150 mg (DME) blood-glucose meter Kit See Rx Instructions .ROUTE .MEDSUPPLY Qty: 1 0RF Rx Instructions: As directed (DME) blood sugar diagnostic Strip See Rx Instructions .ROUTE .MEDSUPPLY Qty: 10 1RF Rx Instructions: As directed (DME) Blood Glucose Test Strip See Rx Instructions .ROUTE .MEDSUPPLY Qty: 50 11RF Rx Instructions: use twice daily to check blood glucose for type 2 DM (DME) OXYGEN See Rx Instructions .Route .MEDSUPPLY Qty: 1 0RF Rx Instructions: 2 L/M Via [place] Humidified , On at HS off at AM omega-3 fatty acids 1,250 mg capsule 1,250 mg PO DAILY Qty: 90 3RF Leqvio 284 mg/1.5 mL syringe 284 mg subcut .COMPLEX Qty: 1.5 2RF Rx Instructions: 284 mg subcutaneously every 6 months: medication needs ordered from [facility] and given at [facility]; Next dose due end of May 2024 atorvastatin 40 mg tablet 40 mg PO QHS Qty: 90 3RF dapagliflozin propanediol [Farxiga] 10 mg tablet 10 mg PO DAILY Qty: 90 3RF ezetimibe 10 mg tablet 10 mg PO DAILY Qty: 90 3RF metoprolol succinate 100 mg tablet extended release 24 hr 100 mg PO DAILY Qty: 90 3RF Rx Instructions: Take with 50 mg to = 150 mg prasugrel [Effient] 10 mg tablet 10 mg PO DAILY Qty: 90 3RF nitroglycerin 0.4 mg tablet, sublingual 0.4 mg sublingual Q5M PRN (Reason: Cardiac/Chest Pain) Qty: 25 3RF Patient Comments: PT STATES TOOK 3 BETWEEN [id number] aspirin 81 mg tablet,chewable 81 mg PO DAILY@0800 Qty: 90 3RF cholecalciferol (vitamin D3) 125 mcg (5,000 unit) capsule 125 mcg PO DAILY Qty: 90 3RF fluoxetine 20 mg capsule 20 mg PO QDAY Qty: 90 3RF multivitamin [Daily Multi-Vitamin] Tablet 1 tab PO DAILY Qty: 90 3RF spironolactone 25 mg tablet 25 mg PO DAILY Qty: 90 3RF Entresto 97-103 mg tablet 1 tab PO BID Qty: 180 3RF Referrals / Follow Up: Lisset Avery MD [Primary Care Provider] - Within 1 Week Disposition Disposition (needs filled in before D/C Order can be placed): Home, Self Care Charges/Coding Visit Charges Inpatient E&M: 89233 Disch Hosp >30min
== END 2025-01-18 10:55 | disposition home or self-care (01) | DRG 638 ==
LOC: ED 08:21 → PCU 09:46
PROVIDERS: Admitting Provider Family Medicine; Emergency Provider Emergency Medicine; PCP Internal Medicine; Visit Provider Family Medicine
DX: E11.10 Type 2 diabetes mellitus with ketoacidosis without coma (principal); I50.22 Chronic systolic (congestive) heart failure; E78.5 Hyperlipidemia, unspecified; I11.0 Hypertensive heart disease with heart failure; F32.A Depression, unspecified; F41.9 Anxiety disorder, unspecified; I25.10 Atherosclerotic heart disease of native coronary artery without angina pectoris; I25.2 Old myocardial infarction; I25.5 Ischemic cardiomyopathy; F17.210 Nicotine dependence, cigarettes, uncomplicated; T38.3X5A Adverse effect of insulin and oral hypoglycemic [antidiabetic] drugs, initial encounter; Z95.5 Presence of coronary angioplasty implant and graft; Z79.82 Long term (current) use of aspirin; Z95.1 Presence of aortocoronary bypass graft; Z79.84 Long term (current) use of oral hypoglycemic drugs; Z79.899 Other long term (current) drug therapy
CPT/HCPCS: 36415; 71046; 80048; 81001; 82010; 82803; 82962; 84484; 85025; 93005; 99285; A4216

== ENCOUNTER → 2025-01-26 | Outpatient (CLI) | payer MEDICARE, MEDICAID, SELFPAY ==
--- NOTE | 2025-01-26 14:31 | US_ITS ---
EXAM: US Retroperitoneal Limited, Renal CLINICAL INDICATION: TECHNIQUE: Real-time limited ultrasound of the retroperitoneum with image documentation. COMPARISON: No relevant prior studies available. FINDINGS: RIGHT KIDNEY: Unremarkable. No stones. No hydronephrosis. The right kidney measures 11.6 x 5.8 x 6.8 cm. LEFT KIDNEY: Unremarkable. No stones. No hydronephrosis. The left kidney measures 11.7 x 6.3 x 6.5 cm. BLADDER: Urinary bladder appears normal. Prevoid volume a 2 7 cc. Postvoid volume 12 cc. US/Kidney and Bladder IMPRESSION: No acute findings in the retroperitoneum. Reading [facility]
[2025-01-26 16:23] LABS: Anion Gap 11 (5-15); BUN 16 mg/dL (4-19); BUN/Creat Ratio 11.4 RATIO (10-20); Calcium,Total 9.4 mg/dL (7.6-11.0); Carbon Dioxide 22.8 mmol/L (21.0-32.0); Chloride 100 mmol/L (98-108); Creatinine, Serum 1.41 mg/dL (0.70-1.20); EST Glomerular Filtration Rate 61 (>60); Glucose 237 mg/dL (70-99); Magnesium 2.2 mg/dL (1.5-2.2); Potassium 4.4 mmol/L (3.3-5.1); Sodium Level 134 mmol/L (133-145)
== END | disposition home or self-care (01) ==
PROVIDERS: PCP Internal Medicine; Referring Provider Internal Medicine; Visit Provider Internal Medicine
DX: Z95.810 Presence of automatic (implantable) cardiac defibrillator (principal); E11.9 Type 2 diabetes mellitus without complications; R10.9 Unspecified abdominal pain; I10 Essential (primary) hypertension; R31.9 Hematuria, unspecified
CPT/HCPCS: 36415; 76770; 80048; 83735

== ENCOUNTER → 2025-05-06 | Outpatient (CLI) | payer MEDICARE, MEDICAID, SELFPAY ==
[2025-05-06 12:18] LABS: Absolute Lymphocyte Count 3.87 X10^3/uL (0.83-4.51); Absolute Neutrophil Count 5.2 X10^3/uL (2.0-7.7); Basophil% 0.9 % (0-1); Eosinophil# 0.37 X10^3/uL; Eosinophils% 3.4 % (0-5); Hematocrit 48.7 % (40-54); Hemoglobin 17.1 g/dL (13.0-16.5); Lymphocyte # 3.87 X10^3/ul (0.83-4.51); Mean Corp Hgb Conc 35.1 g/dL (32-36); Mean Corpuscular Hgb 33.1 pg (27.0-32.0); Mean Corpuscular Volume 94.4 fL (80-94); Mean Platelet Vol. 11.8 fl (6.2-12.0); Monocyte# 1.19 X10^3/uL; Monocyte% 11.1 % (0-10); NRBC Flagged by Analyzer 0 % (0-5); Neutrophil # 5.19 X10^3/uL (2.7-7.7); Neutrophil % 48.3 % (47-70); Platelet Count 204 K/mm3 (150-450); RBC Distribution Width CV 12.7 % (11.6-14.6); RBC Distribution Width SD 43.8 fl (35.1-43.9); Red Blood Count 5.16 M/mm3 (4.6-6.2); White Blood Count 10.8 K/mm3 (4.4-11.0)
[2025-05-06 12:36] LABS: Hemoglobin A1c 7.5 % (<=5.6)
[2025-05-06 13:11] LABS: ALB/GLOB Ratio 1.5 RATIO (0.9-2.4); AST(SGOT) 25 U/L (<=37); Alanine Aminotransfer ALT/SGPT 30 U/L (<=46); Albumin, Serum 4.4 g/dL (3.5-5.0); Alkaline Phosphatase 106 U/L (40-129); Anion Gap 13 (5-15); BUN 9 mg/dL (4-19); BUN/Creat Ratio 6.8 RATIO (10-20); Calcium,Total 9.3 mg/dL (7.6-11.0); Carbon Dioxide 22.4 mmol/L (21.0-32.0); Chloride 103 mmol/L (98-108); EST Glomerular Filtration Rate 67 (>60); Glucose 135 mg/dL (70-99); Potassium 4.2 mmol/L (3.3-5.1); Protein, Total 7.4 g/dL (5.9-8.4); Sodium Level 139 mmol/L (133-145); Total Bilirubin 0.35 mg/dL (0.00-1.30)
[2025-05-06 13:13] LABS: PSA,Total - Annual Screen 0.57 ng/mL (0.02-4.00); Vitamin D,25 Hydroxy 35.3 ng/mL (30-100)
== END | disposition home or self-care (01) ==
LOC: LAB 10:45
PROVIDERS: PCP Internal Medicine; Referring Provider Internal Medicine; Visit Provider Internal Medicine
DX: E11.65 Type 2 diabetes mellitus with hyperglycemia (principal); Z12.5 Encounter for screening for malignant neoplasm of prostate; Z95.810 Presence of automatic (implantable) cardiac defibrillator; I25.5 Ischemic cardiomyopathy; I10 Essential (primary) hypertension; E78.5 Hyperlipidemia, unspecified; I25.709 Atherosclerosis of coronary artery bypass graft(s), unspecified, with unspecified angina pectoris; E55.9 Vitamin D deficiency, unspecified
CPT/HCPCS: 36415; 80053; 82306; 83036; 84153; 84443; 85025; G0103

== ENCOUNTER → 2025-10-14 | Outpatient (CLI) | payer MEDICARE, MEDICAID, SELFPAY ==
[2025-10-14 11:16] LABS: Hematocrit 44.5 % (40-54); Hemoglobin 15.6 g/dL (13.0-16.5); Immature Granulocytes Count 0.030 X10^3/uL (0.0-0.0); Mean Corp Hgb Conc 35.1 g/dL (32-36); Mean Corpuscular Volume 92.5 fL (80-94); Mean Platelet Vol. 11.7 fl (6.2-12.0); NRBC Flagged by Analyzer 0 % (0-5); Platelet Count 180 K/mm3 (150-450); RBC Distribution Width CV 12.5 % (11.6-14.6); RBC Distribution Width SD 42.6 fl (35.1-43.9); Red Blood Count 4.81 M/mm3 (4.6-6.2); White Blood Count 12.1 K/mm3 (4.4-11.0)
[2025-10-14 13:16] LABS: AST(SGOT) 37 U/L (<=37); Alanine Aminotransfer ALT/SGPT 37 U/L (<=46); Albumin, Serum 4.1 g/dL (3.5-5.0); Alkaline Phosphatase 83 U/L (40-129); Anion Gap 13 (5-15); BUN 10 mg/dL (4-19); BUN/Creat Ratio 8.0 RATIO (10-20); Calcium,Total 9.4 mg/dL (7.6-11.0); Carbon Dioxide 22.7 mmol/L (21.0-32.0); Chloride 105 mmol/L (98-108); Cholesterol 173 mg/dL (<=200); Globulin 2.7 g/dL (2.2-4.2); Glucose 102 mg/dL (70-99); Low Density Lipoprotein Calc. 93 mg/dL; Magnesium 2.2 mg/dL (1.5-2.2); Potassium 3.9 mmol/L (3.3-5.1); Pro- Brain NATRIURETIC PEPTIDE 547 pg/mL (<=900); Triglycerides 317 mg/dL; Troponin T High Sensitivity 14 ng/L (<=22); Very Low Density Lipoprotein 63 mg/dL (5-40); Vitamin B12 388 pg/mL (180-914); Vitamin D,25 Hydroxy 25.9 ng/mL (30-100); cholesterol:hdl ratio screen 6.48
== END | disposition home or self-care (01) ==
LOC: LAB 10:56
PROVIDERS: PCP Internal Medicine; Referring Provider Internal Medicine; Visit Provider Internal Medicine
DX: E11.65 Type 2 diabetes mellitus with hyperglycemia (principal); I50.22 Chronic systolic (congestive) heart failure; I11.0 Hypertensive heart disease with heart failure; Z95.810 Presence of automatic (implantable) cardiac defibrillator; I25.709 Atherosclerosis of coronary artery bypass graft(s), unspecified, with unspecified angina pectoris; E78.5 Hyperlipidemia, unspecified; Z13.220 Encounter for screening for lipoid disorders; E55.9 Vitamin D deficiency, unspecified; E53.8 Deficiency of other specified B group vitamins; Z98.61 Coronary angioplasty status; R06.00 Dyspnea, unspecified
CPT/HCPCS: 36415; 80053; 80061; 82306; 82607; 83036; 83735; 83880; 84443; 84484; 85025